=== PATIENT | male | born 1970 | race Caucasian/White ===

== ENCOUNTER 2024-11-18 12:03 | Emergency (ER) | payer SELFPAY ==
[2024-11-18 12:03] VITALS: BP 127/76; PULSE 111; RESP 20; TEMP 36.9; O2SAT 97; BMI 33.0
--- NOTE | 2024-11-18 12:17 | EKG12_ITS ---
Test Reason : GENERAL ILLNESS Blood Pressure : */* mmHG Vent. Rate : 100 BPM Atrial Rate : 100 BPM P-R Int : 154 ms QRS Dur : 146 ms QT Int : 386 ms P-R-T Axes : 8 41 14 degrees QTcB Int : 497 ms Normal sinus rhythm Right bundle branch block Abnormal ECG Confirmed by CAROL GHOTRA, HUY ([id number]), index editor IWONA MONK ([id number]) on 11/20/2024 7:43:14 AM Referred By: MELISSA Confirmed By: HUY MEDINA MD
--- NOTE | 2024-11-18 12:18 | EX.ED.DYSGE1 ---
HPI History of Present Illness Chief Complaint: Cold Sx Narrative Narrative: 53-year-old male presents with his mother because of upper respiratory infection type symptoms that he has had for at least last 5 to 7 days. States he has had scratchy sore throat, sinus problems for which his primary care physician is having him take allergy pills. States he had diarrhea before all of this started. He has occasional cough and shortness of breath but he has history of asthma. [place] feverish as well. Intermittent headaches. He states that he went to urgent care, and had a very brief moment of fleeting chest pain, and when he mentioned that to the provider, she stopped everything and told him to go to the ER because he was having chest pain. He states those symptoms have resolved. [facility] Medical History (Updated 11/18/24 @ 14:32 by Holger Jain MD) Seasonal allergies Asthma Home Medications ?Medication ?Instructions ?Recorded ?Last Taken ?Type albuterol sulfate 90 mcg/actuation 2 puff inhalation Q4H PRN wheezing 11/18/24 Unknown History aerosol inhaler amoxicillin 875 mg-potassium 1 tab PO BID 11/18/24 11/18/24 History clavulanate 125 mg tablet fluticasone propionate 50 1 spray intranasal BID nasal 11/18/24 11/18/24 History mcg/actuation nasal congestion spray,suspension metformin 500 mg tablet,extended 500 mg PO BID 11/18/24 Unknown History release 24 hr Allergy/AdvReac Type Severity Reaction Status Date / Time Iodinated Contrast Media Allergy Hives Verified 11/18/24 12:06 (IVP dye) shellfish derived Allergy Hives Verified 11/18/24 12:06 Sulfa (Sulfonamide Allergy Hives Verified 11/18/24 12:06 Antibiotics) Social History Smoking Status: Never smoker ROS ROS ED ROS Narrative Review of systems positive for subjective fever, sore throat, rhinorrhea and sinus pressure. Previous diarrhea over a week ago. Positive lightheadedness. Positive shortness of breath with history of asthma, occasional cough. EXAM Physical Exam Narrative Exam Narrative: Afebrile. Vital signs noted. Nontoxic-appearing. Cardiovascular examination reveals a regular rate and rhythm. Lungs clear to auscultation bilaterally. Abdomen is soft and nontender without guarding or rebound. Positive bowel sounds. Neurological examination nonfocal, nonlateralizing, moves all extremities, able to lay down on cot independently. Airway patent. No drooling or trismus. No pharyngeal erythema or exudate. Const Vital Signs: 11/18/24 12:03 11/18/24 12:31 11/18/24 14:03 Temperature 98.5 F Temperature Source Oral Pulse Rate 111 H 95 Respiratory Rate 20 H 16 Respiratory Effort Short of Breath Respiratory Pattern Normal Blood Pressure 127/76 H 150/90 H Blood Pressure Mean 93 110 Pulse Ox 97 100 Oxygen Delivery Method Room Air Room Air 11/18/24 15:40 Temperature 97.8 F Temperature Source Pulse Rate 78 Respiratory Rate 16 Respiratory Effort Respiratory Pattern Blood Pressure 148/72 H Blood Pressure Mean 97 Pulse Ox 98 Oxygen Delivery Method MDM MDM MDM Narrative Medical decision making narrative: Differential diagnosis includes but not limited to pneumonia versus bronchitis versus viral syndrome versus seasonal allergies. At this point in time, I will obtain an EKG, but clinically I doubt ACS as he is not currently having chest pain and it was very fleeting. I will obtain a chest x-ray in 2 views to rule out pneumonia and pneumothorax. Initially was tachycardic in triage so I will check his CBC and BMP to look for dehydration and anemia. He was bolused normal saline as well. Patient states that he already took prednisone earlier in the month. He states he usually gets laryngitis and bronchitis and sinusitis together. EKG was obtained and interpreted by myself independently as normal sinus rhythm at 100 bpm without ectopy or acute ST changes. No STEMI. There is a right bundle branch block, but no prior with which to compare. I reviewed his laboratory work and he has normal white count of 8.2 with hemoglobin normal at 16.0, hematocrit 45.3. Platelet count normal at 208. BMP obtained and there is no evidence of dehydration with a BUN normal at 10 and creatinine 1.03, normal sodium 135 and potassium 4.2. Glucose elevated at 166 but normal anion gap of 13. Initial high-sensitivity troponin is 9. Chest x-ray interpreted by myself independently shows no evidence of pneumonia or pneumothorax. Upon repeat evaluation, patient is resting comfortably under the covers of his cot. He states he feels improved. I will let the rest of the fluid bolus infused as he awaits his second troponin. As long as a second troponin shows an acceptable delta, I do feel he can be discharged as he only had brief, fleeting chest pain, but that was the reason he was sent by urgent care. I reviewed his second troponin is 8 for an acceptable delta troponin and I feel he has been ruled out with biomarkers for ACS. I feel that he can be ruled out with biomarkers. I do not feel antibiotics are indicated. He will follow-up with his primary care provider. Return instructions to the emergency department were reviewed. Disposition is discharged home in stable condition. History & Record Review Discussion w/independent historian: Patient and Family (Mother) Lab Data Attestation: I reviewed the patient's lab results. Labs: Laboratory Results - last 24 hr 11/18/24 11/18/24 12:26 14:21 WBC 8.2 RBC 5.05 Hgb 16.0 Hct 45.3 MCV 89.7 MCH 31.7 MCHC 35.3 RDW Std Deviation 41.3 RDW Coeff of Lucio 12.6 Plt Count 208 MPV 10.7 Immature Gran % (Auto) 0.500 Neut % (Auto) 81.8 H Lymph % (Auto) 9.0 L [place] % (Auto) 6.2 Eos % (Auto) 1.6 Baso % (Auto) 0.9 Absolute Neuts (auto) 6.7 Absolute Lymphs (auto) 0.74 L Nucleated RBC % 0 Sodium 135 Potassium 4.2 Chloride 102 Carbon Dioxide 20.0 L Anion Gap 13 BUN 10 Creatinine 1.03 Estim Creat Clear Calc 101.20 Est GFR (MDRD) Non-Af 87 BUN/Creatinine Ratio 9.3 L Glucose 166 H Calcium 9.0 Troponin T High Sens 9 Troponin T Hi Sens 2 Hr 8 Radiography Diagnostic Testing: Clinical Impression(s) from Imaging Studies Chest X-Ray 11/18/24 12:30 IMPRESSION: NEGATIVE CHEST Reading Location: [id number] Discharge Plan Triage Chief Complaint: Cold Sx ED Provider: Holger Jain Dx/Rx/DC Orders Clinical Impression: URI (upper respiratory infection), Viral syndrome, Chest pain Instructions: ED Chest Pain, Uncertain Cause, ED Viral Syndrome (Adult), ED URI, Viral, No Abx (Adult) Prescriptions: No Action albuterol sulfate 90 mcg/actuation HFA aerosol inhaler 2 puff inhalation Q4H PRN (Reason: wheezing) amoxicillin-pot clavulanate 875-125 mg tablet 1 tab PO BID Patient Comments: STARTED ON 11/18/24, ENDS ON 11/24/24. metformin 500 mg tablet extended release 24 hr 500 mg PO BID fluticasone propionate 50 mcg/actuation spray,suspension 1 spray INTRANASAL BID Stand Alone Forms: ED Work / School Excuse Primary Care Provider: Tiffany Chavez NP Referrals: Tiffany Chavez PT SITTER, PT SITTER-C [Primary Care Provider] - 3-5 Days if not improving Activity Restrictions/Additional Instructions: Continue [id number] medications as needed. Follow-up with your primary care provider soon as possible. Return with increased chest pain, new or worsening symptoms. Print Language: Prydeinig Disposition Disposition: Home, Self Care Discharge Date/Time: 11/18/24 15:41
[2024-11-18] MEDS: 0.9% Normal Saline (1000mL) 1,000 ML 999 ML IV (12:26)
--- NOTE | 2024-11-18 12:30 | RAD_ITS ---
PROCEDURE: CHEST PA AND LATERAL 11/18/2024 REASON FOR EXAM: SHORTNESS OF BREATH, COUGH TECHNIQUE: CHEST PA AND LATERAL COMPARISON: None. FINDINGS: Hardware: None. Heart: The heart size is normal. Mediastinum: The mediastinal contour is unremarkable. Lungs: No focal consolidation, pleural effusion or pneumothorax. Bones: Degenerative changes are identified within the thoracic spine. RAD/Chest PA and Lateral IMPRESSION: NEGATIVE CHEST Reading Location: [id number]
[2024-11-18 12:32] LABS: Absolute Lymphocyte Count 0.74 X10^3/uL (0.83-4.51); Absolute Neutrophil Count 6.7 X10^3/uL (2.0-7.7); Basophil# 0.07 X10^3/uL; Basophil% 0.9 % (0-1); Eosinophil# 0.13 X10^3/uL; Eosinophils% 1.6 % (0-5); Hematocrit 45.3 % (40-54); Lymphocyte # 0.74 X10^3/ul (0.83-4.51); Mean Corp Hgb Conc 35.3 g/dL (32-36); Mean Corpuscular Hgb 31.7 pg (27.0-32.0); Mean Corpuscular Volume 89.7 fL (80-94); Mean Platelet Vol. 10.7 fl (6.2-12.0); Monocyte# 0.51 X10^3/uL; Monocyte% 6.2 % (0-10); NRBC Flagged by Analyzer 0 % (0-5); Neutrophil % 81.8 % (47-70); Platelet Count 208 K/mm3 (150-450); RBC Distribution Width CV 12.6 % (11.6-14.6); RBC Distribution Width SD 41.3 fl (35.1-43.9); Red Blood Count 5.05 M/mm3 (4.6-6.2); White Blood Count 8.2 K/mm3 (4.4-11.0)
--- OUTSIDE RECORDS SUMMARY | 2024-11-18 12:47 | XMS RPT_ITS | CCD ---
Author Organization [facility] Care Team Providers Care Screen Repairer Crusher Name Role Phone Rodney GHOTRA, Evelyn Primary Care Provider Queden SLIPPER MAKER.KEVEN, Tiffany A Primary Care Provider Queden SLIPPER MAKER.Paris BACAtny A Primary Care Provider Queden SLIPPER MAKER.MONKEY KEEPER, Tiffany A Primary Care Provider Queden SLIPPER MAKER.Paris BACAtny A Primary Care Provider Sarah Garcia RN Unavailable Unavailable Queden SLIPPER MAKER.MONKEY KEEPER, Tiffany A Primary Care Provider Evelyn Stevens MD Primary Care Provider QUEDEN, TIFFANY A Referring Unavailable BENTLEY AL Attending Unavailable QUEDEN, TIFFANY A Primary Care Unavailable QUEDEN, TIFFANY A Referring Unavailable QUEDEN, TIFFANY A Primary Care Unavailable QUEDEN, TIFFANY A Referring Unavailable QUEDEN, TIFFANY A Primary Care Unavailable QUEDEN, TIFFANY A Referring Unavailable QUEDEN, TIFFANY A Primary Care Unavailable QUEDEN, TIFFANY A Primary Care Unavailable NARCISO III, SEBAS F Referring Unavailabl e PROCK, MISA A Admitting Unavailable PROCK, MISA A Attending Unavailable QUEDEN, TIFFANY Attending Unavailable QUEDEN, TIFFANY Primary Care Unavailable SELF Referring Unavailable QUEDEN, TIFFANY Attending Unavailable QUEDEN, TIFFANY Primary Care Unavailable SELF Referring Unavailable QUEDEN, TIFFANY Attending Unavailable QUEDEN, TIFFANY Primary Care Unavailable QUEDEN, TIFFANY Referring Unavailable QUEDEN, TIFFANY Primary Care Unavailable QUEDEN, TIFFANY Primary Care Unavailable KATI CHRISTIAN Attending Unavailable QUEDEN, TIFFANY Primary Care Unavailable QUEDEN, TIFFANY Attending Unavailable QUEDEN, TIFFANY Primary Care Unavailable QUEDEN, TIFFANY Attending Unavailable SELF Referring Unavailable QUEDEN, TIFFANY Primary Care Unavailable QUEDEN, TIFFANY Attending Unavailable QUEDEN, TIFFANY Attending Unavailable QUEDEN, TIFFANY Primary Care Unavailable SELF Referring Unavailable SELF Referring Unavailable QUEDEN, TIFFANY A Primary Care Unavailable QUEDEN, TIFFANY A Primary Care Unavailable QUEDEN, TIFFANY A Primary Care Unavailable LIBRADO WASHINGTON Attending Unavailable QUEDEN, TIFFANY A Primary Care Unavailable REINA DUBON Attending Unavailable QUEDEN, TIFFANY A Primary Care Unavailable QUEDEN, TIFFANY A Primary Care Unavailable QUEDEN, TIFFANY A Primary Care Unavailable QUEDEN, TIFFANY A Primary Care Unavailable QUEDEN, TIFFANY A Primary Care Unavailable CASTRO HARRY Attending Unavailable Allergies Allergy Classification Reported Allergen(s) Allergy Type Date of Onset Reaction(s) Facility Iodine (and Iodine containting drugs) (1 source) Iodine Drug Allergy 04-12-20 05 [facility] Shellfish (1 source) Shellfish Food Allergy 12-14-19 17 [facility] Sulfamethoxazole / Trimethoprim (1 source) Sulfamethoxazole / Trimethoprim Drug Allergy 04-12-20 05 [facility] Work Phone: Sulfonamides (antibiotic) (1 source) Sulfonamides (Antibiotic) Drug Allergy 04-12-20 05 [facility] Triclosan (1 source) Triclosan Drug Allergy 07-26-19 13 [facility] (20 sources) Iodine; Translations: [IODINE] Drug Allergy 04-12-20 [facility] Work Phone: (20 sources) Shellfish; Translations: [SHELLFISH DERIVED] Drug Allergy 12-14-19 17 [facility] (20 sources) Sulfamethoxazole / Trimethoprim; Translations: [SULFAMETHOXAZOLE-T RIMETHOPRIM] Drug Allergy 04-12-20 [facility] Work Phone: (20 sources) Sulfonamides (Antibiotic); Translations: [SULFA (SULFONAMIDE ANTIBIOTICS)] Propensity to adverse reactions 04-12-20 05 [facility] Work Phone: (20 sources) Triclosan; Translations: [TRICLOSAN] Drug Allergy 07-26-19 13 [facility] (20 sources) hand creams [Other] Propensity to adverse reactions 04-12-20 [facility] Work Phone: (20 sources) Seasonal allergy; Translations: [SEASONAL ALLERGIES] Allergy to substance 03-18-20 Other: See Comments, Intolerance [facility] Medications Current Medications Medication Drug Class(es) Dates Sig (Normalized) Sig (Original) Acetaminophen (20 sources) acetaminophen (T YLENOL ORAL) Take by mouth as needed. Active acetaminophen (T YLENOL ORAL) Take by mouth as needed. 0 Active Comment on above: Take by mouth as nee ded. [id number] 200 actuat albuterol 0.09 mg/actuat metered dose inhaler (20 sources) beta2-Adrenergic Agonist Start: take 2 puff(s) by inhalation every four hours as needed for wheezing albuterol HFA (PROVENTIL HFA, VENTOLIN HFA) 90 mcg/actuation inhaler Indications: Mild intermittent asthma with acute exacerbation (HCC) Inhale 2 puffs as instructed every 4 hours as needed for wheezing/shortness of breath. 1 each 11/14/2024 Active Start: 10-19-2024 End: 11-14-2024 take 2 puff(s) by inhalation every four hours as needed for wheezing albuterol HFA (PROVENTIL HFA, VENTOLIN HFA) 90 mcg/actuation inhaler Indications: Mild intermittent asthma with acute exacerbation (HCC) Inhale 2 puffs as instructed every 4 hours as needed for wheezing/shortness of breath. 1 each 10/19/2024 11/14/2024 Discontinued Start: 08-21-2023 End: 11-05-2024 take 2 puff(s) by inhalation every six hours as needed for wheezing albuterol HFA (PROAIR HFA) 90 mcg/actuation inhaler 2 Puffs every 6 hours as needed for wheezing/shortness of breath. Take as directed 1 Each 08/21/2023 11/05/2024 Discontinued (Course of therapy completed) Start: 01-07-2022 End: 08-20-2023 take 2 puff(s) by inhalation every four hours as needed for wheezing albuterol HFA (PROAIR HFA) 90 mcg/actuation inhaler Indications: Mild intermittent asthma with acute exacerbation Inhale 2 Puffs as instructed every 4 hours as needed for wheezing/shortness of breath. 6.7 g 01/07/2022 08/20/2023 Discontinued Start: 02-02-2021 End: 01-07-2022 take 2 puff(s) by inhalation every six hours as needed for wheezing albuterol HFA (PROAIR HFA) 90 mcg/actuation inhaler Indications: Mild intermittent asthma, uncomplicated Inhale 2 Puffs as instructed every 6 hours as needed for wheezing/shortness of breath. 8 g 1 11/05/2021 01/07/2022 Discontinued Start: 01-31-2018 End: 02-02-2021 take 2 puff(s) by inhalation every six hours as needed albuterol HFA (PROAIR HFA) 90 mcg/actuation inhaler Indications: Acute bacterial sinusitis Inhale 2 Puffs as instructed every 6 hours as needed. 1 Inhaler 1 01/31/2018 02/02/2021 Discontinued (Course of therapy completed) Comment on above: Inhale 2 Puffs as in structed every 6 hours as needed for wheezing/shortness of breath. Inhale 2 Puffs as in structed every 4 hours as needed for wheezing/shortness of breath. 2 Puffs every 6 hour s as needed for wheezing/shortness of breath. Take as directed amoxicillin 875 mg / clavulanate 125 mg oral tablet (9 sources) Penicillin-class Antibacterial Start: 11-17-19 End: 11-24-19 take 1 tablet by mouth twice daily amoxicillin-clavu lanate potassium (AUGMENTIN) 875-125 mg per tablet Indications: Bacterial sinusitis Take 1 tablet by mouth two times a day for 7 days. 14 tablet 11/16/2024 11/23/2024 Active Start: 10-19-2024 End: 10-26-2024 take 1 tablet by mouth every twelve hours amoxicillin-clavulanate potassium (AUGMENTIN) 875-125 mg per tablet Take 1 tablet by mouth every 12 hours for 7 days. 14 tablet 10/19/2024 10/26/2024 Active Start: 07-19-2024 End: 07-26-2024 take 1 tablet by mouth twice daily amoxicillin-clavulanate potassium (AUGMENTIN) 875-125 mg per tablet Take 1 tablet by mouth two times a day for 7 days. 14 tablet 07/19/2024 07/26/2024 Active Start: 06-21-2024 End: 07-01-2024 take 1 tablet by mouth every twelve hours amoxicillin-clavulanate potassium (AUGMENTIN) 875-125 mg per tablet Indications: Acute non-recurrent maxillary sinusitis Take 1 tablet by mouth every 12 hours for 10 days. 20 tablet 06/21/2024 07/01/2024 Active Start: 04-03-2024 End: 04-13-2024 take 1 tablet by mouth every twelve hours amoxicillin-clavulanate potassium (AUGMENTIN) 875-125 mg per tablet Indications: URI, acute Take 1 tablet by mouth every 12 hours for 10 days. 20 tablet 04/03/2024 04/13/2024 Active Start: 08-13-2022 End: 08-23-2022 take 1 tablet by mouth every twelve hours amoxicillin-clavulanic acid (AUGMENTIN) 875-125 mg per tablet Indications: Non-recurrent acute suppurative otitis media of left ear without spontaneous rupture of tympanic membrane Take 1 tablet by mouth every 12 hours for 10 days. 20 tablet 0 08/13/2022 08/23/2022 Active Comment on above: Take 1 tablet by judy every 12 hours for 10 days. azelastine hydrochloride 0.137 mg/actuat metered dose nasal spray (1 source) Histamine-1 Receptor Antagonist Start: 11-17-19 take 1 spray(s) nasal route twice daily azelastine 0.1% nasal spray Indications: Bacterial sinusitis , Seasonal allergic rhinitis due to other allergic trigger Use 1 spray in each nostril two times a day. 30 mL 2 11/16/2024 Active azithromycin 250 mg oral tablet (2 sources) Macrolide Antimicrobial Start: 04-20-20 End: 04-25-20 azithromycin (ZITHROMAX Z-ANDREY) 250 mg tablet Take 2 tablets day one, then, 1 tablet daily until gone. 6 tablet 04/20/2024 04/25/2024 Active benoxinate hydrochloride 4 mg/ml / fluorescein sodium 2.5 mg/ml ophthalmic solution (1 source) Diagnostic Dye Start: 12-07-19 End: 07-04-20 23 fluorescein-benoxina te 0.25-0.4 % 1 Drop (FLURESS) Blood-Glucose Meter (RELION PRIME METER) (20 sources) Start: 10-30-19 Blood-Glucose Meter (RELION PRIME METER) 1 Each four times daily. 1 Each 10/29/2021 Active Start: 10-29-2021 Blood-Glucose Meter (RELION PRIME METER) 1 Each four times daily. 1 Each 0 10/29/2021 Active Comment on above: 1 Each four times da indigo. cetirizine hydrochloride 10 mg oral tablet (7 sources) Histamine-1 Receptor Antagonist Start: 10-18-19 End: 11-17-19 take 1 tablet by mouth once daily cetirizine (ZYRTEC) 10 mg tablet Indications: Seasonal allergic rhinitis due to other allergic trigger Take 1 tablet by mouth once daily. 30 tablet 11/16/2024 Active fluticasone propionate 0.05 mg/actuat metered dose nasal spray (20 sources) Corticosteroid Start: 08-31-19 End: 11-17-19 take 1 spray(s) nasal route twice daily fluticasone (FLONASE ALLERGY RELIEF) 50 mcg/actuation nasal spray Indications: Bacterial sinusitis , Seasonal allergic rhinitis due to other allergic trigger Use 1 spray in each nostril two times a day. 11/16/2024 Active Start: 05-17-2024 End: 08-30-2024 take 1 spray(s) nasal route once daily fluticasone (FLONASE) 50 mcg/actuation nasal spray Indications: Eustachian tube dysfunction, bilateral Use 1 [place] in each nostril once daily. 05/17/2024 08/30/2024 Discontinued Start: 01-07-2022 End: 08-20-2023 take 1 spray(s) nasal route once daily fluticasone (FLONASE ALLERGY RELIEF) 50 mcg/actuation nasal spray Indications: Viral URI with cough Use 1 [place] in each nostril once daily. 9.9 mL 01/07/2022 08/20/2023 Discontinued Comment on above: Use 1 [place] in each nostril once daily. ketoconazole 20 mg/ml medicated shampoo (4 sources) Azole Antifungal Start: 08-27-2022 End: 09-26-2022 ketoconazole (NIZORAL) 2 % shampoo Indications: Seborrheic dermatitis of scalp Apply to affected area every 72 hours. 120 mL 2 08/27/2022 09/26/2022 Active Start: 08-27-2022 End: 09-26-2022 ketoconazole (NIZORAL) 2 % c ream Indications: Seborrheic dermatitis of scalp Apply to affected area once daily. 30 g 2 08/27/2022 09/26/2022 Active Comment on above: Apply to affected ar ea every 72 hours. Apply to affected ar ea once daily. 24 hr metFORMIN hydrochloride 500 mg extended release oral tablet (20 sources) Biguanide Start: End: take 2 tablets by mouth once daily metFORMIN ER (GLUCOPHAGE XR) 500 mg 24 hr tablet Indications: Type 2 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) Take 2 tablets by mouth once daily. 180 tablet 1 10/30/2024 Active Start: 02-16-2022 End: 01-17-2023 take 2 tablets by mouth once daily metFORMIN ER (GLUCOPHAGE XR) 500 mg 24 hr tablet Indications: Type 2 diabetes mellitus without complication, with long-term current use of insulin (HCC) Take 2 tablets by mouth once daily. 180 tablet 1 02/16/2022 06/30/2022 Discontinued Start: 11-05-2021 End: 02-11-2022 take 2 tablets by mouth once daily metFORMIN ER (GLUCOPHAGE XR) 500 mg 24 hr tablet Indications: Type 2 diabetes mellitus without complication, with long-term current use of insulin (HCC) Take 2 tablets by mouth once daily. 120 tablet 1 02/12/2022 Active Comment on above: Take 2 tablets by mo ut once daily. TAKE 2 TABLETS BY MO UT ONCE DAILY oseltamivir 75 mg oral capsule (2 sources) Neuraminidase Inhibitor Start: 08-21-19 End: 08-25-19 take 1 capsule by mouth twice daily oseltamivir (TAMIFLU) 75 mg capsule Take 1 capsule by mouth two times a day for 7 doses. 7 capsule 0 08/21/2023 08/25/2023 Active Comment on above: Take 1 capsule by mo ut two times a day for 7 doses. phenylephrine hydrochloride 25 mg/ml ophthalmic solution (1 source) alpha-1 Adrenergic Agonist Start: 12-07-19 End: 12-08-19 PHENYLephrine 2.5 % 1 Drop (AK-DILATE, CUATE-SYNEPHRINE) predniSONE 10 mg oral tablet (3 sources) Start: 11-06-19 End: 11-12-19 take 6 tablets by mouth once daily, then take 5 tablets by mouth once daily, then take 4 tablets by mouth once daily, then take 3 tablets by mouth once daily, then take 2 tablets by mouth once daily, then take 1 tablet by mouth once daily predniSONE (DELTASONE) 10 mg tablet Indications: Voice hoarseness , Acute cough Take 6 tablets by mouth once daily for 1 day, THEN 5 tablets once daily for 1 day, THEN 4 tablets once daily for 1 day, THEN 3 tablets once daily for 1 day, THEN 2 tablets once daily for 1 day, THEN 1 tablet once daily for 1 day. 21 tablet 11/05/2024 11/11/2024 Active Start: 10-17-2024 End: 10-26-2024 take 3 tablets by mouth once daily, then take 2 tablets by mouth once daily, then take 1 tablet by mouth once daily predniSONE (DELTASONE) 10 mg tablet Indications: Viral URI with cough , Otalgia of both ears , Headache, unspecified headache type Take 3 tablets by mouth once daily for 3 days, THEN 2 tablets once daily for 3 days, THEN 1 tablet once daily for 3 days. 18 tablet 10/17/2024 10/26/2024 Active sodium chloride 0.111 meq/ml nasal spray (10 sources) Start: 11-16-2024 sodium chlorid e (SALINE NASAL) 0.65 % nasal spray Indications: Seasonal allergic rhinitis due to other allergic trigger Use 1 spray in the nose two times a day. 11/16/2024 Active Start: 08-30-2024 End: 11-16-2024 sodium chloride (SALINE MIST ) 0.65 % nasal spray Indications: Viral upper respiratory tract infection with cough Use 1 [place] in the nose as needed. 15 mL 08/30/2024 11/16/2024 Discontinued (Course of therapy completed) tropicamide 10 mg/ml ophthalmic solution (1 source) Anticholinergic Start: 12-06-2022 End: 12-07-2022 tropicamide 1 % 1 Drop (MYDRIACYL) Completed/Discontinued Medications Medication Drug Class(es) Dates Sig (Normalized) Sig (Original) albuterol 0.833 mg/ml / ipratropium bromide 0.167 mg/ml inhalation solution (2 sources) Anticholinergic, beta2-Adrenergic Agonist Start: 10-19-2024 End: 10-19-2024 ipratropium-albute rol 3 mL nebulizer solution (DUONEB) Start: 10-19-2024 End: 10-19-2024 take 1 dose by inhalation once 3 mL, INHALATION, ONCE, 1 dose, On Tue10/19/24 at 1000, PROTECT FROM LIGHT. The unit-dose vial should remain stored in the protective foil pouch until time of use. benzonatate 100 mg oral capsule (9 sources) Non-narcotic Antitussive Start: 04-03-2024 End: 05-17-2024 take 1 capsule by mouth three times daily as needed for cough benzonatate (TESSALON PERLES) 100 mg capsule Indications: Acute cough Take 1 capsule by mouth three times a day as needed for cough. 30 capsule 04/03/2024 05/17/2024 Discontinued (Discontinued by Patient) Start: 11-01-2023 End: 12-27-2023 take 1 capsule by mouth every eight hours as needed benzonatate (TESSALON PERLES) 100 mg capsule Take 1 capsule by mouth three times a day as needed for cough. 12 capsule 0 11/01/2023 12/27/2023 Discontinued (Course of therapy completed) brompheniramine maleate 0.4 mg/ml / dextromethorphan hydrobromide 2 mg/ml / pseudoephedrine hydrochloride 6 mg/ml oral solution (14 sources) alpha-Adrenergic Agonist, Uncompetitive L-xibqez-W-aspartate Receptor Antagonist, Sigma-1 Agonist Start: 10-17-2024 End: 11-16-2024 take 5-10 mL by mouth every six hours as needed Dvmdikgwklbwbsm-Ygmqctpgx-UI (BROMFED DM) 2-30-10 mg/5 mL syrup Take 5-10 mL by mouth four times a day as needed. 240 mL 11/05/2024 11/16/2024 Discontinued (Course of therapy completed) Start: 08-30-2024 End: 11-05-2024 take 10 mL by mouth every eight hours as needed Dwjcxzxqabdgpjm-Odlbowovw-NO (BROMFED DM ) 2-30-10 mg/5 mL syrup Indications: Viral upper respiratory tract infection with cough Take 10 mL by mouth every 8 hours as needed. 118 mL 08/30/2024 11/05/2024 Discontinued (Course of therapy completed) 12 hr cetirizine hydrochloride 5 mg / pseudoephedrine hydrochloride 120 mg extended release oral tablet (20 sources) alpha-Adrenergic Agonist, Histamine-1 Receptor Antagonist Start: 02-10-2022 End: 04-12-2023 take 1 tablet by mouth every twelve hours as needed cetirizine-pseudoephedrine (ZYRTEC-D) 5-120 mg per tablet Take 1 tablet by mouth twice daily as needed. 10 tablet 02/10/2022 04/05/2022 Discontinued Comment on above: Take 1 tablet by judy th twice daily as needed. Take 1 tablet by judy th two times a day as needed. cyclobenzaprine hydrochloride 5 mg oral tablet (17 sources) Muscle Relaxant Start: 11-08-2022 End: 11-08-2022 take 1 tablet by mouth at bedtime as needed cyclobenzaprine (FLEXERIL) 5 mg tablet Indications: Muscle soreness Take 1 tablet by mouth at bedtime as needed. 30 tablet 0 11/08/2022 Active Start: 02-22-2022 End: 03-04-2022 take 1 tablet by mouth every twelve hours as needed cyclobenzaprine (FLEXERIL) 10 mg tablet Take 1 tablet by mouth twice daily as needed for muscle spasm for up to 10 days. 20 tablet 0 02/22/2022 03/04/2022 Active Comment on above: Take 1 tablet by judy th twice daily as needed for muscle spasm for up to 10 days. Take 1 tablet by judy th at bedtime as needed. Take 1 tablet by judy th three times daily. DULoxetine 30 mg delayed release oral capsule (5 sources) Serotonin and Norepinephrine Reuptake Inhibitor Start: 02-18-20 21 End: 02-18-20 22 take 2 capsules by mouth once daily DULoxetine (CYMBALTA) 30 mg capsule Take 2 capsules by mouth once daily. 180 capsule 3 02/17/2021 11/05/2021 Discontinued (Course of therapy completed) Comment on above: Take 2 capsules by out once daily. glipiZIDE er 5 mg 24 hr extended release oral tablet (3 sources) Sulfonylurea Start: 12-03-19 End: 01-02-20 take 1 tablet by mouth once daily glipiZIDE (GLUCOTROL XL) 5 mg 24 hr tablet Take 1 tablet by mouth once daily. 30 tablet 3 12/02/2021 12/04/2021 Discontinued Comment on above: Take 1 tablet by judy th once daily. 12 hr guaiFENesin 600 mg extended release oral tablet (20 sources) Start: 01-08-20 End: 08-20-19 take 1 tablet by mouth twice daily guaiFENesin (MUCINEX) 600 mg 12 hr tablet Indications: Viral URI with cough Take 1 tablet by mouth twice daily. 30 tablet 01/07/2022 08/20/2023 Discontinued Comment on above: Take 1 tablet by judy th twice daily. homeopathic drugs (SINUS ORAL) (1 source) homeopathic drug s (SINUS ORAL) Take by mouth as needed. 0 Active Comment on above: Take by mouth as nee ded. ibuprofen 200 mg oral tablet (18 sources) Nonsteroidal Anti-inflammatory Drug Start: 01-11-20 End: 01-11-20 take 1-2 tablets by mouth every four hours as needed for pain ibuprofen (MOTRIN) 200 mg tablet Indications: Viral URI with cough Take 1-2 tablets by mouth every 4 hours as needed for pain. 30 tablet 0 01/11/2024 01/11/2024 Discontinued Start: 10-14-2022 take 1 tablet by judy th every six hours as needed ibuprofen (MOTRIN) 600 mg tablet Take 1 tablet by mouth every 6 hours as needed for pain. 28 tablet 0 10/14/2022 Active IBUPROFEN ORAL T jimmy by mouth as needed. 0 Active Comment on above: Take by mouth as nee ded. Take 1 tablet by judy th every 6 hours as needed for pain. 3 ml insulin isophane, human 70 unt/ml / insulin, regular, human 30 unt/ml pen injector (7 sources) Insulin Start: 022 End: 022 insulin 70/30 NPH/regular units/mL (HUMULIN 70/30 U-100 KWIKPEN) 100 unit/mL (70-30) Inject 18 Units subcutaneously twice daily with meals. 12 mL 2 10/29/2021 12/02/2021 Discontinued Comment on above: Inject 18 Units subc utaneously twice daily with meals. loratadine 10 mg oral tablet (2 sources) Start: End: take 1 tablet by mouth once daily loratadine (CLARITIN) 10 mg tablet Indications: Seasonal allergies Take 1 tablet by mouth once daily. 90 tablet 04/24/2024 05/17/2024 Discontinued (Discontinued by Patient) meclizine hydrochloride 25 mg oral tablet (20 sources) Antiemetic Start: End: take 1 tablet by mouth every eight hours as needed for dizziness and dizziness meclizine (ANTIVERT) 25 mg tab Indications: Dizziness Take 1 tablet by mouth three times a day as needed. 30 tablet 05/17/2024 11/16/2024 Discontinued Start: 04-18-2024 End: 04-25-2024 take 1 tablet by mouth every eight hours as needed for dizziness and dizziness meclizine (ANTIVERT) 25 mg tab Indications: Dizziness Take 1 tablet by mouth three times a day as needed for up to 7 days. 21 tablet 04/18/2024 04/25/2024 Start: 02-10-2022 End: 04-12-2023 take 12.5-25 mg by mouth every eight hours as needed meclizine (ANTIVERT) 25 mg tab Take 0.5-1 tablets by mouth three times daily as needed (dizziness). 30 tablet 02/10/2022 04/12/2023 Discontinued (Duplicate Entry) Start: 12-27-2021 take 1 tablet by judy th every eight hours as needed meclizine (ANTIVERT) 25 mg tab Take 1 tablet by mouth three times daily as needed (dizziness). 15 tablet 0 12/27/2021 Active Start: 02-12-2021 End: 11-05-2021 take 1 tablet by mouth three times daily as needed for dizziness meclizine (ANTIVERT) 12.5 mg tab Indications: Acute EDA (middle ear effusion), bilateral Take 1 tablet by mouth three times daily as needed (for dizziness). 30 tablet 0 02/12/2021 11/05/2021 Discontinued (Course of therapy completed) End: 05-17-2024 meclizine HCl (MECLIZINE ORA L) Take by mouth. 05/17/2024 Discontinued Comment on above: Take 1 tablet by judy th three times daily as needed (for dizziness). Take 1 tablet by judy th three times daily as needed (dizziness). Take 0.5-1 tablets b y mouth three times daily as needed (dizziness). Take 1 tablet by judy th three times daily. Take 1 tablet by judy th three times a day. omeprazole 40 mg delayed release oral capsule (20 sources) Proton Pump Inhibitor Start: End: take 1 capsule by mouth once daily omeprazole (PRILOSEC) 40 mg capsule Take 1 capsule by mouth once daily. 30 capsule 5 10/26/2021 08/09/2022 Discontinued Start: 07-24-2016 End: 05-22-2021 omeprazole (PRILOSEC) 20 mg capsule Take 20 mg by mouth. 07/24/2016 05/22/2021 Discontinued Comment on above: Take 1 capsule by mo [facility] once daily. ondansetron 4 mg oral tablet (7 sources) Serotonin-3 Receptor Antagonist Start: 4 End: 4 take 1 tablet by mouth every eight hours as needed ondansetron (ZOFRAN) 4 mg tablet Take 1 tablet by mouth every 8 hours as needed for nausea/vomiting. 10 tablet 0 08/21/2023 12/27/2023 Discontinued (Course of therapy completed) Start: 02-15-2023 End: 02-22-2023 take 1 tablet by mouth every six hours as needed ondansetron orally disintegrating (ZOFRAN ODT) 4 mg disintegrating tablet Take 1 tablet by mouth every 6 hours as needed for nausea/vomiting for up to 7 days. 12 tablet 0 02/15/2023 02/22/2023 Active Comment on above: Take 1 tablet by judy th every 6 hours as needed for nausea/vomiting for up to 7 days. Take 1 tablet by judy th every 8 hours as needed for nausea/vomiting. oxymetazoline hydrochloride 0.5 mg/ml nasal spray (20 sources) Start: 10-17-2024 End: 11-16-2024 oxymetazoline (AFRIN, OXYMETAZOLINE,) 0.05 % nasal spray Indications: Viral URI with cough , Otalgia of both ears Use 2-3 sprays in each nostril two times a day. Use as directed. For a maximum of 3 (three) days. 22 mL 10/17/2024 11/16/2024 Discontinued (Course of therapy completed) Start: 01-11-2024 End: 05-17-2024 oxymetazoline (AFRIN, OXYMET AZOLINE,) 0.05 % nasal spray Indications: Viral URI with cough Use 2-3 Sprays in each nostril two times a day. Use as directed. For a maximum of 3 (three) days. 22 mL 01/11/2024 05/17/2024 Discontinued (Discontinued by Patient) pioglitazone 30 mg oral tablet (16 sources) Peroxisome Proliferator Receptor alpha Agonist,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 visit today, we recorded the following information about you: Sia Alonso APRN.CNP 08/31/2024 7:39 AM Signed Please review the below negative results if a call back is made. Phone number for patient is wrong, please update if a call back is made. COVID-19/flu/rsv negative; recommended to self-isolate until the following criteria are met: If you are symptomatic, the CDC recommends that people refrain from work/school and isolate themselves until - At least 24 hours have passed since last fever without the use of fever-reducing medications Other symptoms have improved Please continue with supportive care (rest and hydration) and follow up with primary care for any persistent or worsening symptoms. Please wear a mask when out in public after symptoms have improved. Allergies As of Date: 08/31/2024 Noted Allergy Reaction BACTRIM (SULFAMETHOXAZOLE-TRIM ETH*04/12/2005 4 - Hives HAND SOAP (TRICLOSAN) 07/26/2012 2 - Rash IVP DYE (IODINE) 04/12/2005 4 - Hives SEASONAL ALLERGIES 03/18/2022 5 - Intolerance Comments: Runny nose SHELLFISH DERIVED 12/13/2016 2 - Rash SULFA (SULFONAMIDE ANTIBIOTICS) 04/12/2005 4 - Hives Date Reviewed: 08/30/2024 Reviewed by: Sia Alonso APRN.MONKEY KEEPER - Fully Assessed Reason for Visit: Results [95] Prescriptions as of 08/31/2024 - Brompheniramine-Pseudo eph-DM (BROMFED DM) 2-30-10 mg/5 mL syrup Take 10 mL by mouth every 8 hours as needed. - sodium chloride (SALINE MIST) 0.65 % nasal spray Use 1 [place] in the nose as needed. - fluticasone (FLONASE ALLERGY RELIEF) 50 mcg/actuation nasal spray Use 1 [place] in each nostril two times a day. - metFORMIN ER (GLUCOPHAGE XR) 500 mg 24 hr tablet Take 2 tablets by mouth once daily. - meclizine (ANTIVERT) 25 mg tab Take 1 tablet by mouth three times a day as needed. - albuterol HFA (PROAIR HFA) 90 mcg/actuation inhaler 2 Puffs every 6 hours as needed for wheezing/shortness of breath. Take as directed - blood sugar diagnostic (RELION PRIME TEST STRIPS) test strip Use as instructed - Blood-Glucose Meter (RELION PRIME METER) 1 Each four times daily. - acetaminophen (TYLENOL ORAL) Take by mouth as needed. Meds Comments as of 12/06/2022: 12/06/22 The medications are managed by this patient by: PATIENT Chana SavageRHODA Problem List As Of Date 08/31/2024 Noted Resolved Mixed hyperlipidemia [E78.2] 04/24/2008 Sprain and Strain of Wrist [S63.509A, S66.919A] 08/14/2009 Abdominal pain, left lower quadrant [R10.32] 08/18/2010 Change in bowel function [R19.8] 08/18/2010 GERD (gastroesophageal reflux disease) [K21.9] 08/22/2010 Stress disorder, acute [F43.0] 08/22/2010 Seborrhea [L21.9] 08/22/2010 Gastritis/duodenitis [K29.70, K29.90] 09/02/2010 Duodenitis without mention of hemorrhage [K29.8*09/02/2010 Acute gastritis without mention of hemorrhage [*09/02/2010 Gastritis [K29.70] 09/18/2010 RUBÉN (obstructive sleep apnea) [G47.33] 02/21/2013 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] 08/01/2013 Backache, unspecified [M54.9] 08/01/2013 Chest pain [R07.9] 02/02/2015 10/29/2021 Headache [R51] 02/02/2015 Sleep apnea [G47.30] 02/25/2015 Primary insomnia [F51.01] 02/26/2015 Chronic left shoulder pain [M25.512, G89.29] 12/25/2018 Obesity, Class II, BMI 35-39.9 [E66.812] 01/13/2021 TIA (transient ischemic attack) [G45.9] 01/14/2021 Atypical chest pain [R07.89] 01/15/2021 Fatty liver disease, nonalcoholic [K76.0] 05/22/2021 New onset type 2 diabetes mellitus (HCC) [E11.9]10/26/2021 ROHAN (generalized anxiety disorder) [F41.1] 10/26/2021 Obesity, Class I, BMI 30-34.9 [E66.811] 10/29/2021 Type 2 diabetes mellitus without retinopathy (H*12/03/2021 Spondylolisthesis of lumbosacral region [M43.17]04/14/2022 Chronic bilateral low back pain without sciatic*09/01/2022 Influenza A [J10.1] 08/20/2023 Tachycardia [R00.0] 08/20/2023 08/21/2023 Acute midline low back pain without sciatica [M*03/12/2024 Dizziness [R42] 04/20/2024 Encounter Status:Closed by SIA ALONSO on 08/31/24 [facility] CNOVon 08-30-2024 CN Office Visit (EBENEZER ) CHANG SOLIS ([id number]) 1970 M Date Time Provider Department 08/30/24 3:25 PM SIA ALONSO During your visit today, we recorded the following information about you: Temperature Pulse Respiration Blood pressure 98 degrees 102/minute 16/minute 125/75 Weight 109 kg Sia Alonso APRN.MONKEY KEEPER 08/30/2024 3:46 PM Addendum (J06.9) Viral upper respiratory tract infection with cough (primary encounter diagnosis) Plan: Brompheniramine-Pseudo eph-DM (BROMFED DM) 2-30-10 mg/5 mL syrup, sodium chloride (SALINE MIST) 0.65 % nasal spray, fluticasone (FLONASE ALLERGY RELIEF) 50 mcg/actuation nasal spray (R42) Dizziness (H92.03) Acute otalgia, bilateral Plan: Education on viral vs bacterial infections. Most viral infections will last 2-3 weeks. It is possible to have back to back viral infections. An antibiotic will not treat a virus. -Viral test for rule out, results in 24 hours, isolation in the interim. [facility] -Bromfed for cough/congestion. -Drink lots of fluids and get plenty of rest. -Vaporizers, cool mist humidifiers, warm showers, and warm fluids help open respiratory and sinus passages. Clean humidifiers daily. -OTC tylenol as directed on the bottle. -Saline nasal spray as needed. Flonase twice daily can help reduce inflammation through the sinus cavities. -Cough/deep breathing education, promote clearing of the airways and good lung expansion. -Make follow up with primary care for monitoring and resolution in symptoms. -Signs that warrant an ER evaluation: Sudden change/worsening in condition, lethargy, signs of dehydration, fever greater than 102 F that is not responding to Tylenol or ibuprofen (Motrin, Advil), drooling, difficulty swallowing, difficulty breathing, shortness of breath, chest pain, evidence of airway compromise (tripod position, neck extension, retractions), seizures, changes in mental status, or other concerns. Sia Alonso APRN.MONKEY KEEPER 08/30/2024 3:52 PM Signed [facility] Subjective Chang Solis is a 53 year old male. Patient presents with: Dizziness: Dizzy. Coughing. Runny nose. Blood when blowing nose. Head aches. Both ears achy and pain. Sinus pressure. Fever. Diarrhea. Going on for about 2-3 weeks. Diarrhea started recently. HPI by patient: Chang Solis is a 53 year old presenting to the office with the complaint of dizziness. Started approximately 2-3 weeks ago. Associated symptoms include new congestion, cough, feeling hot/cold. Covid Immunization Dates Current Care Gaps Covid-19 Vaccine ( season) Overdue since 02/05/2024 08/09/2022 Postponed until 08/10/2023 by Marie Bah MA (Declined at this time) 08/01/2021 Imm Admin: COVID-19 original vaccine, full dose, monovalent (MODERNA) 10/28/2020 Imm Admin: COVID-19 original vaccine, full dose, monovalent (MODERNA) 09/26/2020 Imm Admin: COVID-19 original vaccine, full dose, monovalent (MODERNA) 09/04/2020 Imm Admin: COVID-19 original vaccine, full dose, monovalent (MODERNA) Only the first 5 history entries have been loaded, but more history exists. Sick contacts: none. Smoking history/second hand smoke: none. OTC not helping. No antibiotic use in the last 60 days. ALLERGIES Bactrim [Sulfametho* Hives Hand Soap [Triclosa* Rash Ivp Dye [Iodine] Hives Seasonal Allergies Intolerance Comment:Runny nose Shellfish Derived Rash Sulfa (Sulfonamide * Hives Family History Reviewed Including Cardiac Diseases, Psychiatric Diseases, AND Substance Abuse Problem: Hypertension Relation: Mother Age of Onset: (Not Specified) Problem: Lipids Relation: Mother Age of Onset: (Not Specified) Problem: No Ocular Disease Relation: Mother Age of Onset: (Not Specified) Problem: Cancer Relation: Father Age of Onset: (Not Specified) Comment: lung ca. Problem: No Ocular Disease Relation: Father Age of Onset: (Not Specified) Problem: Diabetes Relation: Maternal Grandmother Age of Onset: (Not Specified) Problem: Coronary Artery Disease Relation: Maternal Grandfather Age of Onset: (Not Specified) Problem: Cancer Relation: Paternal Grandfather Age of Onset: (Not Specified) Social History Tobacco Use Smoking status: Never Passive exposure: Yes Smokeless tobacco: Never Vaping Use Vaping status: Never Used Alcohol use: Not Currently Drug use: Never Active Ambulatory Problems Mixed hyperlipidemia Date Noted: 04/24/2008 Sprain and strain of wrist Date Noted: 08/14/2009 Abdominal pain, left lower quadrant Date Noted: 08/18/2010 Change in bowel function Date Noted: 08/18/2010 GERD (gastroesophageal reflux disease) Date Noted: 08/22/2010 Stress disorder, acute Date Noted: 08/22/2010 Seborrhea Date Noted: 08/22/2010 Unspecified gastritis and gastroduodenitis without mention of hemorrhage Kirk (more content not included)... Normal [facility] CBC W Auto Differential pane l (Bld)on 08-04-2024 Basophils (Bld) [#/Vol] 0.06 10*3/uL Normal <0.11 [facility] Comment on above: Order Comment: Speci men Type: BLOOD SPECIMENOrdering Facility: [facility] Address: [address] [place] [address] Performed By: #### 5 7021-8 ####[facility] LABCLIA [id number] [place] [address] [place] Basophils/100 WBC (Bld) 0.8 % Normal [facility] Comment on above: Order Comment: Speci men Type: BLOOD SPECIMENOrdering Facility: [facility] Address: [address] [place] [address] Performed By: #### 5 7021-8 ####[facility] LABCLIA [id number] [place] [address] [facility] [place] Differential cell count method Nom (Bld) Auto Normal [facility] Comment on above: Order Comment: Speci men Type: BLOOD SPECIMENOrdering Facility: [facility] Address: [address] [place] [address] Performed By: #### 5 7021-8 ####[facility] LABCLIA [id number] [facility] [place] [address] [facility] [place] Eosinophils (Bld) [#/Vol] 0.18 10*3/uL Normal <0.46 [facility] Comment on above: Order Comment: Speci men Type: BLOOD SPECIMENOrdering Facility: [facility] Address: [address] [place] [address] Performed By: #### 5 7021-8 ####[facility] LABCLIA [id number] [place] [address] [facility] Eosinophils/100 WBC (Bld) 2.5 % Normal [facility] Comment on above: Order Comment: Speci men Type: BLOOD SPECIMENOrdering Facility: [facility] Address: [address] [place] [address] Performed By: #### 5 7021-8 ####[facility] LABCLIA [id number] [place] [address] [facility] [place] Erythrocyte distribution width (RBC) [Ratio] 12.5 % Normal 11.5-15.0 [facility] Comment on above: Order Comment: Speci men Type: BLOOD SPECIMENOrdering Facility: [facility] Address: [address] [place] [address] Performed By: #### 5 7021-8 ####[facility] LABCLIA [id number] [place] [address] [place] Hematocrit (Bld) [Volume fraction] 45.4 % Normal 39.0-51.0 [facility] Comment on above: Order Comment: Speci men Type: BLOOD SPECIMENOrdering Facility: [facility] Address: [address] [place] [address] Performed By: #### 5 7021-8 ####[facility] LABCLIA [id number] [place] [address] [place] Hemoglobin (Bld) [Mass/Vol] 15.7 g/dL Normal 13.0-17.0 [facility] Comment on above: Order Comment: Speci men Type: BLOOD SPECIMENOrdering Facility: [facility] Address: [address] [place] [address] Performed By: #### 5 7021-8 ####[facility] LABCLIA [id number] [place] [address] [place] Immature granulocytes (Bld) [#/Vol] 10*3/uL Normal <0.10 [facility] Comment on above: Order Comment: Speci men Type: BLOOD SPECIMENOrdering Facility: [facility] Address: [address] [place] [address] Performed By: #### 5 7021-8 ####[facility] LABCLIA [id number] [place] [address] [place] Immature granulocytes/100 WBC (Bld) 0.1 % Normal [facility] Comment on above: Order Comment: Speci men Type: BLOOD SPECIMENOrdering Facility: [facility] Address: [address] [place] [address] Performed By: #### 5 7021-8 ####[facility] LABCLIA [id number] [place] [address] [place] Lymphocytes (Bld) [#/Vol] 2.47 10*3/uL Normal 1.00-4.00 [facility] Comment on above: Order Comment: Speci men Type: BLOOD SPECIMENOrdering Facility: [facility] Address: [address] [place] [address] Performed By: #### 5 7021-8 ####[facility] LABCLIA [id number] [place] [address] [facility] Lymphocytes/100 WBC (Bld) 34.4 % Normal [facility] Comment on above: Order Comment: Speci men Type: BLOOD SPECIMENOrdering Facility: [facility] Address: [address] [place] [address] Performed By: #### 5 7021-8 ####[facility] LABCLIA [id number] [address] [place] MCH (RBC) [Entitic mass] 31.5 pg Normal 26.0-34.0 [facility] Comment on above: Order Comment: Speci men Type: BLOOD SPECIMENOrdering Facility: [facility] Address: [address] [place] [address] Performed By: #### 5 7021-8 ####[facility] LAB[facility] [id number] [address] MCHC (RBC) [Mass/Vol] 34.6 g/dL Normal 30.5-36.0 [facility] Comment on above: Order Comment: Speci men Type: BLOOD SPECIMENOrdering Facility: [facility] Address: [address] [place] [address] Performed By: #### 5 7021-8 ####[facility] LABCLIA [id number] [place] [address] [place] [facility] MCV (RBC) [Entitic vol] 91.2 fL Normal 80.0-100.0 [facility] Comment on above: Order Comment: Speci men Type: BLOOD SPECIMENOrdering Facility: [facility] Address: [address] [place] [address] Performed By: #### 5 7021-8 ####[facility] LABCLIA [id number] [facility] [place] [address] [place] Monocytes (Bld) [#/Vol] 0.48 10*3/uL Normal <0.87 [facility] Comment on above: Order Comment: Speci men Type: BLOOD SPECIMENOrdering Facility: [facility] Address: [address] [place] [address] Performed By: #### 5 7021-8 ####[facility] LABCLIA [id number] [facility] [place] [address] [place] Monocytes/100 WBC (Bld) 6.7 % Normal [facility] Comment on above: Order Comment: Speci men Type: BLOOD SPECIMENOrdering Facility: [facility] Address: [address] [place] [address] Performed By: #### 5 7021-8 ####[facility]IA [id number] [facility] [place] [address] [place] Neutrophils (Bld) [#/Vol] 3.99 10*3/uL Normal 1.45-7.50 [facility] Comment on above: Order Comment: Speci men Type: BLOOD SPECIMENOrdering Facility: [facility] Address: [address] [place] [address] Performed By: #### 5 7021-8 ####[facility] LABCLIA [id number] [place] [address] [place] Neutrophils/100 WBC (Bld) 55.5 % Normal [facility] Comment on above: Order Comment: Speci men Type: BLOOD SPECIMENOrdering Facility: [facility] Address: [address] [place] [address] Performed By: #### 5 7021-8 ####[facility] LABCLIA [id number] [place] [address] [place] Nucleated RBC (Bld) [#/Vol] Normal [facility] Comment on above: Order Comment: Speci men Type: BLOOD SPECIMENOrdering Facility: [facility] Address: [address] [place] [address] Performed By: #### 5 7021-8 ####[facility] LABCLIA [id number] [place] [address] [place] Nucleated RBC/100 WBC (Bld) [Ratio] Normal [facility] Comment on above: Order Comment: Speci men Type: BLOOD SPECIMENOrdering Facility: [facility] Address: [address] [place] [address] Performed By: #### 5 7021-8 ####[facility] [id number] [facility] [place] [address] [place] Platelet mean volume (Bld) [Entitic vol] 10.5 fL Normal 9.0-12.7 [facility] Comment on above: Order Comment: Speci men Type: BLOOD SPECIMENOrdering Facility: [facility] Address: [address] [place] [address] Performed By: #### 5 7021-8 ####[facility] [id number] [facility] [place] [address] [place] Platelets (Bld) [#/Vol] 262 10*3/uL Normal 150-400 [facility] Comment on above: Order Comment: Speci men Type: BLOOD SPECIMENOrdering Facility: [facility] Address: [address] [place] [address] Performed By: #### 5 7021-8 ####[facility] [id number] [facility] [place] [address] [place] RBC (Bld) [#/Vol] 4.98 10*6/uL Normal 4.20-6.00 [facility] Comment on above: Order Comment: Speci men Type: BLOOD SPECIMENOrdering Facility: [facility] Address: [address] [place] [address] Performed By: #### 5 7021-8 ####[facility] LAB[facility] [id number] [place] [address] [place] WBC (Bld) [#/Vol] 7.19 10*3/uL Normal 3.70-11.00 [facility] Comment on above: Order Comment: Speci men Type: BLOOD SPECIMENOrdering Facility: [facility] Address: [address] [place] [address] Performed By: #### 5 7021-8 ####[facility] LABCLIA [id number] [place] [address] [facility] Comprehensive metabolic 2000 panelon 08-04-2024 Albumin [Mass/Vol] 4.3 g/dL Normal 3.9-4.9 [facility] Comment on above: Order Comment: Speci men Type: BLOOD SPECIMEN [facility] Address: [address] [place] [address] Performed By: #### 2 4323-8, 86836-9 #### [facility] CLIA [id number] [address] [place] [address] [place] ALP [Catalytic activity/Vol] 98 U/L Normal 38-113 [facility] Comment on above: Order Comment: Speci men Type: BLOOD SPECIMEN [facility] Address: [address] [place] [address] Performed By: #### 2 4323-8, 90770-7 #### [facility] CLIA [id number] [address] [place] [address] [facility] ALT With P-5'-P [Catalytic activity/Vol] 28 U/L Normal 10-54 [facility] Comment on above: Order Comment: Speci men Type: BLOOD SPECIMEN [facility] Address: [address] [place] [address] Performed By: #### 2 4323-8, 30881-9 #### [facility] CLIA [id number] [address] [place] [address] [facility] [place] Anion gap [Moles/Vol] 10 mmol/L Normal 8-15 [facility] Comment on above: Order Comment: Speci men Type: BLOOD SPECIMEN [facility] Address: [address] [place] [address] Performed By: #### 2 4323-8, 05975-9 #### [facility] CLIA [id number] [address] [place] [address] [place] AST With P-5'-P [Catalytic activity/Vol] 22 U/L Normal 14-40 [facility] Comment on above: Order Comment: Speci men Type: BLOOD SPECIMEN [facility] Address: [address] [place] [id number] Performed By: #### 2 4323-8, 75024-0 #### [facility] CLIA [id number] [address] [place] [address] [place] Bilirubin [Mass/Vol] 0.5 mg/dL Normal 0.2-1.3 [facility] Comment on above: Order Comment: Speci men Type: BLOOD SPECIMEN [facility] Address: [address] [place] [address] Performed By: #### 2 4323-8, 39158-5 #### [facility] CLIA [id number] [address] [place] [address] [place] Calcium [Mass/Vol] 9.2 mg/dL Normal 8.5-10.2 [facility] Comment on above: Order Comment: Speci men Type: BLOOD SPECIMEN [facility] Address: [address] [place] [id number] Performed By: #### 2 4323-8, 61028-0 #### [facility] CLIA [id number] [address] [place] [address] [place] Chloride [Moles/Vol] 103 mmol/L Normal 98-107 [facility] Comment on above: Order Comment: Speci men Type: BLOOD SPECIMEN [facility] Address: [address] [place] [id number] Performed By: #### 2 4323-8, 05995-5 #### [facility] CLIA [id number] [address] [place] [address] [place] CO2 [Moles/Vol] 25 mmol/L Normal 22-30 [facility] Comment on above: Order Comment: Fred aguilar Type: BLOOD SPECIMEN [facility] Address: [address] [place] [address] Performed By: #### 2 4323-8, 56766-9 #### [facility] CLIA [id number] [address] [place] [id number] [place] Creatinine [Mass/Vol] 1.07 mg/dL Normal 0.73-1.22 [facility] Comment on above: Order Comment: Fred aguilar Type: BLOOD SPECIMEN [facility] Address: [address] [place] [address] Performed By: #### 2 4323-8, 33075-4 #### [facility] CLIA [id number] [address] Creatinine and Glomerular filtration rate.predicted panel (S/P/Bld) 83 mL/min/1.73m??? Normal >=60 [facility] Comment on above: Order Comment: Fred aguilar Type: BLOOD SPECIMEN [facility] Address: [address] [place] [address] Result Comment: Hyun mated Glomerular Filtration Rate (eGFR) is calculated using the 2020 CKD-EPI creatinine equation. This equation utilizes serum creatinine, sex, and age as parameters. The creatinine assay has traceable calibration to isotope dilution-mass spectrometry. Refer to KDIGO guidelines for clinical interpretation. In patients with unstable renal function, e.g. those with acute kidney injury, the eGFR may not accurately reflect actual GFR. Performed By: #### 2 4323-8, 29512-0 #### [facility] CLIA [id number] [address] [place] [id number] [place] Glucose [Mass/Vol] 126 mg/dL High 74-99 [facility] Comment on above: Order Comment: Fred aguilar Type: BLOOD SPECIMEN [facility] Address: [address] [place] [address] Result Comment: The [place] [employer] (ADA) provides guidance for cutoff values for fasting glucose and random glucose. The ADA defines fasting as no caloric intake for at least 8 hours. Fasting plasma glucose results between 100 to 125 mg/dL indicate increased risk for diabetes (prediabetes). Fasting plasma glucose results greater than or equal to 126 mg/dL meet the criteria for diagnosis of diabetes. In the absence of unequivocal hyperglycemia, results should be confirmed by repeat testing. In a patient with classic symptoms of hyperglycemia or hyperglycemic crisis, random plasma glucose results greater than or equal to 200 mg/dL meet the criteria for diagnosis of diabetes. Reference: Standards of Medical Care in Diabetes 2016, [place] Diabetes Association. Diabetes Care. 2016.39(Suppl 1). Performed By: #### 2 4323-8, 60579-6 #### [facility] CLIA [id number] [address] [place] [address] [place] Potassium [Moles/Vol] 4.3 mmol/L Normal 3.7-5.1 [facility] Comment on above: Order Comment: Fred aguilar Type: BLOOD SPECIMEN Ordering Facility: [facility] Address: [address] [place] [address] Performed By: #### 2 4323-8, 68291-4 #### [facility] CLIA [id number] [address] [place] [address] [place] Protein [Mass/Vol] 7.7 g/dL Normal 6.3-8.0 [facility] Comment on above: Order Comment: Fred aguilar Type: BLOOD SPECIMEN Ordering Facility: [facility] Address: [address] [place] [address] Performed By: #### 2 4323-8, 83521-6 #### [facility] CLIA [id number] [address] [place] [address] [place] Sodium [Moles/Vol] 138 mmol/L Normal 136-144 [facility] Comment on above: Order Comment: Fred aguilar Type: BLOOD SPECIMEN Ordering Facility: [facility] Address: [address] [place] [address] Performed By: #### 2 4323-8, 70299-2 #### [facility] CLIA [id number] [address] [place] [address] [place] Urea nitrogen [Mass/Vol] 18 mg/dL Normal 9-24 [facility] Comment on above: Order Comment: Speci men Type: BLOOD SPECIMEN Ordering Facility: [facility] Address: [address] [place] [address] Performed By: #### 2 4323-8, 24207-3 #### [facility] CLIA [id number] [address] [place] [address] [facility] [place] Lipid 1996 panelon 5 Cholesterol [Mass/Vol] 197 mg/dL Normal <200 [facility] Comment on above: Order Comment: Speci men Type: BLOOD SPECIMENOrdering Facility: [facility] Address: [address] [place] [address] Result Comment: <200 mg/dL, Desirable 200-239 mg/dL, Borderline high >239 mg/dL, High Performed By: #### 2 4323-8, 70514-3 ####[facility] [id number] [place] [address] [place] Cholesterol in HDL [Mass/Vol] 37 mg/dL Low >39 [facility] Comment on above: Order Comment: Speci men Type: BLOOD SPECIMENOrdering Facility: [facility] Address: [address] [place] [address] Result Comment: 40-5 9 mg/dL, Acceptable >59 mg/dL, High: Negative risk factor for coronary heart disease <40 mg/dL, Low: Positive risk factor for coronary heart disease Performed By: #### 2 4323-8, 66978-4 ####[facility] [id number] [place] [address] [place] Cholesterol in LDL [Mass/Vol] 103 mg/dL High <100 [facility] Comment on above: Order Comment: Speci men Type: BLOOD SPECIMENOrdering Facility: [facility] Address: [address] [place] [address] Result Comment: <100 mg/dL, Optimal 100-129 mg/dL, Near optimal/above optimal 130-159 mg/dL, Borderline high 160-189 mg/dL, High >189 mg/dL, Very high Secondary prevention optimal LDL Cholesterol levels are recommended to be < 70 mg/dL Performed By: #### 2 4323-8, 35551-7 ####[facility] [id number] [place] [address] [facility] [place] Cholesterol in LDL/Cholesterol in HDL [Mass ratio] 2.78 {ratio} High <2.54 [facility] Comment on above: Order Comment: Speci men Type: BLOOD SPECIMENOrdering Facility: [facility] Address: [address] [place] [address] Result Comment: Refe rence: 1. National Cholesterol Education Program ATP III Guideline At-A-Glance Quick Desk Reference: National Heart, Lung, and Blood [place]. National Institutes of Health. 2001: NIH Publication No. 01-3305. 2. An International Atherosclerosis Society position paper: global recommendations for the management of dyslipidemia: executive summary, Atherosclerosis. 2014: 232(2):410-413. Performed By: #### 2 4323-8, 46533-2 ####[facility] [id number] [place] [address] [place] Cholesterol in VLDL [Mass/Vol] 57 mg/dL High <30 [facility] Comment on above: Order Comment: Cynthiai men Type: BLOOD SPECIMENOrdering Facility: [facility] Address: [address] [place] [address] Performed By: #### 2 4323-8, 89589-3 ####[facility] [id number] [place] [address] [place] Cholesterol non HDL [Mass/Vol] 160 mg/dL High <130 [facility] Comment on above: Order Comment: Fred jeff Type: BLOOD SPECIMENOrdering Facility: [facility] Address: [address] [place] [address] Result Comment: <130 mg/dL, Optimal 130-159 mg/dL, Near optimal/above optimal 160-189 mg/dL, Borderline high 190-219 mg/dL, High >219 mg/dL, Very high Secondary prevention optimal non HDL Cholesterol levels are recommended to be <100 mg/dL Performed By: #### 2 4323-8, 40729-1 ####[facility] [id number] [place] [address] [facility] Cholesterol.total/Ch olesterol in HDL [Mass ratio] 5.32 {ratio} High <5.10 [facility] Comment on above: Order Comment: Speci men Type: BLOOD SPECIMENOrdering Facility: [facility] Address: [address] [place] [address] Performed By: #### 2 4323-8, 14487-6 ####[facility] [id number] [place] [address] [facility] FASTING TIME 12 hrs Normal [facility] Comment on above: Order Comment: Speci men Type: BLOOD SPECIMENOrdering Facility: [facility] Address: [address] [place] [address] Performed By: #### 2 4323-8, 65681-2 ####[facility] [id number] [place] [id number] [facility] Triglyceride [Mass/Vol] 285 mg/dL High <150 [facility] Comment on above: Order Comment: Speci men Type: BLOOD SPECIMENOrdering Facility: [facility] Address: [address] [place] [address] Result Comment: <150 mg/dL, Normal 150-199 mg/dL, Borderline high 200-499 mg/dL, High >499 mg/dL, Very high Performed By: #### 2 4323-8, 63390-4 ####[facility] [id number] [place] [address] [facility] CNOVon 07-26-2024 CNOV Office Visit (CHRIS) CHANG SOLIS ([id number]) 1970 M Date Time Provider Department 07/26/24 4:00 PM TIFFANY CHAVEZ During your visit today, we recorded the following information about you: Temperature Pulse Respiration Blood pressure 98.1 degrees 81/minute 18/minute 124/68 Weight Height 109.3 kg 1.791 m Tiffany Chavez SLIPPER MAKER.MONKEY KEEPER 07/26/2024 5:36 PM Signed [facility] Tiffany Chavez SLIPPER MAKER-MONKEY KEEPER. [address] [place] [address] Dept Dept. Visit Date: July 26, 2024 Chief Complaint: Patient presents with: F/U Diabetes 3 Month History of Present Illness Chang Solis is a 53 year old male here today for diabetes follow-up visit. Patient has type 2 diabetes. Feeling well today, no concerns. Denies dizziness, chest pain, shortness of breath, changes in vision, fatigue, foot pain. Denies numbness and tingling in extremities. Denies polydipsia, polyphagia, polyuria. Home Blood Sugars: 130-158 Medication Compliance: Diet control Low Blood Sugars: No Diet: Has been watching what he has been eating and drinking Exercise: Not currently Eye Exam: Due Podiatry: None Tobacco use - No Alcohol use - No Currently finishing course of Augmentin for sinus infection. He is feeling better. PAST MEDICAL HISTORY Diagnosis Date Abdominal pain, left lower quadrant Acute gastritis without mention of hemorrhage Diabetes (HCC) Duodenitis without mention of hemorrhage Esophageal reflux Gastroesophageal reflux Unspecified asthma(493.90) exercise-induced Social History Tobacco Use Smoking status: Never Passive exposure: Yes Smokeless tobacco: Never Vaping Use Vaping status: Never Used Substance Use Topics Alcohol use: Not Currently Drug use: Never Social History Social History Narrative Not on file ALLERGIES Allergen Reactions Bactrim [Sulfametho* Hives Hand Soap [Triclosa* Rash Ivp Dye [Iodine] Hives Seasonal Allergies Intolerance Runny nose Shellfish Derived Rash Sulfa (Sulfonamide * Hives Current Outpatient Medications Medication Sig amoxicillin-clavulanat e potassium (AUGMENTIN) 875-125 mg per tablet Take 1 tablet by mouth two times a day for 7 days. fluticasone (FLONASE) 50 mcg/actuation nasal spray Use 1 [place] in each nostril once daily. meclizine (ANTIVERT) 25 mg tab Take 1 tablet by mouth three times a day as needed. albuterol HFA (PROAIR HFA) 90 mcg/actuation inhaler 2 Puffs every 6 hours as needed for wheezing/shortness of breath. Take as directed blood sugar diagnostic (RELION PRIME TEST STRIPS) test strip Use as instructed Blood-Glucose Meter (RELION PRIME METER) 1 Each four times daily. acetaminophen (TYLENOL ORAL) Take by mouth as needed. metFORMIN ER (GLUCOPHAGE XR) 500 mg 24 hr tablet Take 2 tablets by mouth once daily. No current facility-administered medications for this visit. Review of Systems Review of Systems Constitutional: Negative for appetite change, chills, diaphoresis, fatigue, fever and unexpected weight change. HENT: Negative. Eyes: Negative. Respiratory: Negative for cough, chest tightness, shortness of breath and wheezing. Cardiovascular: Negative for chest pain, palpitations and leg swelling. Gastrointestinal: Negative for abdominal pain, constipation, diarrhea, nausea and vomiting. Endocrine: Negative. Genitourinary: Negative. Musculoskeletal: Negative. Skin: Negative. Allergic/Immunologic: Negative. Neurological: Negative for dizziness, light-headedness and headaches. Hematological: Negative. Psychiatric/Behavioral : Negative. Physical Exam BP 124/68 Pulse 81 Temp (Src) 98.1 (Oral) Resp 18 Ht 5' 10.5 (1.79m) Wt 241 lb (109.3kg) SpO2 97% BMI 34.08 kg/(m2). Last 3 Encounter BP Readings: Date: BP: 07/26/2024 124/68 07/19/2024 130/80 06/21/2024 124/78 Physical Exam Vitals and nursing note reviewed. Constitutional: Appearance: He is obese. HENT: Mouth/Throat: Mouth: Mucous membranes are moist. Eyes: Pupils: Pupils are equal, round, and reactive to light. Cardiovascular: Rate and Rhythm: Normal rate and regular rhythm. Heart sounds: Normal heart sounds. Pulmonary: Breath sounds: Normal breath sounds. Musculoskeletal: Cervical back: Neck supple. Skin: General: Skin is dry. Neurological: Mental Status: He is oriented to person, place, and time. Psychiatric: Mood and Affect: Mood normal. Behavior: Behavior normal. Lab Results Component Value Date Hemoglobin A1C 6.1 (H) 05/21/2023 Hemoglobin A1C (POCT) 7.4 (A) 07/26/2024 Hemoglobin A1C (POCT) 6.4 (A) 12/27/2023 Lab Results Component Value Date Cholesterol, Total 177 02/27/2022 Cholesterol, Total 172 10/27/2021 Cholesterol, Total 170 01/15/2021 Lab Results Component Value Date LDL Ch (more content not included)... Normal [facility] HEMOGLOBIN A1C (POC)on 07-26 HbA1c (Bld) [Mass fraction] 7.4 % Abnormal 4.3 - 5.6 % [facility] Comment on above: Location:[facility], [address] [place] [address], [facility] Point of care (POC) Hemoglobin A1c (HGBA1C) testing is intended to assess glucose control and provide a management tool for patients known to have diabetes and their healthcare providers. Target HGBA1C levels may depend on specific clinical circumstances. POC HGBA1C is not intended for use as a diagnostic or screening test; laboratory-based testing should be used for diagnostic purposes. The following information is supplemental and may not be applicable to specific diabetes management situations: The POC device antiquer provides a normal range of 4.2% to 6.5% for the HGBA1C POC test. However, the [place] Diabetes Association guidelines indicate that patients with HGBA1C in the range of 5.7% to 6.4% are at increased risk for development of diabetes and that intervention by lifestyle modification may be beneficial. A HGBA1C level greater than or equal to 6.5% is considered diagnostic of diabetes, pending confirmatory testing. Use of HGBA1C testing to evaluate glucose control may not be appropriate for patients with hemoglobin variants or other conditions (e.g. anemia) that alter red blood cell lifespan. Interpretation and review of laboratory results Abnormal [facility] CNOVon 07-19-2024 CNOV Office Visit (UCWSTR ) CHANG SOLIS ([id number]) 1970 M Date Time Provider Department 07/19/24 3:30 PM MICHELINE LINDER [facility] During your visit today, we recorded the following information about you: Temperature Pulse Respiration Blood pressure 97.9 degrees 90/minute 21/minute 130/80 Weight 109 kg Micheline Linder PA 07/19/2024 3:53 PM Signed This note was created using [employer]. Subjective Chang Solis is a 53 year old male. HPI 53-year-old male presents for cough and congestion x 1.5 weeks. Patient states he has had cough, sneezing, nasal congestion for the past week and a half. He has sinus pressure, sinus pain and headache. He has not had any fevers. His mom is sick with similar symptoms. Patient has taken some Tylenol without much improvement in symptoms. Has not tried anything else [id number]. PAST MEDICAL HISTORY Diagnosis Date Abdominal pain, left lower quadrant Acute gastritis without mention of hemorrhage Diabetes (HCC) Duodenitis without mention of hemorrhage Esophageal reflux Gastroesophageal reflux Unspecified asthma(493.90) exercise-induced PAST SURGICAL HISTORY Procedure Laterality Date APPENDECTOMY HX CHOLECYSTECTOMY HX COLONOSCOPY W/BIOPSY SINGLE/MULTIPLE 09/02/10 EGD TRANSORAL BIOPSY SINGLE/MULTIPLE 09/02/10 HERNIA REPAIR HX LAPAROSCOPY SURG CHOLECYSTECTOMY Cholecystectomy, lap RPR 1ST INGUN HRNA AGE 5 YRS/> REDUCIBLE Hernia repair, inguinal RPR 1ST INGUN HRNA AGE 5 YRS/> REDUCIBLE Hernia repair, inguinal TONSILLECTOMY HX TONSILLECTOMY PRIMARY/SECONDARY Tonsillectomy ALLERGIES Bactrim [Sulfamethoxazole-Trim ethoprim], Hand Soap [Triclosan], Ivp Dye [Iodine], Seasonal Allergies, Shellfish Derived, and Sulfa (Sulfonamide Antibiotics) MEDICATIONS fluticasone (FLONASE) 50 mcg/actuation nasal spray Use 1 [place] in each nostril once daily. meclizine (ANTIVERT) 25 mg tab Take 1 tablet by mouth three times a day as needed. albuterol HFA (PROAIR HFA) 90 mcg/actuation inhaler 2 Puffs every 6 hours as needed for wheezing/shortness of breath. Take as directed blood sugar diagnostic (RELION PRIME TEST STRIPS) test strip Use as instructed Blood-Glucose Meter (RELION PRIME METER) 1 Each four times daily. acetaminophen (TYLENOL ORAL) Take by mouth as needed. amoxicillin-clavulanat e potassium (AUGMENTIN) 875-125 mg per tablet Take 1 tablet by mouth two times a day for 7 days. FAMILY HISTORY Problem Relation Age of Onset Hypertension Mother Lipids Mother No Ocular Disease Mother Cancer Father lung ca. No Ocular Disease Father Diabetes Maternal Grandmother Coronary Artery Disease Maternal Grandfather Cancer Paternal Grandfather Social History Tobacco Use Smoking status: Never Passive exposure: Yes Smokeless tobacco: Never Vaping Use Vaping status: Never Used Substance Use Topics Alcohol use: Not Currently Drug use: Never Review of Systems Constitutional: Negative for chills and fever. HENT: Positive for congestion, sinus pressure, sinus pain and sneezing. Negative for sore throat. Respiratory: Positive for cough. Negative for shortness of breath. Gastrointestinal: Negative for diarrhea and vomiting. Objective BP 130/80 Pulse 90 Temp 36.6 ?C (97.9 ?F) Resp 21 Wt 109 kg (240 lb 4.8 oz) SpO2 97% BMI 33.99 kg/m? Physical Exam Vitals and nursing note reviewed. Constitutional: General: He is not in acute distress. Appearance: Normal appearance. He is not toxic-appearing. HENT: Right Ear: Tympanic membrane and ear canal normal. Left Ear: Tympanic membrane and ear canal normal. Nose: Mucosal edema and congestion present. Right Sinus: Maxillary sinus tenderness present. Left Sinus: Maxillary sinus tenderness present. Mouth/Throat: Mouth: Mucous membranes are moist. Eyes: Conjunctiva/sclera: Conjunctivae normal. Cardiovascular: Rate and Rhythm: Normal rate and regular rhythm. Pulmonary: Effort: Pulmonary effort is normal. Breath sounds: Normal breath sounds. No wheezing, rhonchi or rales. Skin: General: Skin is warm and dry. Neurological: Mental Status: He is alert. Assessment and Plan ASSESSMENT/PLAN: 1. Bacterial sinusitis - ICD9: 473.9, 041.9, ICD10: J32.9, B96.89 - Will begin treatment with Augmentin 875 mg PO BID for 7 days - The patient should also be given OTC decongestants prn for the first 5-7 days of treatment. - Supportive care with plenty of fluids, rest, and analgesia prn. Diagnosis and treatment plan were discussed and questions were answered to the patient's satisfaction. Pt acknowledged understanding of concepts and follow up plan. Specific signs and symptoms that would indicate the need for higher level of care were discussed in detail warranting prompt ER evaluation. QUANG Carrion Allergies As of Date: 07/19/2024 Noted Allergy Reaction (more content not included)... Normal [facility] CNCOon 06-28-2024 CNCO Letter Text Normal [facility] CNPNon 06-28-2024 CNPN Telephone (AGFAMPLE) CHANG SOLIS ([id number]) 1970 M Date Time Provider Department 06/28/24 TIFFANY CHAVEZ During your visit today, we recorded the following information about you: Darin Ba Marcie 06/28/2024 5:18 PM Signed No Show Documentation Chang Solis no showed for an appointment on 06/28/24 with Tiffany Chavez APRN.MONKEY KEEPER at 4:00 pm. He was scheduled for diabetes follow up . I called and was unable to speak with the patient regarding his missed appointment. Chang did not state the reason that he missed his appointment was because he did not answer phone call . Resources discussed/offered to patient: left message to rescheule No show determined to be fault of patient: Yes This is the patients second no show in the last 12 months. Patient was rescheduled for NA. Letter sent through [employer] Is this the Third or Fourth No Show? No Ba Marcie Cm June 28, 2024 5:14 PM Allergies As of Date: 06/28/2024 Noted Allergy Reaction BACTRIM (SULFAMETHOXAZOLE-TRIM ETH*04/12/2005 4 - Hives HAND SOAP (TRICLOSAN) 07/26/2012 2 - Rash IVP DYE (IODINE) 04/12/2005 4 - Hives SEASONAL ALLERGIES 03/18/2022 5 - Intolerance Comments: Runny nose SHELLFISH DERIVED 12/13/2016 2 - Rash SULFA (SULFONAMIDE ANTIBIOTICS) 04/12/2005 4 - Hives Date Reviewed: 06/21/2024 Reviewed by: Tiffany Chavez APRN.MONKEY KEEPER - Fully Assessed Reason for Visit: No Show [1558] Cmt: Pt no showed for appt on 06/28/24 Prescriptions as of 06/28/2024 - amoxicillin-clavulanat e potassium (AUGMENTIN) 875-125 mg per tablet Take 1 tablet by mouth every 12 hours for 10 days. - fluticasone (FLONASE) 50 mcg/actuation nasal spray Use 1 [place] in each nostril once daily. - meclizine (ANTIVERT) 25 mg tab Take 1 tablet by mouth three times a day as needed. - albuterol HFA (PROAIR HFA) 90 mcg/actuation inhaler 2 Puffs every 6 hours as needed for wheezing/shortness of breath. Take as directed - blood sugar diagnostic (RELION PRIME TEST STRIPS) test strip Use as instructed - Blood-Glucose Meter (RELION PRIME METER) 1 Each four times daily. - acetaminophen (TYLENOL ORAL) Take by mouth as needed. Meds Comments as of 12/06/2022: 12/06/22 The medications are managed by this patient by: PATIENT RHODA Rodriguez Problem List As Of Date 06/28/2024 Noted Resolved Mixed hyperlipidemia [E78.2] 04/24/2008 Sprain and Strain of Wrist [S63.509A, S66.919A] 08/14/2009 Abdominal pain, left lower quadrant [R10.32] 08/18/2010 Change in bowel function [R19.8] 08/18/2010 GERD (gastroesophageal reflux disease) [K21.9] 08/22/2010 Stress disorder, acute [F43.0] 08/22/2010 Seborrhea [L21.9] 08/22/2010 Gastritis/duodenitis [K29.70, K29.90] 09/02/2010 Duodenitis without mention of hemorrhage [K29.8*09/02/2010 Acute gastritis without mention of hemorrhage [*09/02/2010 Gastritis [K29.70] 09/18/2010 RUBÉN (obstructive sleep apnea) [G47.33] 02/21/2013 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] 08/01/2013 Backache, unspecified [M54.9] 08/01/2013 Chest pain [R07.9] 02/02/2015 10/29/2021 Headache [R51] 02/02/2015 Sleep apnea [G47.30] 02/25/2015 Primary insomnia [F51.01] 02/26/2015 Chronic left shoulder pain [M25.512, G89.29] 12/25/2018 Obesity, Class II, BMI 35-39.9 [E66.812] 01/13/2021 TIA (transient ischemic attack) [G45.9] 01/14/2021 Atypical chest pain [R07.89] 01/15/2021 Fatty liver disease, nonalcoholic [K76.0] 05/22/2021 New onset type 2 diabetes mellitus (HCC) [E11.9]10/26/2021 ROHAN (generalized anxiety disorder) [F41.1] 10/26/2021 Obesity, Class I, BMI 30-34.9 [E66.811] 10/29/2021 Type 2 diabetes mellitus without retinopathy (H*12/03/2021 Spondylolisthesis of lumbosacral region [M43.17]04/14/2022 Chronic bilateral low back pain without sciatic*09/01/2022 Influenza A [J10.1] 08/20/2023 Tachycardia [R00.0] 08/20/2023 08/21/2023 Acute midline low back pain without sciatica [M*03/12/2024 Dizziness [R42] 04/20/2024 Encounter Status:Closed by BA CM on 06/28/24 [facility] ARLETTEOVon 06-21-2024 CNOV Office Visit (AGFAMPLE) CHANG SOLIS ([id number]) 1970 M Date Time Provider Department 06/21/24 3:00 PM TIFFANY CHAVEZ During your visit today, we recorded the following information about you: Temperature Pulse Respiration Blood pressure 97.8 degrees 88/minute 16/minute 124/78 Weight Height 110.2 kg 1.791 m Tiffany Chavez, SLIPPER MAKER.MONKEY KEEPER 06/21/2024 4:22 PM Signed CHIEF COMPLAINT: Chang Solis is a 53 year old male who presents for a dry cough, sneezing, runny nose, nasal congestion and pressure, dizziness, headaches, and ear pain. He has had some blood in his nasal drainage.His symptoms started approximately 7-8 days ago and haven't improved. He picked up Mucinex but hasn't start using it at. I reviewed past medical, surgical, social, and family histories today and updated chart. Allergies, chronic medications, and supplements were also reviewed. PAST MEDICAL HISTORY Diagnosis Date Abdominal pain, left lower quadrant Acute gastritis without mention of hemorrhage Diabetes (HCC) Duodenitis without mention of hemorrhage Esophageal reflux Gastroesophageal reflux Unspecified asthma(493.90) exercise-induced PAST SURGICAL HISTORY Procedure Laterality Date APPENDECTOMY HX CHOLECYSTECTOMY HX COLONOSCOPY W/BIOPSY SINGLE/MULTIPLE 09/02/10 EGD TRANSORAL BIOPSY SINGLE/MULTIPLE 09/02/10 HERNIA REPAIR HX LAPAROSCOPY SURG CHOLECYSTECTOMY Cholecystectomy, lap RPR 1ST INGUN HRNA AGE 5 YRS/> REDUCIBLE Hernia repair, inguinal RPR 1ST INGUN HRNA AGE 5 YRS/> REDUCIBLE Hernia repair, inguinal TONSILLECTOMY HX TONSILLECTOMY PRIMARY/SECONDARY Tonsillectomy Social History Tobacco Use Smoking status: Never Passive exposure: Yes Smokeless tobacco: Never Vaping Use Vaping status: Never Used Substance Use Topics Alcohol use: Not Currently Drug use: Never ALLERGIES Allergen Reactions Bactrim [Sulfametho* Hives Hand Soap [Triclosa* Rash Ivp Dye [Iodine] Hives Seasonal Allergies Intolerance Runny nose Shellfish Derived Rash Sulfa (Sulfonamide * Hives Family History Problem Relation Age of Onset Hypertension Mother Lipids Mother No Ocular Disease Mother Cancer Father lung ca. No Ocular Disease Father Diabetes Maternal Grandmother Coronary Artery Disease Maternal Grandfather Cancer Paternal Grandfather Current Outpatient Medications Medication Sig Dispense Refill fluticasone (FLONASE) 50 mcg/actuation nasal spray Use 1 [place] in each nostril once daily. meclizine (ANTIVERT) 25 mg tab Take 1 tablet by mouth three times a day as needed. 30 tablet 0 albuterol HFA (PROAIR HFA) 90 mcg/actuation inhaler 2 Puffs every 6 hours as needed for wheezing/shortness of breath. Take as directed 1 Each 0 blood sugar diagnostic (RELION PRIME TEST STRIPS) test strip Use as instructed 200 Strip 2 Blood-Glucose Meter (RELION PRIME METER) 1 Each four times daily. 1 Each 0 acetaminophen (TYLENOL ORAL) Take by mouth as needed. amoxicillin-clavulanat e potassium (AUGMENTIN) 875-125 mg per tablet Take 1 tablet by mouth every 12 hours for 10 days. 20 tablet 0 No current facility-administered medications for this visit. Review of Systems Constitutional: Positive for fatigue. Negative for appetite change, chills, diaphoresis, fever and unexpected weight change. HENT: Positive for congestion, ear pain, rhinorrhea, sinus pressure, sinus pain, sneezing and sore throat. Respiratory: Positive for cough and shortness of breath. Negative for chest tightness and wheezing. Cardiovascular: Negative for chest pain, palpitations and leg swelling. Gastrointestinal: Negative for abdominal pain, diarrhea, nausea and vomiting. Genitourinary: Negative. Neurological: Positive for dizziness and headaches. BP 124/78 Pulse 88 Temp 97.8 Resp 16 Ht 5' 10.5 (1.79m) Wt 243 lb (110.2kg) SpO2 98% BMI 34.36 kg/(m2). Physical Exam Vitals and nursing note reviewed. Constitutional: General: He is not in acute distress. Appearance: He is obese. He is not ill-appearing. HENT: Right Ear: Ear canal and external ear normal. Left Ear: Ear canal and external ear normal. Nose: Mucosal edema, congestion and rhinorrhea present. Right Sinus: Maxillary sinus tenderness present. Left Sinus: Maxillary sinus tenderness present. Mouth/Throat: Mouth: Mucous membranes are moist. Pharynx: Oropharynx is clear. Uvula midline. No pharyngeal swelling or oropharyngeal exudate. Eyes: General: Vision grossly intact. Pupils: Pupils are equal, round, and reactive to light. Cardiovascular: Rate and Rhythm: Normal rate and regular rhythm. Heart sounds: Normal heart sounds, S1 normal and S2 normal. Pulmonary: Effort: Pulmonary effort is normal. Breath sounds: Normal breath sounds and air entry. No decreased breath sounds or wheezing. Musculoskeletal: Cervical back: (more content not included)... [facility] Office Visit (AGFAMPLE) CHANG SOLIS ([id number]) 1970 M Date Time Provider Department 05/17/24 3:00 PM TIFFANY CHAVEZJACQUES During your visit today, we recorded the following information about you: Temperature Pulse Respiration Blood pressure 97.4 degrees 93/minute 18/minute 126/78 Weight Height 110.2 kg 1.791 m Tiffany Chavez APRN.CNP 05/17/2024 5:24 PM Signed CHIEF COMPLAINT: Chang Solis is a 53 year old male who presents for recurrent dizziness and recent elevated blood sugar. His blood sugar was 266 this morning then 4 hours later was 144 then took it before he came here it was 161. He states he was outside Tuesday putting up theodore lights and since then he has had sinus congestion and headache, cough, ears have been bothering him, dizziness that comes and goes. Last ate at 9 am this morning, had a blueberry bagel, two eggs and a bratwurst, coffee w/ cream and sweet and low. I reviewed past medical, surgical, social, and family histories today and updated chart. Allergies, chronic medications, and supplements were also reviewed. 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 so he's wondering if it isn't reading correctly He may get a new one OTC PAST MEDICAL HISTORY Diagnosis Date Abdominal pain, left lower quadrant Acute gastritis without mention of hemorrhage Diabetes (HCC) Duodenitis without mention of hemorrhage Esophageal reflux Gastroesophageal reflux Unspecified asthma(493.90) exercise-induced PAST SURGICAL HISTORY Procedure Laterality Date APPENDECTOMY HX CHOLECYSTECTOMY HX COLONOSCOPY W/BIOPSY SINGLE/MULTIPLE 09/02/10 EGD TRANSORAL BIOPSY SINGLE/MULTIPLE 09/02/10 HERNIA REPAIR HX LAPAROSCOPY SURG CHOLECYSTECTOMY Cholecystectomy, lap RPR 1ST INGUN HRNA AGE 5 YRS/> REDUCIBLE Hernia repair, inguinal RPR 1ST INGUN HRNA AGE 5 YRS/> REDUCIBLE Hernia repair, inguinal TONSILLECTOMY HX TONSILLECTOMY PRIMARY/SECONDARY Tonsillectomy Social History Tobacco Use Smoking status: Never Passive exposure: Yes Smokeless tobacco: Never Vaping Use Vaping status: Never Used Substance Use Topics Alcohol use: Not Currently Drug use: Never ALLERGIES Allergen Reactions Bactrim [Sulfametho* Hives Hand Soap [Triclosa* Rash Ivp Dye [Iodine] Hives Seasonal Allergies Intolerance Runny nose Shellfish Derived Rash Sulfa (Sulfonamide * Hives Family History Problem Relation Age of Onset Hypertension Mother Lipids Mother No Ocular Disease Mother Cancer Father lung ca. No Ocular Disease Father Diabetes Maternal Grandmother Coronary Artery Disease Maternal Grandfather Cancer Paternal Grandfather Current Outpatient Medications Medication Sig Dispense Refill albuterol HFA (PROAIR HFA) 90 mcg/actuation inhaler 2 Puffs every 6 hours as needed for wheezing/shortness of breath. Take as directed 1 Each 0 blood sugar diagnostic (RELION PRIME TEST STRIPS) test strip Use as instructed 200 Strip 2 Blood-Glucose Meter (RELION PRIME METER) 1 Each four times daily. 1 Each 0 acetaminophen (TYLENOL ORAL) Take by mouth as needed. fluticasone (FLONASE) 50 mcg/actuation nasal spray Use 1 [place] in each nostril once daily. meclizine (ANTIVERT) 25 mg tab Take 1 tablet by mouth three times a day as needed. 30 tablet 0 No current facility-administered medications for this visit. Review of Systems Constitutional: Negative for appetite change, chills, diaphoresis, fatigue, fever and unexpected weight change. HENT: Positive for congestion, ear discharge, ear pain, hearing loss and sinus pressure. Negative for facial swelling, rhinorrhea, sinus pain, sneezing, sore throat and tinnitus. Respiratory: Positive for cough. Negative for chest tightness, shortness of breath and wheezing. Cardiovascular: Negative. Gastrointestinal: Negative. Genitourinary: Negative. Musculoskeletal: Negative. Neurological: Positive for dizziness and headaches. Negative for syncope. Hematological: Negative. BP 126/78 Pulse 93 Temp 97.4 Resp 18 Ht 5' 10.5 (1.79m) Wt 243 lb (110.2kg) SpO2 97% BMI 34.36 kg/(m2). Physical Exam Vitals and nursing note reviewed. Constitutional: Appearance: He is obese. HENT: Right Ear: Ear canal and external ear normal. A middle ear effusion is present. Tympanic membrane is not injected or erythematous. Left Ear: Ear canal and external ear normal. A middle ear effusion is present. Tympanic membrane is not injected or erythematous. Nose: Congestion present. Right Sinus: Frontal sinus tenderness present. Left Sinu (more content not included)... Normal [facility] GLUCOSE, BLOOD (POC)on 05-17 Glucose [Mass/Vol] 132 mg/dL Abnormal 74 - 99 mg/dL [facility] Comment on above: The Accu-Chek Inform II glucose meter has not been approved for testing on patients receiving intensive medical intervention or therapy and results from this point of care glucose test should not be used for patient management decisions in these cases. Inaccurate results may also occur from other interfering factors, such as N-acetylcysteine (blood concentrations of greater than 5mg/dL), galactose, extremes of hematocrit (<10 or >65), or high doses of ascorbic acid (vitamin C) greater than 3mg/dL. Consider alternate testing mechanisms (e.g. core lab, blood gas instrument) in the above situations. Interpretation and review of laboratory results Abnormal [facility] Moo 04-24-2024 [facility] Telephone (CHRIS) CHANG SOLIS ([id number]) 1970 M Date Time Provider Department 04/24/24 TIFFANY CHAVEZ During your visit today, we recorded the following information about you: Nichol Erazo MA 04/24/2024 3:24 PM Signed Patient lm on vm wondering if you can send anything in for allergies. Has water eyes and sneezing. Please advise. VERA Myrick Brittny A, APRN.MONKEY KEEPER 04/24/2024 5:47 PM Signed Rx for Claritin sent in. Tiffany Chavez APRN.CNP 04/24/2024 5:47 PM Signed Addended by: TIFFANY CHAVEZ on: 04/24/2024 05:47 PM Modules accepted: Orders Nichol Erazo MA 04/25/2024 8:59 AM Signed Vm not set up. VERA Myrick Mary, MA 04/25/2024 1:03 PM Addendum Lm on pt. rx sent. Nichol Erazo MA Allergies As of Date: 04/24/2024 Noted Allergy Reaction BACTRIM (SULFAMETHOXAZOLE-TRIM ETH*04/12/2005 4 - Hives HAND SOAP (TRICLOSAN) 07/26/2012 2 - Rash IVP DYE (IODINE) 04/12/2005 4 - Hives SEASONAL ALLERGIES 03/18/2022 5 - Intolerance Comments: Runny nose SHELLFISH DERIVED 12/13/2016 2 - Rash SULFA (SULFONAMIDE ANTIBIOTICS) 04/12/2005 4 - Hives Date Reviewed: 04/20/2024 Reviewed by: Dipak Skinner LPN - Fully Assessed Reason for Visit: Patient Question [1477] Primary Visit Diagnosis:Seasonal allergies [J30.2] Order(s):loratadine (CLARITIN) 10 mg tabletTake 1 tablet by mouth once daily.Disp: 90 tabletRfl: 0 Prescriptions as of 04/25/2024 - loratadine (CLARITIN) 10 mg tablet Take 1 tablet by mouth once daily. - azithromycin (ZITHROMAX Z-ANDREY) 250 mg tablet Take 2 tablets day one, then, 1 tablet daily until gone. - meclizine (ANTIVERT) 25 mg tab Take 1 tablet by mouth three times a day as needed for up to 7 days. - benzonatate (TESSALON PERLES) 100 mg capsule Take 1 capsule by mouth three times a day as needed for cough. - oxymetazoline (AFRIN, OXYMETAZOLINE,) 0.05 % nasal spray Use 2-3 Sprays in each nostril two times a day. Use as directed. For a maximum of 3 (three) days. - albuterol HFA (PROAIR HFA) 90 mcg/actuation inhaler 2 Puffs every 6 hours as needed for wheezing/shortness of breath. Take as directed - blood sugar diagnostic (RELION PRIME TEST STRIPS) test strip Use as instructed - Blood-Glucose Meter (RELION PRIME METER) 1 Each four times daily. - acetaminophen (TYLENOL ORAL) Take by mouth as needed. Meds Comments as of 12/06/2022: 12/06/22 The medications are managed by this patient by: PATIENT RHODA Rodriguez Problem List As Of Date 04/24/2024 Noted Resolved Mixed hyperlipidemia [E78.2] 04/24/2008 Sprain and Strain of Wrist [S63.509A, S66.919A] 08/14/2009 Abdominal pain, left lower quadrant [R10.32] 08/18/2010 Change in bowel function [R19.8] 08/18/2010 GERD (gastroesophageal reflux disease) [K21.9] 08/22/2010 Stress disorder, acute [F43.0] 08/22/2010 Seborrhea [L21.9] 08/22/2010 Gastritis/duodenitis [K29.70, K29.90] 09/02/2010 Duodenitis without mention of hemorrhage [K29.8*09/02/2010 Acute gastritis without mention of hemorrhage [*09/02/2010 Gastritis [K29.70] 09/18/2010 RUBÉN (obstructive sleep apnea) [G47.33] 02/21/2013 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] 08/01/2013 Backache, unspecified [M54.9] 08/01/2013 Chest pain [R07.9] 02/02/2015 10/29/2021 Headache [R51] 02/02/2015 Sleep apnea [G47.30] 02/25/2015 Primary insomnia [F51.01] 02/26/2015 Chronic left shoulder pain [M25.512, G89.29] 12/25/2018 Obesity, Class II, BMI 35-39.9 [E66.812] 01/13/2021 TIA (transient ischemic attack) [G45.9] 01/14/2021 Atypical chest pain [R07.89] 01/15/2021 Fatty liver disease, nonalcoholic [K76.0] 05/22/2021 New onset type 2 diabetes mellitus (HCC) [E11.9]10/26/2021 ROHAN (generalized anxiety disorder) [F41.1] 10/26/2021 Obesity, Class I, BMI 30-34.9 [E66.811] 10/29/2021 Type 2 diabetes mellitus without retinopathy (H*12/03/2021 Spondylolisthesis of lumbosacral region [M43.17]04/14/2022 Chronic bilateral low back pain without sciatic*09/01/2022 Influenza A [J10.1] 08/20/2023 Tachycardia [R00.0] 08/20/2023 08/21/2023 Acute midline low back pain without sciatica [M*03/12/2024 Dizziness [R42] 04/20/2024 Prescriptions ordered this encounter Disp Refills Start End LORATADINE 10 MG TABLET 90 t* 0 04/24/2024 Route: ORAL Sig: Take 1 tablet by mouth once daily. Encounter Status:Closed by NICHOL ERAZO on 04/24/24 [facility] 04-20-2024 [facility] Office Visit (UCWSTR ) CHANG SOLIS ([id number]) 1970 M Date Time Provider Department 04/20/24 5:30 PM NURIA ACKERMAN [facility] During your visit today, we recorded the following information about you: Temperature Pulse Respiration Blood pressure 96.7 degrees 83/minute 20/minute 117/85 Weight 110 kg Nuria Ackerman APRN.KEVEN 04/20/2024 5:54 PM Addendum This note was created using NoteWriter. Subjective Chang Solis is a 53 year old male. 53 year old male with PMH insomina, hyperlipidemia, GERD, DM presents for complaints of illness. Acute onset 2 days ago +sinus pressure +cough +productive +runny nose +sneezing +fatigue ' Worsening Denies CP Denies SOB Denies dyspnea Denies abdominal pain The history is provided by the patient. No marketing communications coordinator was used. Sinus Problem This is a new problem. The current episode started yesterday. The problem occurs constantly. The problem has been gradually worsening. Associated symptoms include chills, congestion, coughing, fatigue, headaches and a sore throat. Pertinent negatives include no abdominal pain, anorexia, arthralgias, change in bowel habit, chest pain, diaphoresis, fever, joint swelling, myalgias, nausea, neck pain, numbness, rash, swollen glands, urinary symptoms, vertigo, visual change, vomiting or weakness. Nothing aggravates the symptoms. He has tried nothing for the symptoms. The treatment provided no relief. PAST MEDICAL HISTORY Diagnosis Date Abdominal pain, left lower quadrant Acute gastritis without mention of hemorrhage Diabetes (HCC) Duodenitis without mention of hemorrhage Esophageal reflux Gastroesophageal reflux Unspecified asthma(493.90) exercise-induced PAST SURGICAL HISTORY Procedure Laterality Date APPENDECTOMY HX CHOLECYSTECTOMY HX COLONOSCOPY W/BIOPSY SINGLE/MULTIPLE 09/02/10 EGD TRANSORAL BIOPSY SINGLE/MULTIPLE 09/02/10 HERNIA REPAIR HX LAPAROSCOPY SURG CHOLECYSTECTOMY Cholecystectomy, lap RPR 1ST INGUN HRNA AGE 5 YRS/> REDUCIBLE Hernia repair, inguinal RPR 1ST INGUN HRNA AGE 5 YRS/> REDUCIBLE Hernia repair, inguinal TONSILLECTOMY HX TONSILLECTOMY PRIMARY/SECONDARY Tonsillectomy ALLERGIES Bactrim [Sulfamethoxazole-Trim ethoprim], Hand Soap [Triclosan], Ivp Dye [Iodine], Seasonal Allergies, Shellfish Derived, and Sulfa (Sulfonamide Antibiotics) MEDICATIONS meclizine (ANTIVERT) 25 mg tab Take 1 tablet by mouth three times a day as needed for up to 7 days. benzonatate (TESSALON PERLES) 100 mg capsule Take 1 capsule by mouth three times a day as needed for cough. oxymetazoline (AFRIN, OXYMETAZOLINE,) 0.05 % nasal spray Use 2-3 Sprays in each nostril two times a day. Use as directed. For a maximum of 3 (three) days. albuterol HFA (PROAIR HFA) 90 mcg/actuation inhaler 2 Puffs every 6 hours as needed for wheezing/shortness of breath. Take as directed blood sugar diagnostic (RELION PRIME TEST STRIPS) test strip Use as instructed Blood-Glucose Meter (RELION PRIME METER) 1 Each four times daily. acetaminophen (TYLENOL ORAL) Take by mouth as needed. azithromycin (ZITHROMAX Z-ANDREY) 250 mg tablet Take 2 tablets day one, then, 1 tablet daily until gone. FAMILY HISTORY Problem Relation Age of Onset Hypertension Mother Lipids Mother No Ocular Disease Mother Cancer Father lung ca. No Ocular Disease Father Diabetes Maternal Grandmother Coronary Artery Disease Maternal Grandfather Cancer Paternal Grandfather Social History Tobacco Use Smoking status: Never Passive exposure: Yes Smokeless tobacco: Never Vaping Use Vaping status: Never Used Substance Use Topics Alcohol use: Not Currently Drug use: Never Review of Systems Constitutional: Positive for chills and fatigue. Negative for diaphoresis and fever. HENT: Positive for congestion, postnasal drip, sinus pressure, sinus pain and sore throat. Negative for nosebleeds. Eyes: Negative for pain, discharge, redness and itching. Respiratory: Positive for cough. Negative for shortness of breath and stridor. Cardiovascular: Negative for chest pain. Gastrointestinal: Negative for abdominal pain, anorexia, change in bowel habit, nausea and vomiting. Musculoskeletal: Negative for arthralgias, joint swelling, myalgias and neck pain. Skin: Negative for rash. Allergic/Immunologic: Negative for environmental allergies, food allergies and immunocompromised state. Neurological: Positive for headaches. Negative for vertigo, weakness and numbness. Objective BP 117/85 Pulse 83 Temp (!) 35.9 ?C (96.7 ?F) Resp 20 Wt 110 kg (242 lb 8.1 oz) SpO2 97% BMI 34.30 kg/m? Physical Exam Vitals and nursing note reviewed. Constitutional: General: He is not in acute distress. Appearance: Normal appearance. He is not ill-appearing, toxic-appearing or diaphoretic. HENT: Head: Normocephalic and a (more content not included)... Normal [facility] 04-18-2024 [place] Telephone (AGFAMPLE) CHANG SOLIS ([id number]) 1970 M Date Time Provider Department 04/18/24 TIFFANY CHAVEZ During your visit today, we recorded the following information about you: Ba Cm 04/18/2024 4:55 PM Signed Pt came into office at 4:50 pm today requesting a refill on his vertigo pill, does not know the name. He says he is out and having issues. Please advise Thank you Please call pt at this number [phone] Tiffany Chavez, VELIA.MONKEY KEEPER 04/18/2024 4:58 PM Signed Please notify patient the Rx for Meclizine sent in. Tiffany Chavez APRN.[facility] 04/18/2024 4:58 PM Signed Addended by: TIFFANY CHAVEZ on: 04/18/2024 04:58 PM Modules accepted: Nichol Mitchell MA 04/18/2024 5:01 PM Signed VM not set up. My chart message sent. VERA Myrick Julie, MA 04/19/2024 10:43 AM Signed VM still not set up and no answer VERA Casanova Julie, MA 04/20/2024 9:42 AM Signed No vm box is set up VERA Casanova Brandi, LPN 04/20/2024 5:39 PM Signed Pt seen in [facility] and notified of medication being called in. Dipak Skinner LPN Allergies As of Date: 04/18/2024 Noted Allergy Reaction BACTRIM (SULFAMETHOXAZOLE-TRIM ETH*04/12/2005 4 - Hives HAND SOAP (TRICLOSAN) 07/26/2012 2 - Rash IVP DYE (IODINE) 04/12/2005 4 - Hives SEASONAL ALLERGIES 03/18/2022 5 - Intolerance Comments: Runny nose SHELLFISH DERIVED 12/13/2016 2 - Rash SULFA (SULFONAMIDE ANTIBIOTICS) 04/12/2005 4 - Hives Date Reviewed: 04/03/2024 Reviewed by: Tiffany Chavez APRN.MONKEY KEEPER - Fully Assessed Reason for Visit: Medication Request [138] Cmt: Out of vertigo medication Visit Diagnosis:Dizziness [R42] Order(s):meclizine (ANTIVERT) 25 mg tabTake 1 tablet by mouth three times a day as needed for up to 7 days.Disp: 21 tabletRfl: 0 Prescriptions as of 04/20/2024 - meclizine (ANTIVERT) 25 mg tab Take 1 tablet by mouth three times a day as needed for up to 7 days. - benzonatate (TESSALON PERLES) 100 mg capsule Take 1 capsule by mouth three times a day as needed for cough. - oxymetazoline (AFRIN, OXYMETAZOLINE,) 0.05 % nasal spray Use 2-3 Sprays in each nostril two times a day. Use as directed. For a maximum of 3 (three) days. - albuterol HFA (PROAIR HFA) 90 mcg/actuation inhaler 2 Puffs every 6 hours as needed for wheezing/shortness of breath. Take as directed - blood sugar diagnostic (RELION PRIME TEST STRIPS) test strip Use as instructed - Blood-Glucose Meter (RELION PRIME METER) 1 Each four times daily. - acetaminophen (TYLENOL ORAL) Take by mouth as needed. Meds Comments as of 12/06/2022: 12/06/22 The medications are managed by this patient by: PATIENT RHODA Rodriguez Problem List As Of Date 04/18/2024 Noted Resolved Mixed hyperlipidemia [E78.2] 04/24/2008 Sprain and Strain of Wrist [S63.509A, S66.919A] 08/14/2009 Abdominal pain, left lower quadrant [R10.32] 08/18/2010 Change in bowel function [R19.8] 08/18/2010 GERD (gastroesophageal reflux disease) [K21.9] 08/22/2010 Stress disorder, acute [F43.0] 08/22/2010 Seborrhea [L21.9] 08/22/2010 Gastritis/duodenitis [K29.70, K29.90] 09/02/2010 Duodenitis without mention of hemorrhage [K29.8*09/02/2010 Acute gastritis without mention of hemorrhage [*09/02/2010 Gastritis [K29.70] 09/18/2010 RUBÉN (obstructive sleep apnea) [G47.33] 02/21/2013 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] 08/01/2013 Backache, unspecified [M54.9] 08/01/2013 Chest pain [R07.9] 02/02/2015 10/29/2021 Headache [R51] 02/02/2015 Sleep apnea [G47.30] 02/25/2015 Primary insomnia [F51.01] 02/26/2015 Chronic left shoulder pain [M25.512, G89.29] 12/25/2018 Obesity, Class II, BMI 35-39.9 [E66.812] 01/13/2021 TIA (transient ischemic attack) [G45.9] 01/14/2021 Atypical chest pain [R07.89] 01/15/2021 Fatty liver disease, nonalcoholic [K76.0] 05/22/2021 New onset type 2 diabetes mellitus (HCC) [E11.9]10/26/2021 ROHAN (generalized anxiety disorder) [F41.1] 10/26/2021 Obesity, Class I, BMI 30-34.9 [E66.811] 10/29/2021 Type 2 diabetes mellitus without retinopathy (H*12/03/2021 Spondylolisthesis of lumbosacral region [M43.17]04/14/2022 Chronic bilateral low back pain without sciatic*09/01/2022 Influenza A [J10.1] 08/20/2023 Tachycardia [R00.0] 08/20/2023 08/21/2023 Acute midline low back pain without sciatica [M*03/12/2024 Prescriptions ordered this encounter Disp Refills Start End MECLIZINE 25 MG TABLET 21 t* 0 04/18/2024 04/25/2024 Route: ORAL Sig: Take 1 tablet by mouth three times a day as needed for up to 7 days. Encounter Status:Closed by BA CM on 04/18/24 [facility] [place] Telephone (RSQ) RUSTY SOLISCALVIN Jh ([id number]) 1970 M Date Time Provider Department 04/18/24 [facility] During your visit today, we recorded the following information about you: Darius Liang 04/18/2024 2:26 PM Signed Called patient on 04/18/24 at 2:20 in regards to scheduling a recheck appointment with [facility]. Patient requires an appointment after 3:00. Darius Liang 04/19/2024 10:39 AM Signed Called patient on 04/19/24 at 10:35 in regards to scheduling a recheck appointment. Patient's voicemail box has not been set up. Allergies As of Date: 04/18/2024 Noted Allergy Reaction BACTRIM (SULFAMETHOXAZOLE-TRIM ETH*04/12/2005 4 - Hives HAND SOAP (TRICLOSAN) 07/26/2012 2 - Rash IVP DYE (IODINE) 04/12/2005 4 - Hives SEASONAL ALLERGIES 03/18/2022 5 - Intolerance Comments: Runny nose SHELLFISH DERIVED 12/13/2016 2 - Rash SULFA (SULFONAMIDE ANTIBIOTICS) 04/12/2005 4 - Hives Date Reviewed: 04/03/2024 Reviewed by: Tiffany Chavez APRN.[facility] - Fully Assessed Reason for Visit: Appointment [[id number]] Prescriptions as of 07/17/2024 - fluticasone (FLONASE) 50 mcg/actuation nasal spray Use 1 [place] in each nostril once daily. - meclizine (ANTIVERT) 25 mg tab Take 1 tablet by mouth three times a day as needed. - albuterol HFA (PROAIR HFA) 90 mcg/actuation inhaler 2 Puffs every 6 hours as needed for wheezing/shortness of breath. Take as directed - blood sugar diagnostic (RELION PRIME TEST STRIPS) test strip Use as instructed - Blood-Glucose Meter (RELION PRIME METER) 1 Each four times daily. - acetaminophen (TYLENOL ORAL) Take by mouth as needed. Meds Comments as of 12/06/2022: 12/06/22 The medications are managed by this patient by: PATIENT Chana LeonorRHODA willson Problem List As Of Date 04/18/2024 Noted Resolved Mixed hyperlipidemia [E78.2] 04/24/2008 Sprain and Strain of Wrist [S63.509A, S66.919A] 08/14/2009 Abdominal pain, left lower quadrant [R10.32] 08/18/2010 Change in bowel function [R19.8] 08/18/2010 GERD (gastroesophageal reflux disease) [K21.9] 08/22/2010 Stress disorder, acute [F43.0] 08/22/2010 Seborrhea [L21.9] 08/22/2010 Gastritis/duodenitis [K29.70, K29.90] 09/02/2010 Duodenitis without mention of hemorrhage [K29.8*09/02/2010 Acute gastritis without mention of hemorrhage [*09/02/2010 Gastritis [K29.70] 09/18/2010 RUBÉN (obstructive sleep apnea) [G47.33] 02/21/2013 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] 08/01/2013 Backache, unspecified [M54.9] 08/01/2013 Chest pain [R07.9] 02/02/2015 10/29/2021 Headache [R51] 02/02/2015 Sleep apnea [G47.30] 02/25/2015 Primary insomnia [F51.01] 02/26/2015 Chronic left shoulder pain [M25.512, G89.29] 12/25/2018 Obesity, Class II, BMI 35-39.9 [E66.812] 01/13/2021 TIA (transient ischemic attack) [G45.9] 01/14/2021 Atypical chest pain [R07.89] 01/15/2021 Fatty liver disease, nonalcoholic [K76.0] 05/22/2021 New onset type 2 diabetes mellitus (HCC) [E11.9]10/26/2021 ROHAN (generalized anxiety disorder) [F41.1] 10/26/2021 Obesity, Class I, BMI 30-34.9 [E66.811] 10/29/2021 Type 2 diabetes mellitus without retinopathy (H*12/03/2021 Spondylolisthesis of lumbosacral region [M43.17]04/14/2022 Chronic bilateral low back pain without sciatic*09/01/2022 Influenza A [J10.1] 08/20/2023 Tachycardia [R00.0] 08/20/2023 08/21/2023 Acute midline low back pain without sciatica [M*03/12/2024 Encounter Status:Closed by DARIUS LIANG on 07/17/24 [facility] CNTHERAPYon 04-10-2024 CNTHERAPY OT/PT/Speech Visit (PTMDRG) CHANG SOLIS ([id number]) 1970 M Date Time Provider Department 04/10/24 3:30 PM FAIZA MUNOZ Date Time Provider Department [place] 04/10/2024 3:30 PM [id number] MUNOZ [facility] Reason for Visit: Physical Therapy [503] PT Discharge [752] Primary Visit Diagnosis:Acute midline low back pain without sciatica [M54.50] Allergies As of Date: 04/10/2024 Noted Allergy Reaction BACTRIM (SULFAMETHOXAZOLE-TRIM ETH*04/12/2005 4 - Hives HAND SOAP (TRICLOSAN) 07/26/2012 2 - Rash IVP DYE (IODINE) 04/12/2005 4 - Hives SEASONAL ALLERGIES 03/18/2022 5 - Intolerance Comments: Runny nose SHELLFISH DERIVED 12/13/2016 2 - Rash SULFA (SULFONAMIDE ANTIBIOTICS) 04/12/2005 4 - Hives Date Reviewed: 04/03/2024 Reviewed by: Tiffany Chavez APRN.MONKEY KEEPER - Fully Assessed Prescriptions as of 06/26/2024 - amoxicillin-clavulanat e potassium (AUGMENTIN) 875-125 mg per tablet Take 1 tablet by mouth every 12 hours for 10 days. - fluticasone (FLONASE) 50 mcg/actuation nasal spray Use 1 [place] in each nostril once daily. - meclizine (ANTIVERT) 25 mg tab Take 1 tablet by mouth three times a day as needed. - albuterol HFA (PROAIR HFA) 90 mcg/actuation inhaler 2 Puffs every 6 hours as needed for wheezing/shortness of breath. Take as directed - blood sugar diagnostic (RELION PRIME TEST STRIPS) test strip Use as instructed - Blood-Glucose Meter (RELION PRIME METER) 1 Each four times daily. - acetaminophen (TYLENOL ORAL) Take by mouth as needed. Meds Comments as of 12/06/2022: 12/06/22 The medications are managed by this patient by: PATIENT Thicketabhinav GalvezRHODA willson Advertising Sales Manager: Addendum Therapy (PT/OT/Speech/Resp) ID: [id number] 04/10/2024 3:57 PM Author: FAIZA MUNOZ Signed by FAIZA MUNOZ LEARNING AND DEVELOPMENT ANALYST on 04/10/2024 at 3:57 PM * * * This document replaces document [id number] * * * Document text: Program_ID:[id number] Access Code: [email or web address] URL: [email or web address] Date: 04-10-2024 Prepared By: Bentley Al Program Notes Exercises - Supine Lower Trunk Rotation - 1 x daily - 7 x weekly - sets - reps - Hooklying Single Knee to Chest Stretch - 1 x daily - 7 x weekly - sets - 5 reps - Supine Pelvic Tilt - 1 x daily - 7 x weekly - sets - 10 reps - Supine Bridge - 1 x daily - 7 x weekly - sets - 10 reps - Clamshell - 1 x daily - 7 x weekly - sets - 15 reps - Bent Knee Fallouts - 1 x daily - 7 x weekly - 3 sets - 10 reps - Supine Bridge with Mini Honduran Ball Between Knees - 1 x daily - 7 x weekly - sets - 15 reps - Clamshell with Resistance - 1 x daily - 7 x weekly - 3 sets - 10 reps - Seated Long Arc Quad - 1 x daily - 7 x weekly - 3 sets - 10 reps -- [facility] THERAPY NTon 04-10-2024 THERAPY NT HNO ID: [id number] Author: FAIZA MUNOZ PTA Service: ? Author Type: Valve Seater Operator Type: Therapy (PT/OT/Speech/Resp) Filed: 04/10/2024 15:57 Note Text: Program_ID:[id number] Access Code: [email or web address] URL: [email or web address] Date: 04-10-2024 Prepared By: Bentley Al Program Notes Exercises - Supine Lower Trunk Rotation - 1 x daily - 7 x weekly - sets - reps - Hooklying Single Knee to Chest Stretch - 1 x daily - 7 x weekly - sets - 5 reps - Supine Pelvic Tilt - 1 x daily - 7 x weekly - sets - 10 reps - Supine Bridge - 1 x daily - 7 x weekly - sets - 10 reps - Clamshell - 1 x daily - 7 x weekly - sets - 15 reps - Bent Knee Fallouts - 1 x daily - 7 x weekly - 3 sets - 10 reps - Supine Bridge with Mini [place] Ball Between Knees - 1 x daily - 7 x weekly - sets - 15 reps - Clamshell with Resistance - 1 x daily - 7 x weekly - 3 sets - 10 reps - Seated Long Arc Quad - 1 x daily - 7 x weekly - 3 sets - 10 reps Normal [facility] CNOVon 04-03-2024 CNOV Office Visit (MARIA LJACQUES) CHANG SOLIS ([id number]) 1970 M Date Time Provider Department 04/03/24 9:00 AM TIFFANY CHAVEZ During your visit today, we recorded the following information about you: Temperature Pulse Respiration Blood pressure 97.5 degrees 107/minute 16/minute 120/74 Weight Height 107.5 kg 1.791 m Tiffany Chavez, VELIA.MONKEY KEEPER 04/03/2024 1:10 PM Signed CHIEF COMPLAINT: Chang Solis is a 53 year old male who presents for an ER follow up from 03/31/2024. He started experiencing dizziness, cough, phlegm, sinus congestion and pain, thick nasal discharge, decrease appetite, ringing in his left ear, fatigue, fever of 100.3 yesterday. He was tested for Covid, flu, and RSV and was negative. He has been trying to drink more water and taking OTC cold/flu medications. He has been off work since yesterday due to his symptoms. I reviewed past medical, surgical, social, and family histories today and updated chart. Allergies, chronic medications, and supplements were also reviewed. The history is provided by the patient. URI He complains of chest tightness, cough, hoarse voice and sputum production. There is no difficulty breathing, frequent throat clearing, hemoptysis, shortness of breath or wheezing. This is a new problem. The current episode started in the past 7 days. The problem occurs constantly. The problem has been unchanged. The cough is productive of sputum. Associated symptoms include ear congestion, ear pain, a fever, headaches, malaise/fatigue, nasal congestion and a sore throat. Pertinent negatives include no appetite change, chest pain, dyspnea on exertion, heartburn, myalgias, orthopnea, PND, postnasal drip, rhinorrhea, sneezing, sweats, trouble swallowing or weight loss. His symptoms are aggravated by URI. His symptoms are alleviated by beta-agonist and OTC cough suppressant. He reports minimal improvement on treatment. There are no known risk factors for lung disease. There is no history of bronchiectasis, COPD, emphysema or pneumonia. PAST MEDICAL HISTORY Diagnosis Date Abdominal pain, left lower quadrant Acute gastritis without mention of hemorrhage Diabetes (HCC) Duodenitis without mention of hemorrhage Esophageal reflux Gastroesophageal reflux Unspecified asthma(493.90) exercise-induced PAST SURGICAL HISTORY Procedure Laterality Date APPENDECTOMY HX CHOLECYSTECTOMY HX COLONOSCOPY W/BIOPSY SINGLE/MULTIPLE 09/02/10 EGD TRANSORAL BIOPSY SINGLE/MULTIPLE 09/02/10 HERNIA REPAIR HX LAPAROSCOPY SURG CHOLECYSTECTOMY Cholecystectomy, lap RPR 1ST INGUN HRNA AGE 5 YRS/> REDUCIBLE Hernia repair, inguinal RPR 1ST INGUN HRNA AGE 5 YRS/> REDUCIBLE Hernia repair, inguinal TONSILLECTOMY HX TONSILLECTOMY PRIMARY/SECONDARY Tonsillectomy Social History Tobacco Use Smoking status: Never Passive exposure: Yes Smokeless tobacco: Never Vaping Use Vaping status: Never Used Substance Use Topics Alcohol use: Not Currently Drug use: Never ALLERGIES Allergen Reactions Bactrim [Sulfametho* Hives Hand Soap [Triclosa* Rash Ivp Dye [Iodine] Hives Seasonal Allergies Intolerance Runny nose Shellfish Derived Rash Sulfa (Sulfonamide * Hives Family History Problem Relation Age of Onset Hypertension Mother Lipids Mother No Ocular Disease Mother Cancer Father lung ca. No Ocular Disease Father Diabetes Maternal Grandmother Coronary Artery Disease Maternal Grandfather Cancer Paternal Grandfather Current Outpatient Medications Medication Sig Dispense Refill oxymetazoline (AFRIN, OXYMETAZOLINE,) 0.05 % nasal spray Use 2-3 Sprays in each nostril two times a day. Use as directed. For a maximum of 3 (three) days. 22 mL 0 albuterol HFA (PROAIR HFA) 90 mcg/actuation inhaler 2 Puffs every 6 hours as needed for wheezing/shortness of breath. Take as directed 1 Each 0 blood sugar diagnostic (RELION PRIME TEST STRIPS) test strip Use as instructed 200 Strip 2 Blood-Glucose Meter (RELION PRIME METER) 1 Each four times daily. 1 Each 0 acetaminophen (TYLENOL ORAL) Take by mouth as needed. amoxicillin-clavulanat e potassium (AUGMENTIN) 875-125 mg per tablet Take 1 tablet by mouth every 12 hours for 10 days. 20 tablet 0 benzonatate (TESSALON PERLES) 100 mg capsule Take 1 capsule by mouth three times a day as needed for cough. 30 capsule 0 No current facility-administered medications for this visit. Review of Systems Constitutional: Positive for fatigue, fever and malaise/fatigue. Negative for appetite change, chills, diaphoresis and weight loss. HENT: Positive for ear pain, hoarse voice, sinus pressure, sinus pain, sore throat and tinnitus. Negative for postnasal drip, rhinorrhea, sneezing and trouble swallowing. Respiratory: Positive for cough and sputum production. Negative for hemoptysis, chest tightness, shortness of juan pablo (more content not included)... Normal [facility] ED NOTEon 03-31-2024 ED NOTE HNO ID: [id number] Author: DEACON SHIELDS RN Service: Emergency Medicine Author Type: Registered Nurse Type: ED Notes Filed: 03/31/2024 12:03 Note Text: Patient arrived for flu like symptoms since Tuesday, recent COVID exposure on . Normal [facility] ED PROV NOTEon 03-31-2024 ED PROV NOTE HNO ID: [id number] Author: CATHIE BULLOCK PA-C Service: ? Author Type: Physician Electrical Accessories Assembler Type: ED Provider Notes Filed: 03/31/2024 19:50 Note Text: ED Provider Note Patient Name: Chang Solis : 1970 SERVICE DATE: 03/31/24 History Patient presents with: Flu Like Symptoms: X1 week Covid19 Concern 53 year old male presents to ED complaining of flulike symptoms. Symptoms started about a week ago, exposed to COVID a few days ago. He has had congestion, no cough. No fever or chills. Also reports pain to the left shoulder which she injured a few months ago. Pain radiates down his arm towards his elbow which she injured as a child. Denies any new injury. History provided by: Medical records and patient PAST MEDICAL HISTORY Diagnosis Date - Abdominal pain, left lower quadrant - Acute gastritis without mention of hemorrhage - Diabetes (HCC) - Duodenitis without mention of hemorrhage - Esophageal reflux Gastroesophageal reflux - Unspecified asthma(493.90) exercise-induced PAST SURGICAL HISTORY Procedure Laterality Date - APPENDECTOMY HX - CHOLECYSTECTOMY HX - COLONOSCOPY W/BIOPSY SINGLE/MULTIPLE 09/02/10 - EGD TRANSORAL BIOPSY SINGLE/MULTIPLE 09/02/10 - HERNIA REPAIR HX - LAPAROSCOPY SURG CHOLECYSTECTOMY Cholecystectomy, lap - RPR 1ST INGUN HRNA AGE 5 YRS/> REDUCIBLE Hernia repair, inguinal - RPR 1ST INGUN HRNA AGE 5 YRS/> REDUCIBLE Hernia repair, inguinal - TONSILLECTOMY HX - TONSILLECTOMY PRIMARY/SECONDARY Tonsillectomy FAMILY HISTORY Problem Relation Age of Onset - Hypertension Mother - Lipids Mother - No Ocular Disease Mother - Cancer Father lung ca. - No Ocular Disease Father - Diabetes Maternal Grandmother - Coronary Artery Disease Maternal Grandfather - Cancer Paternal Grandfather Social History Tobacco Use - Smoking status: Never Passive exposure: Yes - Smokeless tobacco: Never Vaping Use - Vaping status: Never Used Substance and Sexual Activity - Alcohol use: Not Currently - Drug use: No - Sexual activity: Not on file ALLERGIES Allergen Reactions - Bactrim [Sulfametho* Hives - Hand Soap [Triclosa* Rash - Ivp Dye [Iodine] Hives - Seasonal Allergies Intolerance Runny nose - Shellfish Derived Rash - Sulfa (Sulfonamide * Hives Review of Systems Constitutional: Negative for chills and fever. HENT: Positive for congestion. Respiratory: Negative. Cardiovascular: Negative. Musculoskeletal: Positive for arthralgias. Skin: Negative. Neurological: Positive for headaches. Hematological: Negative. Physical Exam Vitals [03/31/24 1202] BP Pulse Temp Temp src Resp SpO2 Weight Height 147/92 (!) 115 36.5 ?C (97.7 ?F) Oral 20 99 % 108.9 kg (240 lb) -- Physical Exam Vitals and nursing note reviewed. Constitutional: Appearance: Normal appearance. HENT: Head: Normocephalic and atraumatic. Right Ear: Tympanic membrane normal. Left Ear: Tympanic membrane normal. Ears: Comments: Left ear effusion Nose: Congestion present. Mouth/Throat: Mouth: Mucous membranes are moist. Pharynx: Oropharynx is clear. Eyes: Extraocular Movements: Extraocular movements intact. Conjunctiva/sclera: Conjunctivae normal. Pupils: Pupils are equal, round, and reactive to light. Cardiovascular: Rate and Rhythm: Normal rate. Pulses: Normal pulses. Pulmonary: Effort: Pulmonary effort is normal. Musculoskeletal: General: Normal range of motion. Skin: General: Skin is warm and dry. Capillary Refill: Capillary refill takes less than 2 seconds. Neurological: Mental Status: He is alert and oriented to person, place, and time. Diagnostic Testing ED Labs Ordered and Reviewed - No data to display XR SHOULDER GENERAL 3V OR MORE AP/TRUE AP/OTHER LEFT Final Result IMPRESSION: No acute osseous abnormality. Mild degenerative change acromioclavicular joint. Health Plan Specialist: CAIT Transcribe Date/Time: Mar 31 2024 1:00P Dictated by : ALVARO HANNA DO This examination was interpreted and the report reviewed and electronically signed by: ALVARO HANNA DO on Mar 31 2024 1:02PM EST Procedures ED Course / Clinical Impression Clinical Impressions as of 03/31/24 1850 Upper respiratory tract infection, unspecified type Strain of left shoulder, subsequent encounter MDM / Disposition / Plan 53 year old male presents c/o congestion. Congestion, ear pain x 1 week. Also with chronic left shoulder pain, no new injury. No acute distress. Left serous otitis but no erythema. Viral swab negative. X-ray of the left shoulder was obtained which shows no acute abnormality. Mild degenerative changes. Discussed with patient, countering supportive care. Recommend Mucinex and antihistamine. Follow-up with PCP, safe for discharge home. Differential Diagnoses - URI - Shoulder strain - COVID, flu, rsv is less likely for the following reason(s): laboratory studies not suggestive (more content not included)... Normal [facility] XR SHLDR >/=3V AP/ASHA AP/OTH R LTon 03-31-2024 XR SHLDR >/=3V AP/ASHA AP/OTHR LT * * *Final Report* * * DATE OF EXAM: Mar 31 2024 12:44PM [id number] [id number] - XR SHLDR >/=3V AP/ASHA AP/OTHR LT / PROCEDURE REASON: Trauma * * * * Physician Interpretation * * * * EXAMINATION: XR SHLDR >/=3V AP/ASHA AP/OTHR LT PATIENT/TECHNOLOGIST PROVIDED HISTORY: INTERMITTENT LEFT SHOULDER PAIN SINCE A FALL BACK IN OCTOBER CLINICAL INFORMATION: 53 years old Male with Trauma TECHNIQUE: XR SHLDR >/=3V AP/ASHA AP/OTHR LT Laterality: LEFT Number of different views (projections): 3 COMPARISON: Radiographs 10/16/2018 RESULT: No fracture. Glenohumeral joint space is maintained. Mild degenerative change acromioclavicular joint. Acromiohumeral interval is maintained. IMPRESSION: No acute osseous abnormality. Mild degenerative change acromioclavicular joint. Health Plan Specialist: CAIT Transcribe Date/Time: Mar 31 2024 1:00P Dictated by : ALVARO HANNA DO This examination was interpreted and the report reviewed and electronically signed by: ALVARO HANNA DO on Mar 31 2024 1:02PM EST [id number] Normal [facility] CNTHERAPYon 03-30-2024 CNTHERAPY OT/PT/Speech Visit (PTMDRG) CHANG SOLIS ([id number]) 1970 M Date Time Provider Department 03/30/24 12:30 PM SONDRA GRAY PTMDRG Date Time Provider Department Center 03/30/2024 12:30 PM [id number] GRAY PTMDRG [facility] Reason for Visit: Physical Therapy [503] Primary Visit Diagnosis:Acute midline low back pain without sciatica [M54.50] Allergies As of Date: 03/30/2024 Noted Allergy Reaction BACTRIM (SULFAMETHOXAZOLE-TRIM ETH*04/12/2005 4 - Hives HAND SOAP (TRICLOSAN) 07/26/2012 2 - Rash IVP DYE (IODINE) 04/12/2005 4 - Hives SEASONAL ALLERGIES 03/18/2022 5 - Intolerance Comments: Runny nose SHELLFISH DERIVED 12/13/2016 2 - Rash SULFA (SULFONAMIDE ANTIBIOTICS) 04/12/2005 4 - Hives Date Reviewed: 03/02/2024 Reviewed by: Dipak Skinner LPN - Fully Assessed Prescriptions as of 03/30/2024 - oxymetazoline (AFRIN, OXYMETAZOLINE,) 0.05 % nasal spray Use 2-3 Sprays in each nostril two times a day. Use as directed. For a maximum of 3 (three) days. - albuterol HFA (PROAIR HFA) 90 mcg/actuation inhaler 2 Puffs every 6 hours as needed for wheezing/shortness of breath. Take as directed - blood sugar diagnostic (RELION PRIME TEST STRIPS) test strip Use as instructed - Blood-Glucose Meter (RELION PRIME METER) 1 Each four times daily. - acetaminophen (TYLENOL ORAL) Take by mouth as needed. Meds Comments as of 12/06/2022: 12/06/22 The medications are managed by this patient by: PATIENT Chana Savage [facility] CNTHERAPYon 03-20-2024 CNTHERAPY OT/PT/Speech Visit (PTMDRG) CHANG SOLIS ([id number]) 1970 M Date Time Provider Department 03/20/24 3:30 PM FAIZA MUNOZ [facility] Date Time Provider Department [place] 03/20/2024 3:30 PM [id number] MUNOZ [facility] Reason for Visit: Physical Therapy [503] Primary Visit Diagnosis:Acute midline low back pain without sciatica [M54.50] Allergies As of Date: 03/20/2024 Noted Allergy Reaction BACTRIM (SULFAMETHOXAZOLE-TRIM ETH*04/12/2005 4 - Hives HAND SOAP (TRICLOSAN) 07/26/2012 2 - Rash IVP DYE (IODINE) 04/12/2005 4 - Hives SEASONAL ALLERGIES 03/18/2022 5 - Intolerance Comments: Runny nose SHELLFISH DERIVED 12/13/2016 2 - Rash SULFA (SULFONAMIDE ANTIBIOTICS) 04/12/2005 4 - Hives Date Reviewed: 03/02/2024 Reviewed by: Dipak Skinner LPN - Fully Assessed Prescriptions as of 03/20/2024 - oxymetazoline (AFRIN, OXYMETAZOLINE,) 0.05 % nasal spray Use 2-3 Sprays in each nostril two times a day. Use as directed. For a maximum of 3 (three) days. - albuterol HFA (PROAIR HFA) 90 mcg/actuation inhaler 2 Puffs every 6 hours as needed for wheezing/shortness of breath. Take as directed - blood sugar diagnostic (RELION PRIME TEST STRIPS) test strip Use as instructed - Blood-Glucose Meter (RELION PRIME METER) 1 Each four times daily. - acetaminophen (TYLENOL ORAL) Take by mouth as needed. Meds Comments as of 12/06/2022: 12/06/22 The medications are managed by this patient by: PATIENT Thicketabhinav GalvezRHODA willson Advertising Sales Manager: Addendum Therapy (PT/OT/Speech/Resp) ID: [id number] 03/20/2024 4:03 PM Author: FAIZA MUNOZ Signed by FAIZA MUNOZ LEARNING AND DEVELOPMENT ANALYST on 03/20/2024 at 4:03 PM * * * This document replaces document [id number] * * * Document text: Program_ID:[id number] Access Code: [email or web address] URL: [email or web address] campusalf [employer] Date: 03-20-2024 Prepared By: Bentley Al Program Notes Exercises - Supine Lower Trunk Rotation - 1 x daily - 7 x weekly - sets - reps - Hooklying Single Knee to Chest Stretch - 1 x daily - 7 x weekly - sets - 5 reps - Supine Pelvic Tilt - 1 x daily - 7 x weekly - sets - 10 reps - Supine Bridge - 1 x daily - 7 x weekly - sets - 10 reps - Clamshell - 1 x daily - 7 x weekly - sets - 15 reps - Bent Knee Fallouts - 1 x daily - 7 x weekly - 3 sets - 10 reps - Supine Bridge with Mini [place] Ball Between Knees - 1 x daily - 7 x weekly - sets - 15 reps -- [facility] THERAPY NTon 03-20-2024 THERAPY NT HNO ID: [id number] Author: FAIZA MUNOZ PTA Service: ? Author Type: Valve Seater Operator Type: Therapy (PT/OT/Speech/Resp) Filed: 03/20/2024 16:03 Note Text: Program_ID:[id number] Access Code: [email or web address] URL: [email or web address] Date: 03-20-2024 Prepared By: Bentley Al Program Notes Exercises - Supine Lower Trunk Rotation - 1 x daily - 7 x weekly - sets - reps - Hooklying Single Knee to Chest Stretch - 1 x daily - 7 x weekly - sets - 5 reps - Supine Pelvic Tilt - 1 x daily - 7 x weekly - sets - 10 reps - Supine Bridge - 1 x daily - 7 x weekly - sets - 10 reps - Clamshell - 1 x daily - 7 x weekly - sets - 15 reps - Bent Knee Fallouts - 1 x daily - 7 x weekly - 3 sets - 10 reps - Supine Bridge with Mini [place] Ball Between Knees - 1 x daily - 7 x weekly - sets - 15 reps [facility] CNPN Telephone (RSQ) CHANG SOLIS ([id number]) 1970 M Date Time Provider Department 03/13/24 BENTLEY AL During your visit today, we recorded the following information about you: Darius Liang 03/13/2024 10:12 AM Signed Called and tried to leave voicemail for patient on March 29 at 10:11 to schedule Physical Therapy. Patient does not have a voicemail box that is set up. Allergies As of Date: 03/13/2024 Noted Allergy Reaction BACTRIM (SULFAMETHOXAZOLE-TRIM ETH*04/12/2005 4 - Hives HAND SOAP (TRICLOSAN) 07/26/2012 2 - Rash IVP DYE (IODINE) 04/12/2005 4 - Hives SEASONAL ALLERGIES 03/18/2022 5 - Intolerance Comments: Runny nose SHELLFISH DERIVED 12/13/2016 2 - Rash SULFA (SULFONAMIDE ANTIBIOTICS) 04/12/2005 4 - Hives Date Reviewed: 03/02/2024 Reviewed by: Dipak Skinner LPN - Fully Assessed Reason for Visit: Appointment [186] Prescriptions as of 07/17/2024 - fluticasone (FLONASE) 50 mcg/actuation nasal spray Use 1 [place] in each nostril once daily. - meclizine (ANTIVERT) 25 mg tab Take 1 tablet by mouth three times a day as needed. - albuterol HFA (PROAIR HFA) 90 mcg/actuation inhaler 2 Puffs every 6 hours as needed for wheezing/shortness of breath. Take as directed - blood sugar diagnostic (RELION PRIME TEST STRIPS) test strip Use as instructed - Blood-Glucose Meter (RELION PRIME METER) 1 Each four times daily. - acetaminophen (TYLENOL ORAL) Take by mouth as needed. Meds Comments as of 12/06/2022: 12/06/22 The medications are managed by this patient by: PATIENT RHODA Rodriguez Problem List As Of Date 03/13/2024 Noted Resolved Mixed hyperlipidemia [E78.2] 04/24/2008 Sprain and Strain of Wrist [S63.509A, S66.919A] 08/14/2009 Abdominal pain, left lower quadrant [R10.32] 08/18/2010 Change in bowel function [R19.8] 08/18/2010 GERD (gastroesophageal reflux disease) [K21.9] 08/22/2010 Stress disorder, acute [F43.0] 08/22/2010 Seborrhea [L21.9] 08/22/2010 Gastritis/duodenitis [K29.70, K29.90] 09/02/2010 Duodenitis without mention of hemorrhage [K29.8*09/02/2010 Acute gastritis without mention of hemorrhage [*09/02/2010 Gastritis [K29.70] 09/18/2010 RUBÉN (obstructive sleep apnea) [G47.33] 02/21/2013 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] 08/01/2013 Backache, unspecified [M54.9] 08/01/2013 Chest pain [R07.9] 02/02/2015 10/29/2021 Headache [R51] 02/02/2015 Sleep apnea [G47.30] 02/25/2015 Primary insomnia [F51.01] 02/26/2015 Chronic left shoulder pain [M25.512, G89.29] 12/25/2018 Obesity, Class II, BMI 35-39.9 [E66.812] 01/13/2021 TIA (transient ischemic attack) [G45.9] 01/14/2021 Atypical chest pain [R07.89] 01/15/2021 Fatty liver disease, nonalcoholic [K76.0] 05/22/2021 New onset type 2 diabetes mellitus (HCC) [E11.9]10/26/2021 ROHAN (generalized anxiety disorder) [F41.1] 10/26/2021 Obesity, Class I, BMI 30-34.9 [E66.811] 10/29/2021 Type 2 diabetes mellitus without retinopathy (H*12/03/2021 Spondylolisthesis of lumbosacral region [M43.17]04/14/2022 Chronic bilateral low back pain without sciatic*09/01/2022 Influenza A [J10.1] 08/20/2023 Tachycardia [R00.0] 08/20/2023 08/21/2023 Acute midline low back pain without sciatica [M*03/12/2024 Encounter Status:Closed by DARIUS LIANG on 07/17/24 Normal [facility] THERAPY NTon 03-13-2024 THERAPY NT HNO ID: [id number] Author: BENTLEY AL PT Service: ? Author Type: Physical Therapist Type: Therapy (PT/OT/Speech/Resp) Filed: 03/13/2024 09:14 Note Text: Program_ID:[id number] Access Code: [email or web address] URL: [email or web address] Date: 03-13-2024 Prepared By: Bentley Al Program Notes Exercises - Supine Lower Trunk Rotation - 1 x daily - 7 x weekly - sets - reps - Hooklying Single Knee to Chest Stretch - 1 x daily - 7 x weekly - sets - 5 reps - Supine Pelvic Tilt - 1 x daily - 7 x weekly - sets - 10 reps - Supine Bridge - 1 x daily - 7 x weekly - sets - 10 reps [facility] [id number] 03-12-2024 [id number] HNO ID: [id number] Author: BENTLEY AL PT Service: ? Author Type: Physical Therapist Type: [id number] Filed: 03/12/2024 17:56 Note Text: [facility] Therapy Physical Therapy Plan of Care Certification Patient Name: Chang Solis : 1970 CCF #: [id number] Date: 03/12/2024 To: Tiffany Chavez APRN* From Therapist: Bentley Al PT RE: Patient Certification/ Recertification Your review, approval and electronic signature are required in order to comply with No coverage found. regulations. The identified Physical Therapy PLAN OF CARE for the patient is as follows: M54.50 Acute midline low back pain without sciatica (primary encounter diagnosis) PLAN OF CARE: Assessment: Chang Solis presents with diagnosis of low back pain that interferes with rising from a chair, walking, heavy exertion, lifting, bending . The patient presents with impairments in overall function, posture, range of motion, soft tissue healing, strength, symptom management, and tissue tenderness. PROMIS? (Patient-Reported Outcomes Measurement Information System) scores were reviewed and identified as within normal limits. Prognosis for therapy is Good due to: current objective clinical presentation, good overall health status, acuteness of condition, good support system/ coping skills . The patient will benefit from skilled therapy services to meet the goals established for this plan of care as noted below. Classification Pain Mechanism Classification: Nociceptive Low Back Pain Classification: Movement Control Goals for Episode of Care: established 03/12/24 Independent in home exercises. Patient will decrease pain rating by 2 points to meet minimal clinical important difference for numeric pain rating scale. Restore pain-free lumbar ROM to WNL to allow for performance of work and IADL's with decreased pain complaints Sleep through night without pain/symptoms. Maintain proper sitting posture throughout session Patient will increase flexibility of B hips to WNL to improve mechanics and decrease pain. Patient will be able to lift at least 25 pound box from waist to floor at least 5 times demonstrating proper body mechanics Patient will be able to carry at least 25 pound box 80 feet and ascend/descend steps without limitations. Patient Goals: get rid of pain Time Frame for Goals and Treatment : 05/11/24 Planned Interventions, Frequency, and Duration: Current Frequency: 1x/week Duration: 8 weeks Total Number of Visits Planned: 8 Planned Treatment Interventions: Therapeutic exercise (89646), Manual therapy (37777), Neuromuscular re-education (86219), Therapeutic activities (35983), Self-retirement management (43757), Patient/Family/Caregiv er Education, Functional training, General Conditioning, Body Mechanics Training PLAN FOR NEXT VISIT: manual to low back; ;core stabilization Patient demonstrates good understanding of plan of care and treatment. The above goals and plan of care were discussed and agreed upon by patient/family. For further details regarding this patient refer to the Physical Therapy electronically documented visit dated 03/12/2024. Provider Attestation I have reviewed the treatment plan for Chang Solis, CC# [id number] for the period of 03/12/24 -- 05/11/24, established on 03/12/2024. Signature certifies the need for therapy services. Normal [facility] CNTHERAPYon 03-12-2024 CNTHERAPY OT/PT/Speech Visit (PTMDRG) CHANG SOLIS ([id number]) 1970 M Date Time Provider Department 03/12/24 5:00 PM BENTLEY ALG Date Time Provider Department Center 03/12/2024 5:00 PM [id number], JAMES PTMDRG [facility] Reason for Visit: PT Eval [747] Patient Education [91] Primary Visit Diagnosis:Acute midline low back pain without sciatica [M54.50] Allergies As of Date: 03/12/2024 Noted Allergy Reaction BACTRIM (SULFAMETHOXAZOLE-TRIM ETH*04/12/2005 4 - Hives HAND SOAP (TRICLOSAN) 07/26/2012 2 - Rash IVP DYE (IODINE) 04/12/2005 4 - Hives SEASONAL ALLERGIES 03/18/2022 5 - Intolerance Comments: Runny nose SHELLFISH DERIVED 12/13/2016 2 - Rash SULFA (SULFONAMIDE ANTIBIOTICS) 04/12/2005 4 - Hives Date Reviewed: 03/02/2024 Reviewed by: Dipak Skinner LPN - Fully Assessed Prescriptions as of 03/13/2024 - oxymetazoline (AFRIN, OXYMETAZOLINE,) 0.05 % nasal spray Use 2-3 Sprays in each nostril two times a day. Use as directed. For a maximum of 3 (three) days. - albuterol HFA (PROAIR HFA) 90 mcg/actuation inhaler 2 Puffs every 6 hours as needed for wheezing/shortness of breath. Take as directed - blood sugar diagnostic (RELION PRIME TEST STRIPS) test strip Use as instructed - Blood-Glucose Meter (RELION PRIME METER) 1 Each four times daily. - acetaminophen (TYLENOL ORAL) Take by mouth as needed. Meds Comments as of 12/06/2022: 12/06/22 The medications are managed by this patient by: PATIENT Chana RHODA Savage Advertising Sales Manager: Addendum Therapy (PT/OT/Speech/Resp) ID: [id number] 03/13/2024 9:14 AM Author: BENTLEY AL Signed by BENTLEY AL PT on 03/13/2024 at 9:14 AM * * * This document replaces document [id number] * * * Document text: Program_ID:[id number] Access Code: [email or web address] URL: [email or web address] [email or web address] Digital/ Date: 03-13-2024 Prepared By: Bentley Al Program Notes Exercises - Supine Lower Trunk Rotation - 1 x daily - 7 x weekly - sets - reps - Hooklying Single Knee to Chest Stretch - 1 x daily - 7 x weekly - sets - 5 reps - Supine Pelvic Tilt - 1 x daily - 7 x weekly - sets - 10 reps - Supine Bridge - 1 x daily - 7 x weekly - sets - 10 reps -- Normal [facility] 03-02-2024 [facility] Office Visit (UCWSTR ) SOLISCHANG ([id number]) 1970 M Date Time Provider Department 03/02/24 5:00 PM DEONNA HAGAN UCWSTR During your visit today, we recorded the following information about you: Temperature Pulse Respiration Blood pressure 98 degrees 85/minute 18/minute 107/71 Weight 109 kg Deonna Hagan APRN.MONKEY KEEPER 03/02/2024 5:11 PM Signed CC: Patient presents with: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 onset type 2 diabetes mellitus (HCC) [E11.9]10/26/2021 ROHAN (generalized anxiety disorder) [F41.1] 10/26/2021 Obesity, Class I, BMI 30-34.9 [E66.9] 10/29/2021 Type 2 diabetes mellitus without retinopathy (H*12/03/2021 Spondylolisthesis of lumbosacral region [M43.17]04/14/2022 Chronic bilateral low back pain without sciatic*09/01/2022 Influenza A [J10.1] 08/20/2023 Tachycardia [R00.0] 08/20/2023 08/21/2023 Letter Text Encounter Status:Closed by BA CM on 08/25/23 Normal [facility] Basic metabolic 2000 panelon 08-21-2023 Anion gap [Moles/Vol] 10 mmol/L Normal 02-21 [facility] Comment on above: Order Comment: Speci men Type: BLOOD SPECIMENOrdering Facility: [facility] Address: [address] [place] [address] Performed By: #### 2 4321-2 ####WILL LABORATORYCLIA [id number] [place] [address] [place] Calcium [Mass/Vol] 8.5 mg/dL Normal 8.5-10.2 [facility] Comment on above: Order Comment: Speci men Type: BLOOD SPECIMENOrdering Facility: [facility] Address: [address] [place] [address] Performed By: #### 2 4321-2 ####WILL LABORATORYCLIA [id number] [place] [address] [place] Chloride [Moles/Vol] 104 mmol/L Normal 97-105 [facility] Comment on above: Order Comment: Speci men Type: BLOOD SPECIMENOrdering Facility: [facility] Address: [address] [place] [address] Performed By: #### 2 4321-2 ####WILL LABORATORYCLIA [id number] [place] [address] [place] CO2 [Moles/Vol] 23 mmol/L Normal 22-30 [facility] Comment on above: Order Comment: Speci men Type: BLOOD SPECIMENOrdering Facility: [facility] Address: [address] [place] [address] Performed By: #### 2 4321-2 ####WILL LABORATORYCLIA [id number] [place] [address] [place] Creatinine [Mass/Vol] 1.00 mg/dL Normal 0.73-1.22 [facility] Comment on above: Order Comment: Speci men Type: BLOOD SPECIMENOrdering Facility: [facility] Address: [address] [place] [address] Performed By: #### 2 4321-2 ####WILL LABORATORYCLIA [id number] [place] [address] [place] [facility] [place] Creatinine and Glomerular filtration rate.predicted panel (S/P/Bld) 91 mL/min/1.73m??? Normal >=60 [facility] Comment on above: Order Comment: Speci men Type: BLOOD SPECIMENOrdering Facility: [facility] Address: [address] [place] [address] Result Comment: Hyun mated Glomerular Filtration Rate (eGFR) is calculated using the 2020 CKD-EPI creatinine equation. This equation utilizes serum creatinine, sex, and age as parameters. The creatinine assay has traceable calibration to isotope dilution-mass spectrometry. Refer to KDIGO guidelines for clinical interpretation. In patients with unstable renal function, e.g. those with acute kidney injury, the eGFR may not accurately reflect actual GFR. Performed By: #### 2 4321-2 ####WILL LABORATORYCLIA [id number] [place] [id number] [place] Glucose [Mass/Vol] 133 mg/dL High 74-99 [facility] Comment on above: Order Comment: Fred aguilar Type: BLOOD SPECIMENOrdering Facility: [facility] Address: [address] [place] [address] Result Comment: The [place] Diabetes Association (ADA) provides guidance for cutoff values for fasting glucose and random glucose. The ADA defines fasting as no caloric intake for at least 8 hours. Fasting plasma glucose results between 100 to 125 mg/dL indicate increased risk for diabetes (prediabetes). Fasting plasma glucose results greater than or equal to 126 mg/dL meet the criteria for diagnosis of diabetes. In the absence of unequivocal hyperglycemia, results should be confirmed by repeat testing. In a patient with classic symptoms of hyperglycemia or hyperglycemic crisis, random plasma glucose results greater than or equal to 200 mg/dL meet the criteria for diagnosis of diabetes. Reference: Standards of Medical Care in Diabetes 2016, [place] Diabetes Association. Diabetes Care. 2016.39(Suppl 1). Performed By: #### 2 4321-2 ####WILL LABORATORYCLIA [id number] [place] [id number] [place] Potassium [Moles/Vol] 4.4 mmol/L Normal 3.7-5.1 [facility] Comment on above: Order Comment: Fred aguilar Type: BLOOD SPECIMENOrdering Facility: [facility] Address: [address] [place] [address] Performed By: #### 2 4321-2 ####WILL LABORATORYCLIA [id number] [place] [id number] [place] Sodium [Moles/Vol] 137 mmol/L Normal 136-144 [facility] Comment on above: Order Comment: Fred aguilar Type: BLOOD SPECIMENOrdering Facility: [facility] Address: [address] [place] [address] Performed By: #### 2 4321-2 ####WILL LABORATORYCLIA [id number] [address] STATES [facility] Urea nitrogen [Mass/Vol] 13 mg/dL Normal 9-24 [facility] Comment on above: Order Comment: Speci men Type: BLOOD SPECIMENOrdering Facility: [facility] Address: [address] [place] [address] Performed By: #### 2 4321-2 ####WILL LABORATORYCLIA [id number] [address] CBC panel Auto (Bld)on 08-20 Erythrocyte distribution width (RBC) [Ratio] 12.6 % Normal 11.5-15.0 [facility] Comment on above: Order Comment: Speci men Type: BLOOD SPECIMEN [facility] Address: [address] [place] [address] Performed By: #### 5 8410-2 #### [facility] CLIA [id number] [address] Hematocrit (Bld) [Volume fraction] 40.5 % Normal 39.0-51.0 [facility] Comment on above: Order Comment: Speci men Type: BLOOD SPECIMEN [facility] Address: [address] [place] [address] Performed By: #### 5 8410-2 #### [facility] CLIA [id number] [address] Hemoglobin (Bld) [Mass/Vol] 14.1 g/dL Normal 13.0-17.0 [facility] Comment on above: Order Comment: Speci men Type: BLOOD SPECIMEN [facility] Address: [address] [place] [address] Performed By: #### 5 8410-2 #### [facility] CLIA [id number] [address] [place] MCH (RBC) [Entitic mass] 31.4 pg Normal 26.0-34.0 [facility] Comment on above: Order Comment: Speci men Type: BLOOD SPECIMEN [facility] Address: [address] [place] [address] Performed By: #### 5 8410-2 #### [facility] CLIA [id number] [address] MCHC (RBC) [Mass/Vol] 34.8 g/dL Normal 30.5-36.0 [facility] Comment on above: Order Comment: Speci men Type: BLOOD SPECIMEN [facility] Address: [address] [place] [address] Performed By: #### 5 8410-2 #### [facility] CLIA [id number] [address] [place] MCV (RBC) [Entitic vol] 90.2 fL Normal 80.0-100.0 [facility] Comment on above: Order Comment: Speci men Type: BLOOD SPECIMEN [facility] Address: [address] [place] [address] Performed By: #### 5 8410-2 #### [facility] CLIA [id number] [address] [place] Nucleated RBC (Bld) [#/Vol] 10*3/uL Normal <0.01 [facility] Comment on above: Order Comment: Speci men Type: BLOOD SPECIMEN [facility] Address: [address] [place] [address] Performed By: #### 5 8410-2 #### [facility] CLIA [id number] [address] Platelet mean volume (Bld) [Entitic vol] 10.1 fL Normal 9.0-12.7 [facility] Comment on above: Order Comment: Speci men Type: BLOOD SPECIMEN [facility] Address: [address] [place] [address] Performed By: #### 5 8410-2 #### [facility] CLIA [id number] [address] [place] Platelets (Bld) [#/Vol] 205 10*3/uL Normal 150-400 [facility] Comment on above: Order Comment: Fred aguilar Type: BLOOD SPECIMEN [facility] Address: [address] [place] [address] Performed By: #### 5 8410-2 #### [facility] CLIA [id number] [address] [facility] RBC (Bld) [#/Vol] 4.49 10*6/uL Normal 4.20-6.00 [facility] Comment on above: Order Comment: Fred men Type: BLOOD SPECIMEN [facility] Address: [address] [place] [address] Performed By: #### 5 8410-2 #### [facility] CLIA [id number] [address] WBC (Bld) [#/Vol] 6.19 10*3/uL Normal 3.70-11.00 [facility] Comment on above: Order Comment: Fred aguilar Type: BLOOD SPECIMEN [facility] Address: [address] [place] [address] Performed By: #### 5 8410-2 #### [facility] CLIA [id number] [address] CNDSon 08-21-2023 CNDS HNO ID: [id number] Author: MISA TAPIA DO Service: Hospital Medicine Author Type: Physician Type: Discharge Summary Filed: 08/21/2023 12:54 Note Text: DISCHARGE SUMMARY PATIENT NAME: Chang Solis ADMISSION DATE: 08/20/2023 DISCHARGE DATE: 08/21/2023 ATTENDING PHYSICIAN: Misa Tapia DO Code Status: Not on file Highest Readmission Risk Score: 6 The 30 day readmissions risk score is derived from an internally validated risk model which evaluates patient level characteristics, utilization history, medication orders and lab results up until the day of discharge. Patients with a score of 40 or above are considered highest risk for readmission. Specific patient level drivers will be listed at the bottom of the summary. CONSULTING TEAMS DURING HOSPITALIZATION: Treatment Team: Attending Provider: Misa Tapia DO REASON FOR HOSPITALIZATION: Chest pain, Influenza DIAGNOSIS: Principal Problem: Influenza A (POA: Yes) Resolved Problems: Tachycardia (POA: Yes) OPERATIONS DURING HOSPITALIZATION: None PROCEDURES DURING HOSPITALIZATION: No procedures performed HOSPITAL COURSE: This is a 52 year old male hx of DM, GERD, exercise induced asthma who presents with chills, cough, congestion, chest pain and malaise. Symptoms started overnight with feeling overall ill. He presented to the ED for chest pain. CXR unremarkable. CBC and CMP were normal. EKG showed sinus tachycardia and HS troponins negative. He was tachycardic and dimer was positive. Admission was then requested for PE rule out with VQ scan given contrast allergy. Respiratory swab was obtained and positive for influenza A. He also received IV fluids and tamiflu. On arrival he remains with chills. He feels awful, congested and tired. Chest pain has resolved. Denies any SOB, abd pain, N/V. Appetite is decreased Overnight he was continued on tamiflu and IV hydration. Tachycardia improved to HR 90-100. VQ scan was obtained and low probability for PE. He reported mild improvement in flu symptoms the next morning. His breathing was stable, lungs clear and no wheezing with SpO2 99%RA so it was felt he could continue rest and supportive care at home. He was discharged in stable condition. Transitions of Care Critical Issues: EDGE MEDICATION CHANGES: Tamiflu, albuterol and zofran provided LABS AND PROCEDURES PENDING AT DISCHARGE: No pending results. PATIENT CONDITION AT DISCHARGE: Stable DISCHARGE DISPOSITION: Home with Self Care Discharge Physical Exam: VITAL SIGNS: BP 122/72 Pulse 93 Temp 37.6 ?C (99.7 ?F) (Oral) Resp 18 Ht 177.8 cm (5' 10) Wt 106.5 kg (234 lb 12.6 oz) SpO2 98% BMI 33.69 kg/m? GENERAL: Alert, no distress, cooperative LUNGS: Lungs clear to auscultation, Good diaphragmatic excursion CARDIAC: Normal S1 and S2; no rubs, murmurs, or gallops ABDOMEN: Abdomen soft, non-tender, BS normal, EXTREMITIES: Extremities normal, no deformities, edema, clubbing or skin discoloration. INFORMATION PROVIDED TO PATIENT: see discharge instructions WOUND/SURGICAL SITE CARE: None DIET: Resume pre-hospital diet ACTIVITY: Resume pre-hospital activity ALLERGIES Allergen Reactions Bactrim [Sulfametho* Hives Hand Soap [Triclosa* Rash Ivp Dye [Iodine] Hives Seasonal Allergies Intolerance Runny nose Shellfish Derived Rash Sulfa (Sulfonamide * Hives DISCHARGE MEDICATION: Medication List START taking these medications albuterol HFA 90 mcg/actuation inhaler Commonly known as: PROAIR HFA 2 Puffs every 6 hours as needed for wheezing/shortness of breath. Take as directed ondansetron 4 mg tablet Commonly known as: ZOFRAN Take 1 tablet by mouth every 8 hours as needed for nausea/vomiting. oseltamivir 75 mg capsule Commonly known as: TAMIFLU Take 1 capsule by mouth two times a day for 7 doses. CONTINUE taking these medications Blood-Glucose Meter Commonly known as: RELION PRIME METER 1 Each four times daily. RELION PRIME TEST STRIPS test strip Generic drug: blood sugar diagnostic Use as instructed TYLENOL ORAL Where to Get Your Medications These medications were sent to [id number] - [place] [address] [address] [facility] [phone] [place] [id number] albuterol HFA 90 mcg/actuation inhaler ondansetron 4 mg tablet oseltamivir 75 mg capsule FUTURE APPOINTMENTS: Follow Up with PCP: Tiffany Chavez APRN.CNP Future Appointments Date Time Provider Department Center 08/22/2023 4:20 PM Tiffany Chavez APRN.CNP [facility] [address] 12/12/2023 4:00 PM Hector Carlin OD [facility] The patient's risk for 30-day readmission is determined using the following contributing factors: Pt variables contributing to increased readmission risk: 13 Most Recent BUN Result 8.5 First Resulted Calcium During Admission 7 Active Medication Orders 1 Previous ED Visit (6 mos.)? 1 Number of Previous ED Visits (more content not included)... Normal [facility] ALLIED HEALTHon 08-20-2023 ALLIED HEALTH HNO ID: [id number] Author: MP ZELAYA RT(R) Service: Nuclear Medicine Author Type: Technologist Type: Allied Health Filed: 08/20/2023 18:45 Note Text: RADIOLOGY SERVICE PROGRESS NOTE SERVICE DATE: 08/20/2023 SERVICE TIME: 6:45 PM PATIENT IDENTITY VERIFICATION COMPLETED USING TWO (2) STANDARD IDENTIFIERS: Name and Date of confirmed by patient verbally FALL SCREENING: Has the patient had 2 falls in the last year or 1 fall with injury or currently using an Ambulatory Assistive Device (Walker, Cane, Wheelchair, Crutches, etc.)? Inpatient: Screened on floor PATIENT GENDER DATA: .male ALLERGIES: Reviewed and unchanged MEDICATIONS REVIEWED: Not applicable PATIENT RELEVANT IMPLANT DATA REVIEWED: Not Applicable PATIENT PRESENTS WITH AN IMPLANTABLE OR ATTACHED SUPERVISOR FRONT: No CREATININE: Creatinine Date Value Ref Range Status 08/20/2023 1.03 0.73 - 1.22 mg/dL Final 02/15/2023 1.00 0.73 - 1.22 mg/dL Final 08/02/2022 0.90 0.73 - 1.22 mg/dL Final Estimated Glomerular Filtration Rate Date Value Ref Range Status 08/20/2023 87 >=60 mL/min/1.73m? Final Comment: Estimated Glomerular Filtration Rate (eGFR) is calculated using the 2020 CKD-EPI creatinine equation. This equation utilizes serum creatinine, sex, and age as parameters. The creatinine assay has traceable calibration to isotope dilution-mass spectrometry. Refer to KDIGO guidelines for clinical interpretation. In patients with unstable renal function, e.g. those with acute kidney injury, the eGFR may not accurately reflect actual GFR. eGFR- Date Value Ref Range Status 05/22/2021 >60 Final P.O.C.T. RESULTS: N/A August 20, [address] PERFORMED: No IV SITE: Inpatient - refer to LDA documentation POST EXAM PIV STATUS: Inpatient see LDA documentation PROCEDURE TYPE: VQ Scan: 0.8 mCi of Tc99m DTPA was inhaled. 5.9 mCi of Tc99m MAA was administered IV. ADMINISTRATION TIME: DTPA: 1813 / MAA: 1830 PATIENT DISCHARGED TO: Patient taken to IP transport area for return to RNF/ICU/ED. A Diagnostic radioactive procedure has taken place, with no further precautions necessary other than routine body substance precautions. More information regarding radiation safety can be found using this link: [email or web address]%[email or web address] %[email or web address] SIGNATURE: Mp Zelaya, RT(R) PATIENT NAME: Chang Solis DATE: August 20, 2023 TIME: 6:45 PM PAGER/CONTACT #: [facility] HISTORY PHYSICALon HISTORY PHYSICAL HNO ID: [id number] Author: MISA TAPIA DO Service: Hospital Medicine Author Type: Physician Type: H&P Filed: 08/20/2023 18:00 Note Text: DEPARTMENT OF HOSPITAL MEDICINE HISTORY AND PHYSICAL EXAM SERVICE DATE: 08/20/2023 SERVICE TIME: 5:34 PM Primary Care Physician: Tiffany Chavez APRN.MONKEY KEEPER NIGHT AND WEEKEND COVERAGE: [place] COVERAGE: Days: [phone], please page attending physician. Nights: [phone], please page [facility] Night coverage pager [phone]. Subjective CHIEF COMPLAINT: Chest pain, chills, congestion, cough HPI: This is a 52 year old male hx of DM, GERD, exercise induced asthma who presents with chills, cough, congestion, chest pain and malaise. Symptoms started overnight with feeling overall ill. He presented to the ED for chest pain. CXR unremarkable. CBC and CMP were normal. EKG showed sinus tachycardia and HS troponins negative. He was tachycardic and dimer was positive. Admission was then requested for PE rule out with VQ scan given contrast allergy. Respiratory swab was obtained and positive for influenza A. He also received IV fluids and tamiflu. On arrival he remains with chills. He feels awful, congested and tired. Chest pain has resolved. Denies any SOB, abd pain, N/V. Appetite is decreased PAST MEDICAL HISTORY Diagnosis Date Abdominal pain, left lower quadrant Acute gastritis without mention of hemorrhage Diabetes (HCC) Duodenitis without mention of hemorrhage Esophageal reflux Gastroesophageal reflux Unspecified asthma(493.90) exercise-induced PAST SURGICAL HISTORY Procedure Laterality Date APPENDECTOMY HX CHOLECYSTECTOMY HX COLONOSCOPY W/BIOPSY SINGLE/MULTIPLE 09/02/10 EGD TRANSORAL BIOPSY SINGLE/MULTIPLE 09/02/10 HERNIA REPAIR HX LAPAROSCOPY SURG CHOLECYSTECTOMY Cholecystectomy, lap RPR 1ST INGUN HRNA AGE 5 YRS/> REDUCIBLE Hernia repair, inguinal RPR 1ST INGUN HRNA AGE 5 YRS/> REDUCIBLE Hernia repair, inguinal TONSILLECTOMY HX TONSILLECTOMY PRIMARY/SECONDARY Tonsillectomy FAMILY HISTORY Problem Relation Age of Onset Hypertension Mother Lipids Mother No Ocular Disease Mother Cancer Father lung ca. No Ocular Disease Father Diabetes Maternal Grandmother Coronary Artery Disease Maternal Grandfather Cancer Paternal Grandfather Social History Tobacco Use Smoking status: Never Passive exposure: Yes Smokeless tobacco: Never Vaping Use Vaping Use: Never used Substance Use Topics Alcohol use: No Drug use: No PRIOR TO ADMISSION MEDICATIONS: acetaminophen (TYLENOL ORAL), Take by mouth as needed., Disp: , Rfl: , 08/20/2023 blood sugar diagnostic (RELION PRIME TEST STRIPS) test strip, Use as instructed, Disp: 200 Strip, Rfl: 2 Blood-Glucose Meter (RELION PRIME METER), 1 Each four times daily., Disp: 1 Each, Rfl: 0 ALLERGIES Allergen Reactions Bactrim [Sulfametho* Hives Hand Soap [Triclosa* Rash Ivp Dye [Iodine] Hives Seasonal Allergies Intolerance Runny nose Shellfish Derived Rash Sulfa (Sulfonamide * Hives REVIEW OF SYSTEM: GENERAL: No weight loss, +malaise and chills HEENT: Negative for frequent or significant headaches, No changes in hearing or vision, no nose bleeds or other nasal problems NECK: Negative for lumps, goiter, pain and significant neck swelling RESPIRATORY: Negative for , hemoptysis, wheezing, COPD, dyspnea or shortness of breath +cough CARDIOVASCULAR: Negative for chest pain, leg swelling, hypertension, CHF or palpitations GI: No nausea, vomiting, or diarrhea : No history of dysuria, frequency or incontinence MUSCULOSKELETAL: Negative for joint pain or swelling, back pain or muscle pain SKIN: Negative for lesions, rash, and itching PSYCH: Negative for sleep disturbance, mood disorder and recent psychosocial stressors HEMATOLOGY/LYMPHOLOGY: Negative for prolonged bleeding, bruising easily or swollen nodes ENDOCRINE: Negative for cold or heat intolerance, polyuria, polydipsia and goiter NEURO: No history of headaches, syncope, paralysis, seizures or tremors Objective PHYSICAL EXAM: BP 99/64 Pulse 128 Temp (Src) 99 (Oral) Resp 16 Ht 5' 10 (1.78m) Wt 234 lb 12.6 oz (106.5kg) SpO2 96% BMI 33.69 kg/(m2). O2 Therapy: Room Air Physical Exam Performed: GENERAL: Alert, no distress, cooperative SKIN: Skin color, texture, turgor normal. No rashes or lesions. HEAD/SINUSES: No significant findings EYES: PERRL, EOMI EARS: External ears normal NOSE: Nares normal. OROPHARYNX: Lips, mucosa, and tongue normal. NECK: No jugulovenous distention, No carotid bruits, Carotid pulse normal contour, Supple BACK: Back symmetric, Normal curvature, ROM normal, No CVAT. LUNGS: Lungs clear to auscultation, Good diaphragmatic excursion CARDIAC: Normal S1 and S2; no rubs, murmurs, or gallops tachycardic but regular ABDOMEN: Abdomen soft, non-tender, BS normal, EXTREMITIES: Extremities normal, no deformities, edema, clubbing or skin d (more content not included)... [facility] LUNG VENT / PERF VQon [facility] LUNG VENT / PERF VQ * * *Final Report* * * DATE OF EXAM: Aug 20 2023 6:43PM WAYLON 0032 - NM LUNG VENT / PERF VQ / PROCEDURE REASON: Chest pain, nonspecific * * * * Physician Interpretation * * * * EXAM: PULMONARY VENTILATION/PERFUSION SCAN HISTORY: Chest pain, nonspecific TECHNIQUE: 0.8 mCi Tc 99m DTPA aerosol was inhaled. 5.9 mCi Tc 99m MAA administered IV. Planar pulmonary ventilation and perfusion images obtained in anterior, posterior, lateral, and oblique projections. COMPARISON: V/Q scan 01/05/2022 CORRELATION: Chest radiograph(s) 08/20/2023 RESULTS: Exam Interpretation criteria: Modified PIOPED II Ventilation images: Mildly heterogeneous tracer activity bilaterally. Perfusion images: No mismatched defects. Multiple (at least 2) matched defects with areas of normal perfusion elsewhere. IMPRESSION: Very low probability exam for pulmonary embolism. Health Plan Specialist: [facility] Transcribe Date/Time: Aug 20 2023 6:53P Dictated by : FAIZA SHEPHERD MD This examination was interpreted and the report reviewed and electronically signed by: FAIZA SHEPHERD MD on Aug 20 2023 6:58PM EST [id number] [facility] HEMOGLOBIN A1C (POC)on 06-30 HbA1c (Bld) [Mass fraction] 5.6 % 4.2 - 5.6 % [facility] HEMOGLOBIN A1C (POC)on 02-23 HbA1c (Bld) [Mass fraction] 5.4 % 4.2 - 5.6 % [facility] No Panel Informationon 02-22 Radiology Study observation (narrative) [facility] XR Lumbar spine 3 Viewson IMPRESSION: Lumbar spine degenerative changes. L5 on S1 retrolisthesis with L5 pars defect. Health Plan Specialist: [facility] Transcribe Date/Time: Feb 22 2022 5:13P Dictated by : MEGA FOY MD This examination was interpreted and the report reviewed and electronically signed by: MEGA FOY MD on Feb 22 2022 5:15PM [facility] DIVISION OF RADIOLOGY * * *Final Report* * * DATE OF EXAM: Feb 22 2022 5:10PM WOX [id number] - XR LUMBAR 3V AP/LAT/L5-S1 / PROCEDURE REASON: Fall, initial encounter * * * * Physician Interpretation * * * * EXAM TITLE: XR LUMBAR 3V AP/LAT/L5-S1 EXAM DATE/TIME: 02/22/2022 5:10 PM COMPARISON: None. CLINICAL INDICATION/HISTORY: Fall. TECHNIQUE: AP, lateral and cone down lateral views of the lumbar spine are presented. FINDINGS: There are five zly-adb-smycdkz lumbar vertebrae. No acute fracture seen. There is grade 1 L5 on S1 anterolisthesis, with L5 pars defect. The disc spaces are well preserved. There is significant osteophyte formation. Kissing spine seen on lateral view. DIVISION OF RADIOLOGY Provider, [facility] - 02/22/2022 * * *Final Report* * * DATE OF EXAM: Feb 22 2022 5:10PM WOX [id number] - XR LUMBAR 3V AP/LAT/L5-S1 / PROCEDURE REASON: Fall, initial encounter * * * * Physician Interpretation * * * * EXAM TITLE: XR LUMBAR 3V AP/LAT/L5-S1 EXAM DATE/TIME: 02/22/2022 5:10 PM COMPARISON: None. CLINICAL INDICATION/HISTORY: Fall. TECHNIQUE: AP, lateral and cone down lateral views of the lumbar spine are presented. FINDINGS: There are five hxk-jbv-fzqyjhg lumbar vertebrae. No acute fracture seen. There is grade 1 L5 on S1 anterolisthesis, with L5 pars defect. The disc spaces are well preserved. There is significant osteophyte formation. Kissing spine seen on lateral view. IMPRESSION IMPRESSION: Lumbar spine degenerative changes. L5 on S1 retrolisthesis with L5 pars defect. Health Plan Specialist: [facility] Transcribe Date/Time: Feb 22 2022 5:13P Dictated by : MEGA FOY MD This examination was interpreted and the report reviewed and electronically signed by: MEGA FOY MD on Feb 22 2022 5:15PM [facility] XR Sacrum and Coccyx 3 Views on 02-22-2022 IMPRESSION: No acute radiographic abnormalities seen in the sacrum or coccyx. Health Plan Specialist: [facility] Transcribe Date/Time: Feb 22 2022 5:16P Dictated by : MEGA FOY MD This examination was interpreted and the report reviewed and electronically signed by: MEGA FOY MD on Feb 22 2022 5:17PM [facility] DIVISION OF RADIOLOGY * * *Final Report* * * DATE OF EXAM: Feb 22 2022 5:10PM WOX 5246 - XR SACRUM/COCCYX 3V AP/LAT / PROCEDURE REASON: Fall, initial encounter * * * * Physician Interpretation * * * * EXAM TITLE: XR SACRUM/COCCYX 3V AP/LAT EXAM DATE/TIME: 02/22/2022 5:10 PM COMPARISON: None. CLINICAL INDICATION/HISTORY: Fall. TECHNIQUE: AP and lateral views of the sacrum/coccyx are presented. FINDINGS: No acute fractures demonstrated in the sacrum. No evidence of subluxation of the coccyx. The visualized other pelvic bones are intact. There is grade 1 L4-5 on S1 anterolisthesis with L5 pars defect. DIVISION OF RADIOLOGY Provider, [facility] - 02/22/2022 * * *Final Report* * * DATE OF EXAM: Feb 22 2022 5:10PM WOX 5246 - XR SACRUM/COCCYX 3V AP/LAT / PROCEDURE REASON: Fall, initial encounter * * * * Physician Interpretation * * * * EXAM TITLE: XR SACRUM/COCCYX 3V AP/LAT EXAM DATE/TIME: 02/22/2022 5:10 PM COMPARISON: None. CLINICAL INDICATION/HISTORY: Fall. TECHNIQUE: AP and lateral views of the sacrum/coccyx are presented. FINDINGS: No acute fractures demonstrated in the sacrum. No evidence of subluxation of the coccyx. The visualized other pelvic bones are intact. There is grade 1 L4-5 on S1 anterolisthesis with L5 pars defect. IMPRESSION IMPRESSION: No acute radiographic abnormalities seen in the sacrum or coccyx. Health Plan Specialist: [facility] Transcribe Date/Time: Feb 22 2022 5:16P Dictated by : MEGA FOY MD This examination was interpreted and the report reviewed and electronically signed by: MEGA FOY MD on Feb 22 2022 5:17PM EST [facility] XR Sacrum and Coccyx 3 Views Ordered By: [facility] Provider on 02-22-2022 [facility] XR Chest PA and Lateralon IMPRESSION: Stable chest radiograph. No acute findings. Health Plan Specialist: [facility] Transcribe Date/Time: Feb 02 2021 11:43A Dictated by : MIKE HANNA MD This examination was interpreted and the report reviewed and electronically signed by: MIKE HANNA MD on Feb 02 2021 11:45AM [facility] DIVISION OF RADIOLOGY * * *Final Report* * * DATE OF EXAM: Feb 02 2021 11:31AM WOX 5291 - XR CHEST 2V FRONTAL/LAT / PROCEDURE REASON: Suspected COVID-19 virus infection * * * * Physician Interpretation * * * * EXAMINATION: CHEST RADIOGRAPH (2 VIEW FRONTAL & LATERAL) CLINICAL HISTORY: Suspected COVID-19 virus infection MQ: XC2_6 EXAM DATE/TIME: 02/02/2021 11:31 AM COMPARISON: 01/30/2021 RESULT: Lines, tubes, and devices: None. Lungs and pleura: No consolidation. No lung mass. No pleural effusion. No pneumothorax. Cardiomediastinal silhouette: Normal cardiomediastinal silhouette. Bones and soft tissues: Osseous structures are stable. DIVISION OF RADIOLOGY Provider, [facility] - 02/02/2021 * * *Final Report* * * DATE OF EXAM: Feb 02 2021 11:31AM WOX 5291 - XR CHEST 2V FRONTAL/LAT / PROCEDURE REASON: Suspected COVID-19 virus infection * * * * Physician Interpretation * * * * EXAMINATION: CHEST RADIOGRAPH (2 VIEW FRONTAL & LATERAL) CLINICAL HISTORY: Suspected COVID-19 virus infection MQ: XC2_6 EXAM DATE/TIME: 02/02/2021 11:31 AM COMPARISON: 01/30/2021 RESULT: Lines, tubes, and devices: None. Lungs and pleura: No consolidation. No lung mass. No pleural effusion. No pneumothorax. Cardiomediastinal silhouette: Normal cardiomediastinal silhouette. Bones and soft tissues: Osseous structures are stable. IMPRESSION IMPRESSION: Stable chest radiograph. No acute findings. Health Plan Specialist: [facility] Transcribe Date/Time: Feb 02 2021 11:43A Dictated by : MIKE HANNA MD This examination was interpreted and the report reviewed and electronically signed by: MIKE HANNA MD on Feb 02 2021 11:45AM EST [facility] Radiology Study observation (narrative) [facility] XR Chest PA and LateralOrder ed By: [facility] Provider on 02-02-2021 [facility] Vital Signs Date Time Vital Sign Value Performing Clinician [facility] 11-16-2024 09:39-0400 Body mass index (BMI) [Ratio] 33.48 kg/m2 Marilin Mcgowan APRN.CNP Work Phone: [facility] 11-16-2024 09:39-0400 Body weight 107.35 kg Marilin Mcgowan APRN.CNP Work Phone: [facility] 11-16-2024 09:39-0400 Diastolic blood pressure 85 mm[Hg] Marilin Mcgowan APRN.CNP Work Phone: [facility] 11-16-2024 09:39-0400 Heart rate 92 /min Marilin Mcgowan APRN.CNP Work Phone: [facility] 11-16-2024 09:39-0400 SaO2% (BldA) [Mass fraction] 98 % Marilin Mcgowan APRN.CNP Work Phone: [facility] 11-16-2024 09:39-0400 Systolic blood pressure 127 mm[Hg] Marilin Mcgowan APRN.CNP Work Phone: [facility] 11-05-2024 11:16-0400 Body temperature 98.01 [degF] Reina Dubon PA-C Work Phone: [facility] 11-05-2024 11:16-0400 Diastolic blood pressure 86 mm[Hg] Reina Wormald PA-C Work Phone: [facility] 11-05-2024 11:16-0400 Heart rate 95 /min Reina Wormald PA-C Work Phone: [facility] 11-05-2024 11:16-0400 SaO2% (BldA) [Mass fraction] 98 % Reina Wormald PA-C Work Phone: [facility] 11-05-2024 11:16-0400 Systolic blood pressure 127 mm[Hg] Reina Wormald PA-C Work Phone: [facility] 10-19-2024 09:47-0400 Body mass index (BMI) [Ratio] 33.68 kg/m2 Librado Swank SLIPPER MAKER.MONKEY KEEPER Work Phone: [facility] 10-19-2024 09:47-0400 Body temperature 98.1 [degF] Librado Swank SLIPPER MAKER.MONKEY KEEPER Work Phone: [facility] 10-19-2024 09:47-0400 Body weight 108 kg Librado Swank SLIPPER MAKER.MONKEY KEEPER Work Phone: [facility] 10-19-2024 09:47-0400 Diastolic blood pressure 84 mm[Hg] Librado Swank SLIPPER MAKER.MONKEY KEEPER Work Phone: [facility] 10-19-2024 09:47-0400 Heart rate 78 /min Librado Swank SLIPPER MAKER.MONKEY KEEPER Work Phone: [facility] 10-19-2024 09:47-0400 Respiratory rate 22 /min Librado Swank SLIPPER MAKER.MONKEY KEEPER Work Phone: [facility] 10-19-2024 09:47-0400 SaO2% (BldA) [Mass fraction] 99 % Librado Swank SLIPPER MAKER.MONKEY KEEPER Work Phone: [facility] 10-19-2024 09:47-0400 Systolic blood pressure 119 mm[Hg] Librado Swank SLIPPER MAKER.MONKEY KEEPER Work Phone: [facility] 10-17-2024 09:36-0400 Body mass index (BMI) [Ratio] 33.84 kg/m2 Castro Ball SLIPPER MAKER.MONKEY KEEPER Work Phone: [facility] 10-17-2024 09:36-0400 Body temperature 97.2 [degF] Castro Ball SLIPPER MAKER.MONKEY KEEPER Work Phone: [facility] 10-17-2024 09:36-0400 Body weight 108.5 kg Castro Ball SLIPPER MAKER.MONKEY KEEPER Work Phone: [facility] 10-17-2024 09:36-0400 Diastolic blood pressure 67 mm[Hg] Castro Ball SLIPPER MAKER.MONKEY KEEPER Work Phone: [facility] 10-17-2024 09:36-0400 Heart rate 88 /min Castro Ball SLIPPER MAKER.MONKEY KEEPER Work Phone: [facility] 10-17-2024 09:36-0400 SaO2% (BldA) [Mass fraction] 97 % Castro Ball SLIPPER MAKER.MONKEY KEEPER Work Phone: [facility] 10-17-2024 09:36-0400 Systolic blood pressure 121 mm[Hg] Castro Ball SLIPPER MAKER.MONKEY KEEPER Work Phone: [facility] 08-30-2024 15:31-0400 Body mass index (BMI) [Ratio] 33.99 kg/m2 Sia Alonso SLIPPER MAKER.MON[employer] KEEPER Work Phone: [facility] 08-30-2024 15:31-0400 Body temperature 98.01 [degF] Sia Alonso SLIPPER MAKER.MON[employer] KEEPER Work Phone: [facility] 08-30-2024 15:31-0400 Body weight 109 kg Sia Alonso SLIPPER MAKER.MONKEY KEEPER Work Phone: [facility] 08-30-2024 15:31-0400 Diastolic blood pressure 75 mm[Hg] Sia Alonso SLIPPER MAKER.MONKEY KEEPER Work Phone: [facility] 08-30-2024 15:31-0400 Heart rate 102 /min Sia Alonso SLIPPER MAKER.MON[employer] KEEPER Work Phone: [facility] 08-30-2024 15:31-0400 Respiratory rate 16 /min Sia Alonso SLIPPER MAKER.MON[employer] KEEPER Work Phone: [facility] 08-30-2024 15:31-0400 SaO2% (BldA) [Mass fraction] 96 % Sia Alonso SLIPPER MAKER.MON[employer] KEEPER Work Phone: [facility] 08-30-2024 15:31-0400 Systolic blood pressure 125 mm[Hg] Sia Alonso SLIPPER MAKER.MONKEY KEEPER Work Phone: [facility] 07-26-2024 15:48-0500 Body height 179.1 cm Tiffany Queden SLIPPER MAKER.MONKEY KEEPER Work Phone: [facility] 07-26-2024 15:48-0500 Body mass index (BMI) [Ratio] 34.09 kg/m2 Tiffany Queden SLIPPER MAKER.MON[employer] KEEPER Work Phone: [facility] 07-26-2024 15:48-0500 Body temperature 98.1 [degF] Tiffany Queden SLIPPER MAKER.MON[employer] KEEPER Work Phone: [facility] 07-26-2024 15:48-0500 Body weight 109.32 kg Tiffany Queden SLIPPER MAKER.MON[employer] KEEPER Work Phone: [facility] 07-26-2024 15:48-0500 Diastolic blood pressure 68 mm[Hg] Tiffany Queden SLIPPER MAKER.MON[employer] KEEPER Work Phone: [facility] 07-26-2024 15:48-0500 Heart rate 81 /min Tiffany Queden SLIPPER MAKER.MON[employer] KEEPER Work Phone: [facility] 07-26-2024 15:48-0500 Respiratory rate 18 /min Tiffany Queden SLIPPER MAKER.MON[employer] KEEPER Work Phone: [facility] 07-26-2024 15:48-0500 SaO2% (BldA) [Mass fraction] 97 % Tiffany Queden SLIPPER MAKER.MON[employer] KEEPER Work Phone: [facility] 07-26-2024 15:48-0500 Systolic blood pressure 124 mm[Hg] Tiffany Kathy SLIPPER MAKER.MON[employer] KEEPER Work Phone: [facility] 07-19-2024 15:34-0500 Body mass index (BMI) [Ratio] 33.99 kg/m2 Krislyn Aberegg PA Work Phone: [facility] 07-19-2024 15:34-0500 Body temperature 97.9 [degF] Krislyn Aberegg PA Work Phone: [facility] 07-19-2024 15:34-0500 Body weight 109 kg Krislyn Aberegg PA Work Phone: [facility] 07-19-2024 15:34-0500 Diastolic blood pressure 80 mm[Hg] Krislyn Aberegg PA Work Phone: [facility] 07-19-2024 15:34-0500 Heart rate 90 /min Krislyn Aberegg PA Work Phone: [facility] 07-19-2024 15:34-0500 Respiratory rate 21 /min Krislyn Aberegg PA Work Phone: [facility] 07-19-2024 15:34-0500 SaO2% (BldA) [Mass fraction] 97 % Krislyn Aberegg PA Work Phone: [facility] 07-19-2024 15:34-0500 Systolic blood pressure 130 mm[Hg] Krislyn Aberegg PA Work Phone: [facility] 06-21-2024 14:44-0500 Body height 179.1 cm Tiffany Chavez SLIPPER MAKER.[employer] KEEPER Work Phone: [facility] 06-21-2024 14:44-0500 Body mass index (BMI) [Ratio] 34.37 kg/m2 Tiffany Darrelden SLIPPER MAKER.MON[employer] KEEPER Work Phone: [facility] 06-21-2024 14:44-0500 Body temperature 97.81 [degF] Tiffany Queden SLIPPER MAKER.MON[employer] KEEPER Work Phone: [facility] 06-21-2024 14:44-0500 Body weight 110.22 kg Tiffany Queden SLIPPER MAKER.[employer] KEEPER Work Phone: [facility] 06-21-2024 14:44-0500 Diastolic blood pressure 78 mm[Hg] Tiffany Queden SLIPPER MAKER.MON[employer] KEEPER Work Phone: [facility] 06-21-2024 14:44-0500 Heart rate 88 /min Tiffany Queden SLIPPER MAKER.[employer] KEEPER Work Phone: [facility] 06-21-2024 14:44-0500 Respiratory rate 16 /min Tiffany Queden SLIPPER MAKER.[facility] Work Phone: [facility] 06-21-2024 14:44-0500 SaO2% (BldA) [Mass fraction] 98 % Tiffany Queden SLIPPER MAKER.MON[employer] KEEPER Work Phone: [facility] 06-21-2024 14:44-0500 Systolic blood pressure 124 mm[Hg] Tiffany Queden SLIPPER MAKER.MON[employer] KEEPER Work Phone: [facility] 05-17-2024 14:56-0500 Body height 179.1 cm Tiffany Queden SLIPPER MAKER.[employer] KEEPER Work Phone: [facility] 05-17-2024 14:56-0500 Body mass index (BMI) [Ratio] 34.37 kg/m2 Tiffany Queden SLIPPER MAKER.[employer] KEEPER Work Phone: [facility] 05-17-2024 14:56-0500 Body temperature 97.39 [degF] Tiffany Queden SLIPPER MAKER.MON[employer] KEEPER Work Phone: [facility] 05-17-2024 14:56-0500 Body weight 110.22 kg Tiffany Queden SLIPPER MAKER.[employer] KEEPER Work Phone: [facility] 05-17-2024 14:56-0500 Diastolic blood pressure 78 mm[Hg] Tiffany Queden SLIPPER MAKER.[employer] KEEPER Work Phone: [facility] 05-17-2024 14:56-0500 Heart rate 93 /min Tiffany Queden SLIPPER MAKER.[employer] K[employer]PER Work Phone: [facility] 05-17-2024 14:56-0500 Respiratory rate 18 /min Tiffany Queden SLIPPER MAKER.MON[employer] KEEPER Work Phone: [facility] 05-17-2024 14:56-0500 SaO2% (BldA) [Mass fraction] 97 % Tiffany Queden SLIPPER MAKER.[employer] K[employer]PER Work Phone: [facility] 05-17-2024 14:56-0500 Systolic blood pressure 126 mm[Hg] Tiffany Queden SLIPPER MAKER.[employer] KEEPER Work Phone: [facility] 04-20-2024 17:42-0500 Body mass index (BMI) [Ratio] 34.3 kg/m2 Nuria Ackerman SLIPPER MAKER.[employer] KEEPER Work Phone: [facility] 04-20-2024 17:42-0500 Body temperature 96.69 [degF] Nuria Ackerman SLIPPER MAKER.[employer] KEEPER Work Phone: [facility] 04-20-2024 17:42-0500 Body weight 110 kg Nuria Ackerman SLIPPER MAKER.[employer] KEEPER Work Phone: [facility] 04-20-2024 17:42-0500 Diastolic blood pressure 85 mm[Hg] Nuria Ackerman SLIPPER MAKER.[employer] K[employer]PER Work Phone: [facility] 04-20-2024 17:42-0500 Heart rate 83 /min Nuria Ackerman SLIPPER MAKER.[employer] KEEPER Work Phone: [facility] 04-20-2024 17:42-0500 Respiratory rate 20 /min Nuria Ackerman SLIPPER MAKER.[employer] KEEPER Work Phone: [facility] 04-20-2024 17:42-0500 SaO2% (BldA) [Mass fraction] 97 % Nuria Ackerman SLIPPER MAKER.[employer] K[employer]PER Work Phone: [facility] 04-20-2024 17:42-0500 Systolic blood pressure 117 mm[Hg] Nuria Ackerman SLIPPER MAKER.[employer] K[employer]PER Work Phone: [facility] 04-03-2024 09:00-0400 Body height 179.1 cm Tiffanysiva Chavez SLIPPER MAKER.[employer] KEEPER Work Phone: [facility] 04-03-2024 09:00-0400 Body mass index (BMI) [Ratio] 33.53 kg/m2 Tiffany Queden SLIPPER MAKER.[employer] K[employer]PER Work Phone: [facility] 04-03-2024 09:00-0400 Body temperature 97.5 [degF] Tiffany Darrelden SLIPPER MAKER.[employer] KEEPER Work Phone: [facility] 04-03-2024 09:00-0400 Body weight 107.5 kg Tiffany Chavez SLIPPER MAKER.[employer] Work Phone: [facility] 04-03-2024 09:00-0400 Diastolic blood pressure 74 mm[Hg] Tiffany Queden SLIPPER MAKER.[employer] KEEPER Work Phone: [facility] 04-03-2024 09:00-0400 Heart rate 107 /min Tiffany Queden SLIPPER MAKER.[employer] KEEPER Work Phone: [facility] [facility] 04-03-2024 09:00-0400 Respiratory rate 16 /min Tiffany Darrelden SLIPPER MAKER.MONKEY KEEPER Work Phone: [facility] 04-03-2024 09:00-0400 SaO2% (BldA) [Mass fraction] 98 % Tiffany Queden SLIPPER MAKER.MONKEY KEEPER Work Phone: [facility] 04-03-2024 09:00-0400 Systolic blood pressure 120 mm[Hg] Tiffany Queden SLIPPER MAKER.MONKEY KEEPER Work Phone: [facility] 03-02-2024 17:01-0400 Body mass index (BMI) [Ratio] 33.99 kg/m2 Deonna Hagan SLIPPER MAKER.MONKEY KEEPER Work Phone: [facility] 03-02-2024 17:01-0400 Body temperature 98.01 [degF] Deonna Hagan APRN.MONKEY KEEPER Work Phone: [facility] 03-02-2024 17:01-0400 Body weight 109 kg Deonna Hagan APRN.MONKEY KEEPER Work Phone: [facility] 03-02-2024 17:01-0400 Diastolic blood pressure 71 mm[Hg] Deonna Hagan APRN.MONKEY KEEPER Work Phone: [facility] 03-02-2024 17:01-0400 Heart rate 85 /min Deonna Hagan APRN.MONKEY KEEPER Work Phone: [facility] 03-02-2024 17:01-0400 Respiratory rate 18 /min Deonna Hagan APRN.MONKEY KEEPER Work Phone: [facility] 03-02-2024 17:01-0400 SaO2% (BldA) [Mass fraction] 97 % Deonna Hagan APRN.MONKEY KEEPER Work Phone: [facility] 03-02-2024 17:01-0400 Systolic blood pressure 107 mm[Hg] Deonna Hagan APRN.MONKEY KEEPER Work Phone: [facility] 01-26-2024 15:03-0400 Body height 179.1 cm Tiffany Quesushma SLIPPER MAKER.MONKEY KEEPER Work Phone: [facility] 01-26-2024 15:03-0400 Body mass index (BMI) [Ratio] 33.24 kg/m2 Tiffany Chavez SLIPPER MAKER.MONKEY KEEPER Work Phone: [facility] 01-26-2024 15:03-0400 Body temperature 98.2 [degF] Tiffany Chavez SLIPPER MAKER.MONKEY KEEPER Work Phone: [facility] 01-26-2024 15:03-0400 Body weight 106.59 kg Tiffany Chavez SLIPPER MAKER.MONKEY KEEPER Work Phone: [facility] 01-26-2024 15:03-0400 Diastolic blood pressure 62 mm[Hg] Tiffany Aguileraden SLIPPER MAKER.MONKEY KEEPER Work Phone: [facility] 01-26-2024 15:03-0400 Heart rate 88 /min Tiffany Queden SLIPPER MAKER.MONKEY KEEPER Work Phone: [facility] 01-26-2024 15:03-0400 Respiratory rate 18 /min Tiffany Queden SLIPPER MAKER.MONKEY KEEPER Work Phone: [facility] 01-26-2024 15:03-0400 SaO2% (BldA) [Mass fraction] 98 % Tiffany Queden SLIPPER MAKER.MONKEY KEEPER Work Phone: [facility] 01-26-2024 15:03-0400 Systolic blood pressure 108 mm[Hg] Tiffany Queden SLIPPER MAKER.MONKEY KEEPER Work Phone: [facility] 01-11-2024 12:49-0400 Body height 179.1 cm Castro Ball SLIPPER MAKER.MONKEY KEEPER Work Phone: [facility] 01-11-2024 12:49-0400 Body mass index (BMI) [Ratio] 33.74 kg/m2 Castro Ball SLIPPER MAKER.MONKEY KEEPER Work Phone: [facility] 01-11-2024 12:49-0400 Body temperature 99.5 [degF] Castro Ball SLIPPER MAKER.MONKEY KEEPER Work Phone: [facility] 01-11-2024 12:49-0400 Body weight 108.2 kg Castro Ball SLIPPER MAKER.MONKEY KEEPER Work Phone: [facility] 01-11-2024 12:49-0400 Diastolic blood pressure 80 mm[Hg] Castro Ball SLIPPER MAKER.MONKEY KEEPER Work Phone: [facility] 01-11-2024 12:49-0400 Heart rate 100 /min Castro Ball SLIPPER MAKER.MONKEY KEEPER Work Phone: [facility] 01-11-2024 12:49-0400 Respiratory rate 20 /min Castro Ball SLIPPER MAKER.MONKEY KEEPER Work Phone: [facility] 01-11-2024 12:49-0400 SaO2% (BldA) [Mass fraction] 99 % Castro Ball SLIPPER MAKER.MONKEY KEEPER Work Phone: [facility] 01-11-2024 12:49-0400 Systolic blood pressure 123 mm[Hg] Castro Ball SLIPPER MAKER.MONKEY KEEPER Work Phone: [facility] 12-27-2023 16:19-0400 Body height 179.1 cm Tiffany Queden SLIPPER MAKER.MONKEY KEEPER Work Phone: [facility] 12-27-2023 16:19-0400 Body mass index (BMI) [Ratio] 33.53 kg/m2 Tiffany Queden SLIPPER MAKER.MONKEY KEEPER Work Phone: [facility] 12-27-2023 16:19-0400 Body temperature 98.2 [degF] Tiffany Queden SLIPPER MAKER.MONKEY KEEPER Work Phone: [facility] 12-27-2023 16:19-0400 Body weight 107.5 kg Tiffany Queden SLIPPER MAKER.MONKEY KEEPER Work Phone: [facility] 12-27-2023 16:19-0400 Diastolic blood pressure 68 mm[Hg] Tiffany Queden SLIPPER MAKER.MONKEY KEEPER Work Phone: [facility] 12-27-2023 16:19-0400 Heart rate 85 /min Tiffany Queden SLIPPER MAKER.MONKEY KEEPER Work Phone: [facility] 12-27-2023 16:19-0400 Respiratory rate 18 /min Tiffany Queden SLIPPER MAKER.MONKEY KEEPER Work Phone: [facility] 12-27-2023 16:19-0400 SaO2% (BldA) [Mass fraction] 98 % Tiffany Queden SLIPPER MAKER.MONKEY KEEPER Work Phone: [facility] 12-27-2023 16:19-0400 Systolic blood pressure 116 mm[Hg] Tiffany Queden SLIPPER MAKER.MONKEY KEEPER Work Phone: [facility] 11-01-2023 12:35-0400 Body mass index (BMI) [Ratio] 33.49 kg/m2 Basil Herrera SLIPPER MAKER.MONKEY KEEPER Work Phone: [facility] 11-01-2023 12:35-0400 Body temperature 98.6 [degF] Basil Pendlebury SLIPPER MAKER.MONKEY KEEPER Work Phone: [facility] 11-01-2023 12:35-0400 Body weight 107.4 kg Basil Pendlebury SLIPPER MAKER.MONKEY KEEPER Work Phone: [facility] 11-01-2023 12:35-0400 Diastolic blood pressure 82 mm[Hg] Basil Pendlebury SLIPPER MAKER.MONKEY KEEPER Work Phone: [facility] 11-01-2023 12:35-0400 Heart rate 112 /min Basil Pendlebury SLIPPER MAKER.MONKEY KEEPER Work Phone: [facility] 11-01-2023 12:35-0400 Respiratory rate 18 /min Basil Pendlebury SLIPPER MAKER.MONKEY KEEPER Work Phone: [facility] 11-01-2023 12:35-0400 SaO2% (BldA) [Mass fraction] 97 % Basil Lillybury SLIPPER MAKER.MONKEY KEEPER Work Phone: [facility] 11-01-2023 12:35-0400 Systolic blood pressure 132 mm[Hg] Basil Pendlebury SLIPPER MAKER.MONKEY KEEPER Work Phone: [facility] 09-19-2023 15:19-0400 Body height 179.1 cm Tiffany Queden SLIPPER MAKER.MONKEY KEEPER Work Phone: [facility] 09-19-2023 15:19-0400 Body temperature 98.01 [degF] Tiffany Queden SLIPPER MAKER.MONKEY KEEPER Work Phone: [facility] 09-19-2023 15:19-0400 Body weight 104.78 kg Tiffany Queden SLIPPER MAKER.MONKEY KEEPER Work Phone: [facility] 09-19-2023 15:19-0400 Diastolic blood pressure 70 mm[Hg] Tiffany Queden SLIPPER MAKER.MONKEY KEEPER Work Phone: [facility] 09-19-2023 15:19-0400 Heart rate 86 /min Tiffany Queden SLIPPER MAKER.MONKEY KEEPER Work Phone: [facility] 09-19-2023 15:19-0400 Respiratory rate 16 /min Tiffany Chavez SLIPPER MAKER.MONKEY KEEPER Work Phone: [facility] 09-19-2023 15:19-0400 SaO2% (BldA) [Mass fraction] 100 % Tiffany Chavez SLIPPER MAKER.MONKEY KEEPER Work Phone: [facility] 09-19-2023 15:19-0400 Systolic blood pressure 122 mm[Hg] Tiffany Chavez SLIPPER MAKER.MONKEY KEEPER Work Phone: [facility] 08-20-2023 08:31-0400 Body temperature 99.3 [degF] Carter Vega SLIPPER MAKER.MONKEY KEEPER Work Phone: [facility] 08-20-2023 08:31-0400 Diastolic blood pressure 80 mm[Hg] Carter Vega SLIPPER MAKER.MONKEY KEEPER Work Phone: [facility] 08-20-2023 08:31-0400 Heart rate 109 /min Carter Vega SLIPPER MAKER.MONKEY KEEPER Work Phone: [facility] 08-20-2023 08:31-0400 Respiratory rate 18 /min Carter Vega APRN.MONKEY KEEPER Work Phone: [facility] 08-20-2023 08:31-0400 SaO2% (BldA) [Mass fraction] 97 % Carter Vega SLIPPER MAKER.MONKEY KEEPER Work Phone: [facility] 08-20-2023 08:31-0400 Systolic blood pressure 117 mm[Hg] Carter Vega SLIPPER MAKER.MONKEY KEEPER Work Phone: [facility] 04-12-2023 15:58-0500 Body height 179.1 cm Tiffany Chavez SLIPPER MAKER.MONKEY KEEPER Work Phone: [facility] 04-12-2023 15:58-0500 Body temperature 98.01 [degF] Tiffany Chavez SLIPPER MAKER.MONKEY KEEPER Work Phone: [facility] 04-12-2023 15:58-0500 Body weight 107.05 kg Tiffany Queden SLIPPER MAKER.MONKEY KEEPER Work Phone: [facility] 04-12-2023 15:58-0500 Diastolic blood pressure 72 mm[Hg] Tiffany Queden SLIPPER MAKER.MONKEY KEEPER Work Phone: [facility] 04-12-2023 15:58-0500 Heart rate 88 /min Tiffany Queden SLIPPER MAKER.MONKEY KEEPER Work Phone: [facility] 04-12-2023 15:58-0500 Respiratory rate 18 /min Tiffany Queden SLIPPER MAKER.MONKEY KEEPER Work Phone: [facility] 04-12-2023 15:58-0500 SaO2% (BldA) [Mass fraction] 98 % Tiffany Queden SLIPPER MAKER.MONKEY KEEPER Work Phone: [facility] 04-12-2023 15:58-0500 Systolic blood pressure 122 mm[Hg] Tiffany Queden SLIPPER MAKER.MONKEY KEEPER Work Phone: [facility] 11-08-2022 16:31-0400 Body height 179.1 cm Tiffany Queden SLIPPER MAKER.MONKEY KEEPER Work Phone: [facility] 11-08-2022 16:31-0400 Body temperature 97.7 [degF] Tiffany Queden SLIPPER MAKER.MONKEY KEEPER Work Phone: [facility] 11-08-2022 16:31-0400 Body weight 107.5 kg Tiffany Queden SLIPPER MAKER.MONKEY KEEPER Work Phone: [facility] 11-08-2022 16:31-0400 Diastolic blood pressure 76 mm[Hg] Tiffany Queden SLIPPER MAKER.MONKEY KEEPER Work Phone: [facility] 11-08-2022 16:31-0400 Heart rate 68 /min Tiffany Queden SLIPPER MAKER.MONKEY KEEPER Work Phone: [facility] 11-08-2022 16:31-0400 Respiratory rate 18 /min Tiffany Queden SLIPPER MAKER.MONKEY KEEPER Work Phone: [facility] 11-08-2022 16:31-0400 SaO2% (BldA) [Mass fraction] 96 % Tiffany Queden SLIPPER MAKER.MONKEY KEEPER Work Phone: [facility] 11-08-2022 16:31-0400 Systolic blood pressure 122 mm[Hg] Tiffany Queden SLIPPER MAKER.MONKEY KEEPER Work Phone: [facility] 08-27-2022 16:22-0400 Body height 179.1 cm Tiffany Queden SLIPPER MAKER.MONKEY KEEPER Work Phone: [facility] 08-27-2022 16:22-0400 Body temperature 97.59 [degF] Tiffany Queden SLIPPER MAKER.MONKEY KEEPER Work Phone: [facility] 08-27-2022 16:22-0400 Body weight 104.78 kg Tiffany Queden SLIPPER MAKER.MONKEY KEEPER Work Phone: [facility] 08-27-2022 16:22-0400 Diastolic blood pressure 70 mm[Hg] Tiffany Queden SLIPPER MAKER.MONKEY KEEPER Work Phone: [facility] 08-27-2022 16:22-0400 Heart rate 69 /min Tiffany Queden SLIPPER MAKER.MONKEY KEEPER Work Phone: [facility] 08-27-2022 16:22-0400 Respiratory rate 18 /min Tiffany Queden SLIPPER MAKER.MONKEY KEEPER Work Phone: [facility] 08-27-2022 16:22-0400 SaO2% (BldA) [Mass fraction] 97 % Tiffany Queden SLIPPER MAKER.MONKEY KEEPER Work Phone: [facility] 08-27-2022 16:22-0400 Systolic blood pressure 122 mm[Hg] Tiffany Queden SLIPPER MAKER.MONKEY KEEPER Work Phone: [facility] 08-13-2022 16:53-0500 Body height 179.1 cm Misa Trill SLIPPER MAKER.MONKEY KEEPER Work Phone: [facility] 08-13-2022 16:53-0500 Body temperature 97.81 [degF] Misa Trill SLIPPER MAKER.MONKEY KEEPER Work Phone: [facility] 08-13-2022 16:53-0500 Body weight 107.5 kg Misa Trill SLIPPER MAKER.MONKEY KEEPER Work Phone: [facility] 08-13-2022 16:53-0500 Diastolic blood pressure 60 mm[Hg] Misa Trill SLIPPER MAKER.MONKEY KEEPER Work Phone: [facility] 08-13-2022 16:53-0500 Heart rate 97 /min Misa Trill SLIPPER MAKER.MONKEY KEEPER Work Phone: [facility] 08-13-2022 16:53-0500 SaO2% (BldA) [Mass fraction] 98 % Misa Trill SLIPPER MAKER.MONKEY KEEPER Work Phone: [facility] 08-13-2022 16:53-0500 Systolic blood pressure 126 mm[Hg] Misa Trill SLIPPER MAKER.MONKEY KEEPER Work Phone: [facility] 08-09-2022 15:33-0500 Body height 179.1 cm Tiffany Queden SLIPPER MAKER.MONKEY KEEPER Work Phone: [facility] 08-09-2022 15:33-0500 Body temperature 97.81 [degF] Tiffany Queden SLIPPER MAKER.MONKEY KEEPER Work Phone: [facility] 08-09-2022 15:33-0500 Body weight 107.5 kg Tiffany Queden SLIPPER MAKER.MONKEY KEEPER Work Phone: [facility] 08-09-2022 15:33-0500 Diastolic blood pressure 76 mm[Hg] Tiffany Queden SLIPPER MAKER.MONKEY KEEPER Work Phone: [facility] 08-09-2022 15:33-0500 Heart rate 66 /min Tiffany Queden SLIPPER MAKER.MONKEY KEEPER Work Phone: [facility] 08-09-2022 15:33-0500 Respiratory rate 18 /min Tiffany Queden SLIPPER MAKER.MONKEY KEEPER Work Phone: [facility] 08-09-2022 15:33-0500 SaO2% (BldA) [Mass fraction] 97 % Tiffany Queden SLIPPER MAKER.MONKEY KEEPER Work Phone: [facility] 08-09-2022 15:33-0500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 Effort: Pulmonary effort is normal. No respiratory distress. Breath sounds: Normal breath sounds. No wheezing or rhonchi. Abdominal: General: Bowel sounds are normal. Palpations: Abdomen is soft. Musculoskeletal: Cervical back: Normal range of motion and neck supple. No tenderness. Lymphadenopathy: Cervical: No cervical adenopathy. Skin: General: Skin is warm and dry. Capillary Refill: Capillary refill takes less than 2 seconds. Neurological: Mental Status: He is alert. General: No acute distress. Resp: Lungs clear to auscultation bilaterally. Abd: No tenderness to palpation. Assessment/Plan (J32.9, B96.89) Bacterial sinusitis (primary encounter diagnosis) Plan: amoxicillin-clavulanate potassium (AUGMENTIN) 875-125 mg per tablet, fluticasone (FLONASE ALLERGY RELIEF) 50 mcg/actuation nasal spray, (J30.89) Seasonal allergic rhinitis due to other allergic trigger Plan: cetirizine (ZYRTEC) 10 mg tablet, sodium chloride - SALINE NASAL) 0.65 % - azelastine 0.1% nasal spray - Flonase Nasal [place] [employer] AI generated recording and notation utilized after patient/guardian approved Patient given educational materials - see patient instructions. Discussed use, benefit, and side effects of prescribed medications. All patient questions answered. Pt voiced understanding and agrees with treatment plan. Patient advised to follow up with PCP within one week, or sooner if symptoms worsen or persist. If symptoms become severe- GO TO ED. Patient agreeable with treatment plan. Marilin Mcgowan APRN [employer]KEY KEEPER documented in this encounter [facility] 11-16-2024 Instructions Marilin Mcgowan APRN.KEVEN - 11/16/2024 9:56 AM EDT Images from the original note were not included. Adult Sinusitis Patient Education What is Sinusitis? Sinusitis [onxd-jyg-ouca-tis] is inflammation of the sinuses or swelling of the lining of the sinus cavity or nose. During an infection the sinuses become blocked with fluid causing swelling of the lining of the sinuses. Symptoms: (viral and bacterial infections) Stuffy nose Runny nose Postnasal drip Fever Toothache Headache Tiredness Cough Sore throat Face and head pressure and or pain Common causes: 98% of sinus infections are viral caused by viruses. Risk Factors of Sinusitis Include: Allergies, air pollution, indoor humidity and outdoor temperature changes, andstructural changes in the nose may contribute to sinus pain, pressure and congestion. When to get help? Temperature greater than 100.4 F Symptoms lasting more than 10 days or worsening symptoms greater than 7-10 days. If you do not improve or worsen after a course of antibiotics, you should be re-examined. Diagnosis and Treatment: Your healthcare provider will ask a number of questions about your symptoms and how long they have occurred. If symptoms of sinusitis persist greater than 10 days, it is possible you have a bacterial sinus infection and an antibiotic is prescribed. If it is viral, antibiotics will not help. You may be instructed to take aivo-rhk-vziazha medications for symptoms. including fever reducers acetaminophen or ibuprofen, nasal saline spray, cough and cold preparations and decongestants as prescribed by the physician, nurse practitioner or physician [employer] school assistant football coach. Self-Care and Prevention: Rest Fluids for hydration Good hand washing Humidifier Avoid smoking and exposure to second hand smoke Avoid sick contacts documented in this encounter [facility] 11-14-2024 Telephone encounter Note pharm requesting refills: Last office visit 07/26/2024. Last refill 10/19/2024. Nov none Requested Prescriptions Pending Prescriptions Disp Refills albuterol HFA (PROVENTIL HFA, VENTOLIN HFA) 90 mcg/actuation inhaler 1 each 0 Sig: Inhale 2 puffs as instructed every 4 hours as needed for wheezing/shortness of breath. Please review and advise. Nichol Erazo MA [facility] 11-14-2024 Miscellaneous Notes pharm requesting refills: Last office visit 07/26/2024. Last refill 10/19/2024. Nov none Requested Prescriptions Pending Prescriptions Disp Refills albuterol HFA (PROVENTIL HFA, VENTOLIN HFA) 90 mcg/actuation inhaler 1 each 0 Sig: Inhale 2 puffs as instructed every 4 hours as needed for wheezing/shortness of breath. Please review and advise. Nichol Erazo MA documented in this encounter [facility] 11-05-2024 Instructions Reina Dubon PA-C - 11/05/2024 11:24 AM EDT Viral Syndrome Your doctor wanted you to have the following information about viral syndrome... You are getting this information because you have symptoms related to a viral syndrome. Your body is actively fighting a virus. There are many viruses and they can cause different symptoms depending on what body part they attack. Some symptoms of a viral syndrome are: Fever (temperature higher than 100.4 F or 38 C). Headaches. Fatigue (feeling tired) and body soreness. A clogged-up or runny nose. Sore throat. Cough. Rash. Nausea (feeling sick to the stomach) and vomiting (throwing up). Diarrhea (watery poop). Stomach cramps. Basic care for a viral syndrome is to rest and drink lots of fluids. You will feel better over time. Recommended non-prescription medications by symptom Cough, Non-productive (not coughing up phlegm) - Cough suppressant containing dextromethorphan (Robitussin DM or Delsym ) Cough, Productive (coughing up phlegm) - Cough suppressant (see above) - Expectorant: Mucinex tablets or plain guaifenesin syrup, also known as Robitussin Fever/Headache/Muscle Aches - Acetaminophen (Tylenol ) - Non-Steroidal Anti-Inflammatory Drugs (NSAIDs) such as ibuprofen (Advil ) or naproxen (Aleve ) Nasal Stuffiness Saline nasal spray or a Neti Pot. - Nasal steroid sprays: Flonase or Nasacort - Decongestants: Topical spray: Oxymetazoline (Afrin Nasal [place]); limit to 3-4 days maximum Oral medication: Pseudoephedrine (Sudafed ) - MUST BE PURCHASED FROM PHARMACIST Runny and/or Itchy Nose/Sneezing - Nasal steroid sprays: Flonase or Nasacort - Antihistamine: Benadryl , which will likely cause drowsiness, or Loratadine (Alavert ), which is not as likely to cause drowsiness Sore Throat Pain Relief - Suck on throat lozenges, hard candy or popsicles - Gargle with warm salt water (1/4 tsp. salt per 8 oz. of water); and eat soft, bland foods. - Take acetaminophen (Tylenol ) or ibuprofen (Advil ). - Try throat sprays (Chloraseptic ). Unfortunately, there is still no cure for most viruses. Antibiotics don't work for viral illnesses. Antibiotics may cause side effects like rash or diarrhea (watery poop). Taking antibiotics when they are not needed might stop them from working if you get a bacterial infection later. Some serious infections can feel like a viral syndrome in the first few days. So it is important to watch your symptoms. See your doctor if you feel worse. See your doctor or go to the nearest Emergency Department if you: Have a fever (temperature higher than 100.4 F or 38 C) that won't go away. Have painful headache or stiff neck. Have constant vomiting or diarrhea (watery poop). Feel lightheaded, faint or might pass out. Have trouble breathing or shortness of breath. Feel confused or cannot think clearly. Are weak and cannot walk. Contact your doctor if you have any questions. If you think your symptoms are worse, go to the Emergency Department to be seen by a doctor. documented in this encounter [facility] 11-05-2024 Note SARS-COV-2 (AGENT OF COVID-19) RNA: Not detected INFLUENZA A RNA: Not detected INFLUENZA B RNA: Not detected RESPIRATORY SYNCYTIAL VIRUS (RSV) RNA: Not detected [facility] Comment on above: Performed By: #### [id number] ####[facility] LABCLIA [id number] [facility] [place] [id number] [place] 11-05-2024 Note HNO ID: [id number] Author: REINA DUBON PA-C Service: ? Author Type: Physician Electrical Accessories Assembler Type: Progress Notes Filed: 11/05/2024 11:49 Note Text: [facility] Subjective Patient presents with: Upper Respiratory Infection: Was around someone with covid, having pain across his chest Chang Solis is a 53 year old male with a past medical history of GERD and diabetes who presents to [facility] care today for evaluation of hoarse voice, cough, diarrhea, and sneezing that began this morning. Patient states that he was exposed to something with COVID-19. Review of Systems Constitutional: Negative for chills, diaphoresis and fever. HENT: Positive for voice change (hoarse voice). Negative for congestion and ear pain. Eyes: Negative for discharge and redness. Respiratory: Positive for cough. Negative for shortness of breath. Gastrointestinal: Positive for diarrhea. Negative for nausea and vomiting. Musculoskeletal: Negative for back pain and neck pain. Skin: Negative for rash and wound. Neurological: Negative for weakness and headaches. All other systems reviewed and are negative. Objective BP 127/86 Pulse 95 Temp 36.7 ?C (98 ?F) SpO2 98% Physical Exam Vitals reviewed. Constitutional: General: He is not in acute distress. Appearance: Normal appearance. He is normal weight. He is not ill-appearing or toxic-appearing. Comments: The patient appears to be non-toxic, in no acute distress, and resting comfortably on the table. HENT: Head: Normocephalic and atraumatic. Eyes: Extraocular Movements: Extraocular movements intact. Cardiovascular: Rate and Rhythm: Normal rate and regular rhythm. Heart sounds: Normal heart sounds. No murmur heard. No friction rub. No gallop. Pulmonary: Effort: Pulmonary effort is normal. No respiratory distress. Breath sounds: Normal breath sounds. No wheezing. Musculoskeletal: General: Normal range of motion. Cervical back: Normal range of motion. Skin: General: Skin is warm and dry. Findings: No erythema or rash. Neurological: General: No focal deficit present. Mental Status: He is alert and oriented to person, place, and time. Mental status is at baseline. Psychiatric: Mood and Affect: Mood normal. Behavior: Behavior normal. Thought Content: Thought content normal. MDM Normal physical exam. Suspect patient's symptoms are due to viral infection. Patient tested for COVID-19, influenza, and RSV. Patient counseled regarding suspected diagnosis and given prescriptions for prednisone and Bromfed. Advised to follow-up with primary care as needed for any new or worsening symptoms. ASSESSMENT/PLAN: 1. URI, acute - ICD9: 465.9, ICD10: J06.9 (primary diagnosis) 2. Voice hoarseness - ICD9: 784.42, ICD10: R49.0 - COVID AND INFLUENZA A/B AND RSV PCR, ROUTINE - PREDNISONE 10 MG TABLET 3. Acute cough - ICD9: 786.2, ICD10: R05.1 - COVID AND INFLUENZA A/B AND RSV PCR, ROUTINE - PREDNISONE 10 MG TABLET 4. Diarrhea, unspecified type - ICD9: 787.91, ICD10: R19.7 - COVID AND INFLUENZA A/B AND RSV PCR, ROUTINE 5. Sneezing - ICD9: 784.99, ICD10: R06.7 - COVID AND INFLUENZA A/B AND RSV PCR, ROUTINE 6. Exposure to COVID-19 virus - ICD9: V01.79, ICD10: Z20.822 - COVID AND INFLUENZA A/B AND RSV PCR, ROUTINE Medical Decision Making: Problems: Low: Acute, uncomplicated illness or injury Risk: Minimal: Minimal risk from testing/treatment Moderate: Drug management Medical Decision Making Level: 3 - Low I spent a total of 20 minutes on the date of the service which included preparing to see the patient, [id number] patient care, completing clinical documentation, performing a medically appropriate examination, counseling and educating the patient/family/caregiver, and ordering medications, tests, or procedures. Reina Dubon PA-C Procedures [facility] 11-05-2024 History of Presen t illness Narrative [facility] Subjective Patient presents with: Upper Respiratory Infection: Was around someone with covid, having pain across his chest Chang Solis is a 53 year old male with a past medical history of GERD and diabetes who presents to [facility] care today for evaluation of hoarse voice, cough, diarrhea, and sneezing that began this morning. Patient states that he was exposed to something with COVID-19. Review of Systems Constitutional: Negative for chills, diaphoresis and fever. HENT: Positive for voice change (hoarse voice). Negative for congestion and ear pain. Eyes: Negative for discharge and redness. Respiratory: Positive for cough. Negative for shortness of breath. Gastrointestinal: Positive for diarrhea. Negative for nausea and vomiting. Musculoskeletal: Negative for back pain and neck pain. Skin: Negative for rash and wound. Neurological: Negative for weakness and headaches. All other systems reviewed and are negative. Objective BP 127/86 Pulse 95 Temp 36.7 C (98 F) SpO2 98% Physical Exam Vitals reviewed. Constitutional: General: He is not in acute distress. Appearance: Normal appearance. He is normal weight. He is not ill-appearing or toxic-appearing. Comments: The patient appears to be non-toxic, in no acute distress, and resting comfortably on the table. HENT: Head: Normocephalic and atraumatic. Eyes: Extraocular Movements: Extraocular movements intact. Cardiovascular: Rate and Rhythm: Normal rate and regular rhythm. Heart sounds: Normal heart sounds. No murmur heard. No friction rub. No gallop. Pulmonary: Effort: Pulmonary effort is normal. No respiratory distress. Breath sounds: Normal breath sounds. No wheezing. Musculoskeletal: General: Normal range of motion. Cervical back: Normal range of motion. Skin: General: Skin is warm and dry. Findings: No erythema or rash. Neurological: General: No focal deficit present. Mental Status: He is alert and oriented to person, place, and time. Mental status is at baseline. Psychiatric: Mood and Affect: Mood normal. Behavior: Behavior normal. Thought Content: Thought content normal. MDM Normal physical exam. Suspect patient's symptoms are due to viral infection. Patient tested for COVID-19, influenza, and RSV. Patient counseled regarding suspected diagnosis and given prescriptions for prednisone and Bromfed. Advised to follow-up with primary care as needed for any new or worsening symptoms. ASSESSMENT/PLAN: 1. URI, acute - ICD9: 465.9, ICD10: J06.9 (primary diagnosis) 2. Voice hoarseness - ICD9: 784.42, ICD10: R49.0 - COVID & INFLUENZA A/B & RSV PCR, ROUTINE - PREDNISONE 10 MG TABLET 3. Acute cough - ICD9: 786.2, ICD10: R05.1 - COVID & INFLUENZA A/B & RSV PCR, ROUTINE - PREDNISONE 10 MG TABLET 4. Diarrhea, unspecified type - ICD9: 787.91, ICD10: R19.7 - COVID & INFLUENZA A/B & RSV PCR, ROUTINE 5. Sneezing - ICD9: 784.99, ICD10: R06.7 - COVID & INFLUENZA A/B & RSV PCR, ROUTINE 6. Exposure to COVID-19 virus - ICD9: V01.79, ICD10: Z20.822 - COVID & INFLUENZA A/B & RSV PCR, ROUTINE Medical Decision Making: Problems: Low: Acute, uncomplicated illness or injury Risk: Minimal: Minimal risk from testing/treatment Moderate: Drug management Medical Decision Making Level: 3 - Low I spent a total of 20 minutes on the date of the service which included preparing to see the patient, [id number] patient care, completing clinical documentation, performing a medically appropriate examination, counseling and educating the patient/family/caregiver, and ordering medications, tests, or procedures. Reina Dubon PA-C Procedures documented in this encounter [facility] 10-19-2024 Note HNO ID: [id number] Author: DIPAK SKINNER LPN Service: ? Author Type: LICENSED NURSE Type: Progress Notes Filed: 10/19/2024 12:42 Note Text: 2.5 solution aerosol treatment given per provider's orders. Prior to treatment O2 sat is 99. Treatment completed. O2 sat is 99. Tolerated well. Dipak Skinner LPN [facility] 10-19-2024 History of Presen t illness Narrative 2.5 solution aerosol treatment given per provider's orders. Prior to treatment O2 sat is 99. Treatment completed. O2 sat is 99. Tolerated well. Dipak Skinner LPN [facility] Subjective Chang Solis is a 53 year old male. Patient presents with: Cough: Chest congestion, SOB, fatigue, headache, loss of voice, tightness in upper chest and ribs x 3 days Last week, sinus issues Cough Asthma: - History of asthma; last seen by PCP 3-4 months ago. - Out of albuterol inhaler for an unspecified duration. - Unable to afford prescribed medications. - Denies current use of any medications for symptom relief. URI Symptoms: - Onset of symptoms yesterday. - Laryngitis, headaches, sneezing, and coughing. - Chest pain and congestion with associated dyspnea. - Concerns about possible pneumonia. Review of Systems Respiratory: Positive for cough. Objective BP 119/84 Pulse 78 Temp 36.7 C (98.1 F) Resp 22 Wt 108 kg (238 lb 1.6 oz) SpO2 99% BMI 33.68 kg/m PAST MEDICAL HISTORY Diagnosis Date Abdominal pain, left lower quadrant Acute gastritis without mention of hemorrhage Diabetes (HCC) Duodenitis without mention of hemorrhage Esophageal reflux Gastroesophageal reflux Unspecified asthma(493.90) exercise-induced PAST SURGICAL HISTORY Procedure Laterality Date APPENDECTOMY HX CHOLECYSTECTOMY HX COLONOSCOPY W/BIOPSY SINGLE/MULTIPLE 09/02/10 EGD TRANSORAL BIOPSY SINGLE/MULTIPLE 09/02/10 HERNIA REPAIR HX LAPAROSCOPY SURG CHOLECYSTECTOMY Cholecystectomy, lap RPR 1ST INGUN HRNA AGE 5 YRS/> REDUCIBLE Hernia repair, inguinal RPR 1ST INGUN HRNA AGE 5 YRS/> REDUCIBLE Hernia repair, inguinal TONSILLECTOMY HX TONSILLECTOMY PRIMARY/SECONDARY <AGE 12 Tonsillectomy ALLERGIES Bactrim [Sulfamethoxazole-Trimethoprim], Hand Soap [Triclosan], Ivp Dye [Iodine], Seasonal Allergies, Shellfish Derived, and Sulfa (Sulfonamide Antibiotics) MEDICATIONS oxymetazoline (AFRIN, OXYMETAZOLINE,) 0.05 % nasal spray^Use 2-3 sprays in each nostril two times a day. Use as directed. For a maximum of 3 (three) days.^Disp: 22 mL^Rfl: 0 sodium chloride (SALINE MIST) 0.65 % nasal spray^Use 1 [place] in the nose as needed.^Disp: 15 mL^Rfl: 0 fluticasone (FLONASE ALLERGY RELIEF) 50 mcg/actuation nasal spray^Use 1 [place] in each nostril two times a day.^Disp: 1 Each^Rfl: 0 metFORMIN ER (GLUCOPHAGE XR) 500 mg 24 hr tablet^Take 2 tablets by mouth once daily.^Disp: 180 tablet^Rfl: 1 meclizine (ANTIVERT) 25 mg tab^Take 1 tablet by mouth three times a day as needed.^Disp: 30 tablet^Rfl: 0 acetaminophen (TYLENOL ORAL)^Take by mouth as needed.^Disp: ^Rfl: albuterol HFA (PROVENTIL HFA, VENTOLIN HFA) 90 mcg/actuation inhaler^Inhale 2 puffs as instructed every 4 hours as needed for wheezing/shortness of breath.^Disp: 1 each^Rfl: 0 amoxicillin-clavulanate potassium (AUGMENTIN) 875-125 mg per tablet^Take 1 tablet by mouth every 12 hours for 7 days.^Disp: 14 tablet^Rfl: 0 cetirizine (ZYRTEC) 10 mg tablet^Take 1 tablet by mouth once daily.^Disp: 30 tablet^Rfl: 0 predniSONE (DELTASONE) 10 mg tablet^Take 3 tablets by mouth once daily for 3 days, THEN 2 tablets once daily for 3 days, THEN 1 tablet once daily for 3 days.^Disp: 18 tablet^Rfl: 0 Zghzfdbditsluza-Jueiufvfz-RP (BROMFED DM) 2-30-10 mg/5 mL syrup^Take 5 mL by mouth four times a day as needed.^Disp: 118 mL^Rfl: 0 (Patient not taking: Reported on 10/19/2024) Znhlvberkrguzti-Bvimrbpkg-AL (BROMFED DM) 2-30-10 mg/5 mL syrup^Take 10 mL by mouth every 8 hours as needed.^Disp: 118 mL^Rfl: 0 albuterol HFA (PROAIR HFA) 90 mcg/actuation inhaler^2 Puffs every 6 hours as needed for wheezing/shortness of breath. Take as directed^Disp: 1 Each^Rfl: 0 (Patient not taking: Reported on 10/19/2024) blood sugar diagnostic (RELION PRIME TEST STRIPS) test strip^Use as instructed^Disp: 200 Strip^Rfl: 2 Blood-Glucose Meter (RELION PRIME METER)^1 Each four times daily.^Disp: 1 Each^Rfl: 0 FAMILY HISTORY Problem Relation Age of Onset Hypertension Mother Lipids Mother No Ocular Disease Mother Cancer Father lung ca. No Ocular Disease Father Diabetes Maternal Grandmother Coronary Artery Disease Maternal Grandfather Cancer Paternal Grandfather Social History Tobacco Use Smoking status: Never Passive exposure: Yes Smokeless tobacco: Never Vaping Use Vaping status: Never Used Substance Use Topics Alcohol use: Not Currently Drug use: Never Physical Exam Vitals and nursing note reviewed. Constitutional: Appearance: Normal appearance. HENT: Right Ear: Ear canal and external ear normal. A middle ear effusion is present. Left Ear: Ear canal and external ear normal. A middle ear effusion is present. Nose: Congestion present. Mouth/Throat: Mouth: Mucous membranes are moist. Pharynx: No oropharyngeal exudate or posterior oropharyngeal erythema. Eyes: Pupils: Pupils are equal, round, and reactive to light. Cardiovascular: Rate and Rhythm: Normal rate and regular rhythm. Pulses: Normal pulses. Heart sounds: Normal heart sounds. Pulmonary: Effort: Pulmonary effort is normal. No respiratory distress. Breath sounds: Normal breath sounds. No rhonchi. Abdominal: General: Bowel sounds are normal. There is no distension. Palpations: Abdomen is soft. Tenderness: There is no abdominal tenderness. Musculoskeletal: Cervical back: Normal range of motion and neck supple. No rigidity or tenderness. Lymphadenopathy: Cervical: No cervical adenopathy. Neurological: Mental Status: He is alert. General: No acute distress. HEENT: Hoarse voice. Resp: Wheezing. 1. Mild intermittent asthma with acute exacerbation ([facility]) (J45.21) - Acute exacerbation likely secondary to an upper respiratory infection; presenting with laryngitis, chest congestion, shortness of breath, headaches, sneezing, and coughing. - Auscultation reveals tightness in the chest. - Administered nebulized bronchodilator treatment in-office. - Refilled albuterol inhaler prescription; patient has been without it for some time. - Discussed the importance of having an albuterol inhaler available at all times for acute symptom management. - Patient seen by primary care provider 3-4 months ago; advised to follow up with PCP for ongoing asthma management. and Recording using [employer] software for draft documentation of the visit was discussed with the patient/authorized outside industrial sales representative; all questions welcomed and answered. Patient/authorized outside industrial sales representative agreed to proceed History and Record Review External record(s) reviewed: prior outpatient record. Findings from review of outpatient records: previous medical history Differential Diagnoses - Asthma exacerbation - Pneumonia Disposition The patient was discharged. OTC Medications were advised: Nasacort continue Patient is well-appearing nontoxic with mild asthma exacerbation. Marco Antonio german in clinic, [facility] patient did not pear picker prednisone. Will send script for inhaler, and Augmentin. Spent significant time consoling patient that he needed to pear picker scripts he does have prescription drug coverage. No concern for acute cardiopulmonary process today. No concerns for acute dehydration. Er if worsening patient verbalized understanding and in agreement with plan. documented in this encounter [facility] 10-19-2024 Instructions Librado Washington APRN.CNP - 10/19/2024 10:20 AM EDT A new albuterol inhaler prescription has been arranged since you re currently without one; use it as needed for your asthma symptoms. You received a breathing treatment during your visit to help with chest congestion and shortness of breath; please monitor your symptoms at home. Continue to use your albuterol inhaler as directed when you experience shortness of breath or chest tightness. Follow up with your primary care provider for ongoing asthma management and if your respiratory symptoms worsen. Please pear picker Prednisone Albuterol Amoxicillin/Clav documented in this encounter [facility] 10-19-2024 Note HNO ID: [id number] Author: LIBRADO WASHINGTON APRN.CNP Service: ? Author Type: Nurse Practitioner Type: Progress Notes Filed: 10/19/2024 10:55 Note Text: [facility] Subjective Chang Solis is a 53 year old male. Patient presents with: Cough: Chest congestion, SOB, fatigue, headache, loss of voice, tightness in upper chest and ribs x 3 days Last week, sinus issues Cough Asthma: - History of asthma; last seen by PCP 3-4 months ago. - Out of albuterol inhaler for an unspecified duration. - Unable to afford prescribed medications. - Denies current use of any medications for symptom relief. URI Symptoms: - Onset of symptoms yesterday. - Laryngitis, headaches, sneezing, and coughing. - Chest pain and congestion with associated dyspnea. - Concerns about possible pneumonia. Review of Systems Respiratory: Positive for cough. Objective BP 119/84 Pulse 78 Temp 36.7 ?C (98.1 ?F) Resp 22 Wt 108 kg (238 lb 1.6 oz) SpO2 99% BMI 33.68 kg/m? PAST MEDICAL HISTORY Diagnosis Date Abdominal pain, left lower quadrant Acute gastritis without mention of hemorrhage Diabetes (HCC) Duodenitis without mention of hemorrhage Esophageal reflux Gastroesophageal reflux Unspecified asthma(493.90) exercise-induced PAST SURGICAL HISTORY Procedure Laterality Date APPENDECTOMY HX CHOLECYSTECTOMY HX COLONOSCOPY W/BIOPSY SINGLE/MULTIPLE 09/02/10 EGD TRANSORAL BIOPSY SINGLE/MULTIPLE 09/02/10 HERNIA REPAIR HX LAPAROSCOPY SURG CHOLECYSTECTOMY Cholecystectomy, lap RPR 1ST INGUN HRNA AGE 5 YRS/> REDUCIBLE Hernia repair, inguinal RPR 1ST INGUN HRNA AGE 5 YRS/> REDUCIBLE Hernia repair, inguinal TONSILLECTOMY HX TONSILLECTOMY PRIMARY/SECONDARY Tonsillectomy ALLERGIES Bactrim [Sulfamethoxazole-Trimethoprim], Hand Soap [Triclosan], Ivp Dye [Iodine], Seasonal Allergies, Shellfish Derived, and Sulfa (Sulfonamide Antibiotics) MEDICATIONS oxymetazoline (AFRIN, OXYMETAZOLINE,) 0.05 % nasal sprayUse 2-3 sprays in each nostril two times a day. Use as directed. For a maximum of 3 (three) days.Disp: 22 mLRfl: 0 sodium chloride (SALINE MIST) 0.65 % nasal sprayUse 1 [place] in the nose as needed.Disp: 15 mLRfl: 0 fluticasone (FLONASE ALLERGY RELIEF) 50 mcg/actuation nasal sprayUse 1 [place] in each nostril two times a day.Disp: 1 EachRfl: 0 metFORMIN ER (GLUCOPHAGE XR) 500 mg 24 hr tabletTake 2 tablets by mouth once daily.Disp: 180 tabletRfl: 1 meclizine (ANTIVERT) 25 mg tabTake 1 tablet by mouth three times a day as needed.Disp: 30 tabletRfl: 0 acetaminophen (TYLENOL ORAL)Take by mouth as needed.Disp: Rfl: albuterol HFA (PROVENTIL HFA, VENTOLIN HFA) 90 mcg/actuation inhalerInhale 2 puffs as instructed every 4 hours as needed for wheezing/shortness of breath.Disp: 1 eachRfl: 0 amoxicillin-clavulanate potassium (AUGMENTIN) 875-125 mg per tabletTake 1 tablet by mouth every 12 hours for 7 days.Disp: 14 tabletRfl: 0 cetirizine (ZYRTEC) 10 mg tabletTake 1 tablet by mouth once daily.Disp: 30 tabletRfl: 0 predniSONE (DELTASONE) 10 mg tabletTake 3 tablets by mouth once daily for 3 days, THEN 2 tablets once daily for 3 days, THEN 1 tablet once daily for 3 days.Disp: 18 tabletRfl: 0 Xprlegtryeygqwk-Obbzifzui-DO (BROMFED DM) 2-30-10 mg/5 mL syrupTake 5 mL by mouth four times a day as needed.Disp: 118 mLRfl: 0 (Patient not taking: Reported on 10/19/2024) Yclqaslzqpaxxer-Qbfmolnlm-UY (BROMFED DM) 2-30-10 mg/5 mL syrupTake 10 mL by mouth every 8 hours as needed.Disp: 118 mLRfl: 0 albuterol HFA (PROAIR HFA) 90 mcg/actuation inhaler2 Puffs every 6 hours as needed for wheezing/shortness of breath. Take as directedDisp: 1 EachRfl: 0 (Patient not taking: Reported on 10/19/2024) blood sugar diagnostic (RELION PRIME TEST STRIPS) test stripUse as instructedDisp: 200 StripRfl: 2 Blood-Glucose Meter (RELION PRIME METER)1 Each four times daily.Disp: 1 EachRfl: 0 FAMILY HISTORY Problem Relation Age of Onset Hypertension Mother Lipids Mother No Ocular Disease Mother Cancer Father lung ca. No Ocular Disease Father Diabetes Maternal Grandmother Coronary Artery Disease Maternal Grandfather Cancer Paternal Grandfather Social History Tobacco Use Smoking status: Never Passive exposure: Yes Smokeless tobacco: Never Vaping Use Vaping status: Never Used Substance Use Topics Alcohol use: Not Currently Drug use: Never Physical Exam Vitals and nursing note reviewed. Constitutional: Appearance: Normal appearance. HENT: Right Ear: Ear canal and external ear normal. A middle ear effusion is present. Left Ear: Ear canal and external ear normal. A middle ear effusion is present. Nose: Congestion present. Mouth/Throat: Mouth: Mucous membranes are moist. Pharynx: No oropharyngeal exudate or posterior oropharyngeal erythema. Eyes: Pupils: Pupils are equal, round, and reactive to light. Cardiovascular: Rate and Rhythm: Normal rate and regular r (more content not included)... [facility] 10-17-2024 Instructions Castro Harry APRN.[facility] - 10/17/2024 10:00 AM EDT UPPER RESPIRATORY INFECTIONS Most cases are caused by viruses and most cases are mild, temporary, and harmless. Symptoms can last 2 to 3 weeks and can include: nasal congestion, sore throat, coughing, muscles aches, headaches, nausea, diarrhea, fatigue and fever. Rhinovirus, RSV, Covid, Influenza A and B, Parainfluenza are just a few COMMON respiratory viruses that cause sinus symptoms and cough. Antibiotics do NOT treat viruses. Taking 1 round of antibiotics can destroy your gut normal michelle (good bacteria) for up to 6 months. This can affect your weight, skin, digestion, mental health and immune system. 1. Drink plenty of fluids. 2. Get lots of rest. 3. Avoid dehydrants such as caffeine and alcohol. 4. Nasal saline is an effective decongestant and be used frequently throughout the day. 5. To loosen phlegm and help coughing, drink plenty of fluids and using a humidifier. 6. For sore throats, it is ok to use cough drops, throat sprays, or gargling warm salt water. 7. Always cover your mouth when you cough or sneeze, and wash your hands frequently. Avoid crowded areas like shopping centers, movies while you are sick so you don't pear picker a different virus, or infect others. 8. Avoid exposure to cigarettes or fumes. 9. Avoid irritants such as potpourri, dust, perfumes, scented candles and scented sprays 10. Air conditioning is an effective allergen and irritant avoidance strategy in the spring, summer and fall. 11. Honey is an effective cough suppressant. Try one tsp 3-4 times per day. 12. Mucinex every 12 hours with a full 10-12 ounces of water 13. Afrin for 3-4 days for congestion and post nasal drainage is both safe and effective documented in this encounter [facility] 10-17-2024 Note HNO ID: [id number] Author: CASTRO HARRY APRN.MONKEY KEEPER Service: ? Author Type: Nurse Practitioner Type: Progress Notes Filed: 10/17/2024 10:03 Note Text: [facility] Subjective The patient is a 53-year-old male with a history of asthma, presenting with sinus pressure, sneezing, coughing, and earache. HPI Upper Respiratory Symptoms: - Sinus pressure, sneezing, coughing, and earache. - Onset of headache this morning. - Rhinorrhea with occasional epistaxis x1 week. - Hoarseness noted. - Took one 24-hour allergy pill from AquaHydrate with minimal relief. - Denies sore throat. - Exposed to sick individuals at work. Ear Discomfort: - Aching in ears with discharge described as tannish yellow. - Uses fingernail to remove discharge. Asthma: - History of asthma. - Denies chest tightness, dyspnea, or wheezing. Review of Systems Constitutional: (+) clamminess Head: (+) headache Ears/Nose/Mouth/Throat: (+) ear pain (otalgia), (+) ear discharge (otorrhea), (+) congestion, (+) epistaxis, (+) sneezing, (+) dysphonia, (-) sore throat Respiratory: (+) cough Objective BP 121/67 Pulse 88 Temp 36.2 ?C (97.2 ?F) Wt 108.5 kg (239 lb 3.2 oz) SpO2 97% BMI 33.84 kg/m? Physical Exam General: No acute distress. HEENT: Right ear canal erythematous with cerumen, left ear canal with cerumen, no erythema; oropharynx without erythema; cervical lymphadenopathy not appreciated. CV: Normal rate and rhythm. Resp: Wheezing. MDM 1. Viral URI with cough (J06.9) 2. Otalgia of both ears (H92.03) 3. Headache, unspecified headache type (R51.9) - Symptoms include nasal congestion, rhinorrhea, epistaxis, cough, sneezing, otalgia, and cephalalgia. - Physical exam reveals erythematous right ear canal with cerumen accumulation, clear left ear, and wheezing on pulmonary auscultation. - Differential diagnosis includes viral upper respiratory infection and allergic rhinitis. - Prescribed oral corticosteroid to reduce inflammation and wheezing. - Prescribed antihistamine to alleviate allergic symptoms. - Provided prescription-strength decongestant to reduce mucosal edema and improve sinus drainage. - Issued work excuse note; patient may return to work tomorrow if afebrile. Begin the prescribed steroid medication as directed to help ease your wheezing. Start taking the prescribed cold medicine to help dry up mucus, relieve sinus congestion, ear discomfort, coughing, and headache. Use the newly sent allergy medication as directed. You are cleared to return to work tomorrow provided you do not have a fever. Medical Decision Making: Problems: Moderate: New problem with uncertain prognosis Data: Unique source(s) for external note(s) reviewed: 1 Risk: Moderate: Drug management Medical Decision Making Level: 4 - Moderate Procedures [facility] 10-17-2024 History of Presen t illness Narrative [facility] Subjective The patient is a 53-year-old male with a history of asthma, presenting with sinus pressure, sneezing, coughing, and earache. HPI Upper Respiratory Symptoms: - Sinus pressure, sneezing, coughing, and earache. - Onset of headache this morning. - Rhinorrhea with occasional epistaxis x1 week. - Hoarseness noted. - Took one 24-hour allergy pill from AquaHydrate with minimal relief. - Denies sore throat. - Exposed to sick individuals at work. Ear Discomfort: - Aching in ears with discharge described as tannish yellow. - Uses fingernail to remove discharge. Asthma: - History of asthma. - Denies chest tightness, dyspnea, or wheezing. Review of Systems Constitutional: (+) clamminess Head: (+) headache Ears/Nose/Mouth/Throat: (+) ear pain (otalgia), (+) ear discharge (otorrhea), (+) congestion, (+) epistaxis, (+) sneezing, (+) dysphonia, (-) sore throat Respiratory: (+) cough Objective BP 121/67 Pulse 88 Temp 36.2 C (97.2 F) Wt 108.5 kg (239 lb 3.2 oz) SpO2 97% BMI 33.84 kg/m Physical Exam General: No acute distress. HEENT: Right ear canal erythematous with cerumen, left ear canal with cerumen, no erythema; oropharynx without erythema; cervical lymphadenopathy not appreciated. CV: Normal rate and rhythm. Resp: Wheezing. MDM 1. Viral URI with cough (J06.9) 2. Otalgia of both ears (H92.03) 3. Headache, unspecified headache type (R51.9) - Symptoms include nasal congestion, rhinorrhea, epistaxis, cough, sneezing, otalgia, and cephalalgia. - Physical exam reveals erythematous right ear canal with cerumen accumulation, clear left ear, and wheezing on pulmonary auscultation. - Differential diagnosis includes viral upper respiratory infection and allergic rhinitis. - Prescribed oral corticosteroid to reduce inflammation and wheezing. - Prescribed antihistamine to alleviate allergic symptoms. - Provided prescription-strength decongestant to reduce mucosal edema and improve sinus drainage. - Issued work excuse note; patient may return to work tomorrow if afebrile. Begin the prescribed steroid medication as directed to help ease your wheezing. Start taking the prescribed cold medicine to help dry up mucus, relieve sinus congestion, ear discomfort, coughing, and headache. Use the newly sent allergy medication as directed. You are cleared to return to work tomorrow provided you do not have a fever. Medical Decision Making: Problems: Moderate: New problem with uncertain prognosis Data: Unique source(s) for external note(s) reviewed: 1 Risk: Moderate: Drug management Medical Decision Making Level: 4 - Moderate Procedures documented in this encounter [facility] 08-31-2024 Telephone encounter Note Please review the below negative results if a call back is made. Phone number for patient is wrong, please update if a call back is made. COVID-19/flu/rsv negative; recommended to self-isolate until the following criteria are met: If you are symptomatic, the CDC recommends that people refrain from work/school and isolate themselves until - At least 24 hours have passed since last fever without the use of fever-reducing medications Other symptoms have improved Please continue with supportive care (rest and hydration) and follow up with primary care for any persistent or worsening symptoms. Please wear a mask when out in public after symptoms have improved. [facility] 08-31-2024 Miscellaneous Notes Please review the below negative results if a call back is made. Phone number for patient is wrong, please update if a call back is made. COVID-19/flu/rsv negative; recommended to self-isolate until the following criteria are met: If you are symptomatic, the CDC recommends that people refrain from work/school and isolate themselves until - At least 24 hours have passed since last fever without the use of fever-reducing medications Other symptoms have improved Please continue with supportive care (rest and hydration) and follow up with primary care for any persistent or worsening symptoms. Please wear a mask when out in public after symptoms have improved. documented in this encounter [facility] 08-30-2024 Note SARS-COV-2 (AGENT OF COVID-19) RNA: Not detected INFLUENZA A RNA: Not detected INFLUENZA B RNA: Not detected RESPIRATORY SYNCYTIAL VIRUS (RSV) RNA: Not detected [facility] Comment on above: Performed By: #### [id number] ####[facility] LABCLIA [id number] [address] [facility] 08-30-2024 Note Addended by: Lizeth ALONSO on: 08/30/2024 03:59 PM Modules accepted: Orders [facility] 08-30-2024 Miscellaneous Notes Addended by: SIA ALONSO on: 08/30/2024 03:59 PM Modules accepted: Orders documented in this encounter [facility] 08-30-2024 Note HNO ID: [id number] Author: SIA ALONSO APRN.CNP Service: ? Author Type: Nurse Practitioner Type: Progress Notes Filed: 08/30/2024 15:52 Note Text: [facility] Subjective Chang Solis is a 53 year old male. Patient presents with: Dizziness: Dizzy. Coughing. Runny nose. Blood when blowing nose. Head aches. Both ears achy and pain. Sinus pressure. Fever. Diarrhea. Going on for about 2-3 weeks. Diarrhea started recently. HPI by patient: Chang Solis is a 53 year old presenting to the office with the complaint of dizziness. Started approximately 2-3 weeks ago. Associated symptoms include new congestion, cough, feeling hot/cold. Covid Immunization Dates Current Care Gaps Covid-19 Vaccine ( season) Overdue since 02/05/2024 08/09/2022 Postponed until 08/10/2023 by Marie Bah MA (Declined at this time) 08/01/2021 Imm Admin: COVID-19 original vaccine, full dose, monovalent (MODERNA) 10/28/2020 Imm Admin: COVID-19 original vaccine, full dose, monovalent (MODERNA) 09/26/2020 Imm Admin: COVID-19 original vaccine, full dose, monovalent (MODERNA) 09/04/2020 Imm Admin: COVID-19 original vaccine, full dose, monovalent (MODERNA) Only the first 5 history entries have been loaded, but more history exists. Sick contacts: none. Smoking history/second hand smoke: none. OTC not helping. No antibiotic use in the last 60 days. ALLERGIES Bactrim [Sulfametho* Hives Hand Soap [Triclosa* Rash Ivp Dye [Iodine] Hives Seasonal Allergies Intolerance Comment:Runny nose Shellfish Derived Rash Sulfa (Sulfonamide * Hives Family History Reviewed Including Cardiac Diseases, Psychiatric Diseases, AND Substance Abuse Problem: Hypertension Relation: Mother Age of Onset: (Not Specified) Problem: Lipids Relation: Mother Age of Onset: (Not Specified) Problem: No Ocular Disease Relation: Mother Age of Onset: (Not Specified) Problem: Cancer Relation: Father Age of Onset: (Not Specified) Comment: lung ca. Problem: No Ocular Disease Relation: Father Age of Onset: (Not Specified) Problem: Diabetes Relation: Maternal Grandmother Age of Onset: (Not Specified) Problem: Coronary Artery Disease Relation: Maternal Grandfather Age of Onset: (Not Specified) Problem: Cancer Relation: Paternal Grandfather Age of Onset: (Not Specified) Social History Tobacco Use Smoking status: Never Passive exposure: Yes Smokeless tobacco: Never Vaping Use Vaping status: Never Used Alcohol use: Not Currently Drug use: Never Active Ambulatory Problems Mixed hyperlipidemia Date Noted: 04/24/2008 Sprain and strain of wrist Date Noted: 08/14/2009 Abdominal pain, left lower quadrant Date Noted: 08/18/2010 Change in bowel function Date Noted: 08/18/2010 GERD (gastroesophageal reflux disease) Date Noted: 08/22/2010 Stress disorder, acute Date Noted: 08/22/2010 Seborrhea Date Noted: 08/22/2010 Unspecified gastritis and gastroduodenitis without mention of hemorrhage Date Noted: 09/02/2010 Duodenitis without mention of hemorrhage Date Noted: 09/02/2010 Acute gastritis without mention of hemorrhage Date Noted: 09/02/2010 Gastritis Date Noted: 09/18/2010 RUBÉN (obstructive sleep apnea) Date Noted: 02/21/2013 Congenital spondylolisthesis Date Noted: 08/01/2013 Backache, unspecified Date Noted: 08/01/2013 Headache Date Noted: 02/02/2015 Sleep apnea Date Noted: 02/25/2015 Primary insomnia Date Noted: 02/26/2015 Chronic left shoulder pain Date Noted: 12/25/2018 Obesity, Class II, BMI 35-39.9 Date Noted: 01/13/2021 TIA (transient ischemic attack) Date Noted: 01/14/2021 Atypical chest pain Date Noted: 01/15/2021 Fatty liver disease, nonalcoholic Date Noted: 05/22/2021 New onset type 2 diabetes mellitus (HCC) Date Noted: 10/26/2021 ROHAN (generalized anxiety disorder) Date Noted: 10/26/2021 Obesity, Class I, BMI 30-34.9 Date Noted: 10/29/2021 Type 2 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) Date Noted: 12/03/2021 Spondylolisthesis of lumbosacral region Date Noted: 04/14/2022 Chronic bilateral low back pain without sciatica Date Noted: 09/01/2022 Influenza A Date Noted: 08/20/2023 Acute midline low back pain without sciatica Date Noted: 03/12/2024 Dizziness Date Noted: 04/20/2024 Resolved Ambulatory Problems Chest pain Date Noted: 02/02/2015 Tachycardia Date Noted: 08/20/2023 Past Medical History: No date: Diabetes (HCC) No date: Esophageal reflux No date: Unspecified asthma(493.90) Review of Systems Constitutional: Negative. HENT: Positive for congestion and ear pain. Eyes: Negative. Respiratory: Positive for cough. Cardiovascular: Negative. Gastrointestinal: Negative. Endocrine: Negative. Genitourinary: Negative. Musculoskeletal: Negative. Skin: Negative. Neurological: Positive for dizziness. Objective BP 125/75 (BP Site: Right Arm, BP Position: Si (more content not included)... [facility] 08-30-2024 History of Presen t illness Narrative [facility] Subjective Chang Solis is a 53 year old male. Patient presents with: Dizziness: Dizzy. Coughing. Runny nose. Blood when blowing nose. Head aches. Both ears achy and pain. Sinus pressure. Fever. Diarrhea. Going on for about 2-3 weeks. Diarrhea started recently. HPI by patient: Chang Solis is a 53 year old presenting to the office with the complaint of dizziness. Started approximately 2-3 weeks ago. Associated symptoms include new congestion, cough, feeling hot/cold. Covid Immunization Dates Current Care Gaps Covid-19 Vaccine ( season) Overdue since 02/05/2024 08/09/2022 Postponed until 08/10/2023 by Marie Bah MA (Declined at this time) 08/01/2021 Imm Admin: COVID-19 original vaccine, full dose, monovalent (MODERNA) 10/28/2020 Imm Admin: COVID-19 original vaccine, full dose, monovalent (MODERNA) 09/26/2020 Imm Admin: COVID-19 original vaccine, full dose, monovalent (MODERNA) 09/04/2020 Imm Admin: COVID-19 original vaccine, full dose, monovalent (MODERNA) Only the first 5 history entries have been loaded, but more history exists. Sick contacts: none. Smoking history/second hand smoke: none. OTC not helping. No antibiotic use in the last 60 days. ALLERGIES Bactrim [Sulfametho* Hives Hand Soap [Triclosa* Rash Ivp Dye [Iodine] Hives Seasonal Allergies Intolerance Comment:Runny nose Shellfish Derived Rash Sulfa (Sulfonamide * Hives Family History Reviewed Including Cardiac Diseases, Psychiatric Diseases, & Substance Abuse Problem: Hypertension Relation: Mother Age of Onset: (Not Specified) Problem: Lipids Relation: Mother Age of Onset: (Not Specified) Problem: No Ocular Disease Relation: Mother Age of Onset: (Not Specified) Problem: Cancer Relation: Father Age of Onset: (Not Specified) Comment: lung ca. Problem: No Ocular Disease Relation: Father Age of Onset: (Not Specified) Problem: Diabetes Relation: Maternal Grandmother Age of Onset: (Not Specified) Problem: Coronary Artery Disease Relation: Maternal Grandfather Age of Onset: (Not Specified) Problem: Cancer Relation: Paternal Grandfather Age of Onset: (Not Specified) Social History Tobacco Use Smoking status: Never Passive exposure: Yes Smokeless tobacco: Never Vaping Use Vaping status: Never Used Alcohol use: Not Currently Drug use: Never Active Ambulatory Problems Mixed hyperlipidemia Date Noted: 04/24/2008 Sprain and strain of wrist Date Noted: 08/14/2009 Abdominal pain, left lower quadrant Date Noted: 08/18/2010 Change in bowel function Date Noted: 08/18/2010 GERD (gastroesophageal reflux disease) Date Noted: 08/22/2010 Stress disorder, acute Date Noted: 08/22/2010 Seborrhea Date Noted: 08/22/2010 Unspecified gastritis and gastroduodenitis without mention of hemorrhage Date Noted: 09/02/2010 Duodenitis without mention of hemorrhage Date Noted: 09/02/2010 Acute gastritis without mention of hemorrhage Date Noted: 09/02/2010 Gastritis Date Noted: 09/18/2010 RUBÉN (obstructive sleep apnea) Date Noted: 02/21/2013 Congenital spondylolisthesis Date Noted: 08/01/2013 Backache, unspecified Date Noted: 08/01/2013 Headache Date Noted: 02/02/2015 Sleep apnea Date Noted: 02/25/2015 Primary insomnia Date Noted: 02/26/2015 Chronic left shoulder pain Date Noted: 12/25/2018 Obesity, Class II, BMI 35-39.9 Date Noted: 01/13/2021 TIA (transient ischemic attack) Date Noted: 01/14/2021 Atypical chest pain Date Noted: 01/15/2021 Fatty liver disease, nonalcoholic Date Noted: 05/22/2021 New onset type 2 diabetes mellitus (HCC) Date Noted: 10/26/2021 ROHAN (generalized anxiety disorder) Date Noted: 10/26/2021 Obesity, Class I, BMI 30-34.9 Date Noted: 10/29/2021 Type 2 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) Date Noted: 12/03/2021 Spondylolisthesis of lumbosacral region Date Noted: 04/14/2022 Chronic bilateral low back pain without sciatica Date Noted: 09/01/2022 Influenza A Date Noted: 08/20/2023 Acute midline low back pain without sciatica Date Noted: 03/12/2024 Dizziness Date Noted: 04/20/2024 Resolved Ambulatory Problems Chest pain Date Noted: 02/02/2015 Tachycardia Date Noted: 08/20/2023 Past Medical History: No date: Diabetes (HCC) No date: Esophageal reflux No date: Unspecified asthma(493.90) Review of Systems Constitutional: Negative. HENT: Positive for congestion and ear pain. Eyes: Negative. Respiratory: Positive for cough. Cardiovascular: Negative. Gastrointestinal: Negative. Endocrine: Negative. Genitourinary: Negative. Musculoskeletal: Negative. Skin: Negative. Neurological: Positive for dizziness. Objective BP 125/75 (BP Site: Right Arm, BP Position: Sitting, BP Cuff Size: Extra Large Adult) Pulse 102 Temp 36.7 C (98 F) (Right Tympanic) Resp 16 Wt 109 kg (240 lb 4.8 oz) SpO2 96% BMI 33.99 kg/m Physical Exam Vitals reviewed. Constitutional: General: He is awake. He is not in acute distress. Appearance: He is not ill-appearing, toxic-appearing or diaphoretic. HENT: Head: Normocephalic and atraumatic. Right Ear: Tympanic membrane, ear canal and external ear normal. Left Ear: Tympanic membrane, ear canal and external ear normal. Nose: Nose normal. Right Sinus: No maxillary sinus tenderness or frontal sinus tenderness. Left Sinus: No maxillary sinus tenderness or frontal sinus tenderness. Mouth/Throat: Mouth: Mucous membranes are moist. Pharynx: Oropharynx is clear. No pharyngeal swelling, oropharyngeal exudate or posterior oropharyngeal erythema. Cardiovascular: Rate and Rhythm: Regular rhythm. Tachycardia present. Pulmonary: Effort: Pulmonary effort is normal. Breath sounds: Normal breath sounds. Lymphadenopathy: Head: Right side of head: No submandibular or tonsillar adenopathy. Left side of head: No submandibular or tonsillar adenopathy. Cervical: No cervical adenopathy. Neurological: Mental Status: He is alert. Psychiatric: Behavior: Behavior is cooperative. {ASSESSMENT/PLAN: 1. Viral upper respiratory tract infection with cough - ICD9: 465.9, ICD10: J06.9 (primary diagnosis) - BROMPHENIRAMINE-PSEUDOEPHEDRINE- DM 2 MG-30 MG-10 MG/5 ML ORAL SYRUP - SALINE MIST 0.65 % NASAL SPRAY AEROSOL - FLUTICASONE PROPIONATE 50 MCG/ACTUATION NASAL SPRAY,SUSPENSION 2. Dizziness - ICD9: 780.4, ICD10: R42 3. Acute otalgia, bilateral - ICD9: 388.70, ICD10: H92.03 Sia Alonso APRN.MONKEY KEEPER (J06.9) Viral upper respiratory tract infection with cough (primary encounter diagnosis) Plan: Yjywwevmuzrdecr-Pilwltrim-IJ (BROMFED DM) 2-30-10 mg/5 mL syrup, sodium chloride (SALINE MIST) 0.65 % nasal spray, fluticasone (FLONASE ALLERGY RELIEF) 50 mcg/actuation nasal spray (R42) Dizziness (H92.03) Acute otalgia, bilateral Plan: Education on viral vs bacterial infections. Most viral infections will last 2-3 weeks. It is possible to have back to back viral infections. An antibiotic will not treat a virus. -Viral test for rule out, results in 24 hours, isolation in the interim. Result to mychart. -Bromfed for cough/congestion. -Drink lots of fluids and get plenty of rest. -Vaporizers, cool mist humidifiers, warm showers, and warm fluids help open respiratory and sinus passages. Clean humidifiers daily. -OTC tylenol as directed on the bottle. -Saline nasal spray as needed. Flonase twice daily can help reduce inflammation through the sinus cavities. -Cough/deep breathing education, promote clearing of the airways and good lung expansion. -Make follow up with primary care for monitoring and resolution in symptoms. -Signs that warrant an ER evaluation: Sudden change/worsening in condition, lethargy, signs of dehydration, fever greater than 102 F that is not responding to Tylenol or ibuprofen (Motrin, Advil), drooling, difficulty swallowing, difficulty breathing, shortness of breath, chest pain, evidence of airway compromise (tripod position, neck extension, retractions), seizures, changes in mental status, or other concerns. Differential Diagnoses - viral upper respiratory infection with cough is more likely for the following reason(s): suggested by H&P - bacterial sinusitis is less likely for the following reason(s): H&P not suggestive Disposition The patient was discharged. OTC Medications were advised: Tylenol, flonase, saline. The patient will pursue further outpatient evaluation with the primary care physician or another Urgent Care/Express Care as outlined in the after visit summary. The patient is agreeable to this plan of care and follow-up instructions have been explained in detail. The patient has received these instructions in written format and have expressed an understanding of the after visit summary. Medical Decision Making: Level: 4 - Moderate I spent a total of 20 minutes on the date of the service which included preparing to see the patient, [id number] patient care, completing clinical documentation, obtaining and/or reviewing separately obtained history, performing a medically appropriate examination, counseling and educating the patient/family/caregiver, and ordering medications, tests, or procedures. documented in this encounter [facility] 08-30-2024 Instructions Sia Alonso APRN.CNP - 08/30/2024 3:25 PM EDT (J06.9) Viral upper respiratory tract infection with cough (primary encounter diagnosis) Plan: Plogfoizamiygym-Afumycjim-BP (BROMFED DM) 2-30-10 mg/5 mL syrup, sodium chloride (SALINE MIST) 0.65 % nasal spray, fluticasone (FLONASE ALLERGY RELIEF) 50 mcg/actuation nasal spray (R42) Dizziness (H92.03) Acute otalgia, bilateral Plan: Education on viral vs bacterial infections. Most viral infections will last 2-3 weeks. It is possible to have back to back viral infections. An antibiotic will not treat a virus. -Viral test for rule out, results in 24 hours, isolation in the interim. Result to mychart. -Bromfed for cough/congestion. -Drink lots of fluids and get plenty of rest. -Vaporizers, cool mist humidifiers, warm showers, and warm fluids help open respiratory and sinus passages. Clean humidifiers daily. -OTC tylenol as directed on the bottle. -Saline nasal spray as needed. Flonase twice daily can help reduce inflammation through the sinus cavities. -Cough/deep breathing education, promote clearing of the airways and good lung expansion. -Make follow up with primary care for monitoring and resolution in symptoms. -Signs that warrant an ER evaluation: Sudden change/worsening in condition, lethargy, signs of dehydration, fever greater than 102 F that is not responding to Tylenol or ibuprofen (Motrin, Advil), drooling, difficulty swallowing, difficulty breathing, shortness of breath, chest pain, evidence of airway compromise (tripod position, neck extension, retractions), seizures, changes in mental status, or other concerns. documented in this encounter [facility] 07-26-2024 Instructions Tiffany Chavez APRN.CNP - 07/26/2024 4:06 PM EST [facility] Outpatient Lab Hours For your convenience, the outpatient laboratory is open during the following hours: Tuesday- Tuesday 7 a.m. - 4:30 p.m. Tuesday: 8 a.m. - 11:45 a.m. The outpatient lab is closed on Sundays and hols. Fast for 10 hours Water and medications are ok documented in this encounter [facility] 07-26-2024 Note HNO ID: [id number] Author: TIFFANY CHAVEZ APRN.CNP Service: ? Author Type: Nurse Practitioner Type: Progress Notes Filed: 07/26/2024 17:36 Note Text: [facility] Tiffany Chavez APRN-KEVEN. [address] [place] [address] Dept Dept. Visit Date: July 26, 2024 Chief Complaint: Patient presents with: F/U Diabetes 3 Month History of Present Illness Chang Solis is a 53 year old male here today for diabetes follow-up visit. Patient has type 2 diabetes. Feeling well today, no concerns. Denies dizziness, chest pain, shortness of breath, changes in vision, fatigue, foot pain. Denies numbness and tingling in extremities. Denies polydipsia, polyphagia, polyuria. Home Blood Sugars: 130-158 Medication Compliance: Diet control Low Blood Sugars: No Diet: Has been watching what he has been eating and drinking Exercise: Not currently Eye Exam: Due Podiatry: None Tobacco use - No Alcohol use - No Currently finishing course of Augmentin for sinus infection. He is feeling better. PAST MEDICAL HISTORY Diagnosis Date Abdominal pain, left lower quadrant Acute gastritis without mention of hemorrhage Diabetes (HCC) Duodenitis without mention of hemorrhage Esophageal reflux Gastroesophageal reflux Unspecified asthma(493.90) exercise-induced Social History Tobacco Use Smoking status: Never Passive exposure: Yes Smokeless tobacco: Never Vaping Use Vaping status: Never Used Substance Use Topics Alcohol use: Not Currently Drug use: Never Social History Social History Narrative Not on file ALLERGIES Allergen Reactions Bactrim [Sulfametho* Hives Hand Soap [Triclosa* Rash Ivp Dye [Iodine] Hives Seasonal Allergies Intolerance Runny nose Shellfish Derived Rash Sulfa (Sulfonamide * Hives Current Outpatient Medications Medication Sig amoxicillin-clavulanate potassium (AUGMENTIN) 875-125 mg per tablet Take 1 tablet by mouth two times a day for 7 days. fluticasone (FLONASE) 50 mcg/actuation nasal spray Use 1 [place] in each nostril once daily. meclizine (ANTIVERT) 25 mg tab Take 1 tablet by mouth three times a day as needed. albuterol HFA (PROAIR HFA) 90 mcg/actuation inhaler 2 Puffs every 6 hours as needed for wheezing/shortness of breath. Take as directed blood sugar diagnostic (RELION PRIME TEST STRIPS) test strip Use as instructed Blood-Glucose Meter (RELION PRIME METER) 1 Each four times daily. acetaminophen (TYLENOL ORAL) Take by mouth as needed. metFORMIN ER (GLUCOPHAGE XR) 500 mg 24 hr tablet Take 2 tablets by mouth once daily. No current facility-administered medications for this visit. Review of Systems Review of Systems Constitutional: Negative for appetite change, chills, diaphoresis, fatigue, fever and unexpected weight change. HENT: Negative. Eyes: Negative. Respiratory: Negative for cough, chest tightness, shortness of breath and wheezing. Cardiovascular: Negative for chest pain, palpitations and leg swelling. Gastrointestinal: Negative for abdominal pain, constipation, diarrhea, nausea and vomiting. Endocrine: Negative. Genitourinary: Negative. Musculoskeletal: Negative. Skin: Negative. Allergic/Immunologic: Negative. Neurological: Negative for dizziness, light-headedness and headaches. Hematological: Negative. Psychiatric/Behavioral: Negative. Physical Exam BP 124/68 Pulse 81 Temp (Src) 98.1 (Oral) Resp 18 Ht 5' 10.5 (1.79m) Wt 241 lb (109.3kg) SpO2 97% BMI 34.08 kg/(m2). Last 3 Encounter BP Readings: Date: BP: 07/26/2024 124/68 07/19/2024 130/80 06/21/2024 124/78 Physical Exam Vitals and nursing note reviewed. Constitutional: Appearance: He is obese. HENT: Mouth/Throat: Mouth: Mucous membranes are moist. Eyes: Pupils: Pupils are equal, round, and reactive to light. Cardiovascular: Rate and Rhythm: Normal rate and regular rhythm. Heart sounds: Normal heart sounds. Pulmonary: Breath sounds: Normal breath sounds. Musculoskeletal: Cervical back: Neck supple. Skin: General: Skin is dry. Neurological: Mental Status: He is oriented to person, place, and time. Psychiatric: Mood and Affect: Mood normal. Behavior: Behavior normal. Lab Results Component Value Date Hemoglobin A1C 6.1 (H) 05/21/2023 Hemoglobin A1C (POCT) 7.4 (A) 07/26/2024 Hemoglobin A1C (POCT) 6.4 (A) 12/27/2023 Lab Results Component Value Date Cholesterol, Total 177 02/27/2022 Cholesterol, Total 172 10/27/2021 Cholesterol, Total 170 01/15/2021 Lab Results Component Value Date LDL Cholesterol 83 02/27/2022 LDL Cholesterol 10/27/2021 Comment: Unable to calculate due to increased Triglycerides. See LDL-Chol, Direct. LDL Cholesterol 76 01/15/2021 Lab Results Component Value Date HDL Cholesterol 45 02/27/2022 HDL Cholesterol 27 (L) 10/27/2021 HDL Cholesterol 31 (L) 01/15/2021 Lab (more content not included)... [facility] 07-26-2024 History of Presen t illness Narrative Images from the original note were not included. [facility] Tiffany Chavez SLIPPER MAKER-MONKEY KEEPER. [address] [place] [address] Dept Dept. Visit Date: July 26, 2024 Chief Complaint: Patient presents with: F/U Diabetes 3 Month History of Present Illness Chang Solis is a 53 year old male here today for diabetes follow-up visit. Patient has type 2 diabetes. Feeling well today, no concerns. Denies dizziness, chest pain, shortness of breath, changes in vision, fatigue, foot pain. Denies numbness and tingling in extremities. Denies polydipsia, polyphagia, polyuria. Home Blood Sugars: 130-158 Medication Compliance: Diet control Low Blood Sugars: No Diet: Has been watching what he has been eating and drinking Exercise: Not currently Eye Exam: Due Podiatry: None Tobacco use - No Alcohol use - No Currently finishing course of Augmentin for sinus infection. He is feeling better. PAST MEDICAL HISTORY Diagnosis Date Abdominal pain, left lower quadrant Acute gastritis without mention of hemorrhage Diabetes (HCC) Duodenitis without mention of hemorrhage Esophageal reflux Gastroesophageal reflux Unspecified asthma(493.90) exercise-induced Social History Tobacco Use Smoking status: Never Passive exposure: Yes Smokeless tobacco: Never Vaping Use Vaping status: Never Used Substance Use Topics Alcohol use: Not Currently Drug use: Never Social History Social History Narrative Not on file ALLERGIES Allergen Reactions Bactrim [Sulfametho* Hives Hand Soap [Triclosa* Rash Ivp Dye [Iodine] Hives Seasonal Allergies Intolerance Runny nose Shellfish Derived Rash Sulfa (Sulfonamide * Hives Current Outpatient Medications Medication Sig amoxicillin-clavulanate potassium (AUGMENTIN) 875-125 mg per tablet Take 1 tablet by mouth two times a day for 7 days. fluticasone (FLONASE) 50 mcg/actuation nasal spray Use 1 [place] in each nostril once daily. meclizine (ANTIVERT) 25 mg tab Take 1 tablet by mouth three times a day as needed. albuterol HFA (PROAIR HFA) 90 mcg/actuation inhaler 2 Puffs every 6 hours as needed for wheezing/shortness of breath. Take as directed blood sugar diagnostic (RELION PRIME TEST STRIPS) test strip Use as instructed Blood-Glucose Meter (RELION PRIME METER) 1 Each four times daily. acetaminophen (TYLENOL ORAL) Take by mouth as needed. metFORMIN ER (GLUCOPHAGE XR) 500 mg 24 hr tablet Take 2 tablets by mouth once daily. No current facility-administered medications for this visit. Review of Systems Review of Systems Constitutional: Negative for appetite change, chills, diaphoresis, fatigue, fever and unexpected weight change. HENT: Negative. Eyes: Negative. Respiratory: Negative for cough, chest tightness, shortness of breath and wheezing. Cardiovascular: Negative for chest pain, palpitations and leg swelling. Gastrointestinal: Negative for abdominal pain, constipation, diarrhea, nausea and vomiting. Endocrine: Negative. Genitourinary: Negative. Musculoskeletal: Negative. Skin: Negative. Allergic/Immunologic: Negative. Neurological: Negative for dizziness, light-headedness and headaches. Hematological: Negative. Psychiatric/Behavioral: Negative. Physical Exam BP 124/68 Pulse 81 Temp (Src) 98.1 (Oral) Resp 18 Ht 5' 10.5 (1.79m) Wt 241 lb (109.3kg) SpO2 97% BMI 34.08 kg/(m^2). Last 3 Encounter BP Readings: Date: BP: 07/26/2024 124/68 07/19/2024 130/80 06/21/2024 124/78 Physical Exam Vitals and nursing note reviewed. Constitutional: Appearance: He is obese. HENT: Mouth/Throat: Mouth: Mucous membranes are moist. Eyes: Pupils: Pupils are equal, round, and reactive to light. Cardiovascular: Rate and Rhythm: Normal rate and regular rhythm. Heart sounds: Normal heart sounds. Pulmonary: Breath sounds: Normal breath sounds. Musculoskeletal: Cervical back: Neck supple. Skin: General: Skin is dry. Neurological: Mental Status: He is oriented to person, place, and time. Psychiatric: Mood and Affect: Mood normal. Behavior: Behavior normal. Lab Results Component Value Date Hemoglobin A1C 6.1 (H) 05/21/2023 Hemoglobin A1C (POCT) 7.4 (A) 07/26/2024 Hemoglobin A1C (POCT) 6.4 (A) 12/27/2023 Lab Results Component Value Date Cholesterol, Total 177 02/27/2022 Cholesterol, Total 172 10/27/2021 Cholesterol, Total 170 01/15/2021 Lab Results Component Value Date LDL Cholesterol 83 02/27/2022 LDL Cholesterol 10/27/2021 Comment: Unable to calculate due to increased Triglycerides. See LDL-Chol, Direct. LDL Cholesterol 76 01/15/2021 Lab Results Component Value Date HDL Cholesterol 45 02/27/2022 HDL Cholesterol 27 (L) 10/27/2021 HDL Cholesterol 31 (L) 01/15/2021 Lab Results Component Value Date Creatinine 1.00 08/21/2023 Creatinine 1.03 08/20/2023 Creatinine 1.00 02/15/2023 Assessment and Plan Encounter Diagnosis ICD-10-CM 1. Type 2 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) E11.9 ALBUMIN/CREATININE RATIO, URINE metFORMIN ER (GLUCOPHAGE XR) 500 mg 24 hr tablet 2. Mixed hyperlipidemia E78.2 LIPID PANEL BASIC 3. Fatty liver disease, nonalcoholic K76.0 COMPLETE BLOOD COUNT AND DIFFERENTIAL COMPREHENSIVE METABOLIC PANEL 4. Screening for colon cancer Z12.11 COLOGUARD 5. Screening for diabetic retinopathy Z13.5 CONSULT TO OPHTHALMOLOGY ASSESSMENT/PLAN: 1. Type 2 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) - ICD9: 250.00, ICD10: E11.9 (primary diagnosis) - Worsening control - Start metformin ER - Blood glucose monitoring on a once daily schedule - Counseled on healthy diet and regular exercise - Discussed need for and benefit of weight loss. BMI 34.09 kg/(m^2) - Discussed diabetic education issues of medication-specific side effects and monitoring - Follow up in 3 months, sooner should any other issues arise. - ALBUMIN/CREATININE RATIO, URINE - METFORMIN ER 500 MG TABLET,EXTENDED RELEASE 24 HR 2. Mixed hyperlipidemia - ICD9: 272.2, ICD10: E78.2 - Control undetermined, due for labs - Counseled on healthy diet and regular exercise - Discussed need for and benefit of weight loss. BMI 34.09 kg/(m^2) - LIPID PANEL BASIC 3. Fatty liver disease, nonalcoholic - ICD9: 571.8, ICD10: K76.0 - COMPLETE BLOOD COUNT AND DIFFERENTIAL - COMPREHENSIVE METABOLIC PANEL 4. Screening for colon cancer - ICD9: V76.51, ICD10: Z12.11 - COLOGUARD 5. Screening for diabetic retinopathy - ICD9: V80.2, ICD10: Z13.5 - CONSULT TO OPHTHALMOLOGY Discussed above plan with patient. Pt agreeable with above plan. Return in about 3 months (around 10/23/2024) for DM follow-up. Tiffany Chavez APRN.CNP, signed on July 26, 2024 3:52 PM documented in this encounter [facility] 07-19-2024 Note HNO ID: [id number] Author: MICHELINE LINDER PA Service: ? Author Type: Physician Electrical Accessories Assembler Type: Progress Notes Filed: 07/19/2024 15:53 Note Text: This note was created using [employer]. Subjective Chang Solis is a 53 year old male. HPI 53-year-old male presents for cough and congestion x 1.5 weeks. Patient states he has had cough, sneezing, nasal congestion for the past week and a half. He has sinus pressure, sinus pain and headache. He has not had any fevers. His mom is sick with similar symptoms. Patient has taken some Tylenol without much improvement in symptoms. Has not tried anything else [id number]. PAST MEDICAL HISTORY Diagnosis Date Abdominal pain, left lower quadrant Acute gastritis without mention of hemorrhage Diabetes (HCC) Duodenitis without mention of hemorrhage Esophageal reflux Gastroesophageal reflux Unspecified asthma(493.90) exercise-induced PAST SURGICAL HISTORY Procedure Laterality Date APPENDECTOMY HX CHOLECYSTECTOMY HX COLONOSCOPY W/BIOPSY SINGLE/MULTIPLE 09/02/10 EGD TRANSORAL BIOPSY SINGLE/MULTIPLE 09/02/10 HERNIA REPAIR HX LAPAROSCOPY SURG CHOLECYSTECTOMY Cholecystectomy, lap RPR 1ST INGUN HRNA AGE 5 YRS/> REDUCIBLE Hernia repair, inguinal RPR 1ST INGUN HRNA AGE 5 YRS/> REDUCIBLE Hernia repair, inguinal TONSILLECTOMY HX TONSILLECTOMY PRIMARY/SECONDARY Tonsillectomy ALLERGIES Bactrim [Sulfamethoxazole-Trimethoprim], Hand Soap [Triclosan], Ivp Dye [Iodine], Seasonal Allergies, Shellfish Derived, and Sulfa (Sulfonamide Antibiotics) MEDICATIONS fluticasone (FLONASE) 50 mcg/actuation nasal spray Use 1 [place] in each nostril once daily. meclizine (ANTIVERT) 25 mg tab Take 1 tablet by mouth three times a day as needed. albuterol HFA (PROAIR HFA) 90 mcg/actuation inhaler 2 Puffs every 6 hours as needed for wheezing/shortness of breath. Take as directed blood sugar diagnostic (RELION PRIME TEST STRIPS) test strip Use as instructed Blood-Glucose Meter (RELION PRIME METER) 1 Each four times daily. acetaminophen (TYLENOL ORAL) Take by mouth as needed. amoxicillin-clavulanate potassium (AUGMENTIN) 875-125 mg per tablet Take 1 tablet by mouth two times a day for 7 days. FAMILY HISTORY Problem Relation Age of Onset Hypertension Mother Lipids Mother No Ocular Disease Mother Cancer Father lung ca. No Ocular Disease Father Diabetes Maternal Grandmother Coronary Artery Disease Maternal Grandfather Cancer Paternal Grandfather Social History Tobacco Use Smoking status: Never Passive exposure: Yes Smokeless tobacco: Never Vaping Use Vaping status: Never Used Substance Use Topics Alcohol use: Not Currently Drug use: Never Review of Systems Constitutional: Negative for chills and fever. HENT: Positive for congestion, sinus pressure, sinus pain and sneezing. Negative for sore throat. Respiratory: Positive for cough. Negative for shortness of breath. Gastrointestinal: Negative for diarrhea and vomiting. Objective BP 130/80 Pulse 90 Temp 36.6 ?C (97.9 ?F) Resp 21 Wt 109 kg (240 lb 4.8 oz) SpO2 97% BMI 33.99 kg/m? Physical Exam Vitals and nursing note reviewed. Constitutional: General: He is not in acute distress. Appearance: Normal appearance. He is not toxic-appearing. HENT: Right Ear: Tympanic membrane and ear canal normal. Left Ear: Tympanic membrane and ear canal normal. Nose: Mucosal edema and congestion present. Right Sinus: Maxillary sinus tenderness present. Left Sinus: Maxillary sinus tenderness present. Mouth/Throat: Mouth: Mucous membranes are moist. Eyes: Conjunctiva/sclera: Conjunctivae normal. Cardiovascular: Rate and Rhythm: Normal rate and regular rhythm. Pulmonary: Effort: Pulmonary effort is normal. Breath sounds: Normal breath sounds. No wheezing, rhonchi or rales. Skin: General: Skin is warm and dry. Neurological: Mental Status: He is alert. Assessment and Plan ASSESSMENT/PLAN: 1. Bacterial sinusitis - ICD9: 473.9, 041.9, ICD10: J32.9, B96.89 - Will begin treatment with Augmentin 875 mg PO BID for 7 days - The patient should also be given OTC decongestants prn for the first 5-7 days of treatment. - Supportive care with plenty of fluids, rest, and analgesia prn. Diagnosis and treatment plan were discussed and questions were answered to the patient's satisfaction. Pt acknowledged understanding of concepts and follow up plan. Specific signs and symptoms that would indicate the need for higher level of care were discussed in detail warranting prompt ER evaluation. QUANG [facility] 07-19-2024 History of Presen t illness Narrative This note was created using NoteWriter. Subjective Chang Solis is a 53 year old male. HPI 53-year-old male presents for cough and congestion x 1.5 weeks. Patient states he has had cough, sneezing, nasal congestion for the past week and a half. He has sinus pressure, sinus pain and headache. He has not had any fevers. His mom is sick with similar symptoms. Patient has taken some Tylenol without much improvement in symptoms. Has not tried anything else [id number]. PAST MEDICAL HISTORY Diagnosis Date Abdominal pain, left lower quadrant Acute gastritis without mention of hemorrhage Diabetes (HCC) Duodenitis without mention of hemorrhage Esophageal reflux Gastroesophageal reflux Unspecified asthma(493.90) exercise-induced PAST SURGICAL HISTORY Procedure Laterality Date APPENDECTOMY HX CHOLECYSTECTOMY HX COLONOSCOPY W/BIOPSY SINGLE/MULTIPLE 09/02/10 EGD TRANSORAL BIOPSY SINGLE/MULTIPLE 09/02/10 HERNIA REPAIR HX LAPAROSCOPY SURG CHOLECYSTECTOMY Cholecystectomy, lap RPR 1ST INGUN HRNA AGE 5 YRS/> REDUCIBLE Hernia repair, inguinal RPR 1ST INGUN HRNA AGE 5 YRS/> REDUCIBLE Hernia repair, inguinal TONSILLECTOMY HX TONSILLECTOMY PRIMARY/SECONDARY <AGE 12 Tonsillectomy ALLERGIES Bactrim [Sulfamethoxazole-Trimethoprim], Hand Soap [Triclosan], Ivp Dye [Iodine], Seasonal Allergies, Shellfish Derived, and Sulfa (Sulfonamide Antibiotics) MEDICATIONS fluticasone (FLONASE) 50 mcg/actuation nasal spray Use 1 [place] in each nostril once daily. meclizine (ANTIVERT) 25 mg tab Take 1 tablet by mouth three times a day as needed. albuterol HFA (PROAIR HFA) 90 mcg/actuation inhaler 2 Puffs every 6 hours as needed for wheezing/shortness of breath. Take as directed blood sugar diagnostic (RELION PRIME TEST STRIPS) test strip Use as instructed Blood-Glucose Meter (RELION PRIME METER) 1 Each four times daily. acetaminophen (TYLENOL ORAL) Take by mouth as needed. amoxicillin-clavulanate potassium (AUGMENTIN) 875-125 mg per tablet Take 1 tablet by mouth two times a day for 7 days. FAMILY HISTORY Problem Relation Age of Onset Hypertension Mother Lipids Mother No Ocular Disease Mother Cancer Father lung ca. No Ocular Disease Father Diabetes Maternal Grandmother Coronary Artery Disease Maternal Grandfather Cancer Paternal Grandfather Social History Tobacco Use Smoking status: Never Passive exposure: Yes Smokeless tobacco: Never Vaping Use Vaping status: Never Used Substance Use Topics Alcohol use: Not Currently Drug use: Never Review of Systems Constitutional: Negative for chills and fever. HENT: Positive for congestion, sinus pressure, sinus pain and sneezing. Negative for sore throat. Respiratory: Positive for cough. Negative for shortness of breath. Gastrointestinal: Negative for diarrhea and vomiting. Objective BP 130/80 Pulse 90 Temp 36.6 C (97.9 F) Resp 21 Wt 109 kg (240 lb 4.8 oz) SpO2 97% BMI 33.99 kg/m Physical Exam Vitals and nursing note reviewed. Constitutional: General: He is not in acute distress. Appearance: Normal appearance. He is not toxic-appearing. HENT: Right Ear: Tympanic membrane and ear canal normal. Left Ear: Tympanic membrane and ear canal normal. Nose: Mucosal edema and congestion present. Right Sinus: Maxillary sinus tenderness present. Left Sinus: Maxillary sinus tenderness present. Mouth/Throat: Mouth: Mucous membranes are moist. Eyes: Conjunctiva/sclera: Conjunctivae normal. Cardiovascular: Rate and Rhythm: Normal rate and regular rhythm. Pulmonary: Effort: Pulmonary effort is normal. Breath sounds: Normal breath sounds. No wheezing, rhonchi or rales. Skin: General: Skin is warm and dry. Neurological: Mental Status: He is alert. Assessment and Plan ASSESSMENT/PLAN: 1. Bacterial sinusitis - ICD9: 473.9, 041.9, ICD10: J32.9, B96.89 - Will begin treatment with Augmentin 875 mg PO BID for 7 days - The patient should also be given OTC decongestants prn for the first 5-7 days of treatment. - Supportive care with plenty of fluids, rest, and analgesia prn. Diagnosis and treatment plan were discussed and questions were answered to the patient's satisfaction. Pt acknowledged understanding of concepts and follow up plan. Specific signs and symptoms that would indicate the need for higher level of care were discussed in detail warranting prompt ER evaluation. QUANG Carrion documented in this encounter [facility] 06-28-2024 Telephone encounter Note No Show Documentation Chang Solis no showed for an appointment on 06/28/24 with Tiffany Chavez APRN.MONKEY KEEPER at 4:00 pm. He was scheduled for diabetes follow up . I called and was unable to speak with the patient regarding his missed appointment. Chang did not state the reason that he missed his appointment was because he did not answer phone call . Resources discussed/offered to patient: left message to rescheule No show determined to be fault of patient: Yes This is the patients second no show in the last 12 months. Patient was rescheduled for NA. Letter sent through [employer] Is this the Third or Fourth No Show? No October Marcie Cm June 28, 2024 5:14 PM [facility] 06-28-2024 Miscellaneous Notes No Show Documentation Chang Solis no showed for an appointment on 06/28/24 with Tiffany Chavez APRN.CNP at 4:00 pm. He was scheduled for diabetes follow up . I called and was unable to speak with the patient regarding his missed appointment. Chang did not state the reason that he missed his appointment was because he did not answer phone call . Resources discussed/offered to patient: left message to rescheule No show determined to be fault of patient: Yes This is the patients second no show in the last 12 months. Patient was rescheduled for NA. Letter sent through [employer] Is this the Third or Fourth No Show? No October Marcie Cm June 28, 2024 5:14 PM documented in this encounter [facility] 06-26-2024 Note HNO ID: [id number] Author: BENTLEY AL PT Service: ? Author Type: Physical Therapist Type: Progress Notes Filed: 06/26/2024 09:26 Note Text: 06/26/2024 [facility] PHYSICAL THERAPY DISCONTINUANCE OF CARE Plan of Care Period: Start of Care Date: 03/12/24 Last Visit Date: 04/10/2024 Therapy Program: The following is a summary of the interventions provided for this episode of care; Therapeutic exercise, Manual therapy, Therapeutic activities, and Patient/Family/Caregiver Education Assessment: Based on most recent visit, patient was progressing slower than expected toward functional goals based on documented subjective information on progress. Unable to formally assess goal achievement, as patient has not returned to therapy or scheduled additional follow-up appointments. Reason for Discontinuation of Care: Patient has not returned to therapy or scheduled additional follow-up appointments. Bentley Al, PT [facility] 06-21-2024 Note HNO ID: [id number] Author: TIFFANY CHAVEZ APRN.MONKEY KEEPER Service: ? Author Type: Nurse Practitioner Type: Progress Notes Filed: 06/21/2024 16:22 Note Text: CHIEF COMPLAINT: Chang Solis is a 53 year old male who presents for a dry cough, sneezing, runny nose, nasal congestion and pressure, dizziness, headaches, and ear pain. He has had some blood in his nasal drainage.His symptoms started approximately 7-8 days ago and haven't improved. He picked up Mucinex but hasn't start using it at. I reviewed past medical, surgical, social, and family histories today and updated chart. Allergies, chronic medications, and supplements were also reviewed. PAST MEDICAL HISTORY Diagnosis Date Abdominal pain, left lower quadrant Acute gastritis without mention of hemorrhage Diabetes (HCC) Duodenitis without mention of hemorrhage Esophageal reflux Gastroesophageal reflux Unspecified asthma(493.90) exercise-induced PAST SURGICAL HISTORY Procedure Laterality Date APPENDECTOMY HX CHOLECYSTECTOMY HX COLONOSCOPY W/BIOPSY SINGLE/MULTIPLE 09/02/10 EGD TRANSORAL BIOPSY SINGLE/MULTIPLE 09/02/10 HERNIA REPAIR HX LAPAROSCOPY SURG CHOLECYSTECTOMY Cholecystectomy, lap RPR 1ST INGUN HRNA AGE 5 YRS/> REDUCIBLE Hernia repair, inguinal RPR 1ST INGUN HRNA AGE 5 YRS/> REDUCIBLE Hernia repair, inguinal TONSILLECTOMY HX TONSILLECTOMY PRIMARY/SECONDARY Tonsillectomy Social History Tobacco Use Smoking status: Never Passive exposure: Yes Smokeless tobacco: Never Vaping Use Vaping status: Never Used Substance Use Topics Alcohol use: Not Currently Drug use: Never ALLERGIES Allergen Reactions Bactrim [Sulfametho* Hives Hand Soap [Triclosa* Rash Ivp Dye [Iodine] Hives Seasonal Allergies Intolerance Runny nose Shellfish Derived Rash Sulfa (Sulfonamide * Hives Family History Problem Relation Age of Onset Hypertension Mother Lipids Mother No Ocular Disease Mother Cancer Father lung ca. No Ocular Disease Father Diabetes Maternal Grandmother Coronary Artery Disease Maternal Grandfather Cancer Paternal Grandfather Current Outpatient Medications Medication Sig Dispense Refill fluticasone (FLONASE) 50 mcg/actuation nasal spray Use 1 [place] in each nostril once daily. meclizine (ANTIVERT) 25 mg tab Take 1 tablet by mouth three times a day as needed. 30 tablet 0 albuterol HFA (PROAIR HFA) 90 mcg/actuation inhaler 2 Puffs every 6 hours as needed for wheezing/shortness of breath. Take as directed 1 Each 0 blood sugar diagnostic (RELION PRIME TEST STRIPS) test strip Use as instructed 200 Strip 2 Blood-Glucose Meter (RELION PRIME METER) 1 Each four times daily. 1 Each 0 acetaminophen (TYLENOL ORAL) Take by mouth as needed. amoxicillin-clavulanate potassium (AUGMENTIN) 875-125 mg per tablet Take 1 tablet by mouth every 12 hours for 10 days. 20 tablet 0 No current facility-administered medications for this visit. Review of Systems Constitutional: Positive for fatigue. Negative for appetite change, chills, diaphoresis, fever and unexpected weight change. HENT: Positive for congestion, ear pain, rhinorrhea, sinus pressure, sinus pain, sneezing and sore throat. Respiratory: Positive for cough and shortness of breath. Negative for chest tightness and wheezing. Cardiovascular: Negative for chest pain, palpitations and leg swelling. Gastrointestinal: Negative for abdominal pain, diarrhea, nausea and vomiting. Genitourinary: Negative. Neurological: Positive for dizziness and headaches. BP 124/78 Pulse 88 Temp 97.8 Resp 16 Ht 5' 10.5 (1.79m) Wt 243 lb (110.2kg) SpO2 98% BMI 34.36 kg/(m2). Physical Exam Vitals and nursing note reviewed. Constitutional: General: He is not in acute distress. Appearance: He is obese. He is not ill-appearing. HENT: Right Ear: Ear canal and external ear normal. Left Ear: Ear canal and external ear normal. Nose: Mucosal edema, congestion and rhinorrhea present. Right Sinus: Maxillary sinus tenderness present. Left Sinus: Maxillary sinus tenderness present. Mouth/Throat: Mouth: Mucous membranes are moist. Pharynx: Oropharynx is clear. Uvula midline. No pharyngeal swelling or oropharyngeal exudate. Eyes: General: Vision grossly intact. Pupils: Pupils are equal, round, and reactive to light. Cardiovascular: Rate and Rhythm: Normal rate and regular rhythm. Heart sounds: Normal heart sounds, S1 normal and S2 normal. Pulmonary: Effort: Pulmonary effort is normal. Breath sounds: Normal breath sounds and air entry. No decreased breath sounds or wheezing. Musculoskeletal: Cervical back: Normal range of motion and neck supple. Lymphadenopathy: Cervical: No cervical adenopathy. Skin: General: Skin is warm and dry. Neurological: Mental Status: He is alert and oriented to person, place, and time. Psychiatric: Mood and Affect: Mood normal. Behavior: Behavior is cooperative. Cognition a (more content not included)... [facility] 06-21-2024 History of Presen t illness Narrative CHIEF COMPLAINT: Chang Solis is a 53 year old male who presents for a dry cough, sneezing, runny nose, nasal congestion and pressure, dizziness, headaches, and ear pain. He has had some blood in his nasal drainage.His symptoms started approximately 7-8 days ago and haven't improved. He picked up Mucinex but hasn't start using it at. I reviewed past medical, surgical, social, and family histories today and updated chart. Allergies, chronic medications, and supplements were also reviewed. PAST MEDICAL HISTORY Diagnosis Date Abdominal pain, left lower quadrant Acute gastritis without mention of hemorrhage Diabetes (HCC) Duodenitis without mention of hemorrhage Esophageal reflux Gastroesophageal reflux Unspecified asthma(493.90) exercise-induced PAST SURGICAL HISTORY Procedure Laterality Date APPENDECTOMY HX CHOLECYSTECTOMY HX COLONOSCOPY W/BIOPSY SINGLE/MULTIPLE 09/02/10 EGD TRANSORAL BIOPSY SINGLE/MULTIPLE 09/02/10 HERNIA REPAIR HX LAPAROSCOPY SURG CHOLECYSTECTOMY Cholecystectomy, lap RPR 1ST INGUN HRNA AGE 5 YRS/> REDUCIBLE Hernia repair, inguinal RPR 1ST INGUN HRNA AGE 5 YRS/> REDUCIBLE Hernia repair, inguinal TONSILLECTOMY HX TONSILLECTOMY PRIMARY/SECONDARY <AGE 12 Tonsillectomy Social History Tobacco Use Smoking status: Never Passive exposure: Yes Smokeless tobacco: Never Vaping Use Vaping status: Never Used Substance Use Topics Alcohol use: Not Currently Drug use: Never ALLERGIES Allergen Reactions Bactrim [Sulfametho* Hives Hand Soap [Triclosa* Rash Ivp Dye [Iodine] Hives Seasonal Allergies Intolerance Runny nose Shellfish Derived Rash Sulfa (Sulfonamide * Hives Family History Problem Relation Age of Onset Hypertension Mother Lipids Mother No Ocular Disease Mother Cancer Father lung ca. No Ocular Disease Father Diabetes Maternal Grandmother Coronary Artery Disease Maternal Grandfather Cancer Paternal Grandfather Current Outpatient Medications Medication Sig Dispense Refill fluticasone (FLONASE) 50 mcg/actuation nasal spray Use 1 [place] in each nostril once daily. meclizine (ANTIVERT) 25 mg tab Take 1 tablet by mouth three times a day as needed. 30 tablet 0 albuterol HFA (PROAIR HFA) 90 mcg/actuation inhaler 2 Puffs every 6 hours as needed for wheezing/shortness of breath. Take as directed 1 Each 0 blood sugar diagnostic (RELION PRIME TEST STRIPS) test strip Use as instructed 200 Strip 2 Blood-Glucose Meter (RELION PRIME METER) 1 Each four times daily. 1 Each 0 acetaminophen (TYLENOL ORAL) Take by mouth as needed. amoxicillin-clavulanate potassium (AUGMENTIN) 875-125 mg per tablet Take 1 tablet by mouth every 12 hours for 10 days. 20 tablet 0 No current facility-administered medications for this visit. Review of Systems Constitutional: Positive for fatigue. Negative for appetite change, chills, diaphoresis, fever and unexpected weight change. HENT: Positive for congestion, ear pain, rhinorrhea, sinus pressure, sinus pain, sneezing and sore throat. Respiratory: Positive for cough and shortness of breath. Negative for chest tightness and wheezing. Cardiovascular: Negative for chest pain, palpitations and leg swelling. Gastrointestinal: Negative for abdominal pain, diarrhea, nausea and vomiting. Genitourinary: Negative. Neurological: Positive for dizziness and headaches. BP 124/78 Pulse 88 Temp 97.8 Resp 16 Ht 5' 10.5 (1.79m) Wt 243 lb (110.2kg) SpO2 98% BMI 34.36 kg/(m^2). Physical Exam Vitals and nursing note reviewed. Constitutional: General: He is not in acute distress. Appearance: He is obese. He is not ill-appearing. HENT: Right Ear: Ear canal and external ear normal. Left Ear: Ear canal and external ear normal. Nose: Mucosal edema, congestion and rhinorrhea present. Right Sinus: Maxillary sinus tenderness present. Left Sinus: Maxillary sinus tenderness present. Mouth/Throat: Mouth: Mucous membranes are moist. Pharynx: Oropharynx is clear. Uvula midline. No pharyngeal swelling or oropharyngeal exudate. Eyes: General: Vision grossly intact. Pupils: Pupils are equal, round, and reactive to light. Cardiovascular: Rate and Rhythm: Normal rate and regular rhythm. Heart sounds: Normal heart sounds, S1 normal and S2 normal. Pulmonary: Effort: Pulmonary effort is normal. Breath sounds: Normal breath sounds and air entry. No decreased breath sounds or wheezing. Musculoskeletal: Cervical back: Normal range of motion and neck supple. Lymphadenopathy: Cervical: No cervical adenopathy. Skin: General: Skin is warm and dry. Neurological: Mental Status: He is alert and oriented to person, place, and time. Psychiatric: Mood and Affect: Mood normal. Behavior: Behavior is cooperative. Cognition and Memory: Cognition normal. ASSESSMENT/PLAN: 1. Acute non-recurrent maxillary sinusitis - ICD9: 461.0, ICD10: J01.00 (primary diagnosis) - Will begin treatment with Augmentin 875 mg PO BID for 10 days - The patient should also be given nasal saline gtts and suction prn for the first 5-7 days of treatment. - Supportive care with plenty of fluids, rest, and analgesia prn. - Follow up in one week if symptoms persist or worsen. - AMOXICILLIN 875 MG-POTASSIUM CLAVULANATE 125 MG TABLET 2. Acute middle ear effusion, bilateral - ICD9: 381.00, ICD10: H65.193 - Will begin treatment with Augmentin 875 mg PO BID for 10 days New medication(s) prescribed today: Yes: Augmentin. Discussed new medication dosage, usage, goals of therapy, and side effects. Patient has been apprised of any potential drug interactions to be aware of. Patient expresses understanding. Counseling completed in adopting health behaviors such as avoiding excessive alcohol use, avoid tobacco use, improve nutrition, and engage in physical activities. Copy of written care plan, clinical summary, treatment plan, new medications, goals, and self management requirements were given to patient. Tiffany Chavez APRN.CNP documented in this encounter [facility] 05-17-2024 Instructions Tiffany Chavez APRN.CNP - 05/17/2024 3:14 PM EST Images from the original note were not included. Benign Paroxysmal Positional Vertigo (BPPV) What is BPPV? Benign Paroxysmal Positional Vertigo (BPPV) is an inner ear disorder in which changes to the position of the head, such as tipping the head backward, lead to sudden vertigo -- a feeling that the room is spinning. Vertigo can vary in intensity from mild to severe and usually lasts only a few minutes. It may be accompanied by other symptoms, including dizziness lightheadedness a sense of imbalance nausea vomiting Anatomy of the right inner ear. Particle repositioning therapy moves the otoconia out of the semicircular canals and into the utricle where they dissolve naturally. BPPV is not a sign of a serious problem, and it usually disappears on its own within 6 weeks of the first episode. However, the symptoms of BPPV can be very frightening and may be dangerous, especially in older individuals. The unsteadiness associated with BPPV can lead to falls. About half of all people over age 65 experience an episode of BPPV, and falls are a leading cause of fractures in this age-range. What causes BPPV? BPPV develops when calcium carbonate crystals, which are known as otoconia, shift into and become trapped within the semicircular canals (one of the vestibular organs of the inner ear that controls balance). The otoconia make up a normal part of the structure of the utricle, a vestibular organ next to the semicircular canals. (see illustration to the right.) In the utricle, the otoconia may be loosened as a result of injury, infection, or age, and they land in a sac -- the utricle -- where they are naturally dissolved. However, otoconia in the semicircular canals will not dissolve. As a person s head position changes, the otoconia begin to roll around and push on the tiny hairs that line the semicircular canals. Those hairs act as sensors to give the brain information about balance. Vertigo develops when the hairs are stimulated by the rolling otoconia. What head positions trigger BPPV? Movements that can trigger an episode of BPPV include rolling over or sitting up in bed, bending the head forward to look down, or tipping the head backward. In most people, only a single ear is affected by BPPV, although both ears may be involved on occasion. How is BPPV diagnosed and treated? With advances in medical technology, BPPV can easily be diagnosed and treated. The diagnosis can usually be made in the office based on medical history and a physical exam. Treatment also involves a short, simple in-office procedure known as the particle repositioning maneuver. (See addendum below.) How can I identify the affected side? Steps to determine affected side: Sit on bed so that if you lie down, your head hangs slightly over the end of the bed. Turn head to the right and lie back quickly. Wait 1 minute. If you feel dizzy, then the right ear is your affected ear. If no dizziness occurs, sit up. Wait 1 minute. Turn head to the left and lie back quickly. Wait 1 minute. If you feel dizzy, then the left ear is your affected ear. Right position Left position How successful is the treatment? A single particle repositioning procedure is effective in treating about 80% to 90% of cases of BPPV. Additional exercise or repositioning maneuvers may be needed if symptoms persist. Can BPPV recur? If so, what can I do? A new episode of BPPV can develop after successful treatment -- on average there is a 15 percent rate of recurrence each year. However, it may be possible to treat recurrent BPPV at home by performing a series of movements at the time an episode occurs. Patients will receive information on ways to handle recurrences on their own or they can work with a physical therapist to develop a plan. In general, if you wake up with positional vertigo, slowly move into the [id number] position and wait for a minute. Next, slowly move into a face-down position and slide to the foot of the bed. Keep your head down until you reach the end of the bed and are kneeling or standing on the floor. Slowly bring your head backward into an upright position. Hold on to the bed at all times. Another method is to sit toward the foot of the bed, leaving enough room to lay back with your head resting comfortably at the end of the bed, slightly extended. Be careful not to overextend your neck, as this may aggravate existing neck problems. If your symptoms are severe, you may need assistance to complete the maneuver. Follow the same steps as described in the boxed instructions on the next page. Without treatment, the symptoms of BPPV may worsen. However, with time, the otoconia dissolve on their own, which is usually within 6 weeks. Until the time the otoconia dissolve on their own, the number and severity of episodes may be reduced simply by paying careful attention to head position. In addition, anti-motion sickness drugs can be given to control nausea. However, before drugs are taken, it is usually best to try the particle repositioning procedure first. It is a very safe and rapid way to relieve symptoms and reduce the chance for falls. Medications should not be taken for a long period of time. ADDENDUM Particle repositioning procedure: [id number] instructions The particle repositioning procedure takes about 15 minutes to complete and involves a series of physical movements that change the position of the head and body. These actions shift the otoconia out of the semicircular canals and back into their proper location in the utricle. The particle repositioning procedure begins with the patient is sitting up and then lying down on a treatment table. The procedure is very easy to perform. Patients should wear comfortable clothing that will allow them to move freely. Hold each of the following positions for 1 to 2 minutes. Step 1: Turn your head toward your affected ear. Step 2: Lay back quickly. Hold. Step 3: Keep your head back against the bed and turn it toward the good ear. Hold. Step 4: Roll onto your side with your good ear down. Your nose should be turned toward the floor. Hold. Step 5: Sit up, keeping your chin tucked in toward your shoulder. Hold. When you end, you should be sitting over the side of your bed so your feet touch the floor. Step 6: Follow your post-particle repositioning instructions. BPPV: Glossary of Terms Semicircular canals: These structures act like a gyroscope, with canals positioned in three dimensions -- upward, downward, and horizontal. Together, the canals send signals to the brain about the rotation/positioning of the head (for example, when you bend over or spin around.) Cupula: Detects the flow of fluid within the semicircular canals. The flow of fluid gives the body a sense of motion. Utricle: An organ located in the inner ear that helps control balance. The utricle contains hair cells, which are covered with otoconia. The otoconia sway with gravity, sending signals to the brain about the position of the head and body (upright, tilted, etc). Otoconia: The tiny calcium crystal particles that become dislodged from within the utricle (where they can dissolve) and move into the semicircular canals (where they can t dissolve). Cochlea: The 'snail-shell' sense organ of the inner ear that translates sound into nerve impulses and sent to the brain. References Judd BT, Kirk LB. Raymond GAMEZ. Peripheral Vestibular Disorders. In: Stephen Otolaryngology, Head and Neck Surgery, 3-Volume Set. Manisha; 2014. Jos Stanley. Benign Paroxysmal Positional Vertigo (BPPV): History, Pathophysiology, Office Treatment and Future Directions. International Journal of Otolaryngology. 2011;2011:284530. Sabine JS, Snehal DS. Clinical practice. Benign paroxysmal positional vertigo. N Engl J Med. 2013Aug 23;370(12):1138-47. Roberto Duran DD, Gerri Guerin, Mary Jane GARCÍA. The Head and Neck. In: Roberto Duran DD, Gerri Guerin, Mary Jane GARCÍA. eds. Marcin cohen Diagnostic Examination, 10e. [place], [place]: [facility] [place], [facility]; 2015. Copyright 8760-5068 The [facility]. All rights reserved This information is provided by the [facility] and is not intended to replace the medical advice of your doctor or health care provider. Please consult your health care provider for advice about a specific medical condition. For additional health information, please contact the Center for Consumer Health Information at the [facility] or toll-free extension [phone]. If you prefer, you may visit [email or web address] or [email or web address]. This document was last reviewed on: 2014 documented in this encounter [facility] 05-17-2024 Note HNO ID: [id number] Author: TIFFANY CHAVEZ APRN.MONKEY KEEPER Service: ? Author Type: Nurse Practitioner Type: Progress Notes Filed: 05/17/2024 17:24 Note Text: CHIEF COMPLAINT: Chang Solis is a 53 year old male who presents for recurrent dizziness and recent elevated blood sugar. His blood sugar was 266 this morning then 4 hours later was 144 then took it before he came here it was 161. He states he was outside Tuesday putting up theodore lights and since then he has had sinus congestion and headache, cough, ears have been bothering him, dizziness that comes and goes. Last ate at 9 am this morning, had a blueberry bagel, two eggs and a bratwurst, coffee w/ cream and sweet and low. I reviewed past medical, surgical, social, and family histories today and updated chart. Allergies, chronic medications, and supplements were also reviewed. 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 so he's wondering if it isn't reading correctly He may get a new one OTC PAST MEDICAL HISTORY Diagnosis Date Abdominal pain, left lower quadrant Acute gastritis without mention of hemorrhage Diabetes (HCC) Duodenitis without mention of hemorrhage Esophageal reflux Gastroesophageal reflux Unspecified asthma(493.90) exercise-induced PAST SURGICAL HISTORY Procedure Laterality Date APPENDECTOMY HX CHOLECYSTECTOMY HX COLONOSCOPY W/BIOPSY SINGLE/MULTIPLE 09/02/10 EGD TRANSORAL BIOPSY SINGLE/MULTIPLE 09/02/10 HERNIA REPAIR HX LAPAROSCOPY SURG CHOLECYSTECTOMY Cholecystectomy, lap RPR 1ST INGUN HRNA AGE 5 YRS/> REDUCIBLE Hernia repair, inguinal RPR 1ST INGUN HRNA AGE 5 YRS/> REDUCIBLE Hernia repair, inguinal TONSILLECTOMY HX TONSILLECTOMY PRIMARY/SECONDARY Tonsillectomy Social History Tobacco Use Smoking status: Never Passive exposure: Yes Smokeless tobacco: Never Vaping Use Vaping status: Never Used Substance Use Topics Alcohol use: Not Currently Drug use: Never ALLERGIES Allergen Reactions Bactrim [Sulfametho* Hives Hand Soap [Triclosa* Rash Ivp Dye [Iodine] Hives Seasonal Allergies Intolerance Runny nose Shellfish Derived Rash Sulfa (Sulfonamide * Hives Family History Problem Relation Age of Onset Hypertension Mother Lipids Mother No Ocular Disease Mother Cancer Father lung ca. No Ocular Disease Father Diabetes Maternal Grandmother Coronary Artery Disease Maternal Grandfather Cancer Paternal Grandfather Current Outpatient Medications Medication Sig Dispense Refill albuterol HFA (PROAIR HFA) 90 mcg/actuation inhaler 2 Puffs every 6 hours as needed for wheezing/shortness of breath. Take as directed 1 Each 0 blood sugar diagnostic (RELION PRIME TEST STRIPS) test strip Use as instructed 200 Strip 2 Blood-Glucose Meter (RELION PRIME METER) 1 Each four times daily. 1 Each 0 acetaminophen (TYLENOL ORAL) Take by mouth as needed. fluticasone (FLONASE) 50 mcg/actuation nasal spray Use 1 [place] in each nostril once daily. meclizine (ANTIVERT) 25 mg tab Take 1 tablet by mouth three times a day as needed. 30 tablet 0 No current facility-administered medications for this visit. Review of Systems Constitutional: Negative for appetite change, chills, diaphoresis, fatigue, fever and unexpected weight change. HENT: Positive for congestion, ear discharge, ear pain, hearing loss and sinus pressure. Negative for facial swelling, rhinorrhea, sinus pain, sneezing, sore throat and tinnitus. Respiratory: Positive for cough. Negative for chest tightness, shortness of breath and wheezing. Cardiovascular: Negative. Gastrointestinal: Negative. Genitourinary: Negative. Musculoskeletal: Negative. Neurological: Positive for dizziness and headaches. Negative for syncope. Hematological: Negative. BP 126/78 Pulse 93 Temp 97.4 Resp 18 Ht 5' 10.5 (1.79m) Wt 243 lb (110.2kg) SpO2 97% BMI 34.36 kg/(m2). Physical Exam Vitals and nursing note reviewed. Constitutional: Appearance: He is obese. HENT: Right Ear: Ear canal and external ear normal. A middle ear effusion is present. Tympanic membrane is not injected or erythematous. Left Ear: Ear canal and external ear normal. A middle ear effusion is present. Tympanic membrane is not injected or erythematous. Nose: Congestion present. Right Sinus: Frontal sinus tenderness present. Left Sinus: Frontal sinus tenderness present. Mouth/Throat: Mouth: Mucous membranes are moist. Pharynx: Oropharynx is clear. Uvula midline. No oropharyngeal exudate or posterior oropharyngeal erythema. Eyes: Conjunctiva/sclera: Conjunctivae normal. Pupils: Pupils are equal, round, and reactive to light. Cardiovas (more content not included)... [facility] 05-17-2024 History of Presen t illness Narrative CHIEF COMPLAINT: Chang Solis is a 53 year old male who presents for recurrent dizziness and recent elevated blood sugar. His blood sugar was 266 this morning then 4 hours later was 144 then took it before he came here it was 161. He states he was outside Tuesday putting up theodore lights and since then he has had sinus congestion and headache, cough, ears have been bothering him, dizziness that comes and goes. Last ate at 9 am this morning, had a blueberry bagel, two eggs and a bratwurst, coffee w/ cream and sweet and low. I reviewed past medical, surgical, social, and family histories today and updated chart. Allergies, chronic medications, and supplements were also reviewed. 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 so he's wondering if it isn't reading correctly He may get a new one OTC PAST MEDICAL HISTORY Diagnosis Date Abdominal pain, left lower quadrant Acute gastritis without mention of hemorrhage Diabetes (HCC) Duodenitis without mention of hemorrhage Esophageal reflux Gastroesophageal reflux Unspecified asthma(493.90) exercise-induced PAST SURGICAL HISTORY Procedure Laterality Date APPENDECTOMY HX CHOLECYSTECTOMY HX COLONOSCOPY W/BIOPSY SINGLE/MULTIPLE 09/02/10 EGD TRANSORAL BIOPSY SINGLE/MULTIPLE 09/02/10 HERNIA REPAIR HX LAPAROSCOPY SURG CHOLECYSTECTOMY Cholecystectomy, lap RPR 1ST INGUN HRNA AGE 5 YRS/> REDUCIBLE Hernia repair, inguinal RPR 1ST INGUN HRNA AGE 5 YRS/> REDUCIBLE Hernia repair, inguinal TONSILLECTOMY HX TONSILLECTOMY PRIMARY/SECONDARY <AGE 12 Tonsillectomy Social History Tobacco Use Smoking status: Never Passive exposure: Yes Smokeless tobacco: Never Vaping Use Vaping status: Never Used Substance Use Topics Alcohol use: Not Currently Drug use: Never ALLERGIES Allergen Reactions Bactrim [Sulfametho* Hives Hand Soap [Triclosa* Rash Ivp Dye [Iodine] Hives Seasonal Allergies Intolerance Runny nose Shellfish Derived Rash Sulfa (Sulfonamide * Hives Family History Problem Relation Age of Onset Hypertension Mother Lipids Mother No Ocular Disease Mother Cancer Father lung ca. No Ocular Disease Father Diabetes Maternal Grandmother Coronary Artery Disease Maternal Grandfather Cancer Paternal Grandfather Current Outpatient Medications Medication Sig Dispense Refill albuterol HFA (PROAIR HFA) 90 mcg/actuation inhaler 2 Puffs every 6 hours as needed for wheezing/shortness of breath. Take as directed 1 Each 0 blood sugar diagnostic (RELION PRIME TEST STRIPS) test strip Use as instructed 200 Strip 2 Blood-Glucose Meter (RELION PRIME METER) 1 Each four times daily. 1 Each 0 acetaminophen (TYLENOL ORAL) Take by mouth as needed. fluticasone (FLONASE) 50 mcg/actuation nasal spray Use 1 [place] in each nostril once daily. meclizine (ANTIVERT) 25 mg tab Take 1 tablet by mouth three times a day as needed. 30 tablet 0 No current facility-administered medications for this visit. Review of Systems Constitutional: Negative for appetite change, chills, diaphoresis, fatigue, fever and unexpected weight change. HENT: Positive for congestion, ear discharge, ear pain, hearing loss and sinus pressure. Negative for facial swelling, rhinorrhea, sinus pain, sneezing, sore throat and tinnitus. Respiratory: Positive for cough. Negative for chest tightness, shortness of breath and wheezing. Cardiovascular: Negative. Gastrointestinal: Negative. Genitourinary: Negative. Musculoskeletal: Negative. Neurological: Positive for dizziness and headaches. Negative for syncope. Hematological: Negative. BP 126/78 Pulse 93 Temp 97.4 Resp 18 Ht 5' 10.5 (1.79m) Wt 243 lb (110.2kg) SpO2 97% BMI 34.36 kg/(m^2). Physical Exam Vitals and nursing note reviewed. Constitutional: Appearance: He is obese. HENT: Right Ear: Ear canal and external ear normal. A middle ear effusion is present. Tympanic membrane is not injected or erythematous. Left Ear: Ear canal and external ear normal. A middle ear effusion is present. Tympanic membrane is not injected or erythematous. Nose: Congestion present. Right Sinus: Frontal sinus tenderness present. Left Sinus: Frontal sinus tenderness present. Mouth/Throat: Mouth: Mucous membranes are moist. Pharynx: Oropharynx is clear. Uvula midline. No oropharyngeal exudate or posterior oropharyngeal erythema. Eyes: Conjunctiva/sclera: Conjunctivae normal. Pupils: Pupils are equal, round, and reactive to light. Cardiovascular: Rate and Rhythm: Normal rate and regular rhythm. Heart sounds: Normal heart sounds, S1 normal and S2 normal. Pulmonary: Effort: Pulmonary effort is normal. Breath sounds: Normal breath sounds and air entry. No decreased breath sounds or wheezing. Abdominal: General: Bowel sounds are normal. There is no distension. Palpations: Abdomen is soft. Tenderness: There is no abdominal tenderness. Musculoskeletal: General: Normal range of motion. Cervical back: Neck supple. Lymphadenopathy: Cervical: No cervical adenopathy. Skin: General: Skin is warm and dry. Neurological: General: No focal deficit present. Mental Status: He is alert and oriented to person, place, and time. Psychiatric: Mood and Affect: Mood normal. Behavior: Behavior is cooperative. Cognition and Memory: Cognition normal. ASSESSMENT/PLAN: 1. Type 2 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) - ICD9: 250.00, ICD10: E11.9 (primary diagnosis) - BS in office was 132 today - Blood glucose monitoring on a once daily schedule - Counseled on healthy diet and regular exercise - Discussed need for and benefit of weight loss. BMI 34.37 kg/(m^2) - Follow up in 6 weeks, sooner should any other issues arise. - GLUCOSE, BLOOD (POC) 2. Hyperglycemia - ICD9: 790.29, ICD10: R73.9 - Continue to monitor at home, ideally fasting in the morning. Advised to bring in readings to next appointment. 3. Dizziness - ICD9: 780.4, ICD10: R42 - Consider vestibular therapy if unsuccessful with Kathie maneuver at home - MECLIZINE 25 MG TABLET 4. Eustachian tube dysfunction, bilateral - ICD9: 381.81, ICD10: H69.93 - FLUTICASONE PROPIONATE 50 MCG/ACTUATION NASAL SPRAY,SUSPENSION New medication(s) prescribed today: Yes: Flonase. Discussed new medication dosage, usage, goals of therapy, and side effects. Patient has been apprised of any potential drug interactions to be aware of. Patient expresses understanding. Counseling completed in adopting health behaviors such as avoiding excessive alcohol use, avoid tobacco use, improve nutrition, and engage in physical activities. Copy of written care plan, clinical summary, treatment plan, new medications, goals, and self management requirements were given to patient. Tiffany Chavez APRN.MONKEY KEEPER documented in this encounter [facility] 04-24-2024 Note Addended by: TIFFANY CHAVEZ on: 04/24/2024 05:47 PM Modules accepted: Orders [facility] 04-24-2024 Telephone encounter Note Rx for Claritin sent in. [facility] 04-24-2024 Miscellaneous Notes Addended by: TIFFANY CHAVEZ on: 04/24/2024 05:47 PM Modules accepted: Orders Rx for Claritin sent in. Patient lm on vm wondering if you can send anything in for allergies. Has water eyes and sneezing. Please advise. Nichol Erazo MA documented in this encounter [facility] 04-24-2024 Telephone encounter Note Patient lm on vm wondering if you can send anything in for allergies. Has water eyes and sneezing. Please advise. Nichol Erazo MA [facility] 04-20-2024 Note Addended by: NURIA ACKERMAN on: 04/20/2024 05:54 PM Modules accepted: Orders [facility] 04-20-2024 Miscellaneous Notes Addended by: NURIA ACKERMAN on: 04/20/2024 05:54 PM Modules accepted: Orders documented in this encounter [facility] 04-20-2024 Note HNO ID: [id number] Author: NURIA ACKERMAN APRN.KEVEN Service: ? Author Type: Nurse Practitioner Type: Progress Notes Filed: 04/20/2024 17:54 Note Text: This note was created using [employer]. Subjective Chang Solis is a 53 year old male. 53 year old male with PMH insomina, hyperlipidemia, GERD, DM presents for complaints of illness. Acute onset 2 days ago +sinus pressure +cough +productive +runny nose +sneezing +fatigue ' Worsening Denies CP Denies SOB Denies dyspnea Denies abdominal pain The history is provided by the patient. No marketing communications coordinator was used. Sinus Problem This is a new problem. The current episode started yesterday. The problem occurs constantly. The problem has been gradually worsening. Associated symptoms include chills, congestion, coughing, fatigue, headaches and a sore throat. Pertinent negatives include no abdominal pain, anorexia, arthralgias, change in bowel habit, chest pain, diaphoresis, fever, joint swelling, myalgias, nausea, neck pain, numbness, rash, swollen glands, urinary symptoms, vertigo, visual change, vomiting or weakness. Nothing aggravates the symptoms. He has tried nothing for the symptoms. The treatment provided no relief. PAST MEDICAL HISTORY Diagnosis Date Abdominal pain, left lower quadrant Acute gastritis without mention of hemorrhage Diabetes (HCC) Duodenitis without mention of hemorrhage Esophageal reflux Gastroesophageal reflux Unspecified asthma(493.90) exercise-induced PAST SURGICAL HISTORY Procedure Laterality Date APPENDECTOMY HX CHOLECYSTECTOMY HX COLONOSCOPY W/BIOPSY SINGLE/MULTIPLE 09/02/10 EGD TRANSORAL BIOPSY SINGLE/MULTIPLE 09/02/10 HERNIA REPAIR HX LAPAROSCOPY SURG CHOLECYSTECTOMY Cholecystectomy, lap RPR 1ST INGUN HRNA AGE 5 YRS/> REDUCIBLE Hernia repair, inguinal RPR 1ST INGUN HRNA AGE 5 YRS/> REDUCIBLE Hernia repair, inguinal TONSILLECTOMY HX TONSILLECTOMY PRIMARY/SECONDARY Tonsillectomy ALLERGIES Bactrim [Sulfamethoxazole-Trimethoprim], Hand Soap [Triclosan], Ivp Dye [Iodine], Seasonal Allergies, Shellfish Derived, and Sulfa (Sulfonamide Antibiotics) MEDICATIONS meclizine (ANTIVERT) 25 mg tab Take 1 tablet by mouth three times a day as needed for up to 7 days. benzonatate (TESSALON PERLES) 100 mg capsule Take 1 capsule by mouth three times a day as needed for cough. oxymetazoline (AFRIN, OXYMETAZOLINE,) 0.05 % nasal spray Use 2-3 Sprays in each nostril two times a day. Use as directed. For a maximum of 3 (three) days. albuterol HFA (PROAIR HFA) 90 mcg/actuation inhaler 2 Puffs every 6 hours as needed for wheezing/shortness of breath. Take as directed blood sugar diagnostic (RELION PRIME TEST STRIPS) test strip Use as instructed Blood-Glucose Meter (RELION PRIME METER) 1 Each four times daily. acetaminophen (TYLENOL ORAL) Take by mouth as needed. azithromycin (ZITHROMAX Z-ANDREY) 250 mg tablet Take 2 tablets day one, then, 1 tablet daily until gone. FAMILY HISTORY Problem Relation Age of Onset Hypertension Mother Lipids Mother No Ocular Disease Mother Cancer Father lung ca. No Ocular Disease Father Diabetes Maternal Grandmother Coronary Artery Disease Maternal Grandfather Cancer Paternal Grandfather Social History Tobacco Use Smoking status: Never Passive exposure: Yes Smokeless tobacco: Never Vaping Use Vaping status: Never Used Substance Use Topics Alcohol use: Not Currently Drug use: Never Review of Systems Constitutional: Positive for chills and fatigue. Negative for diaphoresis and fever. HENT: Positive for congestion, postnasal drip, sinus pressure, sinus pain and sore throat. Negative for nosebleeds. Eyes: Negative for pain, discharge, redness and itching. Respiratory: Positive for cough. Negative for shortness of breath and stridor. Cardiovascular: Negative for chest pain. Gastrointestinal: Negative for abdominal pain, anorexia, change in bowel habit, nausea and vomiting. Musculoskeletal: Negative for arthralgias, joint swelling, myalgias and neck pain. Skin: Negative for rash. Allergic/Immunologic: Negative for environmental allergies, food allergies and immunocompromised state. Neurological: Positive for headaches. Negative for vertigo, weakness and numbness. Objective BP 117/85 Pulse 83 Temp (!) 35.9 ?C (96.7 ?F) Resp 20 Wt 110 kg (242 lb 8.1 oz) SpO2 97% BMI 34.30 kg/m? Physical Exam Vitals and nursing note reviewed. Constitutional: General: He is not in acute distress. Appearance: Normal appearance. He is not ill-appearing, toxic-appearing or diaphoretic. HENT: Head: Normocephalic and atraumatic. Comments: +frontal sinus pressure +maxillary sinus pressure Right Ear: External ear normal. Left Ear: External ear normal. Nose: Congestion present. No rhinorrhea. Mouth/Throat: Mouth: Mucous membranes are moist. Pharynx: Oropharynx is clear. Posterior oropharyngeal (more content not included)... [facility] 04-20-2024 History of Presen t illness Narrative This note was created using [employer]. Subjective Chang Solis is a 53 year old male. 53 year old male with PMH insomina, hyperlipidemia, GERD, DM presents for complaints of illness. Acute onset 2 days ago +sinus pressure +cough +productive +runny nose +sneezing +fatigue ' Worsening Denies CP Denies SOB Denies dyspnea Denies abdominal pain The history is provided by the patient. No marketing communications coordinator was used. Sinus Problem This is a new problem. The current episode started yesterday. The problem occurs constantly. The problem has been gradually worsening. Associated symptoms include chills, congestion, coughing, fatigue, headaches and a sore throat. Pertinent negatives include no abdominal pain, anorexia, arthralgias, change in bowel habit, chest pain, diaphoresis, fever, joint swelling, myalgias, nausea, neck pain, numbness, rash, swollen glands, urinary symptoms, vertigo, visual change, vomiting or weakness. Nothing aggravates the symptoms. He has tried nothing for the symptoms. The treatment provided no relief. PAST MEDICAL HISTORY Diagnosis Date Abdominal pain, left lower quadrant Acute gastritis without mention of hemorrhage Diabetes (HCC) Duodenitis without mention of hemorrhage Esophageal reflux Gastroesophageal reflux Unspecified asthma(493.90) exercise-induced PAST SURGICAL HISTORY Procedure Laterality Date APPENDECTOMY HX CHOLECYSTECTOMY HX COLONOSCOPY W/BIOPSY SINGLE/MULTIPLE 09/02/10 EGD TRANSORAL BIOPSY SINGLE/MULTIPLE 09/02/10 HERNIA REPAIR HX LAPAROSCOPY SURG CHOLECYSTECTOMY Cholecystectomy, lap RPR 1ST INGUN HRNA AGE 5 YRS/> REDUCIBLE Hernia repair, inguinal RPR 1ST INGUN HRNA AGE 5 YRS/> REDUCIBLE Hernia repair, inguinal TONSILLECTOMY HX TONSILLECTOMY PRIMARY/SECONDARY <AGE 12 Tonsillectomy ALLERGIES Bactrim [Sulfamethoxazole-Trimethoprim], Hand Soap [Triclosan], Ivp Dye [Iodine], Seasonal Allergies, Shellfish Derived, and Sulfa (Sulfonamide Antibiotics) MEDICATIONS meclizine (ANTIVERT) 25 mg tab Take 1 tablet by mouth three times a day as needed for up to 7 days. benzonatate (TESSALON PERLES) 100 mg capsule Take 1 capsule by mouth three times a day as needed for cough. oxymetazoline (AFRIN, OXYMETAZOLINE,) 0.05 % nasal spray Use 2-3 Sprays in each nostril two times a day. Use as directed. For a maximum of 3 (three) days. albuterol HFA (PROAIR HFA) 90 mcg/actuation inhaler 2 Puffs every 6 hours as needed for wheezing/shortness of breath. Take as directed blood sugar diagnostic (RELION PRIME TEST STRIPS) test strip Use as instructed Blood-Glucose Meter (RELION PRIME METER) 1 Each four times daily. acetaminophen (TYLENOL ORAL) Take by mouth as needed. azithromycin (ZITHROMAX Z-ANDREY) 250 mg tablet Take 2 tablets day one, then, 1 tablet daily until gone. FAMILY HISTORY Problem Relation Age of Onset Hypertension Mother Lipids Mother No Ocular Disease Mother Cancer Father lung ca. No Ocular Disease Father Diabetes Maternal Grandmother Coronary Artery Disease Maternal Grandfather Cancer Paternal Grandfather Social History Tobacco Use Smoking status: Never Passive exposure: Yes Smokeless tobacco: Never Vaping Use Vaping status: Never Used Substance Use Topics Alcohol use: Not Currently Drug use: Never Review of Systems Constitutional: Positive for chills and fatigue. Negative for diaphoresis and fever. HENT: Positive for congestion, postnasal drip, sinus pressure, sinus pain and sore throat. Negative for nosebleeds. Eyes: Negative for pain, discharge, redness and itching. Respiratory: Positive for cough. Negative for shortness of breath and stridor. Cardiovascular: Negative for chest pain. Gastrointestinal: Negative for abdominal pain, anorexia, change in bowel habit, nausea and vomiting. Musculoskeletal: Negative for arthralgias, joint swelling, myalgias and neck pain. Skin: Negative for rash. Allergic/Immunologic: Negative for environmental allergies, food allergies and immunocompromised state. Neurological: Positive for headaches. Negative for vertigo, weakness and numbness. Objective BP 117/85 Pulse 83 Temp (!) 35.9 C (96.7 F) Resp 20 Wt 110 kg (242 lb 8.1 oz) SpO2 97% BMI 34.30 kg/m Physical Exam Vitals and nursing note reviewed. Constitutional: General: He is not in acute distress. Appearance: Normal appearance. He is not ill-appearing, toxic-appearing or diaphoretic. HENT: Head: Normocephalic and atraumatic. Comments: +frontal sinus pressure +maxillary sinus pressure Right Ear: External ear normal. Left Ear: External ear normal. Nose: Congestion present. No rhinorrhea. Mouth/Throat: Mouth: Mucous membranes are moist. Pharynx: Oropharynx is clear. Posterior oropharyngeal erythema present. No oropharyngeal exudate. Eyes: General: Right eye: No discharge. Left eye: No discharge. Extraocular Movements: Extraocular movements intact. Conjunctiva/sclera: Conjunctivae normal. Pupils: Pupils are equal, round, and reactive to light. Cardiovascular: Rate and Rhythm: Normal rate and regular rhythm. Pulses: Normal pulses. Heart sounds: Normal heart sounds. No murmur heard. No friction rub. No gallop. Pulmonary: Effort: Pulmonary effort is normal. No respiratory distress. Breath sounds: Normal breath sounds. No stridor. No wheezing, rhonchi or rales. Comments: Harsh cough noted Chest: Chest wall: No tenderness. Abdominal: General: Abdomen is flat. There is no distension. Palpations: Abdomen is soft. There is no mass. Tenderness: There is no abdominal tenderness. There is no guarding or rebound. Hernia: No hernia is present. Musculoskeletal: General: No swelling, tenderness, deformity or signs of injury. Normal range of motion. Cervical back: Normal range of motion and neck supple. No rigidity or tenderness. Right lower leg: No edema. Left lower leg: No edema. Lymphadenopathy: Cervical: Cervical adenopathy present. Skin: General: Skin is warm and dry. Capillary Refill: Capillary refill takes less than 2 seconds. Coloration: Skin is not jaundiced or pale. Findings: No bruising, lesion or rash. Neurological: General: No focal deficit present. Mental Status: He is alert and oriented to person, place, and time. Cranial Nerves: No cranial nerve deficit. Sensory: No sensory deficit. Motor: No weakness. Coordination: Coordination normal. Gait: Gait normal. Deep Tendon Reflexes: Reflexes normal. Psychiatric: Mood and Affect: Mood normal. Behavior: Behavior normal. Thought Content: Thought content normal. Assessment and Plan ASSESSMENT/PLAN: 1. Acute cough - ICD9: 786.2, ICD10: R05.1 (primary diagnosis) X 2 days Worsening Winded Lungs CTA No xray available Will treat for possible pneumonia RX Zithromax 2. Rhinosinusitis - ICD9: 473.9, ICD10: J32.9 - The patient should also be given OTC cough and cold meds as needed and warm salt water gargles, throat lozenges and/or OTC throat spray as needed for the first 5-7 days of treatment. - Supportive care with plenty of fluids, rest, and analgesia prn. - Follow up in 3-5 days if symptoms persist or worsen. Nuria Ackerman APRN.MONKEY KEEPER documented in this encounter [facility] 04-19-2024 Telephone encounter Note Called patient on 04/19/24 at 10:35 in regards to scheduling a recheck appointment. Patient's voicemail box has not been set up. [facility] 04-19-2024 Miscellaneous Notes Called patient on 04/19/24 at 10:35 in regards to scheduling a recheck appointment. Patient's voicemail box has not been set up. Called patient on 04/18/24 at 2:20 in regards to scheduling a recheck appointment with Hima Al. Patient requires an appointment after 3:00. documented in this encounter [facility] 04-18-2024 Telephone encounter Note VM not set up. My chart message sent. Nichol Erazo MA [facility] 04-18-2024 Miscellaneous Notes VM not set up. My chart message sent. Nichol Erazo MA Addended by: TIFFANY CHAVEZ on: 04/18/2024 04:58 PM Modules accepted: Orders Please notify patient the Rx for Meclizine sent in. Pt came into office at 4:50 pm today requesting a refill on his vertigo pill, does not know the name. He says he is out and having issues. Please advise Thank you Please call pt at this number [phone] documented in this encounter [facility] 04-18-2024 Note Addended by: TIFFANY CHAVEZ on: 04/18/2024 04:58 PM Modules accepted: Orders [facility] 04-18-2024 Telephone encounter Note Please notify patient the Rx for Meclizine sent in. [facility] 04-18-2024 Telephone encounter Note Pt came into office at 4:50 pm today requesting a refill on his vertigo pill, does not know the name. He says he is out and having issues. Please advise Thank you Please call pt at this number [phone] [facility] 04-18-2024 Telephone encounter Note Called patient on 04/18/24 at 2:20 in regards to scheduling a recheck appointment with Hima Al. Patient requires an appointment after 3:00. [facility] 04-10-2024 History of Presen t illness Narrative Program_ID:[id number] Access Code: [email or web address] URL: [email or web address] Date: 04-10-2024 Prepared By: Bentley Al Program Notes Exercises - Supine Lower Trunk Rotation - 1 x daily - 7 x weekly - sets - reps - Hooklying Single Knee to Chest Stretch - 1 x daily - 7 x weekly - sets - 5 reps - Supine Pelvic Tilt - 1 x daily - 7 x weekly - sets - 10 reps - Supine Bridge - 1 x daily - 7 x weekly - sets - 10 reps - Clamshell - 1 x daily - 7 x weekly - sets - 15 reps - Bent Knee Fallouts - 1 x daily - 7 x weekly - 3 sets - 10 reps - Supine Bridge with Mini Honduran Ball Between Knees - 1 x daily - 7 x weekly - sets - 15 reps - Clamshell with Resistance - 1 x daily - 7 x weekly - 3 sets - 10 reps - Seated Long Arc Quad - 1 x daily - 7 x weekly - 3 sets - 10 reps Episode Visit Count: 4 Therapist That Will Accept/Oversee The Plan Of Care: Bentley Al Start of Care Date: 03/12/24 Onset Date: 01/19/24 Plan of Care Certification Date: 03/12/24 Next Certification Due Date: 05/11/24 Patient Identified by Name and Date of : Yes REHABILITATION AND SPORTS THERAPY PHYSICAL THERAPY TREATMENT NOTE ASSESSMENT: Chang Solis tolerated the session with expected muscle soreness. He demonstrated improvements in gluteal and bilateral hip stability. Tolerated bilateral hip strengthening. The patient will continue to benefit from ongoing skilled physical therapy for reassessment by supervising therapist. PLAN FOR NEXT VISIT: continue core/hip strength SUBJECTIVE: pt reports he hasnt been doing much for the past 2 weeks. hes been sick. he returned to work last and his lower back pain has returned. Pain: Pain Pain Level: 3 Pain Location: Low Back/Lumbar Spine- Midline Description: Sore Frequency: Continuous Post Treatment Pain Post Treatment Pain Level: No Change Post Treatment Pain Location: Low Back/Lumbar Spine- Midline OBJECTIVE MEASURES WITH LEVEL OF FUNCTION: Observation: demo fatigue with standing hip strengthening TREATMENT: Therapeutic Exercise: 1: nu step seat/arm level 10, 5 mins, level 4 resistance, for improved strength and endurance 2: standing R/L incline calf stretch 2x 20 sec hold 3: standing R/L hamstring stretch 2x 20 sec hold 4: supine lower trunk rotation 10x 5: glute bridge 15x 5 sec hold 6: SLR 2x 10 7: hooklying alt knee to chest 2x10 blue tband 8: glute bridge abd 2x 10 blue tband 9: R/L sidelying clamshell 2x 10 blue tband 10: LAQs 3 lbs 2x 10 11: standing R/L heel raises 20x ue support 12: standing R/L hip abd 2x 10 ue support 13: standing R/L hip flex 2x 10 ue support Skilled Intervention: Patient was educated in proper exercise technique and purpose for exercises. Billing Therapeutic Exercise Treatment Minutes: 42 Skilled Treatment Time Minutes (timed and untimed codes): 42 Total Session Time (minutes): 42 Session Start Time : 1525 Session Stop Time : 1607 Faiza Munoz PTA documented in this encounter [facility] 04-10-2024 Note HNO ID: [id number] Author: FAIZA MUNOZ PTA Service: ? Author Type: Valve Seater Operator Type: Progress Notes Filed: 04/10/2024 16:07 Note Text: Episode Visit Count: 4 Therapist That Will Accept/Oversee The Plan Of Care: Bentley Al Start of Care Date: 03/12/24 Onset Date: 01/19/24 Plan of Care Certification Date: 03/12/24 Next Certification Due Date: 05/11/24 Patient Identified by Name and Date of : Yes REHABILITATION AND SPORTS THERAPY PHYSICAL THERAPY TREATMENT NOTE ASSESSMENT: Chang Solis tolerated the session with expected muscle soreness. He demonstrated improvements in gluteal and bilateral hip stability. Tolerated bilateral hip strengthening. The patient will continue to benefit from ongoing skilled physical therapy for reassessment by supervising therapist. PLAN FOR NEXT VISIT: continue core/hip strength SUBJECTIVE: pt reports he hasnt been doing much for the past 2 weeks. hes been sick. he returned to work last and his lower back pain has returned. Pain: Pain Pain Level: 3 Pain Location: Low Back/Lumbar Spine- Midline Description: Sore Frequency: Continuous Post Treatment Pain Post Treatment Pain Level: No Change Post Treatment Pain Location: Low Back/Lumbar Spine- Midline OBJECTIVE MEASURES WITH LEVEL OF FUNCTION: Observation: demo fatigue with standing hip strengthening TREATMENT: Therapeutic Exercise: 1: nu step seat/arm level 10, 5 mins, level 4 resistance, for improved strength and endurance 2: standing R/L incline calf stretch 2x 20 sec hold 3: standing R/L hamstring stretch 2x 20 sec hold 4: supine lower trunk rotation 10x 5: glute bridge 15x 5 sec hold 6: SLR 2x 10 7: hooklying alt knee to chest 2x10 blue tband 8: glute bridge abd 2x 10 blue tband 9: R/L sidelying clamshell 2x 10 blue tband 10: LAQs 3 lbs 2x 10 11: standing R/L heel raises 20x ue support 12: standing R/L hip abd 2x 10 ue support 13: standing R/L hip flex 2x 10 ue support Skilled Intervention: Patient was educated in proper exercise technique and purpose for exercises. Billing Therapeutic Exercise Treatment Minutes: 42 Skilled Treatment Time Minutes (timed and untimed codes): 42 Total Session Time (minutes): 42 Session Start Time : 1525 Session Stop Time : 1607 Faiza Munoz [facility] 04-03-2024 Instructions Tiffany Chavez APRN.CNP - 04/03/2024 9:23 AM EDT Debbie Shook documented in this encounter [facility] 04-03-2024 Note HNO ID: [id number] Author: TIFFANY CHAVEZ APRN.CNP Service: ? Author Type: Nurse Practitioner Type: Progress Notes Filed: 04/03/2024 13:10 Note Text: CHIEF COMPLAINT: Chang Solis is a 53 year old male who presents for an ER follow up from 03/31/2024. He started experiencing dizziness, cough, phlegm, sinus congestion and pain, thick nasal discharge, decrease appetite, ringing in his left ear, fatigue, fever of 100.3 yesterday. He was tested for Covid, flu, and RSV and was negative. He has been trying to drink more water and taking OTC cold/flu medications. He has been off work since yesterday due to his symptoms. I reviewed past medical, surgical, social, and family histories today and updated chart. Allergies, chronic medications, and supplements were also reviewed. The history is provided by the patient. URI He complains of chest tightness, cough, hoarse voice and sputum production. There is no difficulty breathing, frequent throat clearing, hemoptysis, shortness of breath or wheezing. This is a new problem. The current episode started in the past 7 days. The problem occurs constantly. The problem has been unchanged. The cough is productive of sputum. Associated symptoms include ear congestion, ear pain, a fever, headaches, malaise/fatigue, nasal congestion and a sore throat. Pertinent negatives include no appetite change, chest pain, dyspnea on exertion, heartburn, myalgias, orthopnea, PND, postnasal drip, rhinorrhea, sneezing, sweats, trouble swallowing or weight loss. His symptoms are aggravated by URI. His symptoms are alleviated by beta-agonist and OTC cough suppressant. He reports minimal improvement on treatment. There are no known risk factors for lung disease. There is no history of bronchiectasis, COPD, emphysema or pneumonia. PAST MEDICAL HISTORY Diagnosis Date Abdominal pain, left lower quadrant Acute gastritis without mention of hemorrhage Diabetes (HCC) Duodenitis without mention of hemorrhage Esophageal reflux Gastroesophageal reflux Unspecified asthma(493.90) exercise-induced PAST SURGICAL HISTORY Procedure Laterality Date APPENDECTOMY HX CHOLECYSTECTOMY HX COLONOSCOPY W/BIOPSY SINGLE/MULTIPLE 09/02/10 EGD TRANSORAL BIOPSY SINGLE/MULTIPLE 09/02/10 HERNIA REPAIR HX LAPAROSCOPY SURG CHOLECYSTECTOMY Cholecystectomy, lap RPR 1ST INGUN HRNA AGE 5 YRS/> REDUCIBLE Hernia repair, inguinal RPR 1ST INGUN HRNA AGE 5 YRS/> REDUCIBLE Hernia repair, inguinal TONSILLECTOMY HX TONSILLECTOMY PRIMARY/SECONDARY Tonsillectomy Social History Tobacco Use Smoking status: Never Passive exposure: Yes Smokeless tobacco: Never Vaping Use Vaping status: Never Used Substance Use Topics Alcohol use: Not Currently Drug use: Never ALLERGIES Allergen Reactions Bactrim [Sulfametho* Hives Hand Soap [Triclosa* Rash Ivp Dye [Iodine] Hives Seasonal Allergies Intolerance Runny nose Shellfish Derived Rash Sulfa (Sulfonamide * Hives Family History Problem Relation Age of Onset Hypertension Mother Lipids Mother No Ocular Disease Mother Cancer Father lung ca. No Ocular Disease Father Diabetes Maternal Grandmother Coronary Artery Disease Maternal Grandfather Cancer Paternal Grandfather Current Outpatient Medications Medication Sig Dispense Refill oxymetazoline (AFRIN, OXYMETAZOLINE,) 0.05 % nasal spray Use 2-3 Sprays in each nostril two times a day. Use as directed. For a maximum of 3 (three) days. 22 mL 0 albuterol HFA (PROAIR HFA) 90 mcg/actuation inhaler 2 Puffs every 6 hours as needed for wheezing/shortness of breath. Take as directed 1 Each 0 blood sugar diagnostic (RELION PRIME TEST STRIPS) test strip Use as instructed 200 Strip 2 Blood-Glucose Meter (RELION PRIME METER) 1 Each four times daily. 1 Each 0 acetaminophen (TYLENOL ORAL) Take by mouth as needed. amoxicillin-clavulanate potassium (AUGMENTIN) 875-125 mg per tablet Take 1 tablet by mouth every 12 hours for 10 days. 20 tablet 0 benzonatate (TESSALON PERLES) 100 mg capsule Take 1 capsule by mouth three times a day as needed for cough. 30 capsule 0 No current facility-administered medications for this visit. Review of Systems Constitutional: Positive for fatigue, fever and malaise/fatigue. Negative for appetite change, chills, diaphoresis and weight loss. HENT: Positive for ear pain, hoarse voice, sinus pressure, sinus pain, sore throat and tinnitus. Negative for postnasal drip, rhinorrhea, sneezing and trouble swallowing. Respiratory: Positive for cough and sputum production. Negative for hemoptysis, chest tightness, shortness of breath and wheezing. Cardiovascular: Negative for chest pain, dyspnea on exertion and PND. Gastrointestinal: Positive for nausea. Negative for abdominal pain, heartburn and vomiting. Musculoskeletal: Negative for myalgias, neck pain and neck stiffness. Skin: Negative. Neurological: Positive for dizziness and head (more content not included)... [facility] 04-03-2024 History of Presen t illness Narrative CHIEF COMPLAINT: Chang Solis is a 53 year old male who presents for an ER follow up from 03/31/2024. He started experiencing dizziness, cough, phlegm, sinus congestion and pain, thick nasal discharge, decrease appetite, ringing in his left ear, fatigue, fever of 100.3 yesterday. He was tested for Covid, flu, and RSV and was negative. He has been trying to drink more water and taking OTC cold/flu medications. He has been off work since yesterday due to his symptoms. I reviewed past medical, surgical, social, and family histories today and updated chart. Allergies, chronic medications, and supplements were also reviewed. The history is provided by the patient. URI He complains of chest tightness, cough, hoarse voice and sputum production. There is no difficulty breathing, frequent throat clearing, hemoptysis, shortness of breath or wheezing. This is a new problem. The current episode started in the past 7 days. The problem occurs constantly. The problem has been unchanged. The cough is productive of sputum. Associated symptoms include ear congestion, ear pain, a fever, headaches, malaise/fatigue, nasal congestion and a sore throat. Pertinent negatives include no appetite change, chest pain, dyspnea on exertion, heartburn, myalgias, orthopnea, PND, postnasal drip, rhinorrhea, sneezing, sweats, trouble swallowing or weight loss. His symptoms are aggravated by URI. His symptoms are alleviated by beta-agonist and OTC cough suppressant. He reports minimal improvement on treatment. There are no known risk factors for lung disease. There is no history of bronchiectasis, COPD, emphysema or pneumonia. PAST MEDICAL HISTORY Diagnosis Date Abdominal pain, left lower quadrant Acute gastritis without mention of hemorrhage Diabetes (HCC) Duodenitis without mention of hemorrhage Esophageal reflux Gastroesophageal reflux Unspecified asthma(493.90) exercise-induced PAST SURGICAL HISTORY Procedure Laterality Date APPENDECTOMY HX CHOLECYSTECTOMY HX COLONOSCOPY W/BIOPSY SINGLE/MULTIPLE 09/02/10 EGD TRANSORAL BIOPSY SINGLE/MULTIPLE 09/02/10 HERNIA REPAIR HX LAPAROSCOPY SURG CHOLECYSTECTOMY Cholecystectomy, lap RPR 1ST INGUN HRNA AGE 5 YRS/> REDUCIBLE Hernia repair, inguinal RPR 1ST INGUN HRNA AGE 5 YRS/> REDUCIBLE Hernia repair, inguinal TONSILLECTOMY HX TONSILLECTOMY PRIMARY/SECONDARY <AGE 12 Tonsillectomy Social History Tobacco Use Smoking status: Never Passive exposure: Yes Smokeless tobacco: Never Vaping Use Vaping status: Never Used Substance Use Topics Alcohol use: Not Currently Drug use: Never ALLERGIES Allergen Reactions Bactrim [Sulfametho* Hives Hand Soap [Triclosa* Rash Ivp Dye [Iodine] Hives Seasonal Allergies Intolerance Runny nose Shellfish Derived Rash Sulfa (Sulfonamide * Hives Family History Problem Relation Age of Onset Hypertension Mother Lipids Mother No Ocular Disease Mother Cancer Father lung ca. No Ocular Disease Father Diabetes Maternal Grandmother Coronary Artery Disease Maternal Grandfather Cancer Paternal Grandfather Current Outpatient Medications Medication Sig Dispense Refill oxymetazoline (AFRIN, OXYMETAZOLINE,) 0.05 % nasal spray Use 2-3 Sprays in each nostril two times a day. Use as directed. For a maximum of 3 (three) days. 22 mL 0 albuterol HFA (PROAIR HFA) 90 mcg/actuation inhaler 2 Puffs every 6 hours as needed for wheezing/shortness of breath. Take as directed 1 Each 0 blood sugar diagnostic (RELION PRIME TEST STRIPS) test strip Use as instructed 200 Strip 2 Blood-Glucose Meter (RELION PRIME METER) 1 Each four times daily. 1 Each 0 acetaminophen (TYLENOL ORAL) Take by mouth as needed. amoxicillin-clavulanate potassium (AUGMENTIN) 875-125 mg per tablet Take 1 tablet by mouth every 12 hours for 10 days. 20 tablet 0 benzonatate (TESSALON PERLES) 100 mg capsule Take 1 capsule by mouth three times a day as needed for cough. 30 capsule 0 No current facility-administered medications for this visit. Review of Systems Constitutional: Positive for fatigue, fever and malaise/fatigue. Negative for appetite change, chills, diaphoresis and weight loss. HENT: Positive for ear pain, hoarse voice, sinus pressure, sinus pain, sore throat and tinnitus. Negative for postnasal drip, rhinorrhea, sneezing and trouble swallowing. Respiratory: Positive for cough and sputum production. Negative for hemoptysis, chest tightness, shortness of breath and wheezing. Cardiovascular: Negative for chest pain, dyspnea on exertion and PND. Gastrointestinal: Positive for nausea. Negative for abdominal pain, heartburn and vomiting. Musculoskeletal: Negative for myalgias, neck pain and neck stiffness. Skin: Negative. Neurological: Positive for dizziness and headaches. BP 120/74 Pulse 107 Temp 97.5 Resp 16 Ht 5' 10.5 (1.79m) Wt 237 lb (107.5kg) SpO2 98% BMI 33.51 kg/(m^2). Physical Exam Vitals and nursing note reviewed. Constitutional: General: He is not in acute distress. Appearance: He is ill-appearing. HENT: Head: Normocephalic. Right Ear: Tympanic membrane, ear canal and external ear normal. Left Ear: Tympanic membrane, ear canal and external ear normal. Nose: Nasal tenderness and mucosal edema present. Right Sinus: Maxillary sinus tenderness present. Left Sinus: Maxillary sinus tenderness present. Mouth/Throat: Mouth: Mucous membranes are moist. Pharynx: Oropharynx is clear. Uvula midline. No oropharyngeal exudate or posterior oropharyngeal erythema. Eyes: Pupils: Pupils are equal, round, and reactive to light. Neck: Thyroid: No thyromegaly. Cardiovascular: Rate and Rhythm: Regular rhythm. Tachycardia present. Heart sounds: Normal heart sounds, S1 normal and S2 normal. Pulmonary: Effort: Pulmonary effort is normal. Breath sounds: Normal breath sounds and air entry. Musculoskeletal: Cervical back: Neck supple. Skin: General: Skin is warm and dry. Neurological: Mental Status: He is alert and oriented to person, place, and time. Psychiatric: Mood and Affect: Mood normal. Speech: Speech normal. Behavior: Behavior is cooperative. Cognition and Memory: Cognition normal. No visits with results within 1 Day(s) from this visit. Latest known visit with results is: Admission on 03/31/2024, Discharged on 03/31/2024 Component Date Value Ref Range Status SARS-CoV-2 (Agent of COVID-19) RNA 03/31/2024 Not detected See comment Final Influenza A RNA 03/31/2024 Not detected Not Detected Final Influenza B RNA 03/31/2024 Not detected Not Detected Final Respiratory syncytial virus (RSV) * 03/31/2024 Not detected Not Detected Final ASSESSMENT/PLAN: 1. URI, acute - ICD9: 465.9, ICD10: J06.9 (primary diagnosis) - Symptomatic treatment with prn analgesia - Supportive care with fluids and rest - The patient may also use OTC decongestants prn. - Follow up in 3-5 days if symptoms persist or sooner if worsening of symptoms - AMOXICILLIN 875 MG-POTASSIUM CLAVULANATE 125 MG TABLET 2. Acute cough - ICD9: 786.2, ICD10: R05.1 - BENZONATATE 100 MG CAPSULE 3. Acute maxillary sinusitis, recurrence not specified - ICD9: 461.0, ICD10: J01.00 - Will begin treatment with Augmentin 875 mg PO BID for 10 days - The patient should also be given OTC decongestants prn and warm salt water gargles, throat lozenges and/or OTC throat spray as needed for the first 5-7 days of treatment. - Supportive care with plenty of fluids, rest, and analgesia prn. - Follow up in 3-5 days if symptoms persist or worsen. New medication(s) prescribed today: Yes: Augmentin and Tessalon perles. Discussed new medication dosage, usage, goals of therapy, and side effects. Patient has been apprised of any potential drug interactions to be aware of. Patient expresses understanding. Counseling completed in adopting health behaviors such as avoiding excessive alcohol use, avoid tobacco use, improve nutrition, and engage in physical activities. Copy of written care plan, clinical summary, treatment plan, new medications, goals, and self management requirements were given to patient. Tiffany Chavez APRN.CNP documented in this encounter [facility] 03-31-2024 Note SARS-COV-2 (AGENT OF COVID-19) RNA: Not detected INFLUENZA A RNA: Not detected INFLUENZA B RNA: Not detected RESPIRATORY SYNCYTIAL VIRUS (RSV) RNA: Not detected [facility] Comment on above: Performed By: #### [id number] ####[facility]ORATORYCLIA [id number] [address] 03-30-2024 Note HNO ID: [id number] Author: SONDRA GRAY PTA Service: ? Author Type: Valve Seater Operator Type: Progress Notes Filed: 03/30/2024 13:41 Note Text: Episode Visit Count: 3 Therapist That Will Accept/Oversee The Plan Of Care: Bentley Al Start of Care Date: 03/12/24 Onset Date: 01/19/24 Plan of Care Certification Date: 03/12/24 Next Certification Due Date: 05/11/24 Patient Identified by Name and Date of : Yes REHABILITATION AND SPORTS THERAPY PHYSICAL THERAPY TREATMENT NOTE ASSESSMENT: Chang Solis tolerated the session with expected muscle soreness. He had some midline low back discomfort with lower trunk rotations and also when lifting crate from floor. Reviewed HEP and discussed proper body mechanics when lifting. Instructed to continue with HEP. Progressing towards goals. The patient will continue to benefit from ongoing skilled physical therapy to progress toward set goals. PLAN FOR NEXT VISIT: continue to progress hip core stability SUBJECTIVE: Pt reports did not work this week so he feels ok. Though he did do some lifting yesterday 10lb- 30 lbs and started feeling it. Pain: Pain Pain Level: 0 Pain Location: Low Back/Lumbar Spine- Midline Post Treatment Pain Post Treatment Pain Level: No Change OBJECTIVE MEASURES WITH LEVEL OF FUNCTION: Posture/alignment: forward head, rounded shoulders TREATMENT: Therapeutic Exercise: 1: Nu step L4. 5 min AROM 2: standing hamstring stretch on step 3x 15 sec. 3: gastroc stretch on incline 2x 30 sec. 4: figure 4 rotations 10 sec x 4 5: SLR 10x 6: bridge with hip ADD vs ball 12x 7: LTR 5x 10sec. 8: hooklying PPT with horizontal greentband abd 15x 9: hooklying PPT static hold green tband horizontal abd with marching 15x 10: standing hip abd 12x Skilled Intervention: Patient was educated in proper exercise technique and purpose for exercises. Skilled judgment was used in selection of appropriate interventions. Correct performance of therapeutic exercises was facilitated with verbal cuing. Therapeutic Activity: 1: 20# box carry 150ft 2: 20# box lift floor to waist 10x withy proper body mechanics Skilled Intervention: Proper patient guarding to prevent falls/increase patient safety with supervision to assist patient while performing lifting and carrying activity. Instructed on proper lifting and carrying techniques with importance of core activation. Billing Therapeutic Exercise Treatment Minutes: 38 Therapeutic Activity Treatment Minutes: 5 Skilled Treatment Time Minutes (timed and untimed codes): 43 Total Session Time (minutes): 43 Session Start Time : 1230 Session Stop Time : 1313 Sondra Gray [facility] 03-30-2024 History of Presen t illness Narrative Episode Visit Count: 3 Therapist That Will Accept/Oversee The Plan Of Care: Bentley Al Start of Care Date: 03/12/24 Onset Date: 01/19/24 Plan of Care Certification Date: 03/12/24 Next Certification Due Date: 05/11/24 Patient Identified by Name and Date of : Yes REHABILITATION AND SPORTS THERAPY PHYSICAL THERAPY TREATMENT NOTE ASSESSMENT: Chang Solis tolerated the session with expected muscle soreness. He had some midline low back discomfort with lower trunk rotations and also when lifting crate from floor. Reviewed HEP and discussed proper body mechanics when lifting. Instructed to continue with HEP. Progressing towards goals. The patient will continue to benefit from ongoing skilled physical therapy to progress toward set goals. PLAN FOR NEXT VISIT: continue to progress hip core stability SUBJECTIVE: Pt reports did not work this week so he feels ok. Though he did do some lifting yesterday 10lb- 30 lbs and started feeling it. Pain: Pain Pain Level: 0 Pain Location: Low Back/Lumbar Spine- Midline Post Treatment Pain Post Treatment Pain Level: No Change OBJECTIVE MEASURES WITH LEVEL OF FUNCTION: Posture/alignment: forward head, rounded shoulders TREATMENT: Therapeutic Exercise: 1: Nu step L4. 5 min AROM 2: standing hamstring stretch on step 3x 15 sec. 3: gastroc stretch on incline 2x 30 sec. 4: figure 4 rotations 10 sec x 4 5: SLR 10x 6: bridge with hip ADD vs ball 12x 7: LTR 5x 10sec. 8: hooklying PPT with horizontal greentband abd 15x 9: hooklying PPT static hold green tband horizontal abd with marching 15x 10: standing hip abd 12x Skilled Intervention: Patient was educated in proper exercise technique and purpose for exercises. Skilled judgment was used in selection of appropriate interventions. Correct performance of therapeutic exercises was facilitated with verbal cuing. Therapeutic Activity: 1: 20# box carry 150ft 2: 20# box lift floor to waist 10x withy proper body mechanics Skilled Intervention: Proper patient guarding to prevent falls/increase patient safety with supervision to assist patient while performing lifting and carrying activity. Instructed on proper lifting and carrying techniques with importance of core activation. Billing Therapeutic Exercise Treatment Minutes: 38 Therapeutic Activity Treatment Minutes: 5 Skilled Treatment Time Minutes (timed and untimed codes): 43 Total Session Time (minutes): 43 Session Start Time : 1230 Session Stop Time : 1313 Sondra Gray PTA documented in this encounter [facility] 03-20-2024 History of Presen t illness Narrative Program_ID:[id number] Access Code: [email or web address] URL: [email or web address] Date: 03-20-2024 Prepared By: Bentley Al Program Notes Exercises - Supine Lower Trunk Rotation - 1 x daily - 7 x weekly - sets -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 change, chills, diaphoresis, fatigue, fever and unexpected weight change. Eyes: Negative for visual disturbance. Respiratory: Negative for cough, chest tightness, shortness of breath and wheezing. Cardiovascular: Negative. Gastrointestinal: Negative. Genitourinary: Negative. Musculoskeletal: Positive for neck stiffness (intermittent). Negative for arthralgias, back pain and joint swelling. Neurological: Negative for dizziness, syncope, light-headedness and headaches. BP 122/70 Pulse 86 Temp 98 Resp 16 Ht 5' 10.5 (1.79m) Wt 231 lb (104.8kg) SpO2 100% BMI 32.67 kg/(m^2). Physical Exam Vitals and nursing note reviewed. Constitutional: Appearance: Normal appearance. He is obese. HENT: Head: Normocephalic. Mouth/Throat: Mouth: Mucous membranes are moist. Pharynx: Oropharynx is clear. Eyes: Pupils: Pupils are equal, round, and reactive to light. Cardiovascular: Rate and Rhythm: Normal rate and regular rhythm. Heart sounds: Normal heart sounds. Pulmonary: Breath sounds: Normal breath sounds. Musculoskeletal: Cervical back: Neck supple. Lymphadenopathy: Cervical: No cervical adenopathy. Skin: General: Skin is warm and dry. Neurological: Mental Status: He is alert and oriented to person, place, and time. Psychiatric: Mood and Affect: Mood normal. Behavior: Behavior normal. No visits with results within 1 Day(s) from this visit. Latest known visit with results is: Admission on 08/20/2023, Discharged on 08/21/2023 Component Date Value Ref Range Status WBC 08/21/2023 6.19 3.70 - 11.00 k/uL Final RBC 08/21/2023 4.49 4.20 - 6.00 m/uL Final Hemoglobin 08/21/2023 14.1 13.0 - 17.0 g/dL Final Hematocrit 08/21/2023 40.5 39.0 - 51.0 % Final MCV 08/21/2023 90.2 80.0 - 100.0 fL Final MCH 08/21/2023 31.4 26.0 - 34.0 pg Final MCHC 08/21/2023 34.8 30.5 - 36.0 g/dL Final RDW-CV 08/21/2023 12.6 11.5 - 15.0 % Final Platelet Count 08/21/2023 205 150 - 400 k/uL Final MPV 08/21/2023 10.1 9.0 - 12.7 fL Final Absolute nRBC 08/21/2023 <0.01 <0.01 k/uL Final Glucose 08/21/2023 133 (H) 74 - 99 mg/dL Final The [place] Diabetes [employer] (ADA) provides guidance for cutoff values for fasting glucose and random glucose. The ADA defines fasting as no caloric intake for at least 8 hours. Fasting plasma glucose results between 100 to 125 mg/dL indicate increased risk for diabetes (prediabetes). Fasting plasma glucose results greater than or equal to 126 mg/dL meet the criteria for diagnosis of diabetes. In the absence of unequivocal hyperglycemia, results should be confirmed by repeat testing. In a patient with classic symptoms of hyperglycemia or hyperglycemic crisis, random plasma glucose results greater than or equal to 200 mg/dL meet the criteria for diagnosis of diabetes. Reference: Standards of Medical Care in Diabetes 2016, [place] [employer]. Diabetes Care. 2016.39(Suppl 1). BUN 08/21/2023 13 9 - 24 mg/dL Final Creatinine 08/21/2023 1.00 0.73 - 1.22 mg/dL Final Sodium 08/21/2023 137 136 - 144 mmol/L Final Potassium 08/21/2023 4.4 3.7 - 5.1 mmol/L Final Chloride 08/21/2023 104 97 - 105 mmol/L Final CO2 08/21/2023 23 22 - 30 mmol/L Final Anion Gap 08/21/2023 10 9 - 18 mmol/L Final Calcium, Total 08/21/2023 8.5 8.5 - 10.2 mg/dL Final Estimated Glomerular Filtration Ra* 08/21/2023 91 >=60 mL/min/1.73m Final Estimated Glomerular Filtration Rate (eGFR) is calculated using the 2020 CKD-EPI creatinine equation. This equation utilizes serum creatinine, sex, and age as parameters. The creatinine assay has traceable calibration to isotope dilution-mass spectrometry. Refer to KDIGO guidelines for clinical interpretation. In patients with unstable renal function, e.g. those with acute kidney injury, the eGFR may not accurately reflect actual GFR. ASSESSMENT/PLAN: 1. Influenza A - ICD9: 487.1, ICD10: J10.1 (primary diagnosis) - Resolved 2. Tachycardia - ICD9: 785.0, ICD10: R00.0 - Resolved 3. Muscle soreness - ICD9: 729.1, ICD10: M79.10 - Improving, OTC analgesia prn New medication(s) prescribed today: None. Counseling completed in adopting health behaviors such as avoiding excessive alcohol use, avoid tobacco use, improve nutrition, and engage in physical activities. Copy of written care plan, clinical summary, treatment plan, new medications, goals, and self management requirements were given to patient. Tiffany Chavez APRN.CNP documented in this encounter [facility] 08-30-2023 Miscellaneous Notes No Show Documentation Chang Solis no showed for an appointment on 08/30/2023 with Tiffany Chavez APRN.CNP at 4:00 pm. He was scheduled for Emergency room follow up and neck pain. I called and left a message for the patient regarding his missed appointment, told him to call the office if he needs to reschedule. Resources discussed/offered to patient: na No show determined to be fault of patient: Yes This is the patients second no show in the last 12 months. Patient was rescheduled for na. Letter sent thru [facility] : Yes Is this the Third or Fourth No Show? No Linn Martin August 30, 2023 4:25 PM documented in this encounter [facility] 08-25-2023 Miscellaneous Notes Faxed Marie Bah MA Pt called back with work fax number [phone] Attention to: Staci Pt states if may take multiple times of sending it before fax will go through because of the way the fax machine is set up at work. Placed letter on your desk. Nichol Erazo MA Letter printed. I can sign it tomorrow. Patient notified and states he needs note for work until Tuesday. Pt. Will call back with fax number for his work. Please write . Thanks. erythromycin Tried to call patient, no answer and not able to leave message. Tahira Rosales MA If he isolates from her or wears a mask the risk is low that he would get it but typically you are contagious the first 5 days after symptom onset or if you have had a fever within the last 24 hours. He can stay off the rest of this week and return next Tuesday if he feels up to it. Patient has influenza and was in the hospital 08/19 has been off work since. He lives with his mother and she has now tested positive also. 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 Would like to know since his mom has it now is he going to get it again. Please advise. Tahira Rosales MA documented in this encounter [facility] 08-22-2023 Note HNO ID: [id number] Author: SARAH GARCIA RN Service: ? Author Type: Registered Nurse Type: Progress Notes Filed: 08/22/2023 12:37 Note Text: TRANSITIONAL CARE MANAGEMENT (TCM) COMMUNITY MONITORING PROGRAM - [facility] Provider Action/FYI: SUMMARY: Pt discharged from [facility] on 08/21/23. Admitted for: Influenza A Patient seen Inpatient PATY Visit? No. Patient seen ICARE Program? No. Contact made with patient: Yes Hi my name is Sarah Garica RN and I am calling from the [facility] on behalf of your PCP, Tiffany Chavez APRN.MONKEY KEEPER I understand you were recently in the hospital so I am calling to check in with you to ensure you are feeling well now that you?re home. Do you mind if I ask you a few questions related to your hospital stay and well-being Yes Contact with patient post discharge, spoke to patient. Patient identified by name and . Do you feel your health is BETTER, WORSE, or the SAME since leaving the hospital? Same ACTION TAKEN: Patient indicated symptoms are better or same, no action required. Continue outreach. N/A MEDICATIONS: Many patients have questions or concerns about their medications once they are home. Do you have any questions about taking your medications or which medication you should be on? No Do you need any medication refills at this time, including any of the medications you might take only when needed? No ACTION TAKEN: No action required For RNs or Pharmacy completing outreach ONLY, was a medication review completed? Yes Current/Discharged Medications reviewed: Yes Medication List Medication Directions Comments Action/Plan acetaminophen (TYLENOL ORAL) Take by mouth as needed. Discontinued: 08/20/2023 3:51 PM albuterol HFA (PROAIR HFA) 90 mcg/actuation inhaler 2 Puffs every 6 hours as needed for wheezing/shortness of breath. Take as directed blood sugar diagnostic (RELION PRIME TEST STRIPS) test strip Use as instructed Blood-Glucose Meter (RELION PRIME METER) 1 Each four times daily. Discontinued: 08/20/2023 3:51 PM Discontinued: 08/20/2023 3:51 PM Discontinued: 08/20/2023 3:51 PM Discontinued: 08/20/2023 3:51 PM Discontinued: 08/20/2023 3:51 PM Discontinued: 08/20/2023 3:51 PM Discontinued: 08/20/2023 3:51 PM Discontinued: 08/20/2023 3:51 PM Discontinued: 08/20/2023 3:51 PM ondansetron (ZOFRAN) 4 mg tablet Take 1 tablet by mouth every 8 hours as needed for nausea/vomiting. oseltamivir (TAMIFLU) 75 mg capsule Take 1 capsule by mouth two times a day for 7 doses. Discontinued: 08/20/2023 3:51 PM SOCIAL: We would like to make sure you have what you need so that your basics needs are met - including your personal safety. HEALTH LEADS SCREENING TOOL QUESTIONS: Do you often feel you lack companionship? No Do you ever need help reading or understanding hospital materials? No In the last 12 months, have you changed how you take medications to save money? No In the past 12 months, has lack of transportation kept you from medical appointments, work or getting things you need like food, or supplies? No In the last 12 months, did you ever eat less than you felt you should because there wasn't enough money for food? No During the winter, do you anticipate having a problem paying your heating bill? No In the next 2 months, are you worried you might not have stable housing? No Would you like to speak with a social work contact center team lead to help give you support for any of these needs? No It can be normal to feel anxious or down during a time like this. Would you like to talk to a mental health professional about how you have been feeling? No ACTION TAKEN: No action taken DISCHARGE INTRUCTIONS: Your discharge instructions / After Visit Summary (AVS) are important in guiding you through the recovery process. Do you have any questions related to your discharge instructions? No Do you have all the necessary equipment and supplies at home? NA ACTION TAKEN: No action required WRAP AROUND SERVICES: N/A Patient educated on importance of primary care provider follow up visit as well as specialty provider follow up visits as indicated. Inform the patient that if they have any questions or concerns prior to that appointment, to call their Primary Care Provider 's office right away. Primary care provider first education provided. I would like to help you schedule a hospital follow-up virtual or telephone visit with your PCP. ACTION TAKEN: TCM Primary Care Provider Visit Scheduled: Yes - Appt date: 08/30/23 with PCP Your doctor would like us to remind you of the recommendations regarding the coronavirus (Covid19) outbreak: Avoid public places as much as possible. Avoid close contact (within 6 feet) with others you don't live with, especially if they are sick. Stay home if you are sick. Wash your hands regularly for at least 20 seconds with soap and water. Wear a cloth mask in public places to help (more content not included)... [facility] 08-22-2023 History of Presen t illness Narrative TRANSITIONAL CARE MANAGEMENT (TCM) COMMUNITY MONITORING PROGRAM - [place] Provider Action/FYI: SUMMARY: Pt discharged from [facility] on 08/21/23. Admitted for: Influenza A Patient seen Inpatient PATY Visit? No. Patient seen ICARE Program? No. Contact made with patient: Yes Hi my name is Sarah Garcia RN and I am calling from the [facility] on behalf of your PCP, Tiffany Chavez APRN.MONKEY KEEPER I understand you were recently in the hospital so I am calling to check in with you to ensure you are feeling well now that you re home. Do you mind if I ask you a few questions related to your hospital stay and well-being Yes Contact with patient post discharge, spoke to patient. Patient identified by name and . Do you feel your health is BETTER, WORSE, or the SAME since leaving the hospital? Same ACTION TAKEN: Patient indicated symptoms are better or same, no action required. Continue outreach. N/A MEDICATIONS: Many patients have questions or concerns about their medications once they are home. Do you have any questions about taking your medications or which medication you should be on? No Do you need any medication refills at this time, including any of the medications you might take only when needed? No ACTION TAKEN: No action required For RNs or Pharmacy completing outreach ONLY, was a medication review completed? Yes Current/Discharged Medications reviewed: Yes Medication List Medication Directions Comments Action/Plan acetaminophen (TYLENOL ORAL) Take by mouth as needed. Discontinued: 08/20/2023 3:51 PM albuterol HFA (PROAIR HFA) 90 mcg/actuation inhaler 2 Puffs every 6 hours as needed for wheezing/shortness of breath. Take as directed blood sugar diagnostic (RELION PRIME TEST STRIPS) test strip Use as instructed Blood-Glucose Meter (RELION PRIME METER) 1 Each four times daily. Discontinued: 08/20/2023 3:51 PM Discontinued: 08/20/2023 3:51 PM Discontinued: 08/20/2023 3:51 PM Discontinued: 08/20/2023 3:51 PM Discontinued: 08/20/2023 3:51 PM Discontinued: 08/20/2023 3:51 PM Discontinued: 08/20/2023 3:51 PM Discontinued: 08/20/2023 3:51 PM Discontinued: 08/20/2023 3:51 PM ondansetron (ZOFRAN) 4 mg tablet Take 1 tablet by mouth every 8 hours as needed for nausea/vomiting. oseltamivir (TAMIFLU) 75 mg capsule Take 1 capsule by mouth two times a day for 7 doses. Discontinued: 08/20/2023 3:51 PM SOCIAL: We would like to make sure you have what you need so that your basics needs are met - including your personal safety. HEALTH LEADS SCREENING TOOL QUESTIONS: Do you often feel you lack companionship? No Do you ever need help reading or understanding hospital materials? No In the last 12 months, have you changed how you take medications to save money? No In the past 12 months, has lack of transportation kept you from medical appointments, work or getting things you need like food, or supplies? No In the last 12 months, did you ever eat less than you felt you should because there wasn't enough money for food? No During the winter, do you anticipate having a problem paying your heating bill? No In the next 2 months, are you worried you might not have stable housing? No Would you like to speak with a social work contact center team lead to help give you support for any of these needs? No It can be normal to feel anxious or down during a time like this. Would you like to talk to a mental health professional about how you have been feeling? No ACTION TAKEN: No action taken DISCHARGE INTRUCTIONS: Your discharge instructions / After Visit Summary (AVS) are important in guiding you through the recovery process. Do you have any questions related to your discharge instructions? No Do you have all the necessary equipment and supplies at home? NA ACTION TAKEN: No action required WRAP AROUND SERVICES: N/A Patient educated on importance of primary care provider follow up visit as well as specialty provider follow up visits as indicated. Inform the patient that if they have any questions or concerns prior to that appointment, to call their Primary Care Provider 's office right away. Primary care provider first education provided. I would like to help you schedule a hospital follow-up virtual or telephone visit with your PCP. ACTION TAKEN: TCM Primary Care Provider Visit Scheduled: Yes - Appt date: 08/30/23 with PCP Your doctor would like us to remind you of the recommendations regarding the coronavirus (Covid19) outbreak: Avoid public places as much as possible. Avoid close contact (within 6 feet) with others you don't live with, especially if they are sick. Stay home if you are sick. Wash your hands regularly for at least 20 seconds with soap and water. Wear a cloth mask in public places to help reduce community spread. Do not go to your Doctor's office unless instructed to do so. For any non-emergency symptoms, call your Doctor's office to get instructions on how to manage (we might recommend a telephone or virtual visit). For emergency symptoms, proceed to Emergency Department as usual but inform them of cough and fever symptoms RICH if present (or call on the way if possible). documented in this encounter [facility] 08-22-2023 Note Patient Outreach (AG ACM) CHANG SOLIS ([id number]) 1970 M Date Time Provider Department 08/22/23 SARAH GARCIA During your visit today, we recorded the following information about you: Sarah Garcia, RN 08/22/2023 12:37 PM Signed TRANSITIONAL CARE MANAGEMENT (TCM) COMMUNITY MONITORING PROGRAM - [facility] Provider Action/FYI: SUMMARY: Pt discharged from [facility] on 08/21/23. Admitted for: Influenza A Patient seen Inpatient PATY Visit? No. Patient seen ICARE Program? No. Contact made with patient: Yes Hi my name is Sarah Garcia RN and I am calling from the [facility] on behalf of your PCP, Tiffany Chavez APRN.MONKEY KEEPER I understand you were recently in the hospital so I am calling to check in with you to ensure you are feeling well now that you?re home. Do you mind if I ask you a few questions related to your hospital stay and well-being Yes Contact with patient post discharge, spoke to patient. Patient identified by name and . Do you feel your health is BETTER, WORSE, or the SAME since leaving the hospital? Same ACTION TAKEN: Patient indicated symptoms are better or same, no action required. Continue outreach. N/A MEDICATIONS: Many patients have questions or concerns about their medications once they are home. Do you have any questions about taking your medications or which medication you should be on? No Do you need any medication refills at this time, including any of the medications you might take only when needed? No ACTION TAKEN: No action required For RNs or Pharmacy completing outreach ONLY, was a medication review completed? Yes Current/Discharged Medications reviewed: Yes Medication List Medication Directions Comments Action/Plan acetaminophen (TYLENOL ORAL) Take by mouth as needed. Discontinued: 08/20/2023 3:51 PM albuterol HFA (PROAIR HFA) 90 mcg/actuation inhaler 2 Puffs every 6 hours as needed for wheezing/shortness of breath. Take as directed blood sugar diagnostic (RELION PRIME TEST STRIPS) test strip Use as instructed Blood-Glucose Meter (RELION PRIME METER) 1 Each four times daily. Discontinued: 08/20/2023 3:51 PM Discontinued: 08/20/2023 3:51 PM Discontinued: 08/20/2023 3:51 PM Discontinued: 08/20/2023 3:51 PM Discontinued: 08/20/2023 3:51 PM Discontinued: 08/20/2023 3:51 PM Discontinued: 08/20/2023 3:51 PM Discontinued: 08/20/2023 3:51 PM Discontinued: 08/20/2023 3:51 PM ondansetron (ZOFRAN) 4 mg tablet Take 1 tablet by mouth every 8 hours as needed for nausea/vomiting. oseltamivir (TAMIFLU) 75 mg capsule Take 1 capsule by mouth two times a day for 7 doses. Discontinued: 08/20/2023 3:51 PM SOCIAL: We would like to make sure you have what you need so that your basics needs are met - including your personal safety. HEALTH LEADS SCREENING TOOL QUESTIONS: Do you often feel you lack companionship? No Do you ever need help reading or understanding hospital materials? No In the last 12 months, have you changed how you take medications to save money? No In the past 12 months, has lack of transportation kept you from medical appointments, work or getting things you need like food, or supplies? No In the last 12 months, did you ever eat less than you felt you should because there wasn't enough money for food? No During the winter, do you anticipate having a problem paying your heating bill? No In the next 2 months, are you worried you might not have stable housing? No Would you like to speak with a social work contact center team lead to help give you support for any of these needs? No It can be normal to feel anxious or down during a time like this. Would you like to talk to a mental health professional about how you have been feeling? No ACTION TAKEN: No action taken DISCHARGE INTRUCTIONS: Your discharge instructions / After Visit Summary (AVS) are important in guiding you through the recovery process. Do you have any questions related to your discharge instructions? No Do you have all the necessary equipment and supplies at home? NA ACTION TAKEN: No action required WRAP AROUND SERVICES: N/A Patient educated on importance of primary care provider follow up visit as well as specialty provider follow up visits as indicated. Inform the patient that if they have any questions or concerns prior to that appointment, to call their Primary Care Provider 's office right away. Primary care provider first education provided. I would like to help you schedule a hospital follow-up virtual or telephone visit with your PCP. ACTION TAKEN: TCM Primary Care Provider Visit Scheduled: Yes - Appt date: 08/30/23 with PCP Your doctor would like us to remind you of the recommendations regarding the coronavirus (Covid19) outbreak: Avoid public places as much as possible. Avoid close contact (within 6 feet) with others you don't live with (more content not included)... [facility] 08-21-2023 Note HNO ID: [id number] Author: LAILA RO RN Service: Care Management Author Type: Registered Nurse Type: Care Mgt Progress Note Filed: 08/21/2023 13:30 Note Text: CARE MANAGEMENT DISCHARGE NOTE SERVICE DATE: August 21, 2023 SERVICE TIME: 1:28 PM Admission Date: 08/20/2023 LOS: 0 days Discharge Arrangement Discharge Arrangement: Home with Self Care Caregiver Assessment Caregiver is ready, willing and able to meet the patient's needs as recommended by the inter-professional team: No Caregiver needed Transportation Arrangements Transportation Arrangements: Car Date of Trip: 08/21/23 Handoff Communication: Handoff to: Primary Care Physician Primary Care Physician Name/Phone: Tiffany Chavez APRN.CNP/[phone] Discharge Time Out Yes Bedside RN present No Does pt have transport home? Yes Did pt use bedside pharmacy? No Discharge order is written. No skilled needs identified. The patient is uninsured. Good Rx discount vouchers provided for home going meds. The patient's mother will be driving him home. SIGNATURE: Laila Ro RN PATIENT NAME: Chang Solis DATE: August 21, 2023 TIME: 1:28 PM CONTACT #: [phone] [facility] 08-21-2023 Note HNO ID: [id number] Author: LAILA RO RN Service: Care Management Author Type: Registered Nurse Type: Care Mgt Initial Assessment Filed: 08/21/2023 13:28 Note Text: CARE MANAGEMENT: ASSESSMENT AND DISCHARGE PLAN SERVICE DATE: August 21, 2023 SERVICE TIME: 1:26 PM PCP: Tiffany Chavez APRN.CNP Primary Contact: Extended Emergency Contact Information Primary Emergency Contact: Marcela Barrios Address: [address] [place] [address] Relation: Mother Admission Status: Observation Insurance Provider: N/A Discharge Planning requested by: Per Department Practice Potential Transition Plans No Services Indicated Advance Directives Current Advance Directive: None News Production Assistant Attempted to Assist with AD Completion: Yes Action: Patient Unwilling Current Living Arrangements and Support Lives with: Alone Type of Residence: Mobile Home Does the patient have to climb stairs at home?: stairs outside the home Support: Parent How do you manage to accomplish the following: Independent: Ambulation;Bathe/Shower;Meals/Me al Prep;Dress;Going to the bathroom;Medication Management Current Services/Equipment Current Post-Acute Service(s): None Discharge Planning Patient Goal(s): Be able to go home, General wellness [place] Explained: [place] Given: No Reason Not Given: No placements necessary Are you interested in bedside delivery of your medications? No, preferred community Pharmacy is [facility]. Discharge Planning Participant(s): Patient Caregiver Assessment: Caregiver is ready, willing and able to meet the patient's needs as recommended by the inter-professional team: No Caregiver needed Transport at Discharge: Transportation Arrangements: Car Date of Trip: 08/21/23 Needs Prior to Discharge: Needs Prior to Discharge: None;Ready for Discharge Post-Acute Discharge Plan: EMR reviewed and CM assessment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 REDUCIBLE Hernia repair, inguinal TONSILLECTOMY HX TONSILLECTOMY PRIMARY/SECONDARY <AGE 12 Tonsillectomy ALLERGIES Bactrim [Sulfamethoxazole-Trimethoprim], Hand Creams [Other], Hand Soap [Triclosan], Ivp Dye [Iodine], Seasonal Allergies, Shellfish Derived, and Sulfa (Sulfonamide Antibiotics) MEDICATIONS omeprazole (PRILOSEC) 40 mg capsule Take 1 capsule by mouth once daily. meclizine (ANTIVERT) 25 mg tab Take 1 tablet by mouth three times daily. metFORMIN ER (GLUCOPHAGE XR) 500 mg 24 hr tablet Take 2 tablets by mouth once daily. pravastatin (PRAVACHOL) 20 mg tablet Take 1 tablet by mouth daily at bedtime. cetirizine-pseudoephedrine (ZYRTEC-D) 5-120 mg per tablet Take 1 tablet by mouth twice daily as needed. meclizine (ANTIVERT) 25 mg tab Take 0.5-1 tablets by mouth three times daily as needed (dizziness). albuterol HFA (PROAIR HFA) 90 mcg/actuation inhaler Inhale 2 Puffs as instructed every 4 hours as needed for wheezing/shortness of breath. guaiFENesin (MUCINEX) 600 mg 12 hr tablet Take 1 tablet by mouth twice daily. fluticasone (FLONASE ALLERGY RELIEF) 50 mcg/actuation nasal spray Use 1 [place] in each nostril once daily. Lancets lancets Use as instructed blood sugar diagnostic (RELION PRIME TEST STRIPS) test strip Use as instructed Blood-Glucose Meter (RELION PRIME METER) 1 Each four times daily. acetaminophen (TYLENOL ORAL) Take by mouth as needed. FAMILY HISTORY Problem Relation Age of Onset Hypertension Mother Lipids Mother No Ocular Disease Mother Cancer Father lung ca. No Ocular Disease Father Diabetes Maternal Grandmother Coronary Artery Disease Maternal Grandfather Cancer Paternal Grandfather Social History Tobacco Use Smoking status: Never Passive exposure: Yes Smokeless tobacco: Never Vaping Use Vaping Use: Never used Substance Use Topics Alcohol use: No Drug use: No Review of Systems Constitutional: Negative for appetite change, chills, fatigue, fever and unexpected weight change. HENT: Positive for ear pain, postnasal drip, rhinorrhea and sore throat. Negative for congestion. Eyes: Negative for pain, discharge, itching and visual disturbance. Respiratory: Positive for cough. Negative for shortness of breath and wheezing. Cardiovascular: Negative for chest pain, palpitations and leg swelling. Gastrointestinal: Negative for abdominal pain, constipation, diarrhea, nausea and vomiting. Genitourinary: Negative for difficulty urinating. Musculoskeletal: Negative for arthralgias. Skin: Negative for rash. Neurological: Positive for dizziness. Negative for tremors, weakness and headaches. Psychiatric/Behavioral: Negative for dysphoric mood and sleep disturbance. The patient is not nervous/anxious. Objective BP 126/60 Pulse 97 Temp 36.6 C (97.8 F) Ht 179.1 cm (5' 10.5) Wt 107.5 kg (237 lb) SpO2 98% BMI 33.53 kg/m Physical Exam Constitutional: General: He is not in acute distress. Appearance: He is well-developed. He is not toxic-appearing. HENT: Head: Normocephalic and atraumatic. Right Ear: Hearing, tympanic membrane, ear canal and external ear normal. No drainage. Tympanic membrane is not injected or bulging. Left Ear: Hearing, ear canal and external ear normal. No drainage. A middle ear effusion is present. Tympanic membrane is injected. Tympanic membrane is not bulging. Nose: Rhinorrhea present. No mucosal edema. Mouth/Throat: Lips: [place]. Mouth: Mucous membranes are moist. No oral lesions. Pharynx: Oropharynx is clear. Uvula midline. No oropharyngeal exudate or posterior oropharyngeal erythema. Eyes: General: Lids are normal. Right eye: No discharge. Left eye: No discharge. Conjunctiva/sclera: Conjunctivae normal. Pupils: Pupils are equal, round, and reactive to light. Cardiovascular: Rate and Rhythm: Normal rate and regular rhythm. Heart sounds: Normal heart sounds. No murmur heard. Pulmonary: Effort: Pulmonary effort is normal. Breath sounds: Normal breath sounds. No wheezing, rhonchi or rales. Musculoskeletal: Cervical back: Normal range of motion and neck supple. Lymphadenopathy: Head: Right side of head: No tonsillar, preauricular or posterior auricular adenopathy. Left side of head: No tonsillar, preauricular or posterior auricular adenopathy. Cervical: No cervical adenopathy. Upper Body: Right upper body: No supraclavicular adenopathy. Left upper body: No supraclavicular adenopathy. Skin: General: Skin is warm and dry. Findings: No bruising or rash. Neurological: General: No focal deficit present. Mental Status: He is alert and oriented to person, place, and time. Cranial Nerves: No cranial nerve deficit. Psychiatric: Mood and Affect: Mood and affect normal. Speech: Speech normal. Behavior: Behavior normal. Behavior is cooperative. ASSESSMENT/PLAN: 1. Non-recurrent acute suppurative otitis media of left ear without spontaneous rupture of tympanicmembrane - ICD9: 382.00, ICD10: H66.002 (primary diagnosis) - Will begin treatment with as per antibiotic as written, see orders Restart flonase daily Zyrtec D BID prn x 7-10 days - Supportive care with plenty of fluids, rest, and analgesia prn. - Follow up in 3-5 days if symptoms persist or worsen. - AMOXICILLIN 875 MG-POTASSIUM CLAVULANATE 125 MG TABLET 2. Vertigo - ICD9: 780.4, ICD10: R42 Continue meclizine as needed Plenty of rest and fluids Misa Yu APRN.MONKEY KEEPER documented in this encounterPremier Health [facility]03-09-2023 Miscellaneous Notes* Telephone Encounter - Karli Bacon - 08/12/2022 8:56 AM EST The patient was just in on 08/09/22. He has scheduled another appointment for August 16. He said that he is experiencing stabbing pain in both of his ears. An appointment has been offered today and tomorrow, but the times would not work for the patient. Karli Bacon documented in this encounterPremier Health [facility]03-06-2023 Instructions* Patient Instructions* Tiffany Chavez APRN.MONKEY KEEPER - 08/09/2022 4:05 PM EST DIZZINESS GENERAL INFORMATION: Dizziness is a common symptom. You may have the sensation that you or the room is spinning or whirling; this is called vertigo. Or, you may be lightheaded or faint and feel that you may pass out. Dizziness can be infrequent and mild or so severe that you feel nauseated, vomit, or lose your balance and fall down. Dizziness may have a specific cause, but in many cases it is not possible to determine the cause of the problem. It is often a temporary problem without a serious underlying cause. INSTRUCTIONS: 1. If you are feeling dizzy, you should lie down, or at least sit, until the sensation goes away. 2. Avoid driving a car or operating heavy machinery if you are feeling dizzy. CONTACT YOUR DOCTOR IF: 1. You have prolonged, severe, or repeated attacks of dizziness. 2. You notice some loss of hearing or hear strange noises in your ears. RETURN TO THE ED IF: 1. You have a severe headache, weakness in you arms or legs, numbness or tingling in any part of your body, blurred vision, or difficulty speaking or swallowing. 2. You develop frequent morning headaches along with nausea and vomiting. 3. You pass out, lose control of your bowels or bladder, bite your tongue, or sustain any injury from falling or unsteadiness. documented in this encounterPremier Health [facility]03-06-2023 History of Present illness Narrative* Tiffany Chavez APRN.CNP - 08/09/2022 3:39 PM EST Images from [place] [address] Visit Date: 08/09/2022 Patient Name: Chang Solis Date of : 1970 Chief Complaint: ER Follow Up Chang Solis is a 51 year old male here today for a follow up to a recent emergency room (ER) visit. Emergency Room Location: [facility] Date of Emergency Room Visit: 08/02/22 Reason for Emergency Room Visit: Dizziness ED Visits & Hospitalizations - Last 180 days 08/02/22 MEED Dizziness ..., ED (DISCHARGE) 02/10/22 MEED Vertigo ..., ED (DISCHARGE) HPI: Patient presented to the ED for intermittent dizziness. This is not a new problem for him. He has a history of vertigo and takes Meclizine as needed. He came [facility] though [facility]. He states his BP at home one time was 180/105. While in the ER, he had labs, an EKG, and a CT brain completed and all were WNL. He states his BS have been running normal around 98-123. He does note that he was having some sinus drainage last week prior to the dizziness. He is not currently having any dizziness. Vitals BP 128/76 Pulse 66 Temp 97.8 Resp 18 Ht 5' 10.5 (1.79m) Wt 237 lb (107.5kg) SpO2 97% BMI 33.51 kg/(m^2). PAST MEDICAL HISTORY Diagnosis Date Abdominal pain, left lower quadrant Acute gastritis without mention of hemorrhage Duodenitis without mention of hemorrhage Esophageal reflux Gastroesophageal reflux Unspecified asthma(493.90) exercise-induced PAST SURGICAL HISTORY Procedure Laterality Date APPENDECTOMY HX CHOLECYSTECTOMY HX COLONOSCOPY W/BIOPSY SINGLE/MULTIPLE 09/02/10 EGD TRANSORAL BIOPSY SINGLE/MULTIPLE 09/02/10 HERNIA REPAIR HX LAPAROSCOPY SURG CHOLECYSTECTOMY Cholecystectomy, lap RPR 1ST INGUN HRNA AGE 5 YRS/> REDUCIBLE Hernia repair, inguinal RPR 1ST INGUN HRNA AGE 5 YRS/> REDUCIBLE Hernia repair, inguinal TONSILLECTOMY HX TONSILLECTOMY PRIMARY/SECONDARY <AGE 12 Tonsillectomy FAMILY HISTORY Problem Relation Age of Onset Hypertension Mother Lipids Mother No Ocular Disease Mother Cancer Father lung ca. No Ocular Disease Father Diabetes Maternal Grandmother Coronary Artery Disease Maternal Grandfather Cancer Paternal Grandfather Social History Tobacco Use Smoking status: Never Passive exposure: Yes Smokeless tobacco: Never Vaping Use Vaping Use: Never used Substance Use Topics Alcohol use: No Drug use: No Current Meds meclizine (ANTIVERT) 25 mg tab Take 1 tablet by mouth three times daily. metFORMIN ER (GLUCOPHAGE XR) 500 mg 24 hr tablet Take 2 tablets by mouth once daily. pravastatin (PRAVACHOL) 20 mg tablet Take 1 tablet by mouth daily at bedtime. cetirizine-pseudoephedrine (ZYRTEC-D) 5-120 mg per tablet Take 1 tablet by mouth twice daily as needed. meclizine (ANTIVERT) 25 mg tab Take 0.5-1 tablets by mouth three times daily as needed (dizziness). albuterol HFA (PROAIR HFA) 90 mcg/actuation inhaler Inhale 2 Puffs as instructed every 4 hours as needed for wheezing/shortness of breath. guaiFENesin (MUCINEX) 600 mg 12 hr tablet Take 1 tablet by mouth twice daily. fluticasone (FLONASE ALLERGY RELIEF) 50 mcg/actuation nasal spray Use 1 [place] in each nostril once daily. Lancets lancets Use as instructed blood sugar diagnostic (RELION PRIME TEST STRIPS) test strip Use as instructed Blood-Glucose Meter (RELION PRIME METER) 1 Each four times daily. acetaminophen (TYLENOL ORAL) Take by mouth as needed. omeprazole (PRILOSEC) 40 mg capsule Take 1 capsule by mouth once daily. I have confirmed and edited as necessary the chief complaint, medications, past medical, family andsocial histories obtained by others. Review of Systems Constitutional: Negative for chills, diaphoresis, fatigue, fever and unexpected weight change. HENT: Positive for ear discharge. Negative for congestion and ear pain. Eyes: Negative for visual disturbance. Respiratory: Negative. Cardiovascular: Negative. Gastrointestinal: Negative. Neurological: Positive for dizziness. Negative for seizures, syncope, weakness and headaches. Physical Exam Vitals and nursing note reviewed. Constitutional: Appearance: He is obese. HENT: Head: Normocephalic. Right Ear: Tympanic membrane, ear canal and external ear normal. Left Ear: Tympanic membrane, ear canal and external ear normal. Nose: Nose normal. Mouth/Throat: Mouth: Mucous membranes are moist. Pharynx: Oropharynx is clear. Eyes: General: Vision grossly intact. Extraocular Movements: Extraocular movements intact. Conjunctiva/sclera: Conjunctivae normal. Pupils: Pupils are equal, round, and reactive to light. Neck: Thyroid: No thyromegaly. Cardiovascular: Rate and Rhythm: Normal rate and regular rhythm. Heart sounds: Normal heart sounds. No murmur heard. Pulmonary: Effort: Pulmonary effort is normal. Breath sounds: Normal breath sounds. Musculoskeletal: Cervical back: Neck supple. Lymphadenopathy: Cervical: No cervical adenopathy. Skin: General: Skin is warm and dry. Neurological: Mental Status: He is alert and oriented to person, place, and time. Psychiatric: Mood and Affect: Mood normal. Behavior: Behavior is cooperative. Cognition and Memory: Cognition normal. Data Reviewed: Most recent labs and imaging results. Most recent EKG ASSESSMENT/PLAN: 1. Dizziness - ICD9: 780.4, ICD10: R42 (primary diagnosis) - Most likely related to his previous vertigo. He has Meclizine at home to use. Continue to monitorand follow up if symptoms worsen. 2. Gastroesophageal reflux disease, unspecified whether esophagitis present - ICD9: 530.81, ICD10: K21.9 - Discussed lifestyle modifications including losing weight, limiting caffeine, no meals three hours before sleep, and head of bed elevation - Continue treatment with Prilosec 40 mg QD - OMEPRAZOLE 40 MG CAPSULE,DELAYED RELEASE 3. Encounter for immunization - ICD9: V03.89, ICD10: Z23 - ZOSTER VACC RECOMBINANT,IM Return if symptoms worsen or fail to improve. I have reviewed the patient's (ER) course including diagnostic testing performed during this ER visit, their discharge medications, and my assessment and plan with the patient. Discussed the above with the patient using shared decision making. The patient is in agreement with the diagnostic and treatment plans. Medications Discontinued During This Encounter Medication Reason omeprazole (PRILOSEC) 40 mg capsule Tiffany Chavez APRN.CNP August 09, 2022 3:39 PM documented in this encounterPremier Health [facility]03-01-2023 History of Present illness Narrative* Marie Bah MA - 08/04/2022 11:26 AM EST ED Follow Up: Left message for patient to call back with any concerns or to make an appointment Patient discharged from [facility] on 08/02/22. 1. How are you feeling since your ED visit? N/A Have your symptoms improved or resolved? Not applicable 2. Were you prescribed any medications while in the ED or advised to stop any medication? Not applicable - If yes, were you able to fill your prescriptions? Not applicable -if stopped medication, what was the medication? N/A 3. Were you advised to schedule a follow up appointment with your provider? Not applicable - If no, Do you feel like you need an appointment scheduled? Not applicable - If yes, Do you need this scheduled now or has this already been scheduled? Not applicable 4. Were you able to contact the office or data communications software consultant provider prior to your ED visit? Not applicable 5. Is there anything else I can do for you today? No and Not applicable Marie Bah MA documented in this encounterPremier Health [facility] Center01-25-2023 History of Present illness Narrative* Reba Costa MD - 06/30/2022 4:40 PM EST ENDOCRINOLOGY CLINIC NOTE Mr. Solis is a 51 year old male with T2DM, dyslipidemia, TIA, GERD and asthma presented for follow-up HPI He presented to the hospital in 10/2021 with chest pain. Labs on admission showed glucose 500, AG 11, bicarb 24. He received IV fluids and subcutaneous insulin injection. His A1c was 10.4% and he was discharged on insulin. The plan was to do basal prandial insulin, but cost was an issue due to lack of insurance. He was discharged on insulin 70/30 and metformin He has history of prediabetes when his A1c was 6.8% in 01/2021. His C-peptide was 2.1. We stopped the insulin and continue with metformin and added pioglitazone 30 mg daily. Sulfonylureas were avoideddue to his history of sulfa allergy. We stopped the pioglitazone at his last visit A1c: A1c today is 5.6% 01/13/21 18:55 10/26/21 22:11 02/23/22 15:37 02/27/22 10:37 Hemoglobin A1C 6.8 (H) 10.4 (H) 5.5 Hemoglobin A1C (POCT) 5.4 Current regimen: Metformin ER 500 mg 2 pills once a day Home glucose monitoring: He checks 2 times a day before eating AM 90-114 Hypoglycemia: None Diet: He eats 3 main meals. He has made significant changes to his diet Physical activity: He enjoys walking daily 30 min eats Complications: Retinopathy: no retinopathy in 11/2021 Nephropathy: Normal GFR in 10/2021 Neuropathy: no symptoms suggestive of that CVS: lipid profile 02/2022: LDL 83, TG 247, on pravastatin 20 mg BP: 130/80 PAST MEDICAL HISTORY Diagnosis Date Abdominal pain, left lower quadrant Acute gastritis without mention of hemorrhage Duodenitis without mention of hemorrhage Esophageal reflux Gastroesophageal reflux Unspecified asthma(493.90) exercise-induced PAST SURGICAL HISTORY Procedure Laterality Date APPENDECTOMY HX CHOLECYSTECTOMY HX COLONOSCOPY W/BIOPSY SINGLE/MULTIPLE 09/02/10 EGD TRANSORAL BIOPSY SINGLE/MULTIPLE 09/02/10 HERNIA REPAIR HX LAPAROSCOPY SURG CHOLECYSTECTOMY Cholecystectomy, lap RPR 1ST INGUN HRNA AGE 5 YRS/> REDUCIBLE Hernia repair, inguinal RPR 1ST INGUN HRNA AGE 5 YRS/> REDUCIBLE Hernia repair, inguinal TONSILLECTOMY HX TONSILLECTOMY PRIMARY/SECONDARY <AGE 12 Tonsillectomy FAMILY HISTORY Problem Relation Age of Onset Hypertension Mother Lipids Mother No Ocular Disease Mother Cancer Father lung ca. No Ocular Disease Father Diabetes Maternal Grandmother Coronary Artery Disease Maternal Grandfather Cancer Paternal Grandfather Social History Tobacco Use Smoking status: Never Passive exposure: Yes Smokeless tobacco: Never Vaping Use Vaping Use: Never used Substance Use Topics Alcohol use: No Drug use: No (Not in a hospital admission) Allergies As of Date: 06/30/2022 Allergen Noted Reaction BACTRIM [SULFAMETHOXAZOLE-TRIMETH*04/12/2005 Hives HAND CREAMS [OTHER] 04/12/2005 Rash HAND SOAP [TRICLOSAN] 07/26/2012 Rash IVP DYE [IODINE] 04/12/2005 Hives SEASONAL ALLERGIES 03/18/2022 Other: See Comments SHELLFISH DERIVED 12/13/2016 Rash SULFA (SULFONAMIDE ANTIBIOTICS) 04/12/2005 Hives Fully Assessed 04/05/2022 Current Outpatient Medications Medication Sig Dispense Refill cetirizine-pseudoephedrine (ZYRTEC-D) 5-120 mg per tablet Take 1 tablet by mouth twice daily as needed. 10 tablet 0 pravastatin (PRAVACHOL) 20 mg tablet Take 1 tablet by mouth daily at bedtime. 90 tablet 3 metFORMIN ER (GLUCOPHAGE XR) 500 mg 24 hr tablet Take 2 tablets by mouth once daily. 180 tablet 1 meclizine (ANTIVERT) 25 mg tab Take 0.5-1 tablets by mouth three times daily as needed (dizziness).30 tablet 0 albuterol HFA (PROAIR HFA) 90 mcg/actuation inhaler Inhale 2 Puffs as instructed every 4 hours as needed for wheezing/shortness of breath. 6.7 g 0 guaiFENesin (MUCINEX) 600 mg 12 hr tablet Take 1 tablet by mouth twice daily. (Patient not taking: Reported on 04/05/2022) 30 tablet 0 fluticasone (FLONASE ALLERGY RELIEF) 50 mcg/actuation nasal spray Use 1 [place] in each nostril once daily. 9.9 mL 0 Lancets lancets Use as instructed 200 Each 2 blood sugar diagnostic (RELION PRIME TEST STRIPS) test strip Use as instructed 200 Strip 2 Blood-Glucose Meter (RELION PRIME METER) 1 Each four times daily. 1 Each 0 omeprazole (PRILOSEC) 40 mg capsule Take 1 capsule by mouth once daily. 30 capsule 5 acetaminophen (TYLENOL ORAL) Take by mouth as needed. No current facility-administered medications for this visit. COMPLETE REVIEW OF SYSTEMS: 10 point review of systems was negative other than what is mentioned in the H&P PHYSICAL EXAM: 06/30/22 1616 BP: 130/80 Pulse: 78 SpO2: 98% Weight: 108.4 kg (239 lb) Height: 179.1 cm (5' 10.5) General: NAD, alert and cooperative Previous exam: HEENT: EOMI, no proptosis/stare. Neck: supple with full ROM. No thyromegaly or palpable nodules Cardiovascular: RRR, +S1 and S2, no MRG appreciated Lungs: Clear to auscultation bilaterally Abdomen: soft, non-tender, non-distended Extremities: No LE oedema Neuro: No tremor of outstretched hands noted. Deep tendon reflexes are normal with a normal relaxation phase. Psych: Normal affect Foot exam: Noted dry skin and calluses. No wounds or ulcers. Weak pedal pulses bilaterally, normal monofilament and vibration sensation bilaterally Labs: 10/31/2021 16:03 Sodium 136 Potassium 4.1 Chloride 99 CO2 26 BUN 14 Creatinine 0.91 Glucose 265 (H) Protein, Total 7.3 Calcium 9.4 Albumin 4.2 Bilirubin, Total 0.7 Alkaline Phosphatase 104 ALT 32 AST 46 (H) Anion Gap 11 eGFR 103 10/27/2021 02:24 Cholesterol, Total 172 Triglyceride 588 (H) Fasting Time Unsure HDL Cholesterol 27 (L) LDL Cholesterol See comment Assessment and Recommendations: Mr. Solis is a pleasant 51-year-old man presented for follow-up of T2DM. There has been significantimprovement in his glycemic control based on the A1c and the reported glucose values, and I congratulated him on his efforts. He was on metformin and pioglitazone, but we de-escalated his regimen and stopped the pioglitazone.We will continue with metformin ER 500 mg 2 pills twice once a day for another 6 months. He was hoping to stop the metformin if possible. If his A1c remains below 6% in 6 months, we will lower the metformin to 1 pill and then possibly stop it few months after that if appropriate His preferred phone number is [phone] Some of the above has been copied from prior documentation on 02/23/2022 but edge elements reviewed, confirmed, and/or updated by me (Reba Costa MD) on 06/30/2022 I spent a total of 25 minutes on the date of the service which included preparing to see the patient, [id number] patient care, completing clinical documentation, counseling and educating the patient/family/caregiver, and ordering medications, tests, or procedures. Reba Costa MD documented in this encounterPremier Health [facility] Center01-25-2023 Instructions* Patient Instructions* Reba Costa MD - 06/30/2022 4:30 PM EST - Continue metformin 500 mg 2 pills once a day - Continue Pravastatin 20 mg daily - I will see you in 6 months documented in this encounterPremier Health Atrium Medical [facility] Miscellaneous Notes* Telephone Encounter - Nichol Harika Nixon [facility] - 06/03/2022 11:30 AM EST Patient never showed for the rest of his physical therapy visits. * Telephone Encounter - Nichol Nixon [facility] - 05/13/2022 3:44 PM EST Left patient a message to contact the financial department. His approval has . documented in this encounterPrem[facility]12-05-2022 Miscellaneous Notes* Telephone Encounter - Nichol Nixon [facility] - 05/10/2022 1:33 PM EST Tried to call patient today. Patient not accepting calls at this timed Unable to leave a message regarding his financial approval. Sent patient a MC message documented in this encounterPremier [facility] Center11-15-2022 Miscellaneous Notes* Telephone Encounter - Nichol Nixon [facility] - 04/20/2022 3:37 PM EST Called patient. I advised him that his financial assistance is about to run out on 04-29-22. Patient stated he would call to finance office to get more approval . documented in this encounterPrem[facility] Center11-09-2022 History of Present illness Narrative* Eleanor uK, PT, DPT - 04/14/2022 5:49 PM EST Episode Visit Count: 1 Therapist That Will Accept/Oversee The Plan Of Care: Eleanor Ku Start of Care Date: 04/14/22 Onset Date: 03/01/22 Plan of Care Certification Date: 04/14/22 Next Certification Due Date: 05/28/22 Patient Identified by Name and Date of : Yes RE[facility]ABILITATION AND SPORTS THERAPY PHYSICAL THERAPY EVALUATION PLAN OF CARE: Assessment: Chang Solis presents with diagnosis of spondylolisthesis of the lumbar region that interferes with lifting;sitting;rising from a chair;standing;walking;driving (sitting/driving is worse than standing/walking.) He presents with impairments in flexibility, range of motion, strength , s ymptom management, and tissue tenderness. Prognosis for therapy is Good due to: current objective clinical presentation;good overall health status;good support system/ coping skills;within-session changes . Patient reports more relief with extension versus flexion in the clinic with repeated motiontesting. Patient to focus on some extension to counteract bending he does during the day and use a l umbar roll for posture support. Patient to stop exercises if he has any increased pain or worseningsymptoms. He will benefit from skilled therapy services to meet the goals established for this planof care as noted below. Classification Low Back Pain Subgroup Classification: Specific exercise subgroup: recommended visits 8. Specific Exercies Subgroup Classification based on: directional preference Goals for Episode of Care: created on 04/14/22 through 05/28/22 Independent in home exercises. Patient will decrease pain rating by 2 points to meet minimal clinical important difference for numeric pain rating scale. Restore pain-free lumbar ROM to WNL for all planes of motion to allow for increased tolerance to functional tasks Stand / Walk 2-3 hours without pain/symptoms. Sit 30-45 minutes without pain/symptoms to allow for increased tolerance to driving to and from work. Maintain proper sitting posture throughout session Knowledgeable regarding prophylaxis. Patient will increase strength of abdominals to at least 3/5 to allow for decreased strain on lowerback. Patient Goals: strengthen the mm of the spine Planned Interventions, Frequency, and Duration: Current Frequency: 1x/week Duration: 6 weeks Total Number of Visits Planned: 6 Planned Treatment Interventions: Therapeutic exercise (50540);Neuromuscular re- education (61766);Manual therapy (56221);Therapeutic activities (16892);Self- retirement management (44040);Patient/Family/Caregiver Education;Body Mechanics Training PLAN FOR NEXT VISIT: trial lifting Patient demonstrates good understanding of plan of care and treatment. The above goals and plan of care were discussed and agreed upon by patient/family. SUBJECTIVE: Chang Solis is a 51 year old male seen today for B lower back. Patient reports thathe was taking a shower and he went to turn around and he lost his balance and fell out. He landed on his back. He reports that he has had some soreness in the neck and lower back. he reports pain if he sits for too long. He reports that he is sore when he is sitting and goes to stand up. reports that he is better when he is standing and moving. He reports that a few weeks ago, he was in the cooler, he lifted a bucket of chili and when he lifted it he felt a pop in his back and he reports feeling 50% better since then. Occ pain on the R side with standing/walking. Patient reports that he is nolonger having leg symptoms. 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 Cancer Red Flags: Age >50 or <20 Cancer Clinical Reasoning: Proceed with caution Infection Clinical Reasoning: No identified risk factors. Cauda Equina Syndrome Clinical Reasoning: No identified risk factors. Red Flags - Cervical Cancer Red Flags: Age >50 or <20 Cancer Clinical Reasoning: Proceed with caution Infection Clinical Reasoning: No identified risk factors. Spine History Symptoms Location at Onset: Back Symptoms Since Onset: Improving Pain is Worse Always: Sitting;Driving Pain is Worse Sometimes: Standing;Walking Pain is Better Always: (change positions) Previous Episodes: Yes Previous Spine Episodes: history of lower lumbar pain- has had for a number of years Pain: Pain Pain Level: 1 (pain at worst 7/10) Pain Location: Low Back/Lumbar Spine - Left;Low Back/Lumbar Spine - Right Description: Aching (irritating) Frequency: Intermittent Post Treatment Pain Post Treatment Pain Level: (soreness across lower back - not quantified) Post Treatment Pain Location: Low Back/Lumbar Spine - Right PROMIS Scales T-scores: mean of general population = 50. 5 points is clinically meaningfully difference Percentiles provide an indication of how the patient's score ranks in relation to the general population. Higher percentile rankings indicate better function/quality of life. 50th percentile is the average of the general population and indicates half of respondents had a worse score. T-scores: mean of general population = 50. 5 points is clinically meaningfully difference Percentiles provide an indication of how the patient's score ranks in relation to the general population. Higher percentile rankings indicate better function/quality of life. 50th percentile is the average of the general population and indicates half of respondents had a worse score. OBJECTIVE MEASURES WITH LEVEL OF FUNCTION: Posture / Alignment Posture: Rounded shoulders Sitting Posture: Increased lumbar lordosis;Good Spine Observations Spine presents with: decreased lumbar lordosis in standing R Lumbar Spine Palpation Tenderness: Paraspinals;Quadratus Lumborum Sensation - Lumbar Sensation: Grossly Intact Lumbar Spine AROM Lumbar Flexion: Minimal limitation Lumbar Extension: Minimal limitation;Increased pain Lumbar R Side-Bend: Minimal limitation;Increased pain Lumbar L Side-Bend: Normal Lumbar R Rotation: Minimal limitation Lumbar L Rotation: Minimal limitation Repeated Test Movements - Lumbar Lumbar Pretest Symptoms (Standing): R lower back pain RFIS - Symptoms During: no effect RFIS - Symptoms After: no effect ANGELIKA - Symptoms During: increases ANGELIKA - Symptoms After: no worse Lumbar Pretest Symptoms (Lying): R lower back pain RFIL - Symptoms During: increases RFIL - Symptoms After: worse REIL - Symptoms During: decreases REIL - Symptoms After: better LE Flexibility Flexibility: Hip Flexor Flexibility;Hamstring Flexibility R Hamstring Flexibility: moderate restriction L Hamstring Flexibility: minimal restriction R Hip Flexor Flexibility: moderate restrictoin L Hip Flexor Flexibility: moderate restriction LE Strength Trunk Strength: abdominals 2/5 Functional Strength Functional Strength: independent with transfers/bed mobility; needs to be able to lift 35-50# Gait Gait Observation: WNL Stairs: ascends/descends stairs reciprocally Education: Education Learning Preferences: Demonstration;Explanation;Performance;Printed Materials Barriers: None Learning/educational needs: Home exercise program;Plan of Care;Posture Education Provided: Yes, see treatment interventions for education provided Education Provided To: Patient Education Mode/Type: Demonstration;Explanation/Discussion;Literature/Printed Materials;Teach Back;Performance Response to Education/Teach Back: States/Identifies;Return Demonstration TREATMENT: PT Treatment Interventions: Therapeutic Exercise Evaluation Therapeutic Exercise: 1: educated patient regarding evaluation findings 2: educated patient regarding icing of the lower back 3: *educated patient regarding use and creation of small lumbar roll for posture correction in sitting. 4: *standing extension x 3-5 reps 5: *prone press ups x 5-10 reps 6: educated patient regarding stopping exercises if anything causes increased pain complaints Skilled Intervention: Patient was educated in proper exercise technique and purpose for exercises. Reviewed and educated patient on additions/changes for home exercise program as above (*). Skilled judgment was provided in selection of appropriate interventions. Provided written instruction for home exercise program to facilitate proper performance and compliance. Correct performance of therapeutic exercises was facilitated with verbal and visual cuing. Education in use of ice and parameters for each. Education regarding posture correction/use of lumbar roll. Educated patient on rationale for performing exercises in regards to decreasing pain complaints. Patient education as noted. Billing * Evaluation Low Complexity: 1 Unit Therapeutic Exercise Treatment Minutes: 20 Total Treatment Time Minutes (timed/untimed): 43 Eleanor Ku PT, DPT documented in this encounterPremier [facility]10-31-2022 History of Present illness Narrative* Tiffany Chavez, SLIPPER MAKER.MONKEY KEEPER - 04/05/2022 4:10 PM EDT Images from the original note were not included. CHIEF COMPLAINT: Chang Solis is a 51 year old male who presents for follow up for back pain. I reviewed past medical, surgical, social, and family histories today and updated chart. Allergies, chronic medications, and supplements were also reviewed. Started 2 months ago after falling out of the tub Tylenol as needed Comes and goes 5/10 pain at its worst Was picking up a heavy container last week and felt a pop in his lower back and states it hasn't hurt as much since then Standing doesn't bother him much Sitting makes him stiff No N/T or weakness in legs No loss of bowel or bladder control He did see spine specialtist and they recommended PT- would like to come to [place] The history is provided by the patient. No marketing communications coordinator was used. Back Pain The current episode started more than 1 week ago. The problem has been gradually improving. The pain is associated with falling. The pain is present in the lumbar spine. The quality of the pain is described as aching. The pain does not radiate. The pain is at a severity of 2/10. The pain is mild. Exacerbated by: sitting. Stiffness is present In the morning. Associated symptoms include abdominal pain (lower abdomen at times). Pertinent negatives include no chest pain, no fever, no numbness, no weight loss, no headaches, no abdominal swelling, no bowel incontinence, no perianal numbness, no bladder incontinence, no dysuria, no pelvic pain, no leg pain, no paresthesias, no paresis, no tinglingand no weakness. He has tried analgesics for the symptoms. The treatment provided mild relief. Riskfactors include obesity, lack of exercise, poor posture and a sedentary lifestyle. PAST MEDICAL HISTORY Diagnosis Date Abdominal pain, left lower quadrant Acute gastritis without mention of hemorrhage Duodenitis without mention of hemorrhage Esophageal reflux Gastroesophageal reflux Unspecified asthma(493.90) exercise-induced PAST SURGICAL HISTORY Procedure Laterality Date APPENDECTOMY HX CHOLECYSTECTOMY HX COLONOSCOPY W/BIOPSY SINGLE/MULTIPLE 09/02/10 EGD TRANSORAL BIOPSY SINGLE/MULTIPLE 09/02/10 HERNIA REPAIR HX LAPAROSCOPY SURG CHOLECYSTECTOMY Cholecystectomy, lap RPR 1ST INGUN HRNA AGE 5 YRS/> REDUCIBLE Hernia repair, inguinal RPR 1ST INGUN HRNA AGE 5 YRS/> REDUCIBLE Hernia repair, inguinal TONSILLECTOMY HX TONSILLECTOMY PRIMARY/SECONDARY <AGE 12 Tonsillectomy Social History Tobacco Use Smoking status: Never Passive exposure: Yes Smokeless tobacco: Never Vaping Use Vaping Use: Never used Substance Use Topics Alcohol use: No Drug use: No ALLERGIES Allergen Reactions Bactrim [Sulfametho* Hives Hand Creams [Other] Rash Hand Soap [Triclosa* Rash Ivp Dye [Iodine] Hives Seasonal Allergies Other: See Comments Runny nose Shellfish Derived Rash Sulfa (Sulfonamide * Hives Family History Problem Relation Age of Onset Hypertension Mother Lipids Mother No Ocular Disease Mother Cancer Father lung ca. No Ocular Disease Father Diabetes Maternal Grandmother Coronary Artery Disease Maternal Grandfather Cancer Paternal Grandfather Current Outpatient Medications Medication Sig Dispense Refill pravastatin (PRAVACHOL) 20 mg tablet Take 1 tablet by mouth daily at bedtime. 90 tablet 3 metFORMIN ER (GLUCOPHAGE XR) 500 mg 24 hr tablet Take 2 tablets by mouth once daily. 180 tablet 1 meclizine (ANTIVERT) 25 mg tab Take 0.5-1 tablets by mouth three times daily as needed (dizziness).30 tablet 0 cetirizine-pseudoephedrine (ZYRTEC-D) 5-120 mg per tablet Take 1 tablet by mouth twice daily as needed. 10 tablet 0 albuterol HFA (PROAIR HFA) 90 mcg/actuation inhaler Inhale 2 Puffs as instructed every 4 hours as needed for wheezing/shortness of breath. 6.7 g 0 fluticasone (FLONASE ALLERGY RELIEF) 50 mcg/actuation nasal spray Use 1 [place] in each nostril once daily. 9.9 mL 0 Lancets lancets Use as instructed 200 Each 2 blood sugar diagnostic (RELION PRIME TEST STRIPS) test strip Use as instructed 200 Strip 2 Blood-Glucose Meter (RELION PRIME METER) 1 Each four times daily. 1 Each 0 omeprazole (PRILOSEC) 40 mg capsule Take 1 capsule by mouth once daily. 30 capsule 5 acetaminophen (TYLENOL ORAL) Take by mouth as needed. guaiFENesin (MUCINEX) 600 mg 12 hr tablet Take 1 tablet by mouth twice daily. (Patient not taking: Reported on 04/05/2022) 30 tablet 0 Insulin [place], Disposable, (BD ULTRA-FINE MICRO PEN NEEDLE) 32 gauge x 1/4 1 Each four times daily. (Patient not taking: No sig reported) 100 Each 2 No current facility-administered medications for this visit. Review of Systems Constitutional: Negative for appetite change, chills, diaphoresis, fatigue, fever, unexpected weight change and weight loss. HENT: Positive for ear pain (right ear at times). Eyes: Negative for visual disturbance. Respiratory: Negative. Cardiovascular: Negative for chest pain and palpitations. Gastrointestinal: Positive for abdominal pain (lower abdomen at times). Negative for bowel incontinence, diarrhea, nausea and vomiting. Genitourinary: Negative for bladder incontinence, dysuria, frequency, hematuria, pelvic pain, testicular pain and urgency. Musculoskeletal: Positive for back pain (lumbar- improving). Negative for arthralgias, gait problemand myalgias. Skin: Negative. Neurological: Negative for dizziness, tingling, syncope, weakness, numbness, headaches and paresthesias. Hematological: Negative. BP 108/68 Pulse 81 Temp 97.9 Resp 18 Ht 5' 10 (1.78m) Wt 233 lb (105.7kg) SpO2 97% BMI 33.43 kg/(m^2). Physical Exam Vitals and nursing note reviewed. Constitutional: Appearance: He is obese. HENT: Right Ear: Tympanic membrane, ear canal and external ear normal. Left Ear: Tympanic membrane, ear canal and external ear normal. Mouth/Throat: Mouth: Mucous membranes are moist. Pharynx: Oropharynx is clear. Eyes: Pupils: Pupils are equal, round, and reactive to light. Cardiovascular: Rate and Rhythm: Normal rate and regular rhythm. Heart sounds: Normal heart sounds. No murmur heard. Pulmonary: Effort: Pulmonary effort is normal. Breath sounds: Normal breath sounds. Abdominal: General: Bowel sounds are normal. There is no distension. Palpations: Abdomen is soft. Tenderness: There is no abdominal tenderness. There is no guarding. Musculoskeletal: Cervical back: Neck supple. Lumbar back: No swelling, edema, deformity, signs of trauma, spasms, tenderness or bony tenderness.Normal range of motion. Negative right straight leg raise test and negative left straight leg raisetest. No scoliosis. Back: Skin: General: Skin is warm and dry. Neurological: Mental Status: He is alert and oriented to person, place, and time. Psychiatric: Mood and Affect: Mood normal. Behavior: Behavior normal. No visits with results within 1 Day(s) from this visit. Latest known visit with results is: Office Visit on 04/01/2022 Component Date Value Ref Range Status COVID 19 Result 04/01/2022 SARS-CoV-2 (Agent of COVID-19) Not Detected by RT-PCR or equivalent method. Not Detected Final minda [id number] (JASWINDER)_EUA This test was developed and its performance characteristics determined by [facility] [place]. This test has been authorized by FDA under an Emergency Use Authorization (EUA). This test has been validated in accordance with the FDA's Guidance Document Policy for DiagnosticsTesting in Laboratories Certified to Perform High Complexity Testing under CLIA prior to Emergency use Authorization for Coronavirus Disease 2019 during the Public Health Emergency issued on August 04, 2019. Test performed by [facility], [facility] [place], [address] [place] [address]. Influenza A PCR 04/01/2022 Negative for Influenza A by RT-PCR Negative for Influenza A by RT-PCR Final Influenza B PCR 04/01/2022 Negative for Influenza B by RT-PCR Negative for Influenza B by RT-PCR Final ASSESSMENT/PLAN: 1. Midline low back pain without sciatica, unspecified chronicity - ICD9: 724.2, ICD10: M54.50 (primary diagnosis) - Patient states pain is improving - Recommend stretching and exercises and proper body mechanics with lifting - Will be starting PT- needs number to [place] - Tylenol as needed 2. Encounter for immunization - ICD9: V03.89, ICD10: Z23 - INFLUENZA VACCINE QUADRIVALENT 6 MO - 64 YRS IM - HEPLISAV B (HEPATITIS B, ADJUVANT, ADULT) - IMADM PRQ ID SUBQ/IM NJXS 1 VACC New medication(s) prescribed today: None. Counseling completed in adopting health behaviors such as avoiding excessive alcohol use, avoid tobacco use, improve nutrition, and engage in physical activities. Copy of written care plan, clinical summary, treatment plan, new medications, goals, and self management requirements were given to patient. Tiffany Chavez APRN.CNP documented in this encounterPrem[facility]10-27-2022 History of Present illness Narrative* Rishi Ge APRN.CNP - 04/01/2022 4:40 PM EDT SUBJECTIVE Chang Solis is a 51 year old male who presents with 2 days of symptoms that are stable. Symptoms include: Fever (?100.4F): No or Chills: No Cough: No Shortness of breath: No or Difficulty breathing: No Fatigue: No Muscle aches: No Headache: No New loss of smell or taste: No Sore throat: No Nasal congestion: Yes or Rhinorrhea: Yes Nausea: No or Vomiting: No Diarrhea: No OTC meds/remedies that patient has tried: None. High risk category assessment Diabetes Exposures: Sick contacts? Yes Family or close contacts with confirmed/probable COVID-19 in last 14 days? Yes He reports that he has never smoked. He has been exposed to tobacco smoke. He has never used smokeless tobacco. OBJECTIVE GENERAL: well appearing, alert, in no acute distress HEENT: no conjunctival injection, pupils equal, moist mucous membranes, oropharynx clear without erythema, sinuses non-tender to self-palpation, and no cervical adenopathy by self-palpation PULMONARY: breathing comfortably on room air , no coughing noted, and no wheezing noted ASSESSMENT/PLAN (Z20.822) Suspected COVID-19 virus infection (primary encounter diagnosis) - Meets symptom-based criteria for testing and is low risk. - COVID swab collected at time of office visit - Instructed to isolate pending test results - Discussed symptom monitoring and supportive care - Red flag symptoms requiring follow up discussed This patient encounter involved the screening or treatment of novel coronavirus infection (COVID-19). documented in this encounterPrem[facility]10-27-2022 Instructions* Patient Instructions* Rishi Ge APRN.CNP - 04/01/2022 4:39 PM EDT Beginning Home Isolation Isolation is used to separate people infected with SARS-CoV-2, the virus that causes COVID-19, frompeople who are not infected. People who are in isolation should stay home until it s safe for them to be around others. In the home, anyone sick or infected should separate themselves from others by staying in a specific sick room or area and using a separate bathroom (if available). Isolation or Quarantine: What's the difference? Quarantine keeps someone who might have been exposed to the virus away from others. Isolation keeps someone who is infected with the virus away from others, even in their home. Who needs to isolate People who have COVID-19 People who have symptoms of COVID-19 and are able to recover at home People who have no symptoms (are asymptomatic) but have tested positive for infection with SARS-CoV-2 Steps to take Stay home except to get medical care Monitor your symptoms. Stay in a separate room from other household members, if possible Use a separate bathroom, if possible Avoid contact with other members of the household and pets Don t share personal household items, like cups, towels, and utensils Wear a mask when around other people, if you are able to When to seek emergency medical attention Look for emergency warning signs* for COVID-19. If someone is showing any of these signs, seek emergency medical care immediately: Trouble breathing Persistent pain or pressure in the chest New confusion Inability to wake or stay awake Bluish lips or face *This list is not all possible symptoms. Please call your medical provider for any other symptoms that are severe or concerning to you. Call 911 or call ahead to your local emergency facility: Notify the paraffin machine operator that you are seeking care for someone who has or may have COVID-19. Ending Home Isolation - When you can be around others after you had or likely had COVID-19 When you can be around others after you had or likely had COVID-19 If You Test Positive for COVID-19 (Isolation) Everyone, regardless of vaccination status: Stay home for 5 days. Note: Day 0 is your first day of symptoms or the date of collection of a positive viral test if no symptoms. Day 1 is the first full day after symptoms developed or test specimen was collected. If you have no symptoms or your symptoms are resolving after 5 days, you can leave your house. Continue to wear a mask around others for 5 additional days. If you have a fever, continue to stay home until your fever resolves, even if it is longer than 5 days. If You Were Exposed to Someone with COVID-19 (Quarantine) If you: 1. Have been boosted OR 2. Completed the primary series of Pfizer or Moderna vaccine within the last 6 months OR 3. Completed the primary series of J&J vaccine within the last 2 months THEN: 1. Wear a mask around others for 10 days. 2. Test on day 5, if possible. If you develop symptoms get a test and stay home. If You Were Exposed to Someone with COVID-19 (Quarantine) If you: 1. Completed the primary series of Pfizer or Moderna vaccine over 6 months ago and are not boosted OR 2. Completed the primary series of J&J over 2 months ago and are not boosted OR 3. Are unvaccinated THEN: 1. Stay home for 5 days. After that continue to wear a mask around others for 5 additional days. 2. If you can't quarantine you must wear a mask for 10 days. 3. Test on day 5 if possible. If you develop symptoms get a test and stay home. I had COVID-19 or I tested positive for COVID-19 and I have a weakened immune system If you have a weakened immune system (immunocompromised) due to a health condition or medication, you might need to stay home and isolate longer than 10 days. Talk to your healthcare provider for more information. Your doctor may work with an infectious disease expert at your local health department to determinewhen you can be around others. documented in this encounterPremier [facility]10-13-2022 History of Present illness Narrative* Rocael Liang PA-C - 03/18/2022 2:51 PM EDT Images from the original note were not included. Rocael Liang [facility]-C [facility] [address] [address] 03/18/2022 ASSESSMENT AND PLAN: Assessment : Encounter Diagnosis ICD-10-CM 1. Spondylolisthesis of lumbosacral region M43.17 CONSULT TO PHYSICAL THERAPY Discussion: Mr. 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 He ended up in an urgent care facility where x-rays were done and he had a number of questions raised about whether or not he had a fracture in his low back and he was concerned about lifting at his job. He stated that he experienced a fall about 2 months ago. He is not having any symptoms in the legs or numbness or tingling or weakness or bowel or bladder issues He has normal mobilization, stance, gait, balance, strength, sensation, reflexes throughout lower extremities. There is a little bit of low back pain with extremes of motion in flexion and extension There is really no localized pain on palpation over his whole low back and posterior pelvic bony prominences We reviewed his lumbar plain radiographs in detail during today's visit. He has what appears to be a lytic listhesis at the L5-S1 level resulting in grade 1 spondylolisthesis I would have him start supervised PT for training on proper body mechanics and use of his body while lifting at work He is to continue his own weight loss program as he has had some success over the last couple of months with this. He is also to return here if he develops worsening or failure to improve in his low back. If symptoms persist, he would be potential candidate for CT or MRI scanning at that point Plan : REFERAL FOR SERVICES: -Physical therapy will be instituted. MEDICATIONS: -Current medication regimen is appropriate for this problem. ACTIVITY RECOMMENDATIONS: -The patient is encouraged to avoid bed rest and maintain normal activity. -The patient is encouraged to exercise regularly as tolerated. NUTRITION RECOMMENDATIONS: -The patient is carrying a significant amount of weight above an ideal BMI. We discussed how this impacts overall health and back pain. FOLLOW-UP: -The patient is instructed to return after six weeks of therapy. ADDITIONAL DISCUSSION: -We discussed the difference between hurt vs harm as it relates to chronic pain. This document has been created with the use of voice recognition technology. It may contain inaccuracies: (e.g. misspellings, inaccurate syntax or word sense) that have escaped review. Time spent: 45 minutes today with this patient visit. This includes [id number] time, review of chart records regarding conservative care history, spine- pertinent imaging, and communication/care coordination with referring provider, problem-specific history-taking and counseling/education regarding treatment options. cc: Deonna Hagan [address] [facility] [place] [address] Results of consultation to be transmitted via electronic medical record for those providers who practice within [facility] or with access to [employer] via MD Connect, or via letter. ######################################################################## CHIEF COMPLAINT: Patient is here for the lower back pain. No pain at this moment, sitting and walking helps. Getting up after sitting for a while will be 6/10. Has this pain for years, had a fall about 2 months ago. 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 NON-OPERATIVE CARE: Medication(s): He has tried the following for relief of his symptoms: OTC Tylenol Physical Therapy: He has not had physical therapy for his current symptoms. Spinal Injections: He has not gotten prior spinal injections. Other: None Current Outpatient Medications Medication Sig Dispense Refill pravastatin (PRAVACHOL) 20 mg tablet Take 1 tablet by mouth daily at bedtime. 90 tablet 3 metFORMIN ER (GLUCOPHAGE XR) 500 mg 24 hr tablet Take 2 tablets by mouth once daily. 180 tablet 1 meclizine (ANTIVERT) 25 mg tab Take 0.5-1 tablets by mouth three times daily as needed (dizziness).30 tablet 0 albuterol HFA (PROAIR HFA) 90 mcg/actuation inhaler Inhale 2 Puffs as instructed every 4 hours as needed for wheezing/shortness of breath. 6.7 g 0 guaiFENesin (MUCINEX) 600 mg 12 hr tablet Take 1 tablet by mouth twice daily. 30 tablet 0 fluticasone (FLONASE ALLERGY RELIEF) 50 mcg/actuation nasal spray Use 1 [place] in each nostril once daily. 9.9 mL 0 blood sugar diagnostic (RELION PRIME TEST STRIPS) test strip Use as instructed 200 Strip 2 Blood-Glucose Meter (RELION PRIME METER) 1 Each four times daily. 1 Each 0 omeprazole (PRILOSEC) 40 mg capsule Take 1 capsule by mouth once daily. 30 capsule 5 acetaminophen (TYLENOL ORAL) Take by mouth as needed. cetirizine-pseudoephedrine (ZYRTEC-D) 5-120 mg per tablet Take 1 tablet by mouth twice daily as needed. (Patient not taking: No sig reported) 10 tablet 0 Lancets lancets Use as instructed (Patient not taking: Reported on 03/18/2022) 200 Each 2 Insulin [place], Disposable, (BD ULTRA-FINE MICRO PEN NEEDLE) 32 gauge x 1/4 1 Each four times daily. (Patient not taking: Reported on 03/18/2022) 100 Each 2 No current facility-administered medications for this visit. Allergies: Bactrim [Sulfamethoxazole-Trimethoprim], Hand Creams [Other], Hand Soap [Triclosan], Ivp Dye [Iodine], Seasonal Allergies, Shellfish Derived, and Sulfa (Sulfonamide Antibiotics) PAST MEDICAL HISTORY Diagnosis Date Abdominal pain, left lower quadrant Acute gastritis without mention of hemorrhage Duodenitis without mention of hemorrhage Esophageal reflux Gastroesophageal reflux Unspecified asthma(493.90) exercise-induced PAST SURGICAL HISTORY Procedure Laterality Date APPENDECTOMY HX CHOLECYSTECTOMY HX COLONOSCOPY W/BIOPSY SINGLE/MULTIPLE 09/02/10 EGD TRANSORAL BIOPSY SINGLE/MULTIPLE 09/02/10 HERNIA REPAIR HX LAPAROSCOPY SURG CHOLECYSTECTOMY Cholecystectomy, lap RPR 1ST INGUN HRNA AGE 5 YRS/> REDUCIBLE Hernia repair, inguinal RPR 1ST INGUN HRNA AGE 5 YRS/> REDUCIBLE Hernia repair, inguinal TONSILLECTOMY HX TONSILLECTOMY PRIMARY/SECONDARY <AGE 12 Tonsillectomy Social History Tobacco Use Smoking status: Never Passive exposure: Yes Smokeless tobacco: Never Vaping Use Vaping Use: Never used Substance Use Topics Alcohol use: No Drug use: No FAMILY HISTORY Problem Relation Age of Onset Hypertension Mother Lipids Mother No Ocular Disease Mother Cancer Father lung ca. No Ocular Disease Father Diabetes Maternal Grandmother Coronary Artery Disease Maternal Grandfather Cancer Paternal Grandfather REVIEW OF SYSTEMS: Constitutional: (-) Fever/Chills (-) Night Sweats (-) Weight Gain (-) Weight Loss (+) Fatigue Gastrointestinal: (-) Abdominal Pain (-) Diarrhea (-) Constipation (-) Nausea/Vomiting (-) Heart Burn Cardiovascular: (-) Chest Pain (+) Palpitations (+) Lightheadedness Medication helps (-) Swelling of Ankles (-) Hx Heart Surgery/Stent Respiratory: (+) Short of Breath asthma (-) Cough (+) Snoring Neurologic: (-) Headache (-) Blurry Vision (-) Fainting Skin: (-) Rashes (+) Itching (-) Other Lesions Psychiatric: (-) Depression (-) Anxiety (-) Suicidal Thoughts Genitourinary: (-) Frequency (-) Urgency Endocrine: (-) Thyroid Disorder (+) Diabetes Hematologic: (-) Prolonged Bleeding (-) Easy Bruising ################################################################################ ################################################# PHYSICAL EXAM: Blood pressure 103/59, pulse 81, height 177.8 cm (5' 10), weight 105.2 kg (232 lb), SpO2 98 %. Body mass index is 33.29 kg/m . General: Patient is a(n) average historian. The patient appears older than the recorded age and is sitting comfortably in the examining room. The patient is average height in stature and is overweight in appearance. This individual has no difficulty arising from a sitting position and does not havedifficulty acquiring a full, upright position when standing. Station and Gait: Normal stance, normal gait. The patient is able to walk in a tandem gait. MENTAL STATUS EXAMINATION: The patient was casually attired. The patient had good eye contact and rapport was average to establish. The patient appeared to be alert and oriented in all spheres. The patient's overall medical judgment appeared to be good.The patient's motivation for treatment was judged based on today's encounter to be good. SPINE: Lumbar Lordosis: Normal Thoracic Kyphosis: Normal RANGE OF MOTION: Flexion: normal, as expected for age and weight Pain: No Extension: normal, as expected for age and weight Pain: Yes, axial pain Lateral Bending: Right normal, as expected for age and weight Pain: No Left normal, as expected for age and weight Pain: No PALPATION TENDERNESS: No tenderness to palpation throughout axial spine and posterior pelvic bony prominences Hyperesthesia present: No Regional symptoms present: No Increased pain with axial loading: No Distraction: Normal Pain responses: appropriate NEUROLOGIC EXAM: MOTOR: Requires verbal cues to minimize cog-wheel or give-way resistance: No Hip Flexor R: 5/5 L: 5/5 Hip Adductor R: 5/5 L: 5/5 Hip Abductor R: 5/5 L: 5/5 Knee Extension R: 5/5 L: 5/5 Foot Dorsiflexion R: 5/5 L: 5/5 Foot Plantar Flexion R: 5/5 L: 5/5 Ext Hallicus Longus R: 5/5 L: 4/5 Toe Extensors R: 5/5 L: 5/5 SENSATION to Light Touch: Lumbar: L2-S1 symmetrically normal. REFLEXES: Lower Extremity: All Lower Extremity reflexes symmetrically normal. Clonus: R: 0 beats/Normal L: 0 beats/Normal Babinski Sign: Negative bilaterally. Upper Extremity: All Upper Extremity reflexes symmetrically normal. Burton's Sign: Negative bilaterally. VASCULAR: Skin appearance: Right: Warm/pink Left: Warm/pink Capillary refill: Right: brisk Left: brisk ADDITIONAL MUSCULOSKELETAL EXAM: HIP/PELVIS EXAM: Tenderness over the PSIS: Right: No Left: No Greater Trochanteric pain: Right: No Left: No SPECIAL TESTS: Straight Leg Raise: negative bilaterally Contralateral Straight Leg Raise: negative bilaterally IMAGING STUDIES: See discussion above documented in this encounterPrem[facility]10-11-2022 Instructions* Patient Instructions* Suzie Pizarro RD - 03/16/2022 3:30 PM EDT Continue plate method Lean proteins only No fried foods (air fryer OK) Aim for exercise most days goal at least 30 min cardio If later dinner then no evening snack documented in this encounterPremier [facility] Center10-11-2022 History of Present illness Narrative* Suzie Pizarro RD - 03/16/2022 3:15 PM EDT Nutritional Therapy Re-Assessment Nutrition Diagnosis: Altered nutrition-related lab values, related to, endocrine dysfunction, as evidenced by HgA1c 10.4. RECOMMENDED MALNUTRITION DIAGNOSIS: NO MALNUTRITION IDENTIFIED NUTRITION CARE PLAN: Nutrition Intervention 03/16/2022: modify type and amount of food or beverage Continue plate method Lean proteins only No fried foods (air fryer OK) Aim for exercise most days goal at least 30 min cardio If later dinner then no evening snack Nutrition Monitoring & Evaluation: weight loss and labs target range Need for Follow up: 4-6 weeks or as needed PROGRESS: Interval History: Following as relates to diabetes, last HgA1c significantly improved. Working on modifications as provided. Trying to be more active. Weight stable from last visit . Nutrition Intervention 11/24/21 Follow the Plate Method at lunch and dinner: Aim for 2-3 carb choices per meal, or 30-45 grams. Carbs are the starch, fruit and milk group and is defined as 15 grams per serving. Use a 9 plate - 1/2 plate vegetables-non starchy such as green beans, greens, broccoli, cauliflower, etc (1 serving of fruit optional outside of plate) - 1/4 plate lean protein-primarily chicken, turkey fish, lean red 1-2 x per week at most (size of palm) - 1/4 plate whole grain or starchy vegetable such as corn, peas, potatoes, beans (size of fist, 1 cup) Breakfast: 3:30 ex 2 slices WG bread with pnb and milk Sn: 6:00 a.m -ex, fruit Lunch: 10:00 - grilled chicken sandwith - open faced and fruit Sn: 1-2 p.m. nuts Dinner 4-6 like the plate method Sn: small portion nuts or string cheese or spoon ful of pnb Snacks OK if needed, Keep a food record for next visit Actions to implement interventions: Walking Less bread Monitoring blood sugars Diet History: 76-111 Breakfast - veggie sandwich with half bread Snack - veggies sandwich with half bread or wtth belle Lunch - grilled chicken sandwich, occ with FF;diet pop water Snack - not usually Dinner - 4-6- chicken breaded, chops, corn or occ potato, veggies, fruit; coffee or milk Snack - cereal (cheerios)/1% Beverages - water ,diet soda, coffee, milk Alcohol - no Vitamins/Supplements - no Activity: Activities of Daily Living: active Additional Activity: Moderately active (Moderate intensity exercise: Planned physical activity 3-5 days/week) Most days, walking -30 min Work 5K steps Anthropometrics: Height: Last 1 Encounter Ht Readings: Date: Ht: 03/16/2022 177.8 cm (5' 10) Current weight: Last 1 Encounter Wt Readings: Date: Wt: 03/16/2022 106.4 kg (231 lb 8 oz) Body mass index is 33.65 kg/m . Resting Metabolic Rate: 1927 Malnutrition Screening Significant unintentional weight loss? No Eating less than 75% of usual intake for more than 2 weeks? No Potential Signs of Inflammation: no identifiable sources Nutritional status: Walking Less bread Education Materials Provided: None this visit READINESS TO LEARN Cognitive ability: Alert and oriented Motivation to learn: Interested Family support: Unable to assess - Family not present Instruction provided to: Patient Patient learns best by: Individual Instruction Factors affecting learning: None Physical limitations affecting learning: None Likelihood of Adherence: Moderate Referred/Supervised by: Kathy/Ronald MNT Billing Type: Re-assess/15 min 2 units SIGNATURE: Suzie Pizarro RD PATIENT NAME: Chang Solis DATE: March 16, 2022 TIME: 3:17 PM documented in this encounterPrem[facility]10-04-2022 Miscellaneous Notes* Telephone Encounter - Karli Bacon - 03/09/2022 4:20 PM EDT No Show Documentation Chang Solis no showed for an appointment on 03/09/2022 with Tiffany Chavez APRN.MONKEY KEEPER at 4:00 PM. He was scheduled for back pain. I spoke with the patient regarding his missed appointment. Chang stated the reason that he missed his appointment was because the patient thought his appointment was at 4:15 pm . Resources discussed/offered to patient: to reschedule. No show determined to be fault of patient: Yes This is the patients first no show in the last 12 months. Patient was rescheduled for 04/05/22 at 4:40 pm. Letter mailed : No-patient here in person. Is this the Third or Fourth No Show? No Karli Bacon March 09, 2022 4:21 PM documented in this encounterPrem[facility]10-03-2022 History of Present illness Narrative* Aliyah Holley, RYLIE - 03/08/2022 9:08 AM EDT Head and Neck [place] AUDIOLOGIC EVALUATION REPORT Name: Chang Solis CC#: [id number] Date of Service: 03/08/2022 Date of : 1970 Age: [age] year old Referred by: Nav Maddox MD Referred for: Evaluation of suspected change in hearing, tinnitus, or balance. Referral documented: No referral on file Patient's major complaints: Vertigo Chang Solis was seen for an initial audiologic evaluation. He reported he recently was seen in the ED for vertigo. When he had this episode, the room would spin clockwise and was a result of his head turning to the right or left and upwards. Mr. Solis stated this has happened in the past a few times. He recently fell after the vertigo and now has to see a retail merchandising specialist. 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 At today's appointment, he denied otalgia, otorrhea, tinnitus, ear surgeries, family history of childhood hearing loss, history of chemotherapy/radiation treatment, and any previous head injuries. [facility] and symptoms. IMPRESSIONS RIGHT EAR: Sensorineural hearing loss LEFT EAR: Hearing within normal limits AUDIOLOGIC EVALUATION Following is a brief interpretation of the obtained findings from the audiologic evaluation. Refer to the Auditory Test Record for complete audiometric results. The patient was counseled about the test findings and appropriate audiologic recommendations were made. SUMMARY: Audiogram can be viewed under Forms/Audiology/SmartForm. OTOSCOPY RIGHT EAR: Otoscopic inspection revealed ear canal was clear with an identifiable cone of light. LEFT EAR: Otoscopic inspection revealed ear canal was clear with an identifiable cone of light. TYMPANOMETRY Description of procedure: This test is an objective evaluation of middle ear function. CPT code: 36224 RIGHT EAR: Normal ME function. LEFT EAR: Normal ME function. ACOUSTIC REFLEXES Description of procedure: This test is an objective measure of auditory and facial nerve pathways. CPT code: 00973, 70869 RIGHT EAR PROBE EAR: (ipsi right stimulus ear; contralateral left stimulus ear): Acoustic Reflex Pattern Did not test Acoustic Reflex Decay (left stimulus ear): Did not test. LEFT EAR PROBE EAR: (ipsi left stimulus ear; contralateral right stimulus ear): Acoustic Reflex Pattern Did not test Acoustic Reflex Decay (right stimulus ear):Did not test. PURE TONE AUDIOMETRY AND SPEECH TESTING Description of procedure: This test is an objective evaluation hearing sensitivity via air and boneconduction and speech recognition testing. CPT code: 08258 RIGHT EAR: Hearing Sensitivity: Within normal limits through 2000 Hz sloping to an essentially mild hearing loss. Word Recognition Score: Excellent (100%). WRS is consistent with hearing sensitivity. Words were presented at 55 dB HL approximates (45-55 dB HL) intensity level for average conversational speech. The NU-6 Ordered by Difficulty Word List (10 words) was used for testing. LEFT EAR: Hearing Sensitivity: Essentially within normal limits from 250-8000 Hz. Word Recognition Score: Excellent (100%). WRS is consistent with hearing sensitivity. Words were presented at 55 dB HL approximates (45-55 dB HL) intensity level for average conversational speech. The NU-6 Ordered by Difficulty Word List (10 words) was used for testing. RECOMMENDATIONS * Continue medical follow-up with Nav Maddox MD. * Re-evaluation as medically indicated. * Consider assessment of vestibular and balance system (Vestibular Battery) if vertigo returns. Rylie Galeano Clinical Duplicating Machine Servicer copied to: Nav Maddox MD EDGE Abbrev- iation Definition Degree of hearing sensitivity dB range WNL within normal limits WNL 0 - 20 SNHL sensorineural hearing loss Mild 20-40 CHL conductive hearing loss Moderate 40-55 MHL mixed hearing loss Moderately-Severe 55-70 WRS word recognition score Severe 70-90 ME middle ear Profound 90 + TM tympanic membrane documented in this encounterPremier [facility]09-20-2022 Instructions* Patient Instructions* Reba Costa MD - 02/23/2022 3:54 PM EDT - Stop pioglitazone - Continue to take metformin 500 mg 2 tabs twice a day - Continue Pravastatin 20 mg once a day (for cholesterol) - Blood and urine tests in the morning fasting - Follow up with the diabetes nurse in 3 months and with me in 6 months documented in this encounterPremier Health [facility]09-20-2022 History of Present illness Narrative* Reba Costa MD - 02/23/2022 3:40 PM EDT ENDOCRINOLOGY CLINIC NOTE Mr. Solis is a 51 year old male with recently diagnosed diabetes, dyslipidemia, TIA, GERD and asthma presented for follow-up HPI He presented to the hospital in 10/2021 with chest pain. Labs on admission showed glucose 500, AG 11, bicarb 24. He received IV fluids and subcutaneous insulin injection. His A1c was 10.4% and he was discharged on insulin. The plan was to do basal prandial insulin, but cost was an issue due to lack of insurance. He was discharged on insulin 70/30 and metformin He has history of prediabetes when his A1c was 6.8% in 01/2021. His C-peptide was 2.1. We stopped the insulin and continue with metformin and added pioglitazone 30 mg daily. Sulfonylureas were avoideddue to his history of sulfa allergy A1c: A1c today 5.4% 01/13/2021 18:55 10/26/2021 22:11 Hemoglobin A1C 6.8 (H) 10.4 (H) Current regimen: Metformin ER 500 mg twice a day Pioglitazone 30 mg once a day Home glucose monitoring: He checks 2-3 times a day before eating AM 80-130s Hypoglycemia: None Diet: He eats 3 main meals. He has made significant changes to his diet Physical activity: He enjoys walking daily 30 min eats Complications: Retinopathy: Nephropathy: Normal GFR in 10/2021 Neuropathy: no symptoms suggestive of that CVS: lipid profile 10/2021: Cholesterol 172, LDL - , HDL 27, TG 588, started on pravastatin 20 mg BP: 124/86 PAST MEDICAL HISTORY Diagnosis Date Abdominal pain, left lower quadrant Acute gastritis without mention of hemorrhage Duodenitis without mention of hemorrhage Esophageal reflux Gastroesophageal reflux Unspecified asthma(493.90) exercise-induced PAST SURGICAL HISTORY Procedure Laterality Date APPENDECTOMY HX CHOLECYSTECTOMY HX COLONOSCOPY W/BIOPSY SINGLE/MULTIPLE 09/02/10 EGD TRANSORAL BIOPSY SINGLE/MULTIPLE 09/02/10 HERNIA REPAIR HX LAPAROSCOPY SURG CHOLECYSTECTOMY Cholecystectomy, lap RPR 1ST INGUN HRNA AGE 5 YRS/> REDUCIBLE Hernia repair, inguinal RPR 1ST INGUN HRNA AGE 5 YRS/> REDUCIBLE Hernia repair, inguinal TONSILLECTOMY HX TONSILLECTOMY PRIMARY/SECONDARY <AGE 12 Tonsillectomy FAMILY HISTORY Problem Relation Age of Onset Hypertension Mother Lipids Mother No Ocular Disease Mother Cancer Father lung ca. No Ocular Disease Father Diabetes Maternal Grandmother Coronary Artery Disease Maternal Grandfather Cancer Paternal Grandfather Social History Tobacco Use Smoking status: Passive Smoke Exposure - Never Smoker Smokeless tobacco: Never Vaping Use Vaping Use: Never used Substance Use Topics Alcohol use: No Drug use: No (Not in a hospital admission) Allergies As of Date: 02/23/2022 Allergen Noted Reaction BACTRIM [SULFAMETHOXAZOLE-TRIMETH*04/12/2005 Hives HAND CREAMS [OTHER] 04/12/2005 Rash HAND SOAP [TRICLOSAN] 07/26/2012 Rash IVP DYE [IODINE] 04/12/2005 Hives SHELLFISH DERIVED 12/13/2016 Rash SULFA (SULFONAMIDE ANTIBIOTICS) 04/12/2005 Hives Fully Assessed 02/10/2022 Current Outpatient Medications Medication Sig Dispense Refill metFORMIN ER (GLUCOPHAGE XR) 500 mg 24 hr tablet Take 2 tablets by mouth once daily. 180 tablet 1 pioglitazone (ACTOS) 30 mg tablet Take 1 tablet by mouth once daily. 30 tablet 3 pravastatin (PRAVACHOL) 20 mg tablet Take 1 tablet by mouth daily at bedtime. 30 tablet 3 meclizine (ANTIVERT) 25 mg tab Take 0.5-1 tablets by mouth three times daily as needed (dizziness).30 tablet 0 cetirizine-pseudoephedrine (ZYRTEC-D) 5-120 mg per tablet Take 1 tablet by mouth twice daily as needed. 10 tablet 0 albuterol HFA (PROAIR HFA) 90 mcg/actuation inhaler Inhale 2 Puffs as instructed every 4 hours as needed for wheezing/shortness of breath. 6.7 g 0 guaiFENesin (MUCINEX) 600 mg 12 hr tablet Take 1 tablet by mouth twice daily. 30 tablet 0 fluticasone (FLONASE ALLERGY RELIEF) 50 mcg/actuation nasal spray Use 1 [place] in each nostril once daily. 9.9 mL 0 Lancets lancets Use as instructed 200 Each 2 blood sugar diagnostic (RELION PRIME TEST STRIPS) test strip Use as instructed 200 Strip 2 Blood-Glucose Meter (RELION PRIME METER) 1 Each four times daily. 1 Each 0 Insulin [place], Disposable, (BD ULTRA-FINE MICRO PEN NEEDLE) 32 gauge x 1/4 1 Each four times daily. (Patient not taking: Reported on 12/08/2021 ) 100 Each 2 omeprazole (PRILOSEC) 40 mg capsule Take 1 capsule by mouth once daily. 30 capsule 5 acetaminophen (TYLENOL ORAL) Take by mouth as needed. No current facility-administered medications for this visit. COMPLETE REVIEW OF SYSTEMS: 10 point review of systems was negative other than what is mentioned in the H&P PHYSICAL EXAM: 02/23/22 1533 BP: 124/86 BP Site: Left Arm BP Position: Sitting BP Cuff Size: Regular Adult Pulse: 75 SpO2: 99% Weight: 105.9 kg (233 lb 6.4 oz) General: NAD, alert and cooperative Previous exam: HEENT: EOMI, no proptosis/stare. Neck: supple with full ROM. No thyromegaly or palpable nodules Cardiovascular: RRR, +S1 and S2, no MRG appreciated Lungs: Clear to auscultation bilaterally Abdomen: soft, non-tender, non-distended Extremities: No LE oedema Neuro: No tremor of outstretched hands noted. Deep tendon reflexes are normal with a normal relaxation phase. Psych: Normal affect Foot exam: Noted dry skin and calluses. No wounds or ulcers. Weak pedal pulses bilaterally, normal monofilament and vibration sensation bilaterally Labs: 10/31/2021 16:03 Sodium 136 Potassium 4.1 Chloride 99 CO2 26 BUN 14 Creatinine 0.91 Glucose 265 (H) Protein, Total 7.3 Calcium 9.4 Albumin 4.2 Bilirubin, Total 0.7 Alkaline Phosphatase 104 ALT 32 AST 46 (H) Anion Gap 11 eGFR 103 10/27/2021 02:24 Cholesterol, Total 172 Triglyceride 588 (H) Fasting Time Unsure HDL Cholesterol 27 (L) LDL Cholesterol See comment Assessment and Recommendations: Mr. Solis is a pleasant 51-year-old man presented for post hospital follow-up of T2DM. There has been significant improvement in his glycemic control based on the A1c and the reported glucose values,and I congratulated him on his efforts. Because of his A1c level, I asked him to stop the pioglitazone and continue with metformin 1000 mg twice a day. We again emphasized the importance of continuing his dietary modifications which have resulted in the outstanding improvement in his diabetes. His BP is at goal today. I asked him to check the lipid panel fasting so that we can adjust the pravastatin dose. We will also check his urine ACR. He will follow-up with my colleague nurse in 3 months and with me after that. His preferred phone number is [phone] Some of the above has been copied from prior documentation on 11/25/2021 but edge elements reviewed, confirmed, and/or updated by me (Reba Costa MD) on 02/23/2022 I spent a total of 35 minutes on the date of the service which included preparing to see the patient, [id number] patient care, completing clinical documentation, counseling and educating the patient/family/caregiver, and ordering medications, tests, or procedures. Reba Costa MD documented in this encounterPrem[facility]09-19-2022 History of Present illness Narrative* Maggy Otero, RT(R) - 02/22/2022 5:00 PM EDT Radiology Service Progress Note PATIENT NAME: Chang Solis DATE OF SERVICE: February 22, 2022 TIME: 4:59 PM PATIENT IDENTITY VERIFICATION COMPLETED USING TWO (2) IDENTIFIERS: Name and Date of confirmedby patient verbally. FALL SCREENING: Has the patient had 2 falls in the last year or 1 fall with injury or currently using an Ambulatory Assistive Device (Walker, Cane, Wheelchair, Crutches, etc.)? No PATIENT GENDER DATA: Male PATIENT RELEVANT IMPLANT DATA REVIEWED: Not Applicable RADIOLOGY DEPARTMENT: General X-ray: Exam(s) Completed: Spine X-Ray(s): Lumbar AP / LAT / L5-S1 andSacrum/Coccyx PERIPHERAL IV DATA: Not applicable SIGNED BY: RT Jamie(R) February 22, 2022 4:59 PM documented in this encounterPremier [facility]09-09-2022 Miscellaneous Notes* Telephone Encounter - Jamila Cheng LPN - 02/12/2022 3:45 PM EDT Requester: Patient Last Visit in Endocrinology: Provider name: Reba Costa MD , Date 11/25/2021 Next Scheduled Appt in Endo: 02/23/2022 Last Refill: 12/04/21 Number of Refills given: 3 Requested Prescriptions Pending Prescriptions Disp Refills pioglitazone (ACTOS) 30 mg tablet 30 tablet 3 Sig: Take 1 tablet by mouth once daily. pravastatin (PRAVACHOL) 20 mg tablet 30 tablet 3 Sig: Take 1 tablet by mouth daily at bedtime. Please review and advise. Jamila Cheng LPN * Telephone Encounter - Nuria Snow - 02/12/2022 3:41 PM EDT Pharmacy verified in [facility] Patient has been identified by name and date of : Yes Patient aware RX will be sent to pharmacy. No need to notify patient. Patient phones for refill(s): Requested Prescriptions Pending Prescriptions Disp Refills pioglitazone (ACTOS) 30 mg tablet 30 tablet 3 Sig: Take 1 tablet by mouth once daily. pravastatin (PRAVACHOL) 20 mg tablet 30 tablet 3 Sig: Take 1 tablet by mouth daily at bedtime. Date of last office visit : 11/25/2021 Date of next office visit : 02/23/2022 Last 2 Encounter Wt Readings: Date: Wt: 02/10/2022 103.9 kg (229 lb) 01/07/2022 103.9 kg (229 lb) Not applicable Please advise. Nuria Snow documented in this encounterPremier [facility]09-08-2022 Miscellaneous Notes* Telephone Encounter - Marie Bah MA - 02/11/2022 5:25 PM EDT Patient requesting refills as follows: Last Office Visit 12/08/21. Last Refill 02/09/22. Patient is requesting a longer supply Requested Prescriptions Pending Prescriptions Disp Refills metFORMIN ER (GLUCOPHAGE XR) 500 mg 24 hr tablet 120 tablet 1 Sig: Take 2 tablets by mouth once daily. Please review and advise. Marie Bah MA documented in this encounterPrem[facility]09-06-2022 Miscellaneous Notes* Telephone Encounter - Tahira Rosales MA - 02/09/2022 8:54 AM EDT pharmacy electronically requesting refills as follows: Last seen 12/08/21 . Last refill 12/08/21 . Requested Prescriptions Pending Prescriptions Disp Refills metFORMIN ER (GLUCOPHAGE XR) 500 mg 24 hr tablet [Pharmacy Med Name: metformin ER 500 mg tablet,extended release 24 hr] 60 tablet 1 Sig: TAKE 2 TABLETS BY MOUTH ONCE DAILY Please review and advise. Tahira Rosales MA documented in this [facility]08-25-2022 Miscellaneous Notes* Telephone Encounter - Nuria Snow - 01/28/2022 3:14 PM EDT Scheduled. Date of next office visit : 02/23/2022 Nuria Armas Pss * Telephone Encounter - Gosia Castro RN - 01/28/2022 2:[address] Costa: Thank you. I would like to see him for follow up some time in February or March HH * Telephone Encounter - Gosia Castro RN - 01/28/2022 11:00 AM EDT FYI Patient Update: Called and spoke to patient. He state's that he has been taking his medication as prescribed, walking 3-5 miles per day and changed his diet. His BS's have been running 90's-140's. He had an episode last evening that after his nightly 30 minute walk his BS dropped to 77. He didn't really have symptoms but was concerned. Encouraged patient to have a small healthy snack before exercise to prevent this. He stated understanding. documented in this encounterPrem[facility]08-25-2022 Miscellaneous Notes* Telephone Encounter - Gosia Castro RN - 01/28/2022 1:01 PM EDT See encounter dated 01/28/2022. Closed. * Telephone Encounter - Castro Burrell Ma - 01/27/2022 3:55 PM EDT Called patient and voicemail was full. Will try again tomorrow. * Telephone Encounter - Nuria Armas Pss - 01/27/2022 3:38 PM EDT Patient contacted office with glucose readings and questions on prescriptions. Patient states his glucose was 77 last night after a walk and has ranged from 97-140 today. Please contact patient and advise. documented in this encounterPrem[facility]08-09-2022 Miscellaneous Notes* Telephone Encounter - Marie Bah MA - 01/12/2022 4:29 PM EDT Patient is coming today to pear picker letter at supervisor front. Marie Bah MA * Telephone Encounter - Tiffany Chavez APRN.CNP - 01/12/2022 4:28 PM EDT Letter created. Patient is here to pear picker. * Telephone Encounter - Marie Bah MA - 01/12/2022 2:50 PM EDT Patient is requesting for a work excuse and return letter, he is still in quarantine and having headaches still. Patient wants a call when letter has been faxed to [phone], because if it doesn'tgo through he will come in and pick it up. Marie Bah MA documented in this encounterPrem[facility]08-05-2022 Miscellaneous Notes* Telephone Encounter - iSa Alonso APRN.CNP - 01/08/2022 8:36 AM EDT Called patient's number, no ringing but there was a voicemail box. Wasn't able to leave a message- it was full. Called emergency contact, left message with office number to return the call. Also, resent mychart activation information. * Telephone Encounter - Sharon Castellano PA-C - 01/08/2022 7:37 AM EDT Please call the patient and inform him that his test was POSITIVE for Covid on 01/07/22 with symptomsbeginning on 01/04/22. He should contact his PCP to discuss eligible Covid treatment options. Everyone, regardless of vaccination status: 1. Stay home for 5 days from start of symptoms. 2. If you have no symptoms or your symptoms are resolving after 5 days, you can leave your house. 3. Continue to wear a mask around others for 5 additional days. 4. If you have a fever, continue to stay home until your fever resolves, even if it is longer than 5 days. Go to ER for respiratory distress. A test is not recommended to return to work/school when meeting the above criteria. Sharon Castellano PA-C documented in this encounterPrem[facility]08-05-2022 History of Present illness Narrative* Marie Bah MA - 01/08/2022 7:24 AM EDT ED Follow Up: Left message for patient to call back if he needs anything Patient discharged from [facility] ED on 01/05/22. 1. How are you feeling since your ED visit? N/A Have your symptoms improved or resolved? Not applicable 2. Were you prescribed any medications while in the ED or advised to stop any medication? Not applicable - If yes, were you able to fill your prescriptions? Not applicable -if stopped medication, what was the medication? N/A 3. Were you advised to schedule a follow up appointment with your provider? Not applicable - If no, Do you feel like you need an appointment scheduled? Not applicable - If yes, Do you need this scheduled now or has this already been scheduled? Not applicable 4. Were you able to contact the office or data communications software consultant provider prior to your ED visit? Not applicable 5. Is there anything else I can do for you today? Not applicable Marie Bah MA documented in this encounterPremier [facility]08-04-2022 History of Present illness Narrative* Castro Harry APRN.MONKEY KEEPER - 01/07/2022 3:51 PM EDT This note was created using [employer]. Subjective Chang Solis is a 51 year old male. HPI by patient: Chang is a 51 yo male presenting to the office with the complaint of URI symptoms, Covid exposureto mother Started approximately Tuesday Associated symptoms include sneezing, runny nose, cough, ear pain, chest tightness/soreness Denies fever or chills Vaccinated for influenza: yes Covid Immunization Dates COVID-19 VACCINE (Series Information) Completed 08/01/2021 Imm Admin: COVID-19 vaccine, full dose (MODERNA) 10/28/2020 Imm Admin: COVID-19 vaccine, full dose (MODERNA) 09/26/2020 Imm Admin: COVID-19 vaccine, full dose (MODERNA) 09/04/2020 Imm Admin: COVID-19 vaccine, full dose (MODERNA) Personal history of Covid: no Flu/RSV contacts: no Strep contacts: no Sick contacts: yes Covid + contacts: yes, mother has covid and patient lives with his parents Travel in the last 14 days: no Smoking history/second hand smoke: no OTC tylenol No antibiotic use in the last 30 days. ALLERGIES Bactrim (Sulfametho* Hives Hand Creams (Other) Rash Hand Soap (Triclosa* Rash Ivp Dye (Iodine) Hives Shellfish Derived Rash Sulfa (Sulfonamide * Hives Family History Reviewed Including Cardiac Diseases, Psychiatric Diseases, & Substance Abuse Problem: Hypertension Relation: Mother Age of Onset: (Not Specified) Problem: Lipids Relation: Mother Age of Onset: (Not Specified) Problem: No Ocular Disease Relation: Mother Age of Onset: (Not Specified) Problem: Cancer Relation: Father Age of Onset: (Not Specified) Comment: lung ca. Problem: No Ocular Disease Relation: Father Age of Onset: (Not Specified) Problem: Diabetes Relation: Maternal Grandmother Age of Onset: (Not Specified) Problem: Coronary Artery Disease Relation: Maternal Grandfather Age of Onset: (Not Specified) Problem: Cancer Relation: Paternal Grandfather Age of Onset: (Not Specified) Social History Tobacco Use Smoking status: Passive Smoke Exposure - Never Smoker Smokeless tobacco: Never Used Vaping Use Vaping Use: Never used Alcohol use: No Drug use: No Review of Systems Constitutional: Positive for fatigue. Negative for chills and fever. HENT: Positive for congestion, ear pain, postnasal drip and rhinorrhea. Negative for sore throat. Respiratory: Positive for cough, chest tightness and shortness of breath. Cardiovascular: Negative for chest pain. Allergic/Immunologic: Negative for immunocompromised state. Neurological: Negative for headaches. Hematological: Negative for adenopathy. Objective BP 123/76 Pulse 98 Resp 16 Ht 175.3 cm (5' 9) Wt 103.9 kg (229 lb) SpO2 97% BMI 33.82 kg/m Physical Exam Vitals and nursing note reviewed. Constitutional: Appearance: He is well-developed. HENT: Right Ear: Tympanic membrane and ear canal normal. Left Ear: Tympanic membrane and ear canal normal. Nose: Congestion and rhinorrhea present. Mouth/Throat: Pharynx: Uvula midline. Posterior oropharyngeal erythema present. No oropharyngeal exudate. Eyes: Conjunctiva/sclera: Conjunctivae normal. Pupils: Pupils are equal, round, and reactive to light. Cardiovascular: Rate and Rhythm: Normal rate and regular rhythm. Heart sounds: Normal heart sounds. Pulmonary: Effort: Pulmonary effort is normal. Breath sounds: Normal breath sounds. Lymphadenopathy: Cervical: No cervical adenopathy. Skin: General: Skin is warm and dry. Neurological: Mental Status: He is alert and oriented to person, place, and time. Assessment and Plan ASSESSMENT/PLAN: 1. Mild intermittent asthma with acute exacerbation - ICD9: 493.92, ICD10: J45.21 (primary diagnosis) - Report self reporting hx of asthma that acts when he is ill. - Avoidance of triggers recommended - ALBUTEROL SULFATE HFA 90 MCG/ACTUATION AEROSOL INHALER 2. Viral URI with cough - ICD9: 465.9, ICD10: J06.9 - Discussed viral etiology and rationale for treatment. - Symptomatic treatment with prn analgesia - Supportive care with fluids and rest - GUAIFENESIN ER 600 MG TABLET, EXTENDED RELEASE 12 HR - FLUTICASONE PROPIONATE 50 MCG/ACTUATION NASAL SPRAY,SUSPENSION - COVID WITH FLUA+B, ROUTINE Castro Harry APRN.CNP Medical Decision Making: Problems: Moderate: New problem with uncertain prognosis Data: Unique test(s) ordered: 1 Risk: Moderate: Drug management Medical Decision Making Level: 4 - Moderate This patient encounter involved the screening or treatment of novel coronavirus infection (COVID-19). documented in this encounterPremier Health [facility]08-04-2022 Instructions* Patient Instructions* Castro Harry APRN.CNP - 01/07/2022 3:51 PM EDT UPPER RESPIRATORY INFECTIONS Most cases are caused by viruses and most cases are mild, temporary, and harmless. Symptoms can last 2 to 3 weeks and can include: nasal congestion, sore throat, coughing, muscles aches, headaches, nausea, diarrhea, fatigue and fever. Now that you have been examined, if you are not feeling better within 2-3 weeks, please call back. In the meantime, please: 1. Drink plenty of fluids. 2. Get lots of rest. 3. Avoid dehydrants such as caffeine and alcohol. 4. Nasal saline is an effective decongestant and be used frequently throughout the day. 5. To loosen phlegm and help coughing, drink plenty of fluids and using a humidifier. 6. For sore throats, it is ok to use cough drops, throat sprays, or gargling warm salt water. 7. Always cover your mouth when you cough or sneeze, and wash your hands frequently. Avoid crowded areas like shopping centers, movies while you are sick so you don't pear picker a different virus, or infect others. 8. Avoid exposure to cigarettes or fumes. 9. Avoid irritants such as potpourri, dust, perfumes, scented candles and scented sprays 10. Air conditioning is an effective allergen and irritant avoidance strategy in the spring, summerand fall. 11. Honey is an effective cough suppressant. Try one tsp two to three times per day. The below information is from prescribersletter.[place]: Antibiotics Will rarely help an upper respiratory infections. Antibiotics lead to more resistant infections that are harder to treat. There is little to no benefit to taking antibiotics for most acute upper respiratory tract infections. documented in this encounterPremier [facility]08-03-2022 Miscellaneous Notes* Telephone Encounter - Tiffany Chavez APRN.CNP - 01/06/2022 8:48 PM EDT Patient was seen in the ER. * Telephone Encounter - Marie Bah MA - 01/05/2022 9:30 AM EDT Patient states that yesterday is now having symptoms that started yesterday night. He is experiencing fatigue, stomach upset, diarrhea, and coughing up phlegm. Marie Bah MA * Telephone Encounter - Marie Bah MA - 01/05/2022 9:30 AM EDT ----- Message from Tiffany Chavez APRN.CNP sent at 01/05/2022 8:50 AM EDT ----- Negative for COVID documented in this encounterPremier Health [facility]08-02-2022 Miscellaneous Notes* Telephone Encounter - Castro Burrell Ma - 01/05/2022 11:41 AM EDT Called and spoke with PT, expressed understanding Encounter closed * Telephone Encounter - Castro Burrell Ma - 01/05/2022 11:26 AM EDT Glucose levels are excellent. He can continue with the metformin and Actos pills. He should continue to monitor his blood sugar Thank you HH Message text * Telephone Encounter - Castro Burrell Ma - 01/01/2022 3:33 PM EDT Blood sugar readings on docs desk for review. Please advise, thanks. documented in this encounterPremier Health [facility] Center07-05-2022 Instructions* Patient Instructions* Tiffany Chavez APRN.MONKEY KEEPER - 12/08/2021 4:31 PM EDT Constipation Constipation can be an unpleasant topic to talk about. Most people have experienced constipation atsome point in their life. Though typically not serious, constipation can be both painful and frustrating. What is constipation? Constipation occurs when bowel movements become difficult or less frequent than normal. The frequency or time between bowel movements ranges widely from person to person. Some people have bowel movements several times a day while others only one to two times a week. Going longer than three days without a bowel movement is too long. After three days, the stool becomes harder and more difficult to pass. What causes constipation? Constipation is most commonly caused by inadequate fiber in the diet or a disruption of the regulardiet or routine. Chronic constipation may be due to a poor diet, dehydration, certain medications (such as antidepressants, strong pain medications), stress, or the pressure of other activities that force you to ignore the urge to empty the bowel. Various medical conditions can also cause or aggravate constipation. Some of the more common medical conditions that cause constipation include endocrine problems, such as decreased function of the thyroid gland or diabetes. Colorectal cancer is another medical condition that can cause constipationbut it usually also accompanied by other symptoms including blood in the stool and weight loss. Common causes of constipation include the following: A diet low in fiber Not drinking enough water Lack of exercise Travel or another change in routine Eating large amounts of milk or cheese Stress or resisting the urge to have a bowel movement Medications strong pain medicines such as narcotics antidepressants antacids containing calcium or aluminum such as TUMS iron pills allergy medications such as antihistamines certain blood pressure medicines psychiatric medications herbal supplements Irritable bowel syndrome (IBS) Neurologic disorders including spinal cord injury and multiple sclerosis (MS) Slow transit of the colon How is constipation evaluated? Most people do not need extensive testing to evaluate constipation. Only a small number of patientswith constipation have a serious underlying medical problem (such as poor function of the thyroid gland, diabetes, or colorectal cancer). If you have constipation that has persisted for more than two weeks, you should see a doctor to determine if you need further evaluation. For a patient who has colorectal cancer, early detection and treatment may be life-saving. Standard evaluation for constipation includes performing blood tests and examining the colon by colonoscopy, particularly for patients older than 50 years.. Other tests include colonic transit studies (time it takes for stools to move through the colon) and anal manometry (measures pressure and muscle function in the rectum and anus). Most patients with serious constipation, and without any obvious illness to explain their symptoms,suffer from one of two problems: Colonic inertia (also called lazy colon): a condition in which the colon contracts poorly and retains stool. This can be determined by colon transit studies. Obstructed defecation: a condition in which the colon contracts normally, but the patient is unableto expel stool from the rectum. This condition can be confirmed by a test called anal manometry. How can I prevent constipation? Eat a well-balanced diet with plenty of fiber. Good sources of fiber are fruits, vegetables, legumes, and whole-grain breads and cereals. Fiber and water help the colon pass stool. Most of the fiber in fruits is found in the skins, such as in apples. Fruits with seeds you can eat, like strawberries, have the most fiber. Bran is a great source of fiber: eat bran cereal or add bran cereal to other foods, like soup and yogurt. Drink eight 8-ounce glasses of water a day. (Note: Milk can cause constipation in some people.) Liquids that contain caffeine, such as coffee and soft drinks, have a dehydrating effect and may need to be avoided until your bowel habits return to normal. Exercise regularly. Move your bowels when you feel the urge. How is constipation treated? Drink two to four extra glasses of water a day. Try warm liquids, especially in the morning. Add fruits and vegetables to your diet. Eat prunes and/or bran cereal. Add supplemental fiber to your diet (there are several types, such as Metamucil, Citrucel, and Benefiber). If needed, use a very mild stool softener or laxative (such as colace [docusate] or Milk of Magnesia). Do not use laxatives for more than two weeks without calling your health care provider, as laxative overuse can aggravate your symptoms. When should I call my health care provider? Call your health care provider if: Constipation is a new problem for you. You have blood in your stool. You are losing weight unintentionally. You have severe pain with bowel movements. Your constipation has lasted more than three weeks. Where can I learn more? National Digestive Diseases Information Clearinghouse2 Information [place], [place] [address] www.digestive.niddk.nih.gov email: References: National Digestive Diseases Information Clearinghouse. Constipation. digestive.niddk.nih.gov Accessed March 10, 2012. [employer]. Understanding Constipation. [email or web address]. Accessed March 10, 2012. Copyright 7789-1297 [facility]. All rights reserved This information is provided by the [facility] and is not intended to replace the medical advice of your doctor or health care provider. Please consult your health care provider for advice about a specific medical condition. For additional health information, please contact the Center for Consumer Health Information at the [facility] or toll-free extension [phone]. If you prefer, you may visit [email or web address] or [email or web address]. This document was last reviewed on: 2012 index #[id number] documented in this encounterPremier Health Atrium Medical Center07-05-2022 History of Present illness Narrative* Tiffany Chavez APRN.CNP - 12/08/2021 4:26 PM EDT Images from the original note were not included. [facility] Tiffany Chavez [employer] [address] [place] [address] Dept Dept. Visit Date: December 08, 2021 Mr.Scottie Jh Solis Date of : 1970 MRN/E #: [id number] Chief Complaint: Patient presents with: Establish Care History of Present Illness Chang Solis is a 50 year old male. He is a new patient to establish care. I reviewed past medical, surgical, social, and family histories today and updated chart. Allergies, chronic medications, and supplements were also reviewed. He was recently in the hospital for chest pain in October and it was discovered that he was diabetic with BS in the 's. He was admitted and discharged on insulin. He has since followed up with Endocrinology and has been transitioned off insulin and is currently on Actos and Metformin. He has also seen the music instructor and is writing down everything he eats. He is also up to date with his retinal eye exam which he states was normal. He has been trying to get more exercise with walking for 30 minutes every night. Also walks a lot at work. He has cut out pop. He does note that he has had some constipation since Tuesday and took Mag Citrate and has had some bowel movements. He does not smoke, drink alcohol, or use illicit drugs. The history is provided by the patient. No marketing communications coordinator was used. Diabetes He presents for his initial diabetic visit. He has type 2 diabetes mellitus. The initial diagnosis of diabetes was made 2 months ago. His disease course has been improving. There are no hypoglycemic associated symptoms. Pertinent negatives for hypoglycemia include no nervousness/anxiousness or seizures. Headaches: yesterday. Associated symptoms include weight loss. Pertinent negatives for diabetes include no blurred vision, no chest pain, no fatigue, no foot paresthesias, no foot ulcerations, no polydipsia, no polyphagia, no polyuria, no visual change and no weakness. There are no hypoglycemic complications. Symptoms are stable. There are no diabetic complications. Risk factors for coronaryartery disease include dyslipidemia, male sex and obesity. Current diabetic treatment includes oralagent (dual therapy). He is compliant with treatment all of the time. His weight is decreasing steadily. He is following a generally healthy and low salt diet. Meal planning includes avoidance of concentrated sweets and carbohydrate counting. He has had a previous visit with a dietitian. He participates in exercise three times a week. His home blood glucose trend is decreasing steadily. His overall blood glucose range is 110-130 mg/dl. An DALY inhibitor/angiotensin II receptor german is not being taken. He does not see a chemist.Eye exam is current. PAST MEDICAL HISTORY Diagnosis Date Abdominal pain, left lower quadrant Acute gastritis without mention of hemorrhage Duodenitis without mention of hemorrhage Esophageal reflux Gastroesophageal reflux Unspecified asthma(493.90) exercise-induced PAST SURGICAL HISTORY Procedure Laterality Date APPENDECTOMY HX CHOLECYSTECTOMY HX COLONOSCOPY W/BIOPSY SINGLE/MULTIPLE 09/02/10 EGD TRANSORAL BIOPSY SINGLE/MULTIPLE 09/02/10 HERNIA REPAIR HX LAPAROSCOPY SURG CHOLECYSTECTOMY Cholecystectomy, lap RPR 1ST INGUN HRNA AGE 5 YRS/> REDUCIBLE Hernia repair, inguinal RPR 1ST INGUN HRNA AGE 5 YRS/> REDUCIBLE Hernia repair, inguinal TONSILLECTOMY HX TONSILLECTOMY PRIMARY/SECONDARY <AGE 12 Tonsillectomy Social History Tobacco Use Smoking status: Passive Smoke Exposure - Never Smoker Smokeless tobacco: Never Used Vaping Use Vaping Use: Never used Substance Use Topics Alcohol use: No Drug use: No Social History Social History Narrative Not on file Family History Reviewed Including Cardiac Diseases, Psychiatric Diseases, & Substance Abuse Problem: Hypertension Relation: Mother Age of Onset: (Not Specified) Problem: Lipids Relation: Mother Age of Onset: (Not Specified) Problem: No Ocular Disease Relation: Mother Age of Onset: (Not Specified) Problem: Cancer Relation: Father Age of Onset: (Not Specified) Comment: lung ca. Problem: No Ocular Disease Relation: Father Age of Onset: (Not Specified) Problem: Diabetes Relation: Maternal Grandmother Age of Onset: (Not Specified) Problem: Coronary Artery Disease Relation: Maternal Grandfather Age of Onset: (Not Specified) Problem: Cancer Relation: Paternal Grandfather Age of Onset: (Not Specified) ALLERGIES Allergen Reactions Bactrim [Sulfametho* Hives Hand Creams [Other] Rash Hand Soap [Triclosa* Rash Ivp Dye [Iodine] Hives Shellfish Derived Rash Sulfa (Sulfonamide * Hives Current Outpatient Medications Medication Sig metFORMIN ER (GLUCOPHAGE XR) 500 mg 24 hr tablet Take 2 tablets by mouth once daily. pioglitazone (ACTOS) 30 mg tablet Take 1 tablet by mouth once daily. pravastatin (PRAVACHOL) 20 mg tablet Take 1 tablet by mouth daily at bedtime. albuterol HFA (PROAIR HFA) 90 mcg/actuation inhaler Inhale 2 Puffs as instructed every 6 hours as needed for wheezing/shortness of breath. Lancets lancets Use as instructed blood sugar diagnostic (RELION PRIME TEST STRIPS) test strip Use as instructed Blood-Glucose Meter (RELION PRIME METER) 1 Each four times daily. omeprazole (PRILOSEC) 40 mg capsule Take 1 capsule by mouth once daily. acetaminophen (TYLENOL ORAL) Take by mouth as needed. Insulin [place], Disposable, (BD ULTRA-FINE MICRO PEN NEEDLE) 32 gauge x 1/4 1 Each four times daily. (Patient not taking: Reported on 12/08/2021 ) No current facility-administered medications for this visit. Review of Systems Review of Systems Constitutional: Positive for unexpected weight change (weight loss with diet and exercise) and weight loss. Negative for appetite change, chills, diaphoresis, fatigue and fever. HENT: Negative. Eyes: Negative for blurred vision and visual disturbance. Respiratory: Negative for cough, chest tightness, shortness of breath and wheezing. Cardiovascular: Negative for chest pain. Gastrointestinal: Positive for abdominal pain, anal bleeding (from pushing) and constipation. Negative for diarrhea, nausea and vomiting. Endocrine: Negative for cold intolerance, heat intolerance, polydipsia, polyphagia and polyuria. Genitourinary: Negative for dysuria, frequency, hematuria and urgency. Musculoskeletal: Negative. Skin: Negative. Allergic/Immunologic: Negative. Neurological: Negative for seizures, syncope, weakness, light-headedness and numbness. Headaches: yesterday. Hematological: Negative. Psychiatric/Behavioral: Negative for dysphoric mood and sleep disturbance. The patient is not nervous/anxious. Vital Signs BP 120/66 Pulse 90 Temp 98.7 Resp 18 Ht 5' 10 (1.78m) Wt 231 lb (104.8kg) SpO2 98% BMI 33.15 kg/(m^2). Physical Exam Vitals and nursing note reviewed. Constitutional: Appearance: Normal appearance. He is obese. HENT: Head: Normocephalic. Nose: Nose normal. Mouth/Throat: Mouth: Mucous membranes are moist. Eyes: Pupils: Pupils are equal, round, and reactive to light. Cardiovascular: Rate and Rhythm: Normal rate and regular rhythm. Pulses: Normal pulses. Heart sounds: Normal heart sounds. Pulmonary: Effort: Pulmonary effort is normal. Breath sounds: Normal breath sounds. Abdominal: General: Bowel sounds are normal. There is no distension. Palpations: Abdomen is soft. There is no hepatomegaly. Tenderness: There is no abdominal tenderness. Musculoskeletal: Right lower leg: No edema. Left lower leg: No edema. Skin: General: Skin is warm and dry. Neurological: Mental Status: He is alert and oriented to person, place, and time. Psychiatric: Mood and Affect: Mood normal. Behavior: Behavior is cooperative. Cognition and Memory: Cognition normal. Visit Diagnoses (E11.9, Z79.4) Type 2 diabetes mellitus without complication, with long-term current use of insulin(HCC) (primary encounter diagnosis) (E78.2) Mixed hyperlipidemia (K59.00) Constipation, unspecified constipation type (Z23) Encounter for immunization (Z12.11) Screening for colon cancer Assessment and Plan 1. Type 2 diabetes mellitus without complication, with long-term current use of insulin (HCC) - ICD9: 250.00, V58.67, ICD10: E11.9, Z79.4 (primary diagnosis) newly diagnosed The patient is new to me. - Continue current medications - Check Urine for albumin/creatinine ratio - Encouraged regular aerobic exercise and weight loss - Follow up in 3 months, sooner should any other issues arise. - BP goal of <130/80 - LDL goal of <100 - METFORMIN ER 500 MG TABLET,EXTENDED RELEASE 24 HR - ALBUMIN/CREAT RATIO RND UR 2. Mixed hyperlipidemia - ICD9: 272.2, ICD10: E78.2 - newly diagnosed - Continue current medication. - Encouraged following a low fat, low cholesterol diet. - Discussed the benefits of regular aerobic exercise and weight loss. - Check fasting lipid panel and ALT in 12 weeks. - Follow up in 12 weeks. - Encouraged following a low carbohydrate, healthy oil intake diet. 3. Constipation, unspecified constipation type - ICD9: 564.00, ICD10: K59.00 - Increase water and fiber intake - May use Miralax daily as needed 4. Encounter for immunization - ICD9: V03.89, ICD10: Z23 - TDAP VACCINE AGE 7+ IM - HEPATITIS B VACCINE, ADULT AGE 20+, IM 5. Screening for colon cancer - ICD9: V76.51, ICD10: Z12.11 - RASHEEDA Discussed above plan with patient and is agreeable with above plan. Follow up visit Return in about 3 months (around 03/10/2022) for Hyperlipidemia, DM follow-up. Tiffany Chavez APRN.CNP, signed on December 08, 2021 4:28 PM documented in this encounterPremier Health Atrium Medical Center06-29-2022 Miscellaneous Notes* Telephone Encounter - Reba Costa MD - 12/02/2021 4:51 PM EDT I spoke with Mr. Solis following his call. He was asking about his blood test. His C-peptide is midnormal indicating adequate endogenous insulin production. He has been taking insulin 70/30 12 units twice a day over the last week and his blood sugars are in the low to mid 100s. He is still taking metformin 500 twice a day. We discussed increasing the metformin to 2 pills twice a day and we will start glipizide XL 5 mg once a day. When he starts the glipizide, he will stop taking the insulin. I asked him to continue to monitor his blood sugar in the morning and at night, and to call me 5-7 days after starting the glipizide to review his glucose levels. He expressed his understanding and he repeated the instructions to me. Reba Costa MD documented in this encounterPremier Health Atrium Medical Center06-27-2022 Miscellaneous Notes* Telephone Encounter - Marie Bolivar RN - 11/30/2021 10:48 AM EDT Spoke with patient, he spoke with pharmacist and took miralax with good results. Will call office for any further issues. * Telephone Encounter - Adalberto Bryant RN - 11/28/2021 8:39 AM EDT Attempted to reach patient. Left message to call back. * Telephone Encounter - Sharon Francois Pss - 11/27/2021 4:14 PM EDT Chang Solis is calling Brii Stallworth APRN.CNP today with concern regarding Constipation (patient was seen last week or so ago for a hospital follow up and needs to know what to take for the constipation which stool softner )he said that he was told that since he has diabetes he has to watch which one he uses. Please advise Patient has been identified by name and birthdate. Duration of symptoms: 3 days Person calling: self Call patient at: at home and on cell [phone] (home) [phone] (cell) Was an appointment scheduled: No Closing statement: Results or non-symptom based questions: Thank you for calling [facility], your call will be returned within the next business day. Sharon Francois Pss documented in this encounterPremier Health Atrium Medical Center06-22-2022 Instructions* Patient Instructions* Reba Costa MD - 11/25/2021 4:33 PM EDT - Increase Metformin to 2 pills twice a day - Lower the insulin to 15 units twice a day - If your blood sugar is ever below 80, please lower your insulin to 12 units twice a day and let me know - Blood tests at your convenience - We will start a cholesterol pill called Pravastatin 20 mg at bedtime documented in this encounterPremier Health Atrium Medical Center06-22-2022 History of Present illness Narrative* Reba Costa MD - 11/25/2021 4:00 PM EDT ENDOCRINOLOGY CLINIC NOTE Mr. Solis is a 50 year old male with recently diagnosed diabetes, dyslipidemia, TIA, GERD and asthma presented for post hospital follow-up. HPI He presented to the hospital in 10/2021 with chest pain. Labs on admission showed glucose 500, AG 11, bicarb 24 and GFR 588. He received IV fluids and subcutaneous insulin injection. His A1c was 10.4%and he was discharged on insulin. The plan was to do basal prandial insulin, but cost was an issue due to lack of insurance. He was discharged on insulin 70/30 and metformin He has history of prediabetes when his A1c was 6.8% in 01/2021. He is doing well since discharge. Henoticed significant improvement in his blood sugars A1c: 01/13/2021 18:55 10/26/2021 22:11 Hemoglobin A1C 6.8 (H) 10.4 (H) Current regimen: Metformin ER 500 mg twice a day Insulin 70/30 18 units twice a day Home glucose monitoring: He checks 2-3 times a day before eating AM 90-130s Before dinner 90-mid 100s Hypoglycemia: None Diet: He eats 3 main meals Physical activity: He enjoys walking daily 30 min eats Complications: Retinopathy: Nephropathy: Normal GFR in 10/2021 Neuropathy: no symptoms suggestive of that CVS: lipid profile 10/2021: Cholesterol 172, LDL - , HDL 27, TG 588, not on lipid-lowering agents BP: 122/76 PAST MEDICAL HISTORY Diagnosis Date Abdominal pain, left lower quadrant Acute gastritis without mention of hemorrhage Duodenitis without mention of hemorrhage Esophageal reflux Gastroesophageal reflux Unspecified asthma(493.90) exercise-induced PAST SURGICAL HISTORY Procedure Laterality Date APPENDECTOMY HX CHOLECYSTECTOMY HX COLONOSCOPY W/BIOPSY SINGLE/MULTIPLE 09/02/10 EGD TRANSORAL BIOPSY SINGLE/MULTIPLE 09/02/10 HERNIA REPAIR HX LAPAROSCOPY SURG CHOLECYSTECTOMY Cholecystectomy, lap RPR 1ST INGUN HRNA AGE 5 YRS/> REDUCIBLE Hernia repair, inguinal RPR 1ST INGUN HRNA AGE 5 YRS/> REDUCIBLE Hernia repair, inguinal TONSILLECTOMY HX TONSILLECTOMY PRIMARY/SECONDARY <AGE 12 Tonsillectomy FAMILY HISTORY Problem Relation Age of Onset Hypertension Mother Lipids Mother Cancer Father lung ca. Diabetes Maternal Grandmother Coronary Artery Disease Maternal Grandfather Cancer Paternal Grandfather Social History Tobacco Use Smoking status: Passive Smoke Exposure - Never Smoker Smokeless tobacco: Never Used Tobacco comment: Step-Dad Smokes Vaping Use Vaping Use: Never used Substance Use Topics Alcohol use: No Drug use: No (Not in a hospital admission) Allergies As of Date: 11/25/2021 Allergen Noted Reaction BACTRIM [SULFAMETHOXAZOLE-TRIMETH*04/12/2005 Hives HAND CREAMS [OTHER] 04/12/2005 Rash HAND SOAP [TRICLOSAN] 07/26/2012 Rash IVP DYE [IODINE] 04/12/2005 Hives SHELLFISH DERIVED 12/13/2016 Rash SULFA (SULFONAMIDE ANTIBIOTICS) 04/12/2005 Hives Fully Assessed 11/05/2021 Current Outpatient Medications Medication Sig Dispense Refill albuterol HFA (PROAIR HFA) 90 mcg/actuation inhaler Inhale 2 Puffs as instructed every 6 hours as needed for wheezing/shortness of breath. 8 g 1 metFORMIN ER (GLUCOPHAGE XR) 500 mg 24 hr tablet Take 2 tablets by mouth once daily. 60 tablet 1 Lancets lancets Use as instructed 200 Each 2 blood sugar diagnostic (RELION PRIME TEST STRIPS) test strip Use as instructed 200 Strip 2 Blood-Glucose Meter (RELION PRIME METER) 1 Each four times daily. 1 Each 0 Insulin [place], Disposable, (BD ULTRA-FINE MICRO PEN NEEDLE) 32 gauge x 1/4 1 Each four times daily. 100 Each 2 insulin 70/30 NPH/regular units/mL (HUMULIN 70/30 U-100 KWIKPEN) 100 unit/mL (70-30) Inject 18 Units subcutaneously twice daily with meals. 12 mL 2 omeprazole (PRILOSEC) 40 mg capsule Take 1 capsule by mouth once daily. 30 capsule 5 acetaminophen (TYLENOL ORAL) Take by mouth as needed. No current facility-administered medications for this visit. COMPLETE REVIEW OF SYSTEMS: 10 point review of systems was negative other than what is mentioned in the H&P PHYSICAL EXAM: 11/25/21 1606 BP: 122/76 BP Site: Left Arm BP Position: Sitting BP Cuff Size: Regular Adult Pulse: 86 SpO2: 97% Weight: 106.1 kg (233 lb 12.8 oz) Height: 175.4 cm (5' 9.06) General: NAD, alert and cooperative HEENT: EOMI, no proptosis/stare. Neck: supple with full ROM. No thyromegaly or palpable nodules Cardiovascular: RRR, +S1 and S2, no MRG appreciated Lungs: Clear to auscultation bilaterally Abdomen: soft, non-tender, non-distended Extremities: No LE oedema Neuro: No tremor of outstretched hands noted. Deep tendon reflexes are normal with a normal relaxation phase. Psych: Normal affect Foot exam: Noted dry skin and calluses. No wounds or ulcers. Weak pedal pulses bilaterally, normal monofilament and vibration sensation bilaterally Labs: 10/31/2021 16:03 Sodium 136 Potassium 4.1 Chloride 99 CO2 26 BUN 14 Creatinine 0.91 Glucose 265 (H) Protein, Total 7.3 Calcium 9.4 Albumin 4.2 Bilirubin, Total 0.7 Alkaline Phosphatase 104 ALT 32 AST 46 (H) Anion Gap 11 eGFR 103 10/27/2021 02:24 Cholesterol, Total 172 Triglyceride 588 (H) Fasting Time Unsure HDL Cholesterol 27 (L) LDL Cholesterol See comment Assessment and Recommendations: Mr. Spence is a pleasant 50-year-old man presented for post hospital follow-up of T2DM. There has been significant improvement in his glycemic control as evidenced by the self-reported glucose values. I suspect that he has adequate endogenous insulin production given that his insulin doses are below what is expected for the weight-based dose. I will check his C-peptide with random glucose level. We will increase metformin to 1000 mg twice a day, and I asked him to lower the insulin to 15 unitstwice a day. He will continue to check his blood sugar at least twice a day, and I asked him to check around noon as well few times a week. We discussed that if his glucose levels drop to below 80, to lower the insulin to 12 units twice a day and to let me know. If his C-peptide is appropriate, we will likely add a sulfonylurea and stop the insulin. His TG is elevated, and given his age and T2DM, we will start pravastatin 20 mg once a day. Mr. Solis still does not have insurance, but he stated that his tests are paid by [facility]. His preferred phone number is [phone] I spent a total of 50 minutes on the date of the service which included preparing to see the patient, [id number] patient care, completing clinical documentation, performing a medically appropriate examination, counseling and educating the patient/family/caregiver and ordering medications, tests, or procedures. Reba Costa MD documented in this encounterPremier Health [facility] Center06-02-2022 History of Present illness Narrative* Brii Stallworth APRN.MONKEY KEEPER - 11/05/2021 3:17 PM EDT ESTABLISHED PATIENT Chang Solis is a 50 year old male presenting for Follow Up (er follow up). HISTORY OF PRESENT ILLNESS Was in ER 10/31 with intermittent chest pain and hyperglycemia Blood sugars in 200's-300's troponins x2 negative No ekg changes Chest xr clear Cbc negative AST mildly elevated at 46 Was recently in hospital the week prior to that with blood sugars over 500 hgba1c 10.7 and chest pains. Newly diagnosed diabetic. Endocrine started him on 70/30 insulin 18 units BID, was instructed for close f/u with PCP and endocrine. Since ER has been seeing improved sugars at home is checking am/pm Has not experienced the intermittent chest pain Does have worries about this new diagnosis and wants to do everything he can to get off this stuff Patient does not have insurance and does not follow closely with his listed PCP Evelyn Stevens. Has not made appointment with endocrine yet. Also asking for help finding an opthalmologist Interested in nutrition counseling as well. Type 2 Diabetes Follow up: Fasting blood sugars: 140-180, evening blood sugars 170-low 200's Pre-meal blood sugars: not checking Low blood sugars: no Medication compliance: just yesterday realized he was taking the second dose of 70/30 too early in the day 4 pm changed to 8pm with evening meal and now seeing better AM sugars Diet: increasing vegetables, cutting carbs, cutting back on sugar in drinks Exercise: going to [employer], bought [employer] for at home wants to buy a treadmill Increased urination, hunger, thirst, weight changes: no Hemoglobin A1C 10.4 10/26/2021 Hemoglobin A1C 6.8 01/13/2021 Hemoglobin A1C 5.6 11/10/2013 Last 2 Encounter Wt Readings: Date: Wt: 11/05/2021 107.2 kg (236 lb 6.4 oz) 10/31/2021 104.3 kg (230 lb) Asthma well controlled- only uses albuterol rarely, would like this refilled HISTORIES FAMILY HISTORY Problem Relation Age of Onset Hypertension Mother Lipids Mother Cancer Father lung ca. Diabetes Maternal Grandmother Coronary Artery Disease Maternal Grandfather Cancer Paternal Grandfather PAST MEDICAL HISTORY Diagnosis Date Abdominal pain, left lower quadrant Acute gastritis without mention of hemorrhage Duodenitis without mention of hemorrhage Esophageal reflux Gastroesophageal reflux Unspecified asthma(493.90) exercise-induced PAST SURGICAL HISTORY Procedure Laterality Date APPENDECTOMY HX CHOLECYSTECTOMY HX COLONOSCOPY W/BIOPSY SINGLE/MULTIPLE 09/02/10 EGD TRANSORAL BIOPSY SINGLE/MULTIPLE 09/02/10 HERNIA REPAIR HX LAPAROSCOPY SURG CHOLECYSTECTOMY Cholecystectomy, lap RPR 1ST INGUN HRNA AGE 5 YRS/> REDUCIBLE Hernia repair, inguinal RPR 1ST INGUN HRNA AGE 5 YRS/> REDUCIBLE Hernia repair, inguinal TONSILLECTOMY HX TONSILLECTOMY PRIMARY/SECONDARY <AGE 12 Tonsillectomy Social History Tobacco Use Smoking status: Passive Smoke Exposure - Never Smoker Smokeless tobacco: Never Used Tobacco comment: Step-Dad Smokes Vaping Use Vaping Use: Never used Substance Use Topics Alcohol use: No Drug use: No Allergies: ALLERGIES Allergen Reactions Bactrim [Sulfametho* Hives Hand Creams [Other] Rash Hand Soap [Triclosa* Rash Ivp Dye [Iodine] Hives Shellfish Derived Rash Sulfa (Sulfonamide * Hives Medications: Lancets lancets Use as instructed blood sugar diagnostic (RELION PRIME TEST STRIPS) test strip Use as instructed Blood-Glucose Meter (RELION PRIME METER) 1 Each four times daily. Insulin [place], Disposable, (BD ULTRA-FINE MICRO PEN NEEDLE) 32 gauge x 1/4 1 Each four times daily. insulin 70/30 NPH/regular units/mL (HUMULIN 70/30 U-100 KWIKPEN) 100 unit/mL (70-30) Inject 18 Units subcutaneously twice daily with meals. omeprazole (PRILOSEC) 40 mg capsule Take 1 capsule by mouth once daily. acetaminophen (TYLENOL ORAL) Take by mouth as needed. DULoxetine (CYMBALTA) 30 mg capsule Take 2 capsules by mouth once daily. meclizine (ANTIVERT) 12.5 mg tab Take 1 tablet by mouth three times daily as needed (for dizziness). albuterol HFA (PROAIR HFA) 90 mcg/actuation inhaler Inhale 2 Puffs as instructed every 6 hours as needed for wheezing/shortness of breath. REVIEW OF SYSTEMS GENERAL: No weight loss, malaise or fevers. RESPIRATORY: Negative for cough, hemoptysis, wheezing or shortness of breath. CARDIOVASCULAR: Negative for chest pain, leg swelling or palpitations. All other systems reviewed and negative other than HPI. PHYSICAL EXAM BP 118/81 Pulse 89 Resp 16 Wt 107.2 kg (236 lb 6.4 oz) SpO2 97% BMI 33.92 kg/m General: Well developed, well nourished, in no acute distress. Head: Normocephalic, atraumatic. Neck: Supple. Eyes: Normal conjunctiva, no scleral icterus. Lungs: Clear to auscultation bilaterally, no rubs, no wheezing. Cardiac: Regular rate and rhythm. No murmurs, gallops, or rubs. Extremities: No edema. ASSESSMENT: (Z09) Follow-up exam (primary encounter diagnosis) (E11.9, Z79.4) Type 2 diabetes mellitus without complication, with long-term current use of insulin([facility]) (J45.20) Mild intermittent asthma, uncomplicated PLAN: -needs new PCP, patient says he cannot understand his current one and the location is not ideal. Will ask supervisor front to assist and make appt -to make nutrition appt as well as opthalmology and endocrine -continue insulin at current dose, has only been on this dose for about a week, also added metformin BID, reviewed possible adverse effects -will need follow up labs in a couple months -discussed in length the importance of regular follow up to adequately treat and prevent diabetes complications. Pt. Verbalized understanding. Pt very motivated to make life changes and come off the insulin. -Warning signs and symptoms to seek treatment for discussed. -albuterol refilled, asthma well controlled Brii Stallworth APRN.[facility] * Angeli Montanez MA - 11/05/2021 3:09 PM EDT PNEUMOCOCCAL(1 - PCV) Never done URINE ALBUMIN:CREATININE RATIO Never done DILATED RETINAL EXAM Never done DIABETIC FOOT EXAM Never done DTAP,TDAP,TD(1 - Tdap) Never done HEPATITIS B(1 of 3 - Risk 3-dose series) Never done COLORECTAL CANCER SCREENING due on 02/27/2019 DEPRESSION SCREENING due on 07/31/2019 SHINGRIX VACCINE(2 of 2) due on 03/10/2021 documented in this encounterPrem[facility]-28-[facility]22 Miscellaneous Notes* Telephone Encounter - Beverly Quijano LPN - 10/31/2021 11:48 AM EDT Pt calling to report his bowels did move last night.(see other encounter) He was asking what he could take so it didn't happen again. Reviewed that OTC stool softeners dailyor very other day could be helpful. He inquired about citrate magnesium. Review this is more for constipation with no bowel movement for several days. He has a hospital follow up with [facility] 11/04/21. He will review more at this appt. He also had questions about his medicines prescribed. He was informed to take medicine as instructed at discharge. He also had questions of diet. Review this could also be reviewed at 11/04/21 appt. documented in this encounterPrem[facility]05-27-2022 Miscellaneous Notes* Telephone Encounter - Marie Sen RN - 10/30/2021 5:32 PM EDT Reason for Call:Constipation Outcome:Home care advice given and will call office in am for questions about use of stool softner or laxative. To AC to schedule hospital follow-up appointment. Reason for Disposition MILD constipation Answer Assessment - Initial Assessment Questions 1. STOOL PATTERN OR FREQUENCY: 4 times a week since hospitalization this week is only going small amounts daily that are hard and he has to strain to go. 2. STRAINING: yes 3. RECTAL PAIN: has hemorrhoids but denies rectal pain 4. STOOL COMPOSITION: hard silver dollar size brown stools 5. BLOOD ON STOOLS: small amount of blood from hemorrhoid on Tuesday and reported to nurse in hospital 6. CHRONIC CONSTIPATION: denies 7. CHANGES IN DIET OR HYDRATION: yes, drinking less water, cut out sugary soda due to diabetes, drank 36 oz water today 8. MEDICATIONS: no pain medications, changed insulin 9. LAXATIVES: no 10.ACTIVITY: this week was in hospital and moving around less. Today is trying to increase activity went to workand is now headed to Gym 11. CAUSE: recent hospitalization for Diabetes 12. OTHER SYMPTOMS: denies abdominal pain and bloating, denies vomiting 13. MEDICAL HISTORY: Diabetes, hemorrhoids Protocols used: [id number] documented in this encounterPremier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 FoundNo Status Records Found INFORMATION SOURCE (unrecogn ized section and content) DATE CREATED AUTHOR 06/27/2024 [facility] DATE CREATED AUTHOR AUTHOR'S ORGANIZ ATION 08/06/2024 [facility] DATE CREATED AUTHOR AUTHOR'S ORGANIZ ATION 11/06/2024 [facility] FOR RECORDS PERTAINING TO PATIENTS WHO ARE OR HAVE BEEN ENROLLED IN A CHEMICAL DEPENDENCY/SUBSTANCEABUSE PROGRAM, SOME INFORMATION MAY BE OMITTED. This clinical summary was aggregated from multiple sources. Caution should be exercised in using it in the provision of clinical care. This summary normalizes information from multiple sources, and as a consequence, information in this document may materially change the coding, format and clinical context of patient data. In addition, data may be omitted in some cases. CLINICAL DECISIONS SHOULD BE BASED ON THE PRIMARY CLINICAL RECORDS. [employer] [facility]. provides no warranty or guarantee of the accuracy or completeness of information in this document.
[2024-11-18 13:24] LABS: Anion Gap 13 (5-15); BUN 10 mg/dL (4-19); BUN/Creat Ratio 9.3 RATIO (10-20); Chloride 102 mmol/L (98-108); Creatinine, Serum 1.03 mg/dL (0.70-1.20); EST Glomerular Filtration Rate 87 (>60); Glucose 166 mg/dL (70-99); Potassium 4.2 mmol/L (3.3-5.1); Sodium Level 135 mmol/L (133-145)
[2024-11-18 14:01] LABS: Troponin T High Sensitivity 9 ng/L (<=22)
[2024-11-18 14:03] VITALS: BP 150/90; PULSE 95; RESP 16; O2SAT 100
[2024-11-18 14:44] LABS: Troponin T High Sens 2 HR 8 ng/L (<=22)
[2024-11-18 15:40] VITALS: BP 148/72; PULSE 78; RESP 16; TEMP 36.6; O2SAT 98
== END 2024-11-18 15:41 | disposition home or self-care (01) ==
PROVIDERS: Emergency Provider Emergency Medicine; PCP Nurse Practitioner Family; Visit Provider Emergency Medicine
DX: J06.9 Acute upper respiratory infection, unspecified (principal); R07.9 Chest pain, unspecified
CPT/HCPCS: 71046; 80048; 84484; 85025; 93005; 96360; 99283; A4216